=== PATIENT | female | born 1930 | race Asian ===

== ENCOUNTER 2017-04-06 21:29 | Inpatient (IN) | payer MEDICARE, MEDICAID ==
--- NOTE | 2017-04-06 21:49 | ED Physician Chart ---
ED Chief Complaint/HPI - Patient Information Date Seen:: 04/06/17 Time Seen:: 21:49 Chief Complaint:: Anemia Allergies:: Allergies Allergy/AdvReac Type Severity Reaction Status Date / Time No Known Allergies Allergy Verified 04/06/17 21:33 Vitals:: Vital Signs - 8 hr 04/06/17 21:30 Temp 97.5 F HR 64 RR 16 BP 146/66 O2 Sat % 98 ED Past Medical History - Past Medical History Past Medical History: HTN, Asthma/COPD, Dyslipidemia, Other (HYPERTENSION, ASTHMA, HYPERLIPIDEMIA, GAIT ABNORMALITY, HYPOTHYROIDISM) Family Medical History - Family Member Father History Unknown: Yes ED Septic Shock - <6hrs of presentation: Vital Signs: Vital Signs - 8 hr 04/06/17 21:30 Temp 97.5 F HR 64 RR 16 BP 146/66 O2 Sat % 98
[2017-04-06 21:57] LABS: % BASOPHILS 0.9 % (0.0-2.0); % EOSINOPHILS 5.6 % (0.0-5.0); % LYMPHOCYTES 47.7 % (20.0-50.0); % MONOCYTES 9.5 % (2.0-10.0); % NEUTROPHILS 36.3 % (40.0-80.0); EOSINOPHILE ABSOLUTE 0.2 Th/cmm (0.1-0.4); HEMATOCRIT 24.7 % (41.0-60); HEMOGLOBIN 8.3 gm/dL (12-16); LYMPHOCYTE ABSOLUTE 1.8 Th/cmm (1.5-3.0); MEAN CELL VOLUME 96.6 fl (81-100); MEAN CORPUSCULAR HEMOGLOBIN 32.4 pg (27.0-31.0); MEAN CORPUSCULAR HGB CONC 33.6 pg (28.0-36.0); MEAN PLATELET VOLUME 8.8 fl; MONOCYTE ABSOLUTE 0.4 Th/cmm (0.3-1.0); NEUTROPHILE ABSOLUTE 1.4 Th/cmm (1.8-8.0); PLATELET COUNT 235 Th/cmm (150-400); RED BLOOD COUNT 2.56 Mil/cmm (3.80-5.20); RED CELL DISTRIBUTION WIDTH 23.8 % (11.5-20.0)
[2017-04-06 22:02] LABS: WHITE BLOOD COUNT 3.8 Th/cmm (4.8-10.8)
[2017-04-06 22:16] LABS: ALB/GLOB RATIO 1.6 (1.0-1.8); ALBUMIN 4.4 gm/dL (3.7-5.3); ALKALINE PHOSPHATASE 70 U/L (34-104); ANION GAP 9.9 (7.0-16.0); BILIRUBIN,TOTAL 0.9 mg/dL (0.3-1.0); BUN - UREA NITROGEN 36 mg/dL (7-25); CALCIUM SERUM 9.8 mg/dL (8.6-10.3); CARBON DIOXIDE 26.5 mEq/L (21.0-31.0); CHLORIDE 103 mEq/L (98-107); CREATININE - SERUM 1.2 mg/dL (0.6-1.2); GLUCOSE 112 mg/dL (70-105); POTASSIUM SERUM 4.4 mEq/L (3.5-5.1); SGOT 39 U/L (13-39); SGPT/ALT 51 U/L (7-52); SODIUM SERUM 135 mEq/L (136-145); TOTAL PROTEIN,SERUM 7.2 gm/dL (6.0-8.3)
[2017-04-06] MEDS ORDERED: Sodium Chloride 0.9% 1,000 ML IV ONE (22:47)
[2017-04-07] MEDS: Sodium Chloride 0.45% 1,000 ML IV SCH ×3 (00:23→19:30)
[2017-04-07 00:25] VITALS: BP 120/41
[2017-04-07 06:15] LABS: BASOPHILE ABSOLUTE 0.3 Th/cumm (0-0.2); EOSINOPHILE ABSOLUTE 0.2 Th/cmm (0.1-0.4); HEMATOCRIT 23.1 % (41.0-60); LYMPHOCYTE ABSOLUTE 1.9 Th/cmm (1.5-3.0); MEAN CELL VOLUME 97.4 fl (81-100); MEAN CORPUSCULAR HEMOGLOBIN 32.3 pg (27.0-31.0); MEAN CORPUSCULAR HGB CONC 33.1 pg (28.0-36.0); MEAN PLATELET VOLUME 9.4 fl; MONOCYTE ABSOLUTE 0.2 Th/cmm (0.3-1.0); NEUTROPHILE ABSOLUTE 0.5 Th/cmm (1.8-8.0); RED BLOOD COUNT 2.37 Mil/cmm (3.80-5.20); RED CELL DISTRIBUTION WIDTH 23.2 % (11.5-20.0)
[2017-04-07 06:41] LABS: BUN - UREA NITROGEN 28 mg/dL (7-25); CALCIUM SERUM 9.2 mg/dL (8.6-10.3); CARBON DIOXIDE 27.8 mEq/L (21.0-31.0); CHLORIDE 110 mEq/L (98-107); CHOLESTEROL 84 mg/dL (<200); CREATININE - SERUM 1.1 mg/dL (0.6-1.2); GLUCOSE 94 mg/dL (70-105); HDL -HIGH DENSITY LIPOPROTEIN 42 mg/dL (23-92); POTASSIUM SERUM 3.8 mEq/L (3.5-5.1); SODIUM SERUM 138 mEq/L (136-145); TRIGLYCERIDES 61 mg/dL (<150)
[2017-04-07 07:47] LABS: WHITE BLOOD COUNT 3.1 Th/cmm (4.8-10.8)
[2017-04-07 07:48] LABS: PLATELET COUNT 79 Th/cmm (150-400)
[2017-04-07 10:42] LABS: URINE MICROSCOPIC INDICATED? YES; URINE SOURCE RANDOM
[2017-04-07 11:07] LABS: URINE BILIRUBIN NEGATIVE (NEGATIVE); URINE BLOOD NEGATIVE (NEGATIVE); URINE GLUCOSE (UA) NEGATIVE (NEGATIVE); URINE KETONE NEGATIVE (NEGATIVE); URINE LEUKOCYTE ESTERASE NEGATIVE (NEGATIVE); URINE NITRATE NEGATIVE (NEGATIVE); URINE PH 5.5 (4.6 - 8.0); URINE PROTEIN NEGATIVE (NEGATIVE); URINE UROBILINOGEN 0.2 E.U./dL (0.2 - 1.0)
[2017-04-07 11:54] LABS: URINE CLARITY HAZY (CLEAR); URINE COLOR YELLOW
[2017-04-07 12:37] LABS: URINE BACTERIA OCCASIONAL /hpf (NONE SEEN); URINE EPITHELIAL CELLS F /lpf (FEW); URINE RBC 0-2 /hpf (0-5); URINE WBC 0-2 /hpf (0-5)
[2017-04-07] MEDS ORDERED: Acetaminophen 500 MG TAB PO PRN (13:32)
[2017-04-07] MEDS ORDERED: Magnesium Hydroxide (MOM) 30 mL UDC PO PRN (13:32)
[2017-04-07] MEDS ORDERED: Fleet Enema 135 mL RC PRN (13:32)
--- NOTE | 2017-04-07 16:09 | Consultation ---
DATE OF CONSULTATION: 04/07/2017 REFERRING PHYSICIAN: Dr. López. REASON FOR CONSULTATION: Pancytopenia. HISTORY OF PRESENT ILLNESS: The patient is an 87-year-old female who is a resident of the nursing facility. She had blood count on 04/06/2017, showing white count 3.3, hemoglobin 6.7 and platelets 185, MCV 97.6. She was transferred for further evaluation. Then absolute neutrophil count is 1100. Repeat blood testing on admission showed a white count 3.8, hemoglobin 8.3 and then the hemoglobin dropped to 7.7 and platelets dropped to 79 from today, therefore, I was asked to evaluate. PAST MEDICAL HISTORY: History is gathered from the records as the patient is not a good historian. She had a history of hypertension, asthma, dyslipidemia, and hypothyroidism. MEDICATIONS: Prior to admission were viewed including Lipitor, metoprolol, milk of magnesia, multivitamin, Pepcid, Singulair, Synthroid, Tylenol, vitamin B6. PHYSICAL EXAMINATION: GENERAL: She is awake, not in distress. VITAL SIGNS: Temp 97.1, blood pressure 146/51. HEENT: Atraumatic. NECK: No lymphadenopathy. CHEST: Sternotomy scar. LUNGS: Clear. ABDOMEN: Soft. No organomegaly. EXTREMITIES: No edema. NERVOUS SYSTEM: No focal deficits, moves four extremities. LABORATORY DATA: White count 3.1, hemoglobin 7.7, MCV 97.4, platelets 79. Chemistry unremarkable with normal liver functions. No imaging study is available. ASSESSMENT: Pancytopenia with elevated MCV. Differential diagnosis include myelodysplastic syndrome, B12 or folate deficiency or other etiologies. I will obtain B12 and folate level, abdominal ultrasound, stool occult blood and if all the workup is negative, then bone marrow biopsy will be considered for a myelodysplastic syndrome. Thank you Dr. López for the opportunity to participate in the care of this interesting case. [facility]# [id number]
--- NOTE | 2017-04-08 00:08 | History & Physical ---
ADMIT DATE: 04/07/2017 HISTORY OF PRESENT ILLNESS: The patient is known to have history of hypertension, history of asthma, history of hyperlipidemia, and history of gait disorder and the patient was seen because of the severe anemia and thrombocytopenia and the patient was seen in the ER ____. PHYSICAL EXAMINATION: VITAL SIGNS: Stable. Temperature 97.5, heart rate 64, blood pressure ____. HEAD: Normal. ENT: Normal. NECK: Supple, nontender. LUNGS: Clear. CARDIOVASCULAR SYSTEM: S1 and S2 heard. ABDOMEN: Soft. Bowel sounds are heard. CENTRAL NERVOUS SYSTEM: Grossly normal. LABORATORY DATA: The patient is an 87-year-old female patient. Her platelets were 185, MCV was 97.6, her white count was 3.6, and hemoglobin 8.3. DIAGNOSIS: The patient does have pancytopenia with elevated mean red blood cell volume. PLAN: The patient is going to be worked up for myelodysplastic syndrome and I will have Dr. Harris see the patient. I will follow the patient. JOB# [id number]
[2017-04-08] MEDS: Sodium Chloride 0.45% 1,000 ML IV SCH ×2 (03:20→12:56)
--- NOTE | 2017-04-08 04:00 | Consultation ---
DATE OF CONSULTATION: 04/07/2017 INFECTIOUS DISEASE CONSULTATION REFERRING PHYSICIAN: Adriana López M.D. REASON FOR CONSULTATION: Thrombocytopenia. HISTORY OF PRESENT ILLNESS: The patient is an 87-year-old female with a past medical history of hypertension, asthma, dyslipidemia, hypothyroidism, dementia, brought in from nursing facility for low hemoglobin. Her hemoglobin was 6.7. On initial evaluation, the patient was afebrile and repeat blood work showed acute hemoglobin of 8.3. Her platelets was also on the low side. Initial blood work showed normal platelets of 235,000. Repeat blood work showed platelets of 79,000. Infectious Disease consultation was called for further evaluation. The patient unable to give any history. PAST MEDICAL HISTORY: Includes hypertension, asthma, COPD, diabetes mellitus type 2. SOCIAL HISTORY: The patient denies alcohol, tobacco or drug use. FAMILY HISTORY: Noncontributory. ALLERGIES: NKDA. MEDICATIONS: As per medication reconciliation sheet. No antibiotic at this time. REVIEW OF SYSTEMS: The patient is a poor historian, unable to give an appropriate history. The patient has no fever, no cough, no shortness of breath. PHYSICAL EXAMINATION: VITAL SIGNS: Current vital signs shows temperature is 98.7, pulse 66, respirations 20, blood pressure 114/51. GENERAL: The patient is comfortable lying in the bed, not in acute distress. HEENT: Head is normocephalic, atraumatic. Oral cavity moist, pink tongue. Eyes: No pallor, no icterus. Pupils PERRLA, EOMI. NECK: Supple, no JVD, no carotid bruit. Trachea in midline. CHEST: Bilateral breath sounds. No crackles or wheezing. HEART: S1, S2 within normal limit. Regular rhythm. No murmur, no gallop. ABDOMEN: Soft, nontender, nondistended. Bowel sounds present. EXTREMITIES: No cyanosis, no clubbing, no edema. NEUROLOGIC: Alert, awake, oriented x 3. No focal deficits. LABORATORY DATA: Current lab shows WBC count is 3100, hemoglobin 7.7, hematocrit 23, platelets are 79,000. Sodium is 138, potassium 3.8, chloride 110, bicarbonate is 27.8, BUN is 28, creatinine 1.1, glucose is 94. Urinalysis shows negative nitrite, negative leukoesterase. Wbc's 0-2 and bacteria occasional. Stool for occult blood is negative. IMPRESSION: 1. Pancytopenia. 2. History of hypertension. 3. Dementia. RECOMMENDATIONS: We will continue same treatment. Meanwhile we will order hepatitis panel, HIV serology and ultrasound of the abdomen. Thank you, Dr. López, for involving me in taking care of this patient. [facility]# [id number]
[2017-04-08 05:14] LABS: HEMATOCRIT 21.9 % (41.0-60); MEAN CELL VOLUME 96.4 fl (81-100); MEAN CORPUSCULAR HEMOGLOBIN 32.8 pg (27.0-31.0); MEAN PLATELET VOLUME 8.7 fl; RED BLOOD COUNT 2.27 Mil/cmm (3.80-5.20)
[2017-04-08 05:19] LABS: WHITE BLOOD COUNT 3.9 Th/cmm (4.8-10.8)
[2017-04-08 05:20] LABS: HEMOGLOBIN 7.5 gm/dL (12-16); MANUAL DIFF REQUIRED? YES; PLATELET COUNT 233 Th/cmm (150-400)
[2017-04-08 05:50] LABS: BAND NEUTROPHILE 4 % (0-10); LYMPHOCYTE 34 % (20-50); MONOCYTE 4 % (2-10); NEUTROPHILS 58 % (40-80); PLATELET ESTIMATE ADEQUATE (NORMAL); TOTAL CELLS COUNTED 100
[2017-04-08 05:51] LABS: HYPOCHROMIA 1+; POLYCHROMASIA 1+; SCHISTOCYTES 1+
[2017-04-08] MEDS: Levothyroxine 0.112 Mg Tab PO SCH (06:35)
[2017-04-08 08:10] LABS: HEP A AB IGM Negative (Negative); HEP B CORE IGM Negative (Negative); HEP B SURFACE AG QL Negative (Negative); HEP C ANTIBODY <0.1 s/co ratio (0.0-0.9)
[2017-04-08] MEDS: Multivitamin w/ Minerals Tab PO SCH (09:04)
--- NOTE | 2017-04-08 10:01 | General Progress Note ---
Subjective - Review of Systems Events since last encounter: patient in no acute distress Objective - Results Result Diagrams: 04/08/17 04:46 04/07/17 06:01 Recent Labs: Laboratory Last Values WBC 3.9 Th/cmm (4.8-10.8) L D 04/08/17 04:46 RBC 2.27 Mil/cmm (3.80-5.20) L 04/08/17 04:46 Hgb 7.5 gm/dL (12-16) L* 04/08/17 04:46 Hct 21.9 % (41.0-60) L 04/08/17 04:46 MCV 96.4 fl (81-100) 04/08/17 04:46 MCH 32.8 pg (27.0-31.0) H 04/08/17 04:46 MCHC Differential 34.0 pg (28.0-36.0) 04/08/17 04:46 RDW 24.0 % (11.5-20.0) H 04/08/17 04:46 Plt Count 233 Th/cmm (150-400) D 04/08/17 04:46 MPV 8.7 fl 04/08/17 04:46 Neutrophils % 36.3 % (40.0-80.0) L 04/06/17 21:50 Band Neutrophils % 4 % (0-10) 04/08/17 04:46 Lymphocytes % 47.7 % (20.0-50.0) 04/06/17 21:50 Monocytes % 9.5 % (2.0-10.0) 04/06/17 21:50 Eosinophils % 5.6 % (0.0-5.0) H 04/06/17 21:50 Basophils % 0.9 % (0.0-2.0) 04/06/17 21:50 Neutrophils (Manual) 58 % (40-80) 04/08/17 04:46 Lymphocytes 34 % (20-50) 04/08/17 04:46 Monocytes 4 % (2-10) 04/08/17 04:46 Hypochromia 1+ 04/08/17 04:46 Platelet Estimate ADEQUATE (NORMAL) 04/08/17 04:46 Polychromasia 1+ 04/08/17 04:46 Schistocytes 1+ 04/08/17 04:46 Sodium 138 mEq/L (136-145) 04/07/17 06:01 Potassium 3.8 mEq/L (3.5-5.1) 04/07/17 06:01 Chloride 110 mEq/L (98-107) H 04/07/17 06:01 Carbon Dioxide 27.8 mEq/L (21.0-31.0) 04/07/17 06:01 Anion Gap 4.0 (7.0-16.0) L 04/07/17 06:01 BUN 28 mg/dL (7-25) H 04/07/17 06:01 Creatinine 1.1 mg/dL (0.6-1.2) 04/07/17 06:01 Est GFR ( Amer) TNP 04/07/17 06:01 Est GFR (Non-Af Amer) TNP 04/07/17 06:01 BUN/Creatinine Ratio 25.5 04/07/17 06:01 Glucose 94 mg/dL (70-105) 04/07/17 06:01 Whole Bld Lactic Acid 0.63 mmol/L (0.60-1.99) 04/06/17 21:50 Calcium 9.2 mg/dL (8.6-10.3) 04/07/17 06:01 Total Bilirubin 0.9 mg/dL (0.3-1.0) 04/06/17 21:50 AST 39 U/L (13-39) 04/06/17 21:50 ALT 51 U/L (7-52) 04/06/17 21:50 Alkaline Phosphatase 70 U/L (34-104) 04/06/17 21:50 Total Protein 7.2 gm/dL (6.0-8.3) 04/06/17 21:50 Albumin 4.4 gm/dL (3.7-5.3) 04/06/17 21:50 Globulin 2.8 gm/dL 04/06/17 21:50 Albumin/Globulin Ratio 1.6 (1.0-1.8) 04/06/17 21:50 Triglycerides 61 mg/dL (<150) 04/07/17 06:01 Cholesterol 84 mg/dL (<200) 04/07/17 06:01 LDL Cholesterol Direct 32 mg/dL (75-193) L 04/07/17 06:01 HDL Cholesterol 42 mg/dL (23-92) 04/07/17 06:01 TSH 0.01 uIU/ml (0.34-5.60) L 04/06/17 21:50 Urine Source RANDOM 04/07/17 10:20 Urine Color YELLOW 04/07/17 10:20 Urine Clarity HAZY (CLEAR) 04/07/17 10:20 Urine pH 5.5 (4.6 - 8.0) 04/07/17 10:20 Ur Specific [place] 1.010 (1.005-1.030) 04/07/17 10:20 Urine Protein NEGATIVE mg/dL (NEGATIVE) 04/07/17 10:20 Urine Glucose (UA) NEGATIVE mg/dL (NEGATIVE) 04/07/17 10:20 Urine Ketones NEGATIVE mg/dL (NEGATIVE) 04/07/17 10:20 Urine Blood NEGATIVE (NEGATIVE) 04/07/17 10:20 Urine Nitrate NEGATIVE (NEGATIVE) 04/07/17 10:20 Urine Bilirubin NEGATIVE (NEGATIVE) 04/07/17 10:20 Urine Urobilinogen 0.2 E.U./dL (0.2 - 1.0) 04/07/17 10:20 Ur Leukocyte Esterase NEGATIVE (NEGATIVE) 04/07/17 10:20 Urine RBC 0-2 /hpf (0-5) 04/07/17 10:20 Urine WBC 0-2 /hpf (0-5) 04/07/17 10:20 Ur Epithelial Cells F /lpf (FEW) 04/07/17 10:20 Urine Bacteria OCCASIONAL /hpf (NONE SEEN) 04/07/17 10:20 Stool Occult Blood NEGATIVE (NEGATIVE) 04/07/17 22:58 Hepatitis A IgM Ab Negative (Negative) 04/07/17 06:01 Hep Bs Antigen Negative (Negative) 04/07/17 06:01 Hep B Core IgM Ab Negative (Negative) 04/07/17 06:01 Hepatitis C Antibody <0.1 s/co ratio (0.0-0.9) 04/07/17 06:01 - Physical Exam Vitals and I&O: Vital Signs Temp 97.7 F 04/08/17 07:46 Pulse 65 04/08/17 09:04 Resp 17 04/08/17 08:00 BP 120/46 04/08/17 09:04 Pulse Ox 100 04/08/17 07:46 Intake & Output 04/07/17 04/08/17 04/08/17 18:59 06:59 18:59 Intake Total 1999 1329.167 Balance 1999 1329.167 Weight (lbs) 43.454 kg Intake: Intake, IV Amount 1999 979.167 Sodium Chloride 0.45% 1, 1999 979.167 000 ml @ 125 mls/hr IV . Q8H [facility] Rx#:[id number] Oral 350 Other: # Voids 2 # Bowel Movements 1 Stool Characteristics Soft Formed Active Medications: Current Medications Acetaminophen (Tylenol) 650 mg PO Q4HR PRN PRN Reason: Mild Pain or Fever >101 Stop: 06/06/17 13:31 Acetaminophen (Tylenol Extra Strength) 1,000 mg PO Q4HR PRN PRN Reason: Pain (Moderate) Stop: 06/06/17 13:31 Atorvastatin Calcium (Lipitor) 40 mg PO HS [facility] Stop: 06/06/17 20:59 Last Admin: 04/07/17 20:20 Dose: 40 mg Bisacodyl (Dulcolax 10 Mg Supp) 10 mg RC DAILY PRN PRN Reason: Constipation Stop: 06/06/17 13:31 Docusate Sodium (Colace) 100 mg PO DAILY [facility] Stop: 06/07/17 08:59 Last Admin: 04/08/17 08:59 Dose: 100 mg Famotidine (Pepcid) 20 mg PO DAILY [facility] Stop: 06/07/17 08:59 Last Admin: 04/08/17 09:02 Dose: 20 mg Folic Acid (Folate) 1 mg PO DAILY [facility] Stop: 06/07/17 08:59 Last Admin: 04/08/17 09:02 Dose: 1 mg Sodium Chloride (Nacl 0.45%) 1,000 mls @ 125 mls/hr IV .Q8H [facility] Stop: 06/05/17 23:14 Last Admin: 04/08/17 03:20 Dose: 125 mls/hr Isosorbide Dinitrate (Isordil) 5 mg PO TID [facility] Stop: 06/06/17 13:59 Last Admin: 04/08/17 09:03 Dose: 5 mg Levothyroxine Sodium (Synthroid) 0.112 mg PO QDAC [facility] Stop: 06/07/17 07:29 Last Admin: 04/08/17 06:35 Dose: Not Given Magnesium Hydroxide (Milk Of Magnesia) 30 ml PO HS PRN PRN Reason: Constipation Stop: 06/06/17 13:31 Last Admin: 04/07/17 21:13 Dose: 30 ml Metoprolol Succinate (Toprol Xl) 50 mg PO DAILY [facility] Stop: 06/07/17 08:59 Last Admin: 04/08/17 09:04 Dose: 50 mg Montelukast Sodium (Singulair) 10 mg PO HS [facility] Stop: 06/06/17 20:59 Last Admin: 04/07/17 20:20 Dose: 10 mg Pyridoxine HCl (Vitamin B6) 50 mg PO DAILY [facility] Stop: 06/07/17 08:59 Last Admin: 04/08/17 09:04 Dose: 50 mg Sodium Phosphate (Fleet Enema) 135 ml RC Q48H PRN PRN Reason: Constipation Stop: 06/06/17 13:31
[2017-04-08 10:19] LABS: FOLIC ACID >20.0 ng/mL (>3.0)
--- NOTE | 2017-04-08 10:38 | Diagnostic Imaging Report ---
Abdominal ultrasound HISTORY: Splenomegaly The liver is normal in size with a homogeneous parenchyma. No focal lesions. There is a small amount of low-level intraluminal echoes seen within the dependent region of the gallbladder that may be associated with "sludge". No discrete foci or evidence of cholelithiasis identified. No biliary dilatation (common bile duct is 5 mm). No abnormality seen in the region of the pancreas. The kidneys appear normal bilaterally. The spleen is normal in size (8.7 cm length). No other retroperitoneal or intra-abdominal abnormalities. IMPRESSION: 1. Mild amount of low-level intraluminal echoes within the dependent region of the gallbladder suggesting "sludge". No discrete calculi are identified. 2. Normal splenic size (8.7 cm length).
--- NOTE | 2017-04-08 11:59 | General Progress Note ---
Subjective - Review of Systems Service Date: 04/08/17 Objective - Results Result Diagrams: 04/08/17 04:46 04/07/17 06:01 Recent Labs: Laboratory Last Values WBC 3.9 Th/cmm (4.8-10.8) L D 04/08/17 04:46 RBC 2.27 Mil/cmm (3.80-5.20) L 04/08/17 04:46 Hgb 7.5 gm/dL (12-16) L* 04/08/17 04:46 Hct 21.9 % (41.0-60) L 04/08/17 04:46 MCV 96.4 fl (81-100) 04/08/17 04:46 MCH 32.8 pg (27.0-31.0) H 04/08/17 04:46 MCHC Differential 34.0 pg (28.0-36.0) 04/08/17 04:46 RDW 24.0 % (11.5-20.0) H 04/08/17 04:46 Plt Count 233 Th/cmm (150-400) D 04/08/17 04:46 MPV 8.7 fl 04/08/17 04:46 Neutrophils % 36.3 % (40.0-80.0) L 04/06/17 21:50 Band Neutrophils % 4 % (0-10) 04/08/17 04:46 Lymphocytes % 47.7 % (20.0-50.0) 04/06/17 21:50 Monocytes % 9.5 % (2.0-10.0) 04/06/17 21:50 Eosinophils % 5.6 % (0.0-5.0) H 04/06/17 21:50 Basophils % 0.9 % (0.0-2.0) 04/06/17 21:50 Neutrophils (Manual) 58 % (40-80) 04/08/17 04:46 Lymphocytes 34 % (20-50) 04/08/17 04:46 Monocytes 4 % (2-10) 04/08/17 04:46 Hypochromia 1+ 04/08/17 04:46 Platelet Estimate ADEQUATE (NORMAL) 04/08/17 04:46 Polychromasia 1+ 04/08/17 04:46 Schistocytes 1+ 04/08/17 04:46 Sodium 138 mEq/L (136-145) 04/07/17 06:01 Potassium 3.8 mEq/L (3.5-5.1) 04/07/17 06:01 Chloride 110 mEq/L (98-107) H 04/07/17 06:01 Carbon Dioxide 27.8 mEq/L (21.0-31.0) 04/07/17 06:01 Anion Gap 4.0 (7.0-16.0) L 04/07/17 06:01 BUN 28 mg/dL (7-25) H 04/07/17 06:01 Creatinine 1.1 mg/dL (0.6-1.2) 04/07/17 06:01 Est GFR ( Amer) TNP 04/07/17 06:01 Est GFR (Non-Af Amer) TNP 04/07/17 06:01 BUN/Creatinine Ratio 25.5 04/07/17 06:01 Glucose 94 mg/dL (70-105) 04/07/17 06:01 Whole Bld Lactic Acid 0.63 mmol/L (0.60-1.99) 04/06/17 21:50 Calcium 9.2 mg/dL (8.6-10.3) 04/07/17 06:01 Total Bilirubin 0.9 mg/dL (0.3-1.0) 04/06/17 21:50 AST 39 U/L (13-39) 04/06/17 21:50 ALT 51 U/L (7-52) 04/06/17 21:50 Alkaline Phosphatase 70 U/L (34-104) 04/06/17 21:50 Total Protein 7.2 gm/dL (6.0-8.3) 04/06/17 21:50 Albumin 4.4 gm/dL (3.7-5.3) 04/06/17 21:50 Globulin 2.8 gm/dL 04/06/17 21:50 Albumin/Globulin Ratio 1.6 (1.0-1.8) 04/06/17 21:50 Triglycerides 61 mg/dL (<150) 04/07/17 06:01 Cholesterol 84 mg/dL (<200) 04/07/17 06:01 LDL Cholesterol Direct 32 mg/dL (75-193) L 04/07/17 06:01 HDL Cholesterol 42 mg/dL (23-92) 04/07/17 06:01 Vitamin B12 1039 pg/mL (232-1245) 04/07/17 06:01 Folic Acid >20.0 ng/mL (>3.0) 04/07/17 06:01 TSH 0.01 uIU/ml (0.34-5.60) L 04/06/17 21:50 Urine Source RANDOM 04/07/17 10:20 Urine Color YELLOW 04/07/17 10:20 Urine Clarity HAZY (CLEAR) 04/07/17 10:20 Urine pH 5.5 (4.6 - 8.0) 04/07/17 10:20 Ur Specific [place] 1.010 (1.005-1.030) 04/07/17 10:20 Urine Protein NEGATIVE mg/dL (NEGATIVE) 04/07/17 10:20 Urine Glucose (UA) NEGATIVE mg/dL (NEGATIVE) 04/07/17 10:20 Urine Ketones NEGATIVE mg/dL (NEGATIVE) 04/07/17 10:20 Urine Blood NEGATIVE (NEGATIVE) 04/07/17 10:20 Urine Nitrate NEGATIVE (NEGATIVE) 04/07/17 10:20 Urine Bilirubin NEGATIVE (NEGATIVE) 04/07/17 10:20 Urine Urobilinogen 0.2 E.U./dL (0.2 - 1.0) 04/07/17 10:20 Ur Leukocyte Esterase NEGATIVE (NEGATIVE) 04/07/17 10:20 Urine RBC 0-2 /hpf (0-5) 04/07/17 10:20 Urine WBC 0-2 /hpf (0-5) 04/07/17 10:20 Ur Epithelial Cells F /lpf (FEW) 04/07/17 10:20 Urine Bacteria OCCASIONAL /hpf (NONE SEEN) 04/07/17 10:20 Stool Occult Blood NEGATIVE (NEGATIVE) 04/07/17 22:58 Hepatitis A IgM Ab Negative (Negative) 04/07/17 06:01 Hep Bs Antigen Negative (Negative) 04/07/17 06:01 Hep B Core IgM Ab Negative (Negative) 04/07/17 06:01 Hepatitis C Antibody <0.1 s/co ratio (0.0-0.9) 04/07/17 06:01 HIV 1&2 Antibody Screen Non Reactive (Non Reactive) 04/07/17 06:01 - Physical Exam Vitals and I&O: Vital Signs Temp 97.7 F 04/08/17 07:46 Pulse 65 04/08/17 09:04 Resp 17 04/08/17 08:00 BP 120/46 04/08/17 09:04 Pulse Ox 100 04/08/17 07:46 Intake & Output 04/07/17 04/08/17 04/08/17 18:59 06:59 18:59 Intake Total 1999 1329.167 Balance 1999 1329.167 Weight (lbs) 43.454 kg Intake: Intake, IV Amount 1999 979.167 Sodium Chloride 0.45% 1999 979.167 000 ml @ 125 mls/hr IV . Q8H [facility] Rx#:[id number] Oral 350 Other: # Voids 2 # Bowel Movements 1 Stool Characteristics Soft Formed Active Medications: Current Medications Acetaminophen (Tylenol) 650 mg PO Q4HR PRN PRN Reason: Mild Pain or Fever >101 Stop: 06/06/17 13:31 Acetaminophen (Tylenol Extra Strength) 1,000 mg PO Q4HR PRN PRN Reason: Pain (Moderate) Stop: 06/06/17 13:31 Atorvastatin Calcium (Lipitor) 40 mg PO HS [facility] Stop: 06/06/17 20:59 Last Admin: 04/07/17 20:20 Dose: 40 mg Bisacodyl (Dulcolax 10 Mg Supp) 10 mg RC DAILY PRN PRN Reason: Constipation Stop: 06/06/17 13:31 Docusate Sodium (Colace) 100 mg PO DAILY [facility] Stop: 06/07/17 08:59 Last Admin: 04/08/17 08:59 Dose: 100 mg Famotidine (Pepcid) 20 mg PO DAILY [facility] Stop: 06/07/17 08:59 Last Admin: 04/08/17 09:02 Dose: 20 mg Folic Acid (Folate) 1 mg PO DAILY [facility] Stop: 06/07/17 08:59 Last Admin: 04/08/17 09:02 Dose: 1 mg Sodium Chloride (Nacl 0.45%) 1,000 mls @ 125 mls/hr IV .Q8H [facility] Stop: 06/05/17 23:14 Last Admin: 04/08/17 03:20 Dose: 125 mls/hr Isosorbide Dinitrate (Isordil) 5 mg PO TID [facility] Stop: 06/06/17 13:59 Last Admin: 04/08/17 09:03 Dose: 5 mg Levothyroxine Sodium (Synthroid) 0.112 mg PO QDAC [facility] Stop: 06/07/17 07:29 Last Admin: 04/08/17 06:35 Dose: Not Given Magnesium Hydroxide (Milk Of Magnesia) 30 ml PO HS PRN PRN Reason: Constipation Stop: 06/06/17 13:31 Last Admin: 04/07/17 21:13 Dose: 30 ml Metoprolol Succinate (Toprol Xl) 50 mg PO DAILY [facility] Stop: 06/07/17 08:59 Last Admin: 04/08/17 09:04 Dose: 50 mg Montelukast Sodium (Singulair) 10 mg PO HS [facility] Stop: 06/06/17 20:59 Last Admin: 04/07/17 20:20 Dose: 10 mg Pyridoxine HCl (Vitamin B6) 50 mg PO DAILY [facility] Stop: 06/07/17 08:59 Last Admin: 04/08/17 09:04 Dose: 50 mg Sodium Phosphate (Fleet Enema) 135 ml RC Q48H PRN PRN Reason: Constipation Stop: 06/06/17 13:31 Assessment/Plan - Assessment Assessment: * Pancytopenia US normal spleen size, normal b12, folic acid hgb is falling; follow stool occult blood. tx PRBCs
[2017-04-08 12:50] LABS: % BASOPHILS 0.4 % (0.0-2.0); % EOSINOPHILS 4.8 % (0.0-5.0); % MONOCYTES 7.4 % (2.0-10.0); % NEUTROPHILS 46.4 % (40.0-80.0); EOSINOPHILE ABSOLUTE 0.2 Th/cmm (0.1-0.4); HEMATOCRIT 21.9 % (41.0-60); LYMPHOCYTE ABSOLUTE 1.4 Th/cmm (1.5-3.0); MEAN CELL VOLUME 96.8 fl (81-100); MEAN CORPUSCULAR HEMOGLOBIN 32.6 pg (27.0-31.0); MEAN CORPUSCULAR HGB CONC 33.7 pg (28.0-36.0); MEAN PLATELET VOLUME 8.2 fl; MONOCYTE ABSOLUTE 0.3 Th/cmm (0.3-1.0); NEUTROPHILE ABSOLUTE 1.6 Th/cmm (1.8-8.0); PLATELET COUNT 235 Th/cmm (150-400); RED BLOOD COUNT 2.27 Mil/cmm (3.80-5.20); RED CELL DISTRIBUTION WIDTH 23.7 % (11.5-20.0)
[2017-04-08 13:07] LABS: HEMOGLOBIN 7.4 gm/dL (12-16); WHITE BLOOD COUNT 3.5 Th/cmm (4.8-10.8)
--- NOTE | 2017-04-08 23:59 | Infectious Disease Prog Note ---
Infectious Disease Subjective - Review of Systems Service Date: 04/08/17 Subjective: no fever. Infectious Disease Objective - Results Result Diagrams: 04/08/17 12:01 04/07/17 06:01 Recent Labs: Laboratory Last Values WBC 3.5 Th/cmm (4.8-10.8) L 04/08/17 12:01 RBC 2.27 Mil/cmm (3.80-5.20) L 04/08/17 12:01 Hgb 7.4 gm/dL (12-16) L* 04/08/17 12:01 Hct 21.9 % (41.0-60) L 04/08/17 12:01 MCV 96.8 fl (81-100) 04/08/17 12:01 MCH 32.6 pg (27.0-31.0) H 04/08/17 12:01 MCHC Differential 33.7 pg (28.0-36.0) 04/08/17 12:01 RDW 23.7 % (11.5-20.0) H 04/08/17 12:01 Plt Count 235 Th/cmm (150-400) 04/08/17 12:01 MPV 8.2 fl 04/08/17 12:01 Neutrophils % 46.4 % (40.0-80.0) 04/08/17 12:01 Band Neutrophils % 4 % (0-10) 04/08/17 04:46 Lymphocytes % 41.0 % (20.0-50.0) 04/08/17 12:01 Monocytes % 7.4 % (2.0-10.0) 04/08/17 12:01 Eosinophils % 4.8 % (0.0-5.0) 04/08/17 12:01 Basophils % 0.4 % (0.0-2.0) 04/08/17 12:01 Neutrophils (Manual) 58 % (40-80) 04/08/17 04:46 Lymphocytes 34 % (20-50) 04/08/17 04:46 Monocytes 4 % (2-10) 04/08/17 04:46 Hypochromia 1+ 04/08/17 04:46 Platelet Estimate ADEQUATE (NORMAL) 04/08/17 04:46 Polychromasia 1+ 04/08/17 04:46 Schistocytes 1+ 04/08/17 04:46 Sodium 138 mEq/L (136-145) 04/07/17 06:01 Potassium 3.8 mEq/L (3.5-5.1) 04/07/17 06:01 Chloride 110 mEq/L (98-107) H 04/07/17 06:01 Carbon Dioxide 27.8 mEq/L (21.0-31.0) 04/07/17 06:01 Anion Gap 4.0 (7.0-16.0) L 04/07/17 06:01 BUN 28 mg/dL (7-25) H 04/07/17 06:01 Creatinine 1.1 mg/dL (0.6-1.2) 04/07/17 06:01 Est GFR ( Amer) TNP 04/07/17 06:01 Est GFR (Non-Af Amer) TNP 04/07/17 06:01 BUN/Creatinine Ratio 25.5 04/07/17 06:01 Glucose 94 mg/dL (70-105) 04/07/17 06:01 Whole Bld Lactic Acid 0.63 mmol/L (0.60-1.99) 04/06/17 21:50 Calcium 9.2 mg/dL (8.6-10.3) 04/07/17 06:01 Total Bilirubin 0.9 mg/dL (0.3-1.0) 04/06/17 21:50 AST 39 U/L (13-39) 04/06/17 21:50 ALT 51 U/L (7-52) 04/06/17 21:50 Alkaline Phosphatase 70 U/L (34-104) 04/06/17 21:50 Total Protein 7.2 gm/dL (6.0-8.3) 04/06/17 21:50 Albumin 4.4 gm/dL (3.7-5.3) 04/06/17 21:50 Globulin 2.8 gm/dL 04/06/17 21:50 Albumin/Globulin Ratio 1.6 (1.0-1.8) 04/06/17 21:50 Triglycerides 61 mg/dL (<150) 04/07/17 06:01 Cholesterol 84 mg/dL (<200) 04/07/17 06:01 LDL Cholesterol Direct 32 mg/dL (75-193) L 04/07/17 06:01 HDL Cholesterol 42 mg/dL (23-92) 04/07/17 06:01 Vitamin B12 1039 pg/mL (232-1245) 04/07/17 06:01 Folic Acid >20.0 ng/mL (>3.0) 04/07/17 06:01 TSH 0.01 uIU/ml (0.34-5.60) L 04/06/17 21:50 Urine Source RANDOM 04/07/17 10:20 Urine Color YELLOW 04/07/17 10:20 Urine Clarity HAZY (CLEAR) 04/07/17 10:20 Urine pH 5.5 (4.6 - 8.0) 04/07/17 10:20 Ur Specific [place] 1.010 (1.005-1.030) 04/07/17 10:20 Urine Protein NEGATIVE mg/dL (NEGATIVE) 04/07/17 10:20 Urine Glucose (UA) NEGATIVE mg/dL (NEGATIVE) 04/07/17 10:20 Urine Ketones NEGATIVE mg/dL (NEGATIVE) 04/07/17 10:20 Urine Blood NEGATIVE (NEGATIVE) 04/07/17 10:20 Urine Nitrate NEGATIVE (NEGATIVE) 04/07/17 10:20 Urine Bilirubin NEGATIVE (NEGATIVE) 04/07/17 10:20 Urine Urobilinogen 0.2 E.U./dL (0.2 - 1.0) 04/07/17 10:20 Ur Leukocyte Esterase NEGATIVE (NEGATIVE) 04/07/17 10:20 Urine RBC 0-2 /hpf (0-5) 04/07/17 10:20 Urine WBC 0-2 /hpf (0-5) 04/07/17 10:20 Ur Epithelial Cells F /lpf (FEW) 04/07/17 10:20 Urine Bacteria OCCASIONAL /hpf (NONE SEEN) 04/07/17 10:20 Stool Occult Blood NEGATIVE (NEGATIVE) 04/08/17 21:30 Hepatitis A IgM Ab Negative (Negative) 04/07/17 06:01 Hep Bs Antigen Negative (Negative) 04/07/17 06:01 Hep B Core IgM Ab Negative (Negative) 04/07/17 06:01 Hepatitis C Antibody <0.1 s/co ratio (0.0-0.9) 04/07/17 06:01 HIV 1&2 Antibody Screen Non Reactive (Non Reactive) 04/07/17 06:01 Blood Type O POSITIVE 04/08/17 12:40 Antibody Screen NEGATIVE 04/08/17 12:40 Crossmatch See Detail 04/08/17 12:40 - Physical Exam Vitals and I&O: Vital Signs Temp 98.7 F 04/08/17 20:00 Pulse 69 04/08/17 22:18 Resp 18 04/08/17 20:00 BP 135/62 04/08/17 22:18 Pulse Ox 69 04/08/17 20:00 Intake & Output 04/08/17 04/08/17 04/09/17 06:59 18:59 06:59 Intake Total 3939.688 7631 Balance 6967.879 2629 Weight (lbs) 43.454 kg Intake: Intake, IV Amount 055.208 4838 Sodium Chloride 0.45% 1, 243.566 8546 000 ml @ 125 mls/hr IV . Q8H [facility] Rx#:[id number] Oral 350 Other: # Voids 2 # Bowel Movements 1 Stool Characteristics Soft Formed Active Medications: Current Medications Acetaminophen (Tylenol) 650 mg PO Q4HR PRN PRN Reason: Mild Pain or Fever >101 Stop: 06/06/17 13:31 Acetaminophen (Tylenol Extra Strength) 1,000 mg PO Q4HR PRN PRN Reason: Pain (Moderate) Stop: 06/06/17 13:31 Atorvastatin Calcium (Lipitor) 40 mg PO HS [facility] Stop: 06/06/17 20:59 Last Admin: 04/08/17 22:19 Dose: 40 mg Bisacodyl (Dulcolax 10 Mg Supp) 10 mg RC DAILY PRN PRN Reason: Constipation Stop: 06/06/17 13:31 Docusate Sodium (Colace) 100 mg PO DAILY [facility] Stop: 06/07/17 08:59 Last Admin: 04/08/17 08:59 Dose: 100 mg Famotidine (Pepcid) 20 mg PO DAILY [facility] Stop: 06/07/17 08:59 Last Admin: 04/08/17 09:02 Dose: 20 mg Folic Acid (Folate) 1 mg PO DAILY [facility] Stop: 06/07/17 08:59 Last Admin: 04/08/17 09:02 Dose: 1 mg Sodium Chloride (Nacl 0.45%) 1,000 mls @ 125 mls/hr IV .Q8H [facility] Stop: 06/05/17 23:14 Last Admin: 04/08/17 12:56 Dose: 125 mls/hr Isosorbide Dinitrate (Isordil) 5 mg PO TID [facility] Stop: 06/06/17 13:59 Last Admin: 04/08/17 22:18 Dose: 5 mg Levothyroxine Sodium (Synthroid) 0.112 mg PO QDAC [facility] Stop: 06/07/17 07:29 Last Admin: 04/08/17 06:35 Dose: Not Given Magnesium Hydroxide (Milk Of Magnesia) 30 ml PO HS PRN PRN Reason: Constipation Stop: 06/06/17 13:31 Last Admin: 04/07/17 21:13 Dose: 30 ml Metoprolol Succinate (Toprol Xl) 50 mg PO DAILY [facility] Stop: 06/07/17 08:59 Last Admin: 04/08/17 09:04 Dose: 50 mg Montelukast Sodium (Singulair) 10 mg PO HS [facility] Stop: 06/06/17 20:59 Last Admin: 04/08/17 22:20 Dose: 10 mg Pyridoxine HCl (Vitamin B6) 50 mg PO DAILY [facility] Stop: 06/07/17 08:59 Last Admin: 04/08/17 09:04 Dose: 50 mg Sodium Phosphate (Fleet Enema) 135 ml RC Q48H PRN PRN Reason: Constipation Stop: 06/06/17 13:31 General: no acute distress, well developed, well nourished HEENT: atraumatic, normocephalic, PERRLA, EOMI, moist mucous membrane Neck: supple, no thyromegaly Cardiovascular: S1S2, regular Lungs: clear to auscultation bilaterally, clear to percussion Abdomen: soft, no tender, no distended Extremities: no cyanosis, no clubbing, no edema Infectious Disease Assmt/Plan - Assessment Assessment: 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 2. History of hypertension. 3. Dementia. - Plan Plan: continue same treatment. Meanwhile we will order hepatitis panel, HIV serology and ultrasound of the abdomen.
[2017-04-09 06:51] LABS: % BASOPHILS 0.5 % (0.0-2.0); % EOSINOPHILS 6.2 % (0.0-5.0); % LYMPHOCYTES 36.5 % (20.0-50.0); % MONOCYTES 7.2 % (2.0-10.0); % NEUTROPHILS 49.6 % (40.0-80.0); EOSINOPHILE ABSOLUTE 0.2 Th/cmm (0.1-0.4); HEMOGLOBIN 8.8 gm/dL (12-16); LYMPHOCYTE ABSOLUTE 1.5 Th/cmm (1.5-3.0); MEAN CELL VOLUME 95.4 fl (81-100); MEAN CORPUSCULAR HEMOGLOBIN 31.5 pg (27.0-31.0); MEAN CORPUSCULAR HGB CONC 33.1 pg (28.0-36.0); MEAN PLATELET VOLUME 8.7 fl; MONOCYTE ABSOLUTE 0.3 Th/cmm (0.3-1.0); PLATELET COUNT 221 Th/cmm (150-400); RED BLOOD COUNT 2.78 Mil/cmm (3.80-5.20); RED CELL DISTRIBUTION WIDTH 22.1 % (11.5-20.0)
[2017-04-09 06:57] LABS: HEMATOCRIT 26.5 % (41.0-60)
[2017-04-09] MEDS: Levothyroxine 0.112 Mg Tab PO SCH (06:59)
[2017-04-09 07:03] LABS: ANION GAP 4.5 (7.0-16.0); BUN - UREA NITROGEN 23 mg/dL (7-25); CALCIUM SERUM 9.3 mg/dL (8.6-10.3); CARBON DIOXIDE 27.9 mEq/L (21.0-31.0); CHLORIDE 107 mEq/L (98-107); CREATININE - SERUM 1.1 mg/dL (0.6-1.2); GLUCOSE 93 mg/dL (70-105); POTASSIUM SERUM 4.4 mEq/L (3.5-5.1); SODIUM SERUM 135 mEq/L (136-145)
[2017-04-09] MEDS: Sodium Chloride 0.45% 1,000 ML IV SCH ×2 (09:03→16:53)
[2017-04-09] MEDS: Multivitamin w/ Minerals Tab PO SCH (09:14)
[2017-04-09 10:18] LABS: HEMOGLOBIN 7.7 gm/dL (12-16)
--- NOTE | 2017-04-09 10:32 | Infectious Disease Prog Note ---
Infectious Disease Subjective - Review of Systems Service Date: 04/09/17 Subjective: no fever. Infectious Disease Objective - Results Result Diagrams: 04/09/17 06:13 04/09/17 06:13 Recent Labs: Laboratory Last Values WBC 4.0 Th/cmm (4.8-10.8) L 04/09/17 06:13 RBC 2.78 Mil/cmm (3.80-5.20) L 04/09/17 06:13 Hgb 8.8 gm/dL (12-16) L 04/09/17 06:13 Hct 26.5 % (41.0-60) L D 04/09/17 06:13 MCV 95.4 fl (81-100) 04/09/17 06:13 MCH 31.5 pg (27.0-31.0) H 04/09/17 06:13 MCHC Differential 33.1 pg (28.0-36.0) 04/09/17 06:13 RDW 22.1 % (11.5-20.0) H 04/09/17 06:13 Plt Count 221 Th/cmm (150-400) 04/09/17 06:13 MPV 8.7 fl 04/09/17 06:13 Neutrophils % 49.6 % (40.0-80.0) 04/09/17 06:13 Band Neutrophils % 4 % (0-10) 04/08/17 04:46 Lymphocytes % 36.5 % (20.0-50.0) 04/09/17 06:13 Monocytes % 7.2 % (2.0-10.0) 04/09/17 06:13 Eosinophils % 6.2 % (0.0-5.0) H 04/09/17 06:13 Basophils % 0.5 % (0.0-2.0) 04/09/17 06:13 Neutrophils (Manual) 58 % (40-80) 04/08/17 04:46 Lymphocytes 34 % (20-50) 04/08/17 04:46 Monocytes 4 % (2-10) 04/08/17 04:46 Hypochromia 1+ 04/08/17 04:46 Platelet Estimate ADEQUATE (NORMAL) 04/08/17 04:46 Polychromasia 1+ 04/08/17 04:46 Schistocytes 1+ 04/08/17 04:46 Sodium 135 mEq/L (136-145) L 04/09/17 06:13 Potassium 4.4 mEq/L (3.5-5.1) 04/09/17 06:13 Chloride 107 mEq/L (98-107) 04/09/17 06:13 Carbon Dioxide 27.9 mEq/L (21.0-31.0) 04/09/17 06:13 Anion Gap 4.5 (7.0-16.0) L 04/09/17 06:13 BUN 23 mg/dL (7-25) 04/09/17 06:13 Creatinine 1.1 mg/dL (0.6-1.2) 04/09/17 06:13 Est GFR ( Amer) TNP 04/09/17 06:13 Est GFR (Non-Af Amer) TNP 04/09/17 06:13 BUN/Creatinine Ratio 20.9 04/09/17 06:13 Glucose 93 mg/dL (70-105) 04/09/17 06:13 Whole Bld Lactic Acid 0.63 mmol/L (0.60-1.99) 04/06/17 21:50 Calcium 9.3 mg/dL (8.6-10.3) 04/09/17 06:13 Total Bilirubin 0.9 mg/dL (0.3-1.0) 04/06/17 21:50 AST 39 U/L (13-39) 04/06/17 21:50 ALT 51 U/L (7-52) 04/06/17 21:50 Alkaline Phosphatase 70 U/L (34-104) 04/06/17 21:50 Total Protein 7.2 gm/dL (6.0-8.3) 04/06/17 21:50 Albumin 4.4 gm/dL (3.7-5.3) 04/06/17 21:50 Globulin 2.8 gm/dL 04/06/17 21:50 Albumin/Globulin Ratio 1.6 (1.0-1.8) 04/06/17 21:50 Triglycerides 61 mg/dL (<150) 04/07/17 06:01 Cholesterol 84 mg/dL (<200) 04/07/17 06:01 LDL Cholesterol Direct 32 mg/dL (75-193) L 04/07/17 06:01 HDL Cholesterol 42 mg/dL (23-92) 04/07/17 06:01 Vitamin B12 1039 pg/mL (232-1245) 04/07/17 06:01 Folic Acid >20.0 ng/mL (>3.0) 04/07/17 06:01 TSH 0.01 uIU/ml (0.34-5.60) L 04/06/17 21:50 Urine Source RANDOM 04/07/17 10:20 Urine Color YELLOW 04/07/17 10:20 Urine Clarity HAZY (CLEAR) 04/07/17 10:20 Urine pH 5.5 (4.6 - 8.0) 04/07/17 10:20 Ur Specific [place] 1.010 (1.005-1.030) 04/07/17 10:20 Urine Protein NEGATIVE mg/dL (NEGATIVE) 04/07/17 10:20 Urine Glucose (UA) NEGATIVE mg/dL (NEGATIVE) 04/07/17 10:20 Urine Ketones NEGATIVE mg/dL (NEGATIVE) 04/07/17 10:20 Urine Blood NEGATIVE (NEGATIVE) 04/07/17 10:20 Urine Nitrate NEGATIVE (NEGATIVE) 04/07/17 10:20 Urine Bilirubin NEGATIVE (NEGATIVE) 04/07/17 10:20 Urine Urobilinogen 0.2 E.U./dL (0.2 - 1.0) 04/07/17 10:20 Ur Leukocyte Esterase NEGATIVE (NEGATIVE) 04/07/17 10:20 Urine RBC 0-2 /hpf (0-5) 04/07/17 10:20 Urine WBC 0-2 /hpf (0-5) 04/07/17 10:20 Ur Epithelial Cells F /lpf (FEW) 04/07/17 10:20 Urine Bacteria OCCASIONAL /hpf (NONE SEEN) 04/07/17 10:20 Stool Occult Blood NEGATIVE (NEGATIVE) 04/08/17 21:30 Hepatitis A IgM Ab Negative (Negative) 04/07/17 06:01 Hep Bs Antigen Negative (Negative) 04/07/17 06:01 Hep B Core IgM Ab Negative (Negative) 04/07/17 06:01 Hepatitis C Antibody <0.1 s/co ratio (0.0-0.9) 04/07/17 06:01 HIV 1&2 Antibody Screen Non Reactive (Non Reactive) 04/07/17 06:01 Blood Type O POSITIVE 04/08/17 12:40 Antibody Screen NEGATIVE 04/08/17 12:40 Crossmatch See Detail 04/08/17 12:40 - Physical Exam Vitals and I&O: Vital Signs Temp 97.8 F 04/09/17 07:30 Pulse 67 04/09/17 09:14 Resp 16 04/09/17 08:00 BP 146/49 04/09/17 09:14 Pulse Ox 99 04/09/17 07:30 Intake & Output 04/08/17 04/09/17 04/09/17 18:59 06:59 18:59 Intake Total 1000 1400 Balance 1000 1400 Weight (lbs) 44.225 kg Intake: Intake, IV Amount 1000 1000 Sodium Chloride 0.45% 1, 1000 1000 000 ml @ 125 mls/hr IV . Q8H [facility] Rx#:[id number] Oral 400 Other: # Voids 4 # Bowel Movements 1 Stool Characteristics Soft Soft Formed Formed Active Medications: Current Medications Acetaminophen (Tylenol) 650 mg PO Q4HR PRN PRN Reason: Mild Pain or Fever >101 Stop: 06/06/17 13:31 Acetaminophen (Tylenol Extra Strength) 1,000 mg PO Q4HR PRN PRN Reason: Pain (Moderate) Stop: 06/06/17 13:31 Atorvastatin Calcium (Lipitor) 40 mg PO HS [facility] Stop: 06/06/17 20:59 Last Admin: 04/08/17 22:19 Dose: 40 mg Bisacodyl (Dulcolax 10 Mg Supp) 10 mg RC DAILY PRN PRN Reason: Constipation Stop: 06/06/17 13:31 Docusate Sodium (Colace) 100 mg PO DAILY [facility] Stop: 06/07/17 08:59 Last Admin: 04/09/17 09:13 Dose: 100 mg Famotidine (Pepcid) 20 mg PO DAILY [facility] Stop: 06/07/17 08:59 Last Admin: 04/09/17 09:13 Dose: 20 mg Folic Acid (Folate) 1 mg PO DAILY [facility] Stop: 06/07/17 08:59 Last Admin: 04/09/17 09:14 Dose: 1 mg Sodium Chloride (Nacl 0.45%) 1,000 mls @ 125 mls/hr IV .Q8H [facility] Stop: 06/05/17 23:14 Last Admin: 04/09/17 09:03 Dose: 125 mls/hr Isosorbide Dinitrate (Isordil) 5 mg PO TID [facility] Stop: 06/06/17 13:59 Last Admin: 04/09/17 09:14 Dose: 5 mg Levothyroxine Sodium (Synthroid) 0.112 mg PO QDAC [facility] Stop: 06/07/17 07:29 Last Admin: 04/09/17 06:59 Dose: 0.112 mg Magnesium Hydroxide (Milk Of Magnesia) 30 ml PO HS PRN PRN Reason: Constipation Stop: 06/06/17 13:31 Last Admin: 04/07/17 21:13 Dose: 30 ml Metoprolol Succinate (Toprol Xl) 50 mg PO DAILY [facility] Stop: 06/07/17 08:59 Last Admin: 04/09/17 09:14 Dose: 50 mg Montelukast Sodium (Singulair) 10 mg PO HS [facility] Stop: 06/06/17 20:59 Last Admin: 04/08/17 22:20 Dose: 10 mg Pyridoxine HCl (Vitamin B6) 50 mg PO DAILY [facility] Stop: 06/07/17 08:59 Last Admin: 04/09/17 09:13 Dose: 50 mg Sodium Phosphate (Fleet Enema) 135 ml RC Q48H PRN PRN Reason: Constipation Stop: 06/06/17 13:31 General: no acute distress, well developed, well nourished HEENT: atraumatic, normocephalic, PERRLA Neck: supple, no thyromegaly Cardiovascular: S1S2, regular Lungs: clear to auscultation bilaterally, clear to percussion Abdomen: soft, no tender, no distended Extremities: no cyanosis, no clubbing, no edema Infectious Disease Assmt/Plan - Assessment Assessment: 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 2. History of hypertension. 3. Dementia. - Plan Plan: continue same treatment. i will s/o as there is no activity from ID point of view. Please call me as needed.
--- NOTE | 2017-04-09 14:01 | Internal Medicine Prog Note ---
Internal Medicine Subjective - Subjective Service Date: 04/09/17 Patient seen and examined:: with staff Patient is:: awake Per staff patient has:: tolerating meds Internal Medicine Objective - Results Result Diagrams: 04/09/17 06:13 04/09/17 06:13 Recent Labs: Laboratory Last Values WBC 4.0 Th/cmm (4.8-10.8) L 04/09/17 06:13 RBC 2.78 Mil/cmm (3.80-5.20) L 04/09/17 06:13 Hgb 8.8 gm/dL (12-16) L 04/09/17 06:13 Hct 26.5 % (41.0-60) L D 04/09/17 06:13 MCV 95.4 fl (81-100) 04/09/17 06:13 MCH 31.5 pg (27.0-31.0) H 04/09/17 06:13 MCHC Differential 33.1 pg (28.0-36.0) 04/09/17 06:13 RDW 22.1 % (11.5-20.0) H 04/09/17 06:13 Plt Count 221 Th/cmm (150-400) 04/09/17 06:13 MPV 8.7 fl 04/09/17 06:13 Neutrophils % 49.6 % (40.0-80.0) 04/09/17 06:13 Band Neutrophils % 4 % (0-10) 04/08/17 04:46 Lymphocytes % 36.5 % (20.0-50.0) 04/09/17 06:13 Monocytes % 7.2 % (2.0-10.0) 04/09/17 06:13 Eosinophils % 6.2 % (0.0-5.0) H 04/09/17 06:13 Basophils % 0.5 % (0.0-2.0) 04/09/17 06:13 Neutrophils (Manual) 58 % (40-80) 04/08/17 04:46 Lymphocytes 34 % (20-50) 04/08/17 04:46 Monocytes 4 % (2-10) 04/08/17 04:46 Hypochromia 1+ 04/08/17 04:46 Platelet Estimate ADEQUATE (NORMAL) 04/08/17 04:46 Polychromasia 1+ 04/08/17 04:46 Schistocytes 1+ 04/08/17 04:46 Sodium 135 mEq/L (136-145) L 04/09/17 06:13 Potassium 4.4 mEq/L (3.5-5.1) 04/09/17 06:13 Chloride 107 mEq/L (98-107) 04/09/17 06:13 Carbon Dioxide 27.9 mEq/L (21.0-31.0) 04/09/17 06:13 Anion Gap 4.5 (7.0-16.0) L 04/09/17 06:13 BUN 23 mg/dL (7-25) 04/09/17 06:13 Creatinine 1.1 mg/dL (0.6-1.2) 04/09/17 06:13 Est GFR ( Amer) TNP 04/09/17 06:13 Est GFR (Non-Af Amer) TNP 04/09/17 06:13 BUN/Creatinine Ratio 20.9 04/09/17 06:13 Glucose 93 mg/dL (70-105) 04/09/17 06:13 Whole Bld Lactic Acid 0.63 mmol/L (0.60-1.99) 04/06/17 21:50 Calcium 9.3 mg/dL (8.6-10.3) 04/09/17 06:13 Total Bilirubin 0.9 mg/dL (0.3-1.0) 04/06/17 21:50 AST 39 U/L (13-39) 04/06/17 21:50 ALT 51 U/L (7-52) 04/06/17 21:50 Alkaline Phosphatase 70 U/L (34-104) 04/06/17 21:50 Total Protein 7.2 gm/dL (6.0-8.3) 04/06/17 21:50 Albumin 4.4 gm/dL (3.7-5.3) 04/06/17 21:50 Globulin 2.8 gm/dL 04/06/17 21:50 Albumin/Globulin Ratio 1.6 (1.0-1.8) 04/06/17 21:50 Triglycerides 61 mg/dL (<150) 04/07/17 06:01 Cholesterol 84 mg/dL (<200) 04/07/17 06:01 LDL Cholesterol Direct 32 mg/dL (75-193) L 04/07/17 06:01 HDL Cholesterol 42 mg/dL (23-92) 04/07/17 06:01 Vitamin B12 1039 pg/mL (232-1245) 04/07/17 06:01 Folic Acid >20.0 ng/mL (>3.0) 04/07/17 06:01 TSH 0.01 uIU/ml (0.34-5.60) L 04/06/17 21:50 Urine Source RANDOM 04/07/17 10:20 Urine Color YELLOW 04/07/17 10:20 Urine Clarity HAZY (CLEAR) 04/07/17 10:20 Urine pH 5.5 (4.6 - 8.0) 04/07/17 10:20 Ur Specific [place] 1.010 (1.005-1.030) 04/07/17 10:20 Urine Protein NEGATIVE mg/dL (NEGATIVE) 04/07/17 10:20 Urine Glucose (UA) NEGATIVE mg/dL (NEGATIVE) 04/07/17 10:20 Urine Ketones NEGATIVE mg/dL (NEGATIVE) 04/07/17 10:20 Urine Blood NEGATIVE (NEGATIVE) 04/07/17 10:20 Urine Nitrate NEGATIVE (NEGATIVE) 04/07/17 10:20 Urine Bilirubin NEGATIVE (NEGATIVE) 04/07/17 10:20 Urine Urobilinogen 0.2 E.U./dL (0.2 - 1.0) 04/07/17 10:20 Ur Leukocyte Esterase NEGATIVE (NEGATIVE) 04/07/17 10:20 Urine RBC 0-2 /hpf (0-5) 04/07/17 10:20 Urine WBC 0-2 /hpf (0-5) 04/07/17 10:20 Ur Epithelial Cells F /lpf (FEW) 04/07/17 10:20 Urine Bacteria OCCASIONAL /hpf (NONE SEEN) 04/07/17 10:20 Stool Occult Blood NEGATIVE (NEGATIVE) 04/08/17 21:30 Hepatitis A IgM Ab Negative (Negative) 04/07/17 06:01 Hep Bs Antigen Negative (Negative) 04/07/17 06:01 Hep B Core IgM Ab Negative (Negative) 04/07/17 06:01 Hepatitis C Antibody <0.1 s/co ratio (0.0-0.9) 04/07/17 06:01 HIV 1&2 Antibody Screen Non Reactive (Non Reactive) 04/07/17 06:01 Blood Type O POSITIVE 04/08/17 12:40 Antibody Screen NEGATIVE 04/08/17 12:40 Crossmatch See Detail 04/08/17 12:40 - Physical Exam Vitals and I&O: Vital Signs Temp 98.2 F 04/09/17 11:57 Pulse 63 04/09/17 11:57 Resp 18 04/09/17 11:57 BP 117/54 04/09/17 11:57 Pulse Ox 98 04/09/17 11:57 Intake & Output 04/08/17 04/09/17 04/09/17 18:59 06:59 18:59 Intake Total 1000 1400 Balance 1000 1400 Weight (lbs) 97 lb 8 oz Intake: Intake, IV Amount 1000 1000 Sodium Chloride 0.45% 1, 1000 1000 000 ml @ 125 mls/hr IV . Q8H [facility] Rx#:[id number] Oral 400 Other: # Voids 4 # Bowel Movements 1 Stool Characteristics Soft Soft Formed Formed Active Medications: Current Medications Acetaminophen (Tylenol) 650 mg PO Q4HR PRN PRN Reason: Mild Pain or Fever >101 Stop: 06/06/17 13:31 Acetaminophen (Tylenol Extra Strength) 1,000 mg PO Q4HR PRN PRN Reason: Pain (Moderate) Stop: 06/06/17 13:31 Atorvastatin Calcium (Lipitor) 40 mg PO HS [facility] Stop: 06/06/17 20:59 Last Admin: 04/08/17 22:19 Dose: 40 mg Bisacodyl (Dulcolax 10 Mg Supp) 10 mg RC DAILY PRN PRN Reason: Constipation Stop: 06/06/17 13:31 Docusate Sodium (Colace) 100 mg PO DAILY [facility] Stop: 06/07/17 08:59 Last Admin: 04/09/17 09:13 Dose: 100 mg Famotidine (Pepcid) 20 mg PO DAILY [facility] Stop: 06/07/17 08:59 Last Admin: 04/09/17 09:13 Dose: 20 mg Folic Acid (Folate) 1 mg PO DAILY [facility] Stop: 06/07/17 08:59 Last Admin: 04/09/17 09:14 Dose: 1 mg Sodium Chloride (Nacl 0.45%) 1,000 mls @ 125 mls/hr IV .Q8H [facility] Stop: 06/05/17 23:14 Last Admin: 04/09/17 09:03 Dose: 125 mls/hr Isosorbide Dinitrate (Isordil) 5 mg PO TID [facility] Stop: 06/06/17 13:59 Last Admin: 04/09/17 09:14 Dose: 5 mg Levothyroxine Sodium (Synthroid) 0.112 mg PO QDAC [facility] Stop: 06/07/17 07:29 Last Admin: 04/09/17 06:59 Dose: 0.112 mg Magnesium Hydroxide (Milk Of Magnesia) 30 ml PO HS PRN PRN Reason: Constipation Stop: 06/06/17 13:31 Last Admin: 04/07/17 21:13 Dose: 30 ml Metoprolol Succinate (Toprol Xl) 50 mg PO DAILY [facility] Stop: 06/07/17 08:59 Last Admin: 04/09/17 09:14 Dose: 50 mg Montelukast Sodium (Singulair) 10 mg PO HS [facility] Stop: 06/06/17 20:59 Last Admin: 04/08/17 22:20 Dose: 10 mg Pyridoxine HCl (Vitamin B6) 50 mg PO DAILY [facility] Stop: 06/07/17 08:59 Last Admin: 04/09/17 09:13 Dose: 50 mg Sodium Phosphate (Fleet Enema) 135 ml RC Q48H PRN PRN Reason: Constipation Stop: 06/06/17 13:31 General: weak, alert HEENT: NC/AT, PERRLA Neck: Supple Lungs: CTAB Cardiovascular: RRR, Normal S1 Abdomen: soft, non-tender, non-distended Neurological: alert Internal Medicine Assmt/Plan - Assessment Assessment: 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 History of hypertension. Dementia. - Plan Plan: continue ivabx as per id follow up labs in am continue current plan of care
--- NOTE | 2017-04-09 14:35 | General Progress Note ---
Subjective - Review of Systems Service Date: 04/09/17 Objective - Results Result Diagrams: 04/09/17 06:13 04/09/17 06:13 Recent Labs: Laboratory Last Values WBC 4.0 Th/cmm (4.8-10.8) L 04/09/17 06:13 RBC 2.78 Mil/cmm (3.80-5.20) L 04/09/17 06:13 Hgb 8.8 gm/dL (12-16) L 04/09/17 06:13 Hct 26.5 % (41.0-60) L D 04/09/17 06:13 MCV 95.4 fl (81-100) 04/09/17 06:13 MCH 31.5 pg (27.0-31.0) H 04/09/17 06:13 MCHC Differential 33.1 pg (28.0-36.0) 04/09/17 06:13 RDW 22.1 % (11.5-20.0) H 04/09/17 06:13 Plt Count 221 Th/cmm (150-400) 04/09/17 06:13 MPV 8.7 fl 04/09/17 06:13 Neutrophils % 49.6 % (40.0-80.0) 04/09/17 06:13 Band Neutrophils % 4 % (0-10) 04/08/17 04:46 Lymphocytes % 36.5 % (20.0-50.0) 04/09/17 06:13 Monocytes % 7.2 % (2.0-10.0) 04/09/17 06:13 Eosinophils % 6.2 % (0.0-5.0) H 04/09/17 06:13 Basophils % 0.5 % (0.0-2.0) 04/09/17 06:13 Neutrophils (Manual) 58 % (40-80) 04/08/17 04:46 Lymphocytes 34 % (20-50) 04/08/17 04:46 Monocytes 4 % (2-10) 04/08/17 04:46 Hypochromia 1+ 04/08/17 04:46 Platelet Estimate ADEQUATE (NORMAL) 04/08/17 04:46 Polychromasia 1+ 04/08/17 04:46 Schistocytes 1+ 04/08/17 04:46 Sodium 135 mEq/L (136-145) L 04/09/17 06:13 Potassium 4.4 mEq/L (3.5-5.1) 04/09/17 06:13 Chloride 107 mEq/L (98-107) 04/09/17 06:13 Carbon Dioxide 27.9 mEq/L (21.0-31.0) 04/09/17 06:13 Anion Gap 4.5 (7.0-16.0) L 04/09/17 06:13 BUN 23 mg/dL (7-25) 04/09/17 06:13 Creatinine 1.1 mg/dL (0.6-1.2) 04/09/17 06:13 Est GFR ( Amer) TNP 04/09/17 06:13 Est GFR (Non-Af Amer) TNP 04/09/17 06:13 BUN/Creatinine Ratio 20.9 04/09/17 06:13 Glucose 93 mg/dL (70-105) 04/09/17 06:13 Whole Bld Lactic Acid 0.63 mmol/L (0.60-1.99) 04/06/17 21:50 Calcium 9.3 mg/dL (8.6-10.3) 04/09/17 06:13 Total Bilirubin 0.9 mg/dL (0.3-1.0) 04/06/17 21:50 AST 39 U/L (13-39) 04/06/17 21:50 ALT 51 U/L (7-52) 04/06/17 21:50 Alkaline Phosphatase 70 U/L (34-104) 04/06/17 21:50 Total Protein 7.2 gm/dL (6.0-8.3) 04/06/17 21:50 Albumin 4.4 gm/dL (3.7-5.3) 04/06/17 21:50 Globulin 2.8 gm/dL 04/06/17 21:50 Albumin/Globulin Ratio 1.6 (1.0-1.8) 04/06/17 21:50 Triglycerides 61 mg/dL (<150) 04/07/17 06:01 Cholesterol 84 mg/dL (<200) 04/07/17 06:01 LDL Cholesterol Direct 32 mg/dL (75-193) L 04/07/17 06:01 HDL Cholesterol 42 mg/dL (23-92) 04/07/17 06:01 Vitamin B12 1039 pg/mL (232-1245) 04/07/17 06:01 Folic Acid >20.0 ng/mL (>3.0) 04/07/17 06:01 TSH 0.01 uIU/ml (0.34-5.60) L 04/06/17 21:50 Urine Source RANDOM 04/07/17 10:20 Urine Color YELLOW 04/07/17 10:20 Urine Clarity HAZY (CLEAR) 04/07/17 10:20 Urine pH 5.5 (4.6 - 8.0) 04/07/17 10:20 Ur Specific Walker 1.010 (1.005-1.030) 04/07/17 10:20 Urine Protein NEGATIVE mg/dL (NEGATIVE) 04/07/17 10:20 Urine Glucose (UA) NEGATIVE mg/dL (NEGATIVE) 04/07/17 10:20 Urine Ketones NEGATIVE mg/dL (NEGATIVE) 04/07/17 10:20 Urine Blood NEGATIVE (NEGATIVE) 04/07/17 10:20 Urine Nitrate NEGATIVE (NEGATIVE) 04/07/17 10:20 Urine Bilirubin NEGATIVE (NEGATIVE) 04/07/17 10:20 Urine Urobilinogen 0.2 E.U./dL (0.2 - 1.0) 04/07/17 10:20 Ur Leukocyte Esterase NEGATIVE (NEGATIVE) 04/07/17 10:20 Urine RBC 0-2 /hpf (0-5) 04/07/17 10:20 Urine WBC 0-2 /hpf (0-5) 04/07/17 10:20 Ur Epithelial Cells F /lpf (FEW) 04/07/17 10:20 Urine Bacteria OCCASIONAL /hpf (NONE SEEN) 04/07/17 10:20 Stool Occult Blood NEGATIVE (NEGATIVE) 04/08/17 21:30 Hepatitis A IgM Ab Negative (Negative) 04/07/17 06:01 Hep Bs Antigen Negative (Negative) 04/07/17 06:01 Hep B Core IgM Ab Negative (Negative) 04/07/17 06:01 Hepatitis C Antibody <0.1 s/co ratio (0.0-0.9) 04/07/17 06:01 HIV 1&2 Antibody Screen Non Reactive (Non Reactive) 04/07/17 06:01 Blood Type O POSITIVE 04/08/17 12:40 Antibody Screen NEGATIVE 04/08/17 12:40 Crossmatch See Detail 04/08/17 12:40 - Physical Exam Vitals and I&O: Vital Signs Temp 98.2 F 04/09/17 11:57 Pulse 63 04/09/17 14:29 Resp 18 04/09/17 11:57 BP 126/55 04/09/17 14:29 Pulse Ox 98 04/09/17 11:57 Intake & Output 04/08/17 04/09/17 04/09/17 18:59 06:59 18:59 Intake Total 1000 1400 Balance 1000 1400 Weight (lbs) 44.225 kg Intake: Intake, IV Amount 1000 1000 Sodium Chloride 0.45% 1, 1000 1000 000 ml @ 125 mls/hr IV . Q8H [facility] Rx#:[id number] Oral 400 Other: # Voids 4 # Bowel Movements 1 Stool Characteristics Soft Soft Formed Formed Active Medications: Current Medications Acetaminophen (Tylenol) 650 mg PO Q4HR PRN PRN Reason: Mild Pain or Fever >101 Stop: 06/06/17 13:31 Acetaminophen (Tylenol Extra Strength) 1,000 mg PO Q4HR PRN PRN Reason: Pain (Moderate) Stop: 06/06/17 13:31 Atorvastatin Calcium (Lipitor) 40 mg PO HS [facility] Stop: 06/06/17 20:59 Last Admin: 04/08/17 22:19 Dose: 40 mg Bisacodyl (Dulcolax 10 Mg Supp) 10 mg RC DAILY PRN PRN Reason: Constipation Stop: 06/06/17 13:31 Docusate Sodium (Colace) 100 mg PO DAILY [facility] Stop: 06/07/17 08:59 Last Admin: 04/09/17 09:13 Dose: 100 mg Famotidine (Pepcid) 20 mg PO DAILY [facility] Stop: 06/07/17 08:59 Last Admin: 04/09/17 09:13 Dose: 20 mg Folic Acid (Folate) 1 mg PO DAILY [facility] Stop: 06/07/17 08:59 Last Admin: 04/09/17 09:14 Dose: 1 mg Sodium Chloride (Nacl 0.45%) 1,000 mls @ 125 mls/hr IV .Q8H [facility] Stop: 06/05/17 23:14 Last Admin: 04/09/17 09:03 Dose: 125 mls/hr Isosorbide Dinitrate (Isordil) 5 mg PO TID [facility] Stop: 06/06/17 13:59 Last Admin: 04/09/17 14:29 Dose: 5 mg Levothyroxine Sodium (Synthroid) 0.112 mg PO QDAC [facility] Stop: 06/07/17 07:29 Last Admin: 04/09/17 06:59 Dose: 0.112 mg Magnesium Hydroxide (Milk Of Magnesia) 30 ml PO HS PRN PRN Reason: Constipation Stop: 06/06/17 13:31 Last Admin: 04/07/17 21:13 Dose: 30 ml Metoprolol Succinate (Toprol Xl) 50 mg PO DAILY [facility] Stop: 06/07/17 08:59 Last Admin: 04/09/17 09:14 Dose: 50 mg Montelukast Sodium (Singulair) 10 mg PO HS [facility] Stop: 06/06/17 20:59 Last Admin: 04/08/17 22:20 Dose: 10 mg Pyridoxine HCl (Vitamin B6) 50 mg PO DAILY [facility] Stop: 06/07/17 08:59 Last Admin: 04/09/17 09:13 Dose: 50 mg Sodium Phosphate (Fleet Enema) 135 ml RC Q48H PRN PRN Reason: Constipation Stop: 06/06/17 13:31 Assessment/Plan - Assessment Assessment: * Pancytopenia US normal spleen size, normal b12, folic acid hgb is better; follow stool occult blood and cbc s/p tx PRBCs
== END 2017-04-09 18:50 | disposition home or self-care (01) | DRG 810 ==
LOC: ER 21:29 → MSI 23:00
PROVIDERS: ADMIT Internal Medicine; ATTEND Internal Medicine
PROC: 30233N1 Transfusion of Nonautologous Red Blood Cells into Peripheral Vein, Percutaneous Approach (ICD-10-PCS; principal; 2017-04-08)
DX: D61.818 Other pancytopenia (principal); E11.9 Type 2 diabetes mellitus without complications; F03.90 Unspecified dementia, unspecified severity, without behavioral disturbance, psychotic disturbance, mood disturbance, and anxiety; J44.9 Chronic obstructive pulmonary disease, unspecified; R26.9 Unspecified abnormalities of gait and mobility; I10 Essential (primary) hypertension; E03.9 Hypothyroidism, unspecified; E78.5 Hyperlipidemia, unspecified
CPT/HCPCS: 36415-UA; 76700-TC; 80048-TC; 80053-TC; 80061-TC; 80074-90; 81001-TC; 82270-TC; 82607-90; 82746-90; 83605; 84443-TC; 85007-TC; 85025-TC; 85027-TC; 86850-TC; 86900-TC; 86901-TC; 86922-TC; 87389-90; 93005; J7030; J7040; P9016

== ENCOUNTER 2017-06-25 16:40 | Inpatient (IN) | payer MEDICARE, MEDICAID ==
[2017-06-25 20:53] LABS: HEMATOCRIT 26.1 % (41.0-60); HEMOGLOBIN 8.6 gm/dL (12-16); MEAN CORPUSCULAR HEMOGLOBIN 36.9 pg (27.0-31.0); MEAN CORPUSCULAR HGB CONC 32.9 pg (28.0-36.0); MEAN PLATELET VOLUME 8.5 fl; PLATELET COUNT 369 Th/cmm (150-400); RED BLOOD COUNT 2.32 Mil/cmm (3.80-5.20); RED CELL DISTRIBUTION WIDTH 25.4 % (11.5-20.0); WHITE BLOOD COUNT 5.8 Th/cmm (4.8-10.8)
[2017-06-25 21:11] LABS: MANUAL DIFF REQUIRED? YES; MEAN CELL VOLUME 112.3 fl (81-100)
[2017-06-25 21:23] LABS: BAND NEUTROPHILE 7 % (0-10); BASOPHIL 0 % (0-3); EOSINOPHIL 2 % (0-5); LYMPHOCYTE 46 % (20-50); MONOCYTE 2 % (2-10); NEUTROPHILS 43 % (40-80); PLATELET ESTIMATE ADEQUATE (NORMAL); TOTAL CELLS COUNTED 100
[2017-06-25 21:24] LABS: ALB/GLOB RATIO 1.4 (1.0-1.8); ALBUMIN 4.4 gm/dL (3.7-5.3); ALKALINE PHOSPHATASE 61 U/L (34-104); ANION GAP 12.3 (7.0-16.0); ANISOCYTOSIS 2+; BILIRUBIN,TOTAL 1.1 mg/dL (0.3-1.0); BUN - UREA NITROGEN 39 mg/dL (7-25); CARBON DIOXIDE 24.1 mEq/L (21.0-31.0); CHLORIDE 105 mEq/L (98-107); CREATININE - SERUM 1.1 mg/dL (0.6-1.2); GLUCOSE 97 mg/dL (70-105); POTASSIUM SERUM 4.4 mEq/L (3.5-5.1); SGOT 44 U/L (13-39); SGPT/ALT 66 U/L (7-52); SODIUM SERUM 137 mEq/L (136-145); TOTAL PROTEIN,SERUM 7.6 gm/dL (6.0-8.3)
--- NOTE | 2017-06-25 21:27 | ER Physician Documentation ---
DATE OF SERVICE: 06/25/2017 EMERGENCY ROOM EVALUATION AND TREATMENT The patient is full code. Body surface area is 1.72. BMI is 22.6 kilograms per square meter. The patient was brought by the paramedics. The patient was sent by Dr. López [facility] and he is taking care of the patient over there. The patient was sent here because of weakness, abnormal labs, diabetes mellitus, hypertension, hypercholesterolemia, hypothyroidism and other dementia, but the patient does not look like demented. She looks like to be a smart woman wanting me to examine her. She has COPD, diabetes mellitus type 2. An 87-year-old female patient of Dr. López. ALLERGIES: None known. HISTORY OF PRESENT ILLNESS: The patient other than generalized weakness and this diagnosis of diabetes, hypertension, COPD, thrombocytopenia, is negative. The patient's nurse who did this was ____. PAST MEDICAL HISTORY: I will be mentioning it. The patient has all these conditions, which will be presented in the final section. The patient has thrombocytopenia, essential hypertension, unspecified asthma, muscle weakness, hyperlipidemia, hypothyroidism, other abnormalities of gait and mobility. Unspecified pancytopenia, unspecified dementia without behavioral disturbances, COPD, type 2 diabetes mellitus without complication. REVIEW OF SYSTEMS: A 12-point review of system was checked. The patient is not in a position to answer any question, but whatever she answered, she said she does not have any medical problems. She has slight weakness. I was told that her hemoglobin is somewhere in the range of 6 point something and she has some low platelet count. The platelet count is not known. Vital signs that came from the other [facility] is found to be negative. The patient does have pancytopenia with elevated mean red blood cell volume. This was on 04/07/2017 at [facility]. This history was done by Dr. López and the patient will be getting myelodysplastic syndrome and Dr. López will have Dr. Harris to evaluate the patient. A 12-point review of systems cannot be obtained, but essentially appears to be normal. No surgery, no surgical scar. The patient is happy, smiling. LABORATORY DATA: Cholesterol was 70, triglycerides 42, cholesterol 46, glucose 112, BUN 38, creatinine 1.26. Electrolytes were normal. Albumin was 3.4. FAMILY HISTORY: Negative. PHYSICAL EXAMINATION: GENERAL: The patient appears to be awake, alert, oriented, not in any acute cardiorespiratory distress. Otherwise, there is no edema, no cyanosis, no petechia. No ecchymosis. Peripheral pulses are normal. Generalized slight weakness is noted. The patient was seen in the waiting area in the [facility] as there were no beds available and the patient was not being transferred because of lack of bed. VITAL SIGNS: Appear to be normal. The patient's temperature 97.8, pulse is 71, respirations 20, blood pressure 145/69, saturations 96. Pain level is 0. HEENT: Conjunctivae showing pallor. Sclerae are white. No meningeal signs. CHEST: Clear. Trachea being central. Fairly good air entry in both lungs without any rales, rhonchi, or bronchial wheezing. ABDOMEN: Soft, benign and negative. Liver, spleen not enlarged. No free fluid in the abdominal cavity. HEART: Reveals normal heart sounds. Soft fourth heart sound, second heart sound is physiologically split, third heart sound is absent. CLINICAL IMPRESSION: The patient was referred here for anemia and the patient was sent here for thrombocytopenia. Other diagnoses include: 1. Hypertension. 2. Diabetes mellitus. 3. The patient has constipation, the patient has folic acid deficiency. The patient has coronary artery disease, hyperlipidemia, hypertension. The patient has hypothyroidism and the patient has chronic obstructive pulmonary disease. The patient is taking Singulair tablets. The patient's other diagnoses include unspecified asthma, muscle weakness generalized, hyperlipidemia, hypothyroidism, other abnormalities of gait and mobility, other pancytopenia, unspecified dementia without behavioral disturbances, chronic obstructive pulmonary lung disease, unspecified type 2 diabetes mellitus. PLAN: I believe Dr. Vo has seen the patient. He has already entered the lab orders and the rest is left for me to be done and I will order chest x-ray if it is not yet ordered. Once we get the lab results of the patient, we will call Dr. López and hopefully, we will admit the patient. JOB# [id number]
[2017-06-25 21:41] LABS: CHOLESTEROL 105 mg/dL (<200); HDL -HIGH DENSITY LIPOPROTEIN 51 mg/dL (23-92); TRIGLYCERIDES 51 mg/dL (<150)
[2017-06-25] MEDS ORDERED: Sodium Chloride 0.9% 1,000 ML IV ONE (22:14)
[2017-06-26] MEDS ORDERED: Sodium Chloride 0.9% 1,000 ML IV ONE (01:35)
[2017-06-26 06:53] LABS: ALB/GLOB RATIO 1.4 (1.0-1.8); ALBUMIN 3.3 gm/dL (3.7-5.3); ALKALINE PHOSPHATASE 46 U/L (34-104); ANION GAP 7.8 (7.0-16.0); BILIRUBIN,TOTAL 0.9 mg/dL (0.3-1.0); BUN - UREA NITROGEN 31 mg/dL (7-25); CALCIUM SERUM 8.8 mg/dL (8.6-10.3); CARBON DIOXIDE 24.2 mEq/L (21.0-31.0); CHLORIDE 111 mEq/L (98-107); GLUCOSE 80 mg/dL (70-105); SGOT 33 U/L (13-39); SGPT/ALT 48 U/L (7-52); SODIUM SERUM 139 mEq/L (136-145); TOTAL PROTEIN,SERUM 5.7 gm/dL (6.0-8.3)
[2017-06-26] MEDS ORDERED: INSULIN HUMAN REGULAR 100 UNITS/ML UNIT SUBQ SCH (07:45)
[2017-06-26 07:57] LABS: % BASOPHILS 1.8 % (0.0-2.0); % EOSINOPHILS 7.4 % (0.0-5.0); % LYMPHOCYTES 32.4 % (20.0-50.0); % MONOCYTES 7.3 % (2.0-10.0); % NEUTROPHILS 51.1 % (40.0-80.0); BASOPHILE ABSOLUTE 0.1 Th/cumm (0-0.2); EOSINOPHILE ABSOLUTE 0.3 Th/cmm (0.1-0.4); LYMPHOCYTE ABSOLUTE 1.4 Th/cmm (1.5-3.0); MEAN CORPUSCULAR HEMOGLOBIN 36.9 pg (27.0-31.0); MEAN PLATELET VOLUME 8.1 fl; MONOCYTE ABSOLUTE 0.3 Th/cmm (0.3-1.0); NEUTROPHILE ABSOLUTE 2.1 Th/cmm (1.8-8.0); PLATELET COUNT 306 Th/cmm (150-400); RED BLOOD COUNT 1.97 Mil/cmm (3.80-5.20); RED CELL DISTRIBUTION WIDTH 24.6 % (11.5-20.0)
[2017-06-26 08:05] LABS: HEMOGLOBIN 7.3 gm/dL (12-16); WHITE BLOOD COUNT 4.2 Th/cmm (4.8-10.8)
[2017-06-26 08:19] LABS: MEAN CELL VOLUME 111.8 fl (81-100)
--- NOTE | 2017-06-26 09:00 | Consultation ---
DATE OF CONSULTATION: 06/26/2017 INPATIENT GASTROINTESTINAL CONSULTATION REFERRING PHYSICIAN: Dr. López. REASON FOR CONSULTATION: Anemia. HISTORY OF PRESENT ILLNESS: This is an 87-year-old female with multiple medical problems, presenting to the hospital because of weakness and abnormal labs. The patient denies having any abdominal pain, nausea, vomiting, diarrhea, or constipation. She is eating breakfast during my interview. She denies having any GI bleeding such as melena, hematochezia, hematemesis, or coffee-ground emesis. PAST MEDICAL HISTORY: Diabetes, hypertension, hypercholesterolemia, hypothyroidism, dementia, and COPD. PAST SURGICAL HISTORY: None to add recently. FAMILY HISTORY: Noncontributory. SOCIAL HISTORY: She denies tobacco, alcohol, or IV drug usage. ALLERGIES: None. CURRENT MEDICATIONS: Ecotrin, Novolin, and normal saline. REVIEW OF SYSTEMS: A 10-point review of system was performed, and the pertinent positive was the weakness. All the systems were otherwise negative. PHYSICAL EXAMINATION: VITAL SIGNS: Temperature is 97.3, breathing 20, pulse of 71, blood pressure 112/60, and satting 96%. GENERAL: In no apparent distress, thin. HEENT: Eyes are anicteric. Normal conjunctivae. Normocephalic, atraumatic. Moist mucous membranes. NECK: Soft, supple. CHEST: Clear. No effort. CARDIOVASCULAR: Regular rate and rhythm. ABDOMEN: Soft, nontender, and nondistended. SKIN: Warm, dry. EXTREMITIES: Reveal no cyanosis. PSYCHOLOGIC: Alert and oriented x3. LABORATORY DATA: Show a T-bili of 0.9, AST 33, ALT 48, alkaline phosphatase 46. White count 4.2, hemoglobin 7.3, MCV of 111, and platelets of 306. IMPRESSION: This is an 87-year-old female with macrocytic anemia, cause could be B12 or folate deficiency, no overt gastrointestinal bleeding at this time. PLAN: 1. Check stool OB. If positive, consider GI workup such as endoscopy, colonoscopy. 2. Check B12, folic acid. If deficient, may need replenish. 3. Follow H and H and transfuse if needed. 4. Continue supportive care. Thank you for allowing me to participate. Please call me if any questions. JOB# [id number]
--- NOTE | 2017-06-26 09:53 | Diagnostic Imaging Report ---
Exam: Chest x-ray HISTORY pneumonia. Findings: Frontal examination of the chest was reviewed. No prior studies available for comparison. The study history is cardiomegaly. Multiple metallic sutures are noted status post restaurant thoracotomy. The costophrenic angles are clear. No acute pulmonic infiltrates identified. IMPRESSION: No acute disease.
[2017-06-26] MEDS ORDERED: Acetaminophen 500 MG TAB PO PRN (10:46)
[2017-06-26] MEDS ORDERED: Fleet Enema 135 mL RC PRN (10:46)
[2017-06-26 10:52] LABS: ABSOLUTE RETICULOCYTE 19.7 Th/cmm; CORRECTED RETICULOCYTE COUNT 0.5 % (0.5-1.5); RBC RETICULOCYTE COUNT 1.97 Mil/cmm
[2017-06-26] MEDS: INSULIN ASPART, RECOMBINANT 100 UNITS/ML SUBQ SCH ×2 (11:02→15:07)
--- NOTE | 2017-06-26 11:05 | History & Physical ---
ADMIT DATE: 06/26/2017 CHIEF COMPLAINT: Abnormal lab results. HISTORY OF PRESENT ILLNESS: This is an 87-year-old female who was admitted to [facility] due to low level of hemoglobin and hematocrit and for further evaluation. REVIEW OF SYSTEMS: GENERAL: This is an 87-year-old female that appears as stated. Denies fever, denies any chills. HEENT: Head, denies headache. Denies dizziness. Eyes, denies eye pain, denies blurring of vision. NECK: Denies neck pain. Denies nuchal rigidity. CHEST: Denies chest pain. Denies palpitation. PULMONARY: Denies coughing. Denies shortness of breath. GASTROINTESTINAL: Denies abdominal pain, denies diarrhea, denies constipation. MUSCULOSKELETAL: Denies joint pain. Denies muscle pain. SOCIAL HISTORY: The patient lives in a nursing home facility prior to hospitalization. FAMILY HISTORY: Unremarkable. PAST SURGICAL HISTORY: Unremarkable. PAST MEDICAL HISTORY: Includes anemia, diabetes, hyperlipidemia, hypertension, and hypothyroidism. PHYSICAL EXAMINATION: VITAL SIGNS: Temperature 97.2, heart rate 63, blood pressure 117/81, respiration of 18, and O2 saturation 100% on room air. HEENT: Head is atraumatic, normocephalic. Eyes, bilateral conjunctivae are clear. Bilateral pupils are equally round and reactive. NECK: Supple. No JVD. CARDIOVASCULAR: S1 and S2, without murmur. PULMONARY: Clear to auscultation. GASTROINTESTINAL: Soft and nontender without guarding. Positive bowel sounds. MUSCULOSKELETAL: No clubbing. No cyanosis noted. ASSESSMENT: 1. Anemia. 2. Hypertension. 3. Hypothyroidism. 4. Hyperlipidemia. 5. Osteoarthritis. PLAN: We will continue to monitor the patient's hematocrit and hemoglobin level. Current hemoglobin level is 7.3. We will repeat the CBC in the morning. If level is less than 7, we will transfuse 2 units of packed RBC. Otherwise, we will continue treatment and we will do medication reconciliation accordingly. Treatment plans were discussed with the patient's nurse. Treatment also discussed with Dr. López. JOB# [id number]
[2017-06-26] MEDS: Multivitamin w/ Minerals Tab PO SCH (11:28)
[2017-06-26] MEDS: Atorvastatin Calcium 10 MG TAB PO SCH (11:35)
--- NOTE | 2017-06-26 11:39 | Consultation ---
Consult Note - Consult Note Service Date: 06/26/17 Referring Physician: Efra López Consult Note: PHYSICIAN Consultation Note: Date of Admission: 06/25/17 Purpose of Consultation: Thrombocytopenia. Chief Complaint: Patient JUAN LOCKE was admitted to location Medical[facility] Unit I with ANEMIA,THROMBOCYTOPENIA. History of Present Illness: 87 yeaar-old female with history of COPD, HTN, DM2, brought to the ED for anemia and thrombocytopenia. On initial evlauation, she was afebrile and her WBC Count was 5,800. Her Hb was 8.6, now it has dropped to 7.6. Platelets are in normal range. Past Medical History: COPD, HTN, DM2, Allergies Allergy/AdvReac Type Severity Reaction Status Date / Time No Known Allergies Allergy Verified 06/25/17 16:53 Vital Signs Temp 97.2 F 06/26/17 08:00 Pulse 63 06/26/17 08:00 Resp 18 06/26/17 08:00 BP 117/81 06/26/17 08:00 Pulse Ox 100 06/26/17 08:00 Intake & Output 06/25/17 06/26/17 06/26/17 18:59 06:59 18:59 Weight (lbs) 63.503 kg Other: # Voids 1 [facility] Results - last 24 hr 06/26/17 06/26/17 06/26/17 01:51 05:38 05:38 WBC 4.2 L D RBC 1.97 L Hgb 7.3 L* Hct 22.0 L MCV 111.8 H MCH 36.9 H MCHC Differential 33.0 RDW 24.6 H Plt Count 306 MPV 8.1 Neutrophils % 51.1 Lymphocytes % 32.4 Monocytes % 7.3 Eosinophils % 7.4 H Basophils % 1.8 Total Retics Counted Absolute Retic Corrected Retic Count Sodium 139 Potassium 4.0 Chloride 111 H Carbon Dioxide 24.2 Anion Gap 7.8 BUN 31 H Creatinine 1.0 Est GFR ( Amer) TNP Est GFR (Non-Af Amer) TNP BUN/Creatinine Ratio 31.0 Glucose 80 POC Glucose Calcium 8.8 Total Bilirubin 0.9 AST 33 ALT 48 Alkaline Phosphatase 46 Total Protein 5.7 L Albumin 3.3 L Globulin 2.4 Albumin/Globulin Ratio 1.4 Blood Type O POSITIVE Antibody Screen NEGATIVE 06/26/17 06/26/17 07:45 07:55 WBC RBC Hgb Hct 22.0 L* MCV MCH MCHC Differential RDW Plt Count MPV Neutrophils % Lymphocytes % Monocytes % Eosinophils % Basophils % Total Retics Counted 1.0 Absolute Retic 19.7 Corrected Retic Count 0.5 Sodium Potassium Chloride Carbon Dioxide Anion Gap BUN Creatinine Est GFR ( Amer) Est GFR (Non-Af Amer) BUN/Creatinine Ratio Glucose POC Glucose 79 Calcium Total Bilirubin AST ALT Alkaline Phosphatase Total Protein Albumin Globulin Albumin/Globulin Ratio Blood Type Antibody Screen Home Medication Medication Instructions Recorded Type Acetaminophen [Tylenol Extra 1,000 mg PO Q4HR PRN 04/06/17 History Strength] Acetaminophen [Tylenol] 650 mg PO Q4HR PRN 04/06/17 History Atorvastatin Calcium [Lipitor] 40 mg PO DAILY 04/06/17 History Bisacodyl [Dulcolax 10 Mg Supp] 10 mg RC DAILY PRN 04/06/17 History Docusate Sodium [Colace] 100 mg PO DAILY 04/06/17 History Famotidine [Pepcid] 20 mg PO DAILY 04/06/17 History Fleet Enema 135 ml RC Q48H PRN 04/06/17 History Folic Acid [Folate*] 1 mg PO DAILY 04/06/17 History Isosorbide Dinitrate 5 mg PO TID 04/06/17 History Levothyroxine [Synthroid] 0.112 mg PO QDAC 04/06/17 History Magnesium Hydroxide [Milk of 30 ml PO HS PRN 04/06/17 History Magnesia] Metoprolol Succinate [Toprol Xl] 50 mg PO DAILY 04/06/17 History Montelukast [Singulair] 10 mg PO HS 04/06/17 History Multivitamin with Minerals 1 tab PO DAILY 04/06/17 History [Multivitamins with Minerals] Pyridoxine [Vitamin B6] 50 mg PO DAILY 04/06/17 History Current Medications Generic Name Dose Route Start Last Admin Trade Name Freq PRN Reason Stop Dose Admin Acetaminophen 650 mg 06/26/17 10:46 Tylenol PO 08/25/17 10:45 Q4H PRN Pain or Fever >101 Acetaminophen 1,000 mg 06/26/17 10:46 Tylenol Extra Strength PO 08/25/17 10:45 Q4H PRN Pain (Moderate) Aspirin 81 mg 06/26/17 09:00 06/26/17 08:44 Ecotrin PO 08/25/17 08:59 81 mg DAILY [facility] Administration Atorvastatin Calcium 40 mg 06/26/17 11:30 06/26/17 11:35 Lipitor PO 08/25/17 11:29 40 mg DAILY [facility] Administration Bisacodyl 10 mg 06/26/17 10:46 Dulcolax 10 Mg Supp RC 08/25/17 10:45 DAILY PRN Constipation Docusate Sodium 100 mg 06/26/17 11:30 06/26/17 11:28 Colace PO 08/25/17 11:29 100 mg DAILY [facility] Administration Famotidine 20 mg 06/26/17 11:30 06/26/17 11:29 Pepcid PO 08/25/17 11:29 20 mg DAILY [facility] Administration Folic Acid 1 mg 06/26/17 11:30 06/26/17 11:28 Folate PO 08/25/17 11:29 1 mg DAILY [facility] Administration Sodium Chloride 1,000 mls @ 50 mls/hr 06/26/17 01:35 Nacl 0.9% IV 06/26/17 21:34 .Q20H ONE Insulin Aspart 0 units 06/26/17 09:30 06/26/17 11:02 Novolog SUBQ 08/25/17 07:44 Not Given Q6H [facility] Protocol Isosorbide Dinitrate 5 mg 06/26/17 14:00 Isordil PO 08/25/17 13:59 TID [facility] Levothyroxine Sodium 0.1 mg 06/27/17 07:30 Synthroid PO 08/26/17 07:29 QDAC [facility] Magnesium Hydroxide 30 ml 06/26/17 21:00 Milk Of Magnesia PO 08/25/17 20:59 HS PRN Constipation Metoprolol Succinate 50 mg 06/26/17 11:30 06/26/17 11:37 Toprol Xl PO 08/25/17 11:29 Not Given DAILY [facility] Montelukast Sodium 10 mg 06/26/17 21:00 Singulair PO 08/25/17 20:59 HS [facility] Pyridoxine HCl 50 mg 06/26/17 11:30 06/26/17 11:28 Vitamin B6 PO 08/25/17 11:29 50 mg DAILY [facility] Administration Sodium Phosphate 135 ml 06/26/17 10:46 Fleet Enema 08/25/17 10:45 Q48H PRN Constipation Review of Systems: A 12 point ROS was reviewed with the pertinent positive and negatives noted in the HPI. Social History Smoking Status Never smoker Drug Use No Alcohol Use No Family Medical History Family Medical History Start: 06/26/17 01: 35 Freq: ONCE Status: Active Document 06/26/17 01:35 [email or web address] (Rec: 06/26/17 02:42 [email or web address]) Family Medical History Father History Unknown Yes Physical Exam: General: Comfortable, not in any acute distress. HEENT: Head: Normocephalic, atraumatic. Oral Cavity: moist,pink tongue. Eyes: pallor is present, no icterus. Pupil PERRLA, EOMI. Neck: Upper, no JVD. No carotid bruit. No use of X his neck muscles. Cardio: S1 and S2 within normal limits regular rhythm no murmur or gallop. Respiratory: Vesicular breath sound no crackles, no wheezing. Abdominal: Soft, nontender, nondistended bowel sounds present. Genital/Urinary: Deferred Extremities: No cyanosis no clubbing no edema. Neurological: alert, awake, oriented x 3. Assessment: 1. Anrmia, r/o gi bleed. 2. Dementia. 3. HTN. 4. COPD. Plan: check ua and urine cs, and blood cs. Signed, Gui Trent M.D. [id number]
--- NOTE | 2017-06-26 11:57 | History & Physical ---
ADMIT DATE: 06/26/2017 HEMATOLOGY/ONCOLOGY CONSULTATION REFERRING PHYSICIAN: Dr. López. REASON FOR CONSULTATION: Severe anemia. HISTORY OF PRESENT ILLNESS: The patient is an 87-year-old female who was admitted because of a hemoglobin of 7. She was transfused packed red blood cells. The patient had similar problem back in March and she had a B12 and folate level that was normal, could not locate the iron studies back then. PAST MEDICAL HISTORY: Diabetes, hypertension, dyslipidemia, hypothyroidism. SOCIAL HISTORY: Lives in a intermediate facility. FAMILY HISTORY: Unremarkable. SURGICAL HISTORY: Unremarkable. PHYSICAL EXAMINATION: GENERAL: She is weak, following commands. VITAL SIGNS: Stable. HEENT: Pale complexion. Anicteric sclerae. NECK: No lymphadenopathy. CHEST: Good air entry. ABDOMEN: Soft. No organomegaly. LABORATORY DATA: Creatinine 1. Liver functions normal. Albumin 3.3. B12 and folate level from March normal. TSH from this admission is 0.02. ASSESSMENT: Macrocytic anemia. The patient will need a comprehensive workup with iron studies, B12, folate, stool occult blood. The thyroid function indicative of hyperthyroid state and her Synthroid dose need to be adjusted down. Differential diagnosis in this patient with macrocytic anemia includes myelodysplastic syndrome or combined etiology. PLAN: Recommendations will be addressed after the full workup. I will decrease the Synthroid dose from [address] López for the opportunity to participate in the care of this interesting case. JOB# [id number] [facility]
[2017-06-26] MEDS ORDERED: VTE Chemical Prophylaxis Screen/Admission MC PRN (12:15)
[2017-06-26 17:03] LABS: URINE MICROSCOPIC INDICATED? YES; URINE SOURCE MIDSTREAM
[2017-06-26 17:06] LABS: URINE BILIRUBIN NEGATIVE (NEGATIVE); URINE BLOOD NEGATIVE (NEGATIVE); URINE GLUCOSE (UA) NEGATIVE (NEGATIVE); URINE KETONE NEGATIVE (NEGATIVE); URINE LEUKOCYTE ESTERASE SMALL (NEGATIVE); URINE NITRATE NEGATIVE (NEGATIVE); URINE PROTEIN TRACE mg/dL (NEGATIVE)
[2017-06-26 17:12] LABS: URINE BACTERIA NONE SEEN /hpf (NONE SEEN); URINE CLARITY SLIGHTLY HAZY (CLEAR); URINE COLOR YELLOW; URINE EPITHELIAL CELLS OCCASIONAL /lpf (FEW)
[2017-06-26] MEDS ORDERED: Magnesium Hydroxide (MOM) 30 mL UDC PO PRN (21:00)
[2017-06-27] MEDS: INSULIN ASPART SLIDING SCALE 100 UNITS/ML UNIT SUBQ SCH ×4 (00:49→18:03)
[2017-06-27] MEDS: Levothyroxine 0.112 Mg Tab PO SCH (06:41)
[2017-06-27] MEDS ORDERED: Levothyroxine 0.112 Mg Tab PO SCH (07:30)
[2017-06-27 07:40] LABS: % EOSINOPHILS 7.3 % (0.0-5.0); % LYMPHOCYTES 36.2 % (20.0-50.0); % MONOCYTES 8.7 % (2.0-10.0); % NEUTROPHILS 46.8 % (40.0-80.0); EOSINOPHILE ABSOLUTE 0.3 Th/cmm (0.1-0.4); LYMPHOCYTE ABSOLUTE 1.5 Th/cmm (1.5-3.0); MEAN CORPUSCULAR HEMOGLOBIN 37.6 pg (27.0-31.0); MEAN CORPUSCULAR HGB CONC 33.1 pg (28.0-36.0); MONOCYTE ABSOLUTE 0.4 Th/cmm (0.3-1.0); PLATELET COUNT 284 Th/cmm (150-400); RED BLOOD COUNT 1.84 Mil/cmm (3.80-5.20); RED CELL DISTRIBUTION WIDTH 24.6 % (11.5-20.0); WHITE BLOOD COUNT 4.2 Th/cmm (4.8-10.8)
[2017-06-27 07:45] LABS: HEMATOCRIT 20.9 % (41.0-60); HEMOGLOBIN 6.9 gm/dL (12-16)
[2017-06-27 07:47] LABS: MEAN CELL VOLUME 113.4 fl (81-100)
[2017-06-27] MEDS: Multivitamin w/ Minerals Tab PO SCH (08:10)
[2017-06-27] MEDS: Atorvastatin Calcium 10 MG TAB PO SCH (08:12)
--- NOTE | 2017-06-27 08:31 | GI Progress Note ---
Subjective - Review of Systems Subjective: DENIES GI BLEEDING Objective - Results Result Diagrams: 06/27/17 07:31 06/26/17 05:38 Recent Labs: Laboratory Last Values WBC 4.2 Th/cmm (4.8-10.8) L 06/27/17 07:31 RBC 1.84 Mil/cmm (3.80-5.20) L 06/27/17 07:31 Hgb 6.9 gm/dL (12-16) L* 06/27/17 07:31 Hct 20.9 % (41.0-60) L* 06/27/17 07:31 MCV 113.4 fl (81-100) H 06/27/17 07:31 MCH 37.6 pg (27.0-31.0) H 06/27/17 07:31 MCHC Differential 33.1 pg (28.0-36.0) 06/27/17 07:31 RDW 24.6 % (11.5-20.0) H 06/27/17 07:31 Plt Count 284 Th/cmm (150-400) 06/27/17 07:31 MPV 8.0 fl 06/27/17 07:31 Neutrophils % 46.8 % (40.0-80.0) 06/27/17 07:31 Band Neutrophils % 7 % (0-10) 06/25/17 20:46 Lymphocytes % 36.2 % (20.0-50.0) 06/27/17 07:31 Monocytes % 8.7 % (2.0-10.0) 06/27/17 07:31 Eosinophils % 7.3 % (0.0-5.0) H 06/27/17 07:31 Basophils % 1.0 % (0.0-2.0) 06/27/17 07:31 Neutrophils (Manual) 43 % (40-80) 06/25/17 20:46 Lymphocytes 46 % (20-50) 06/25/17 20:46 Monocytes 2 % (2-10) 06/25/17 20:46 Eosinophils 2 % (0-5) 06/25/17 20:46 Basophils 0 % (0-3) 06/25/17 20:46 Platelet Estimate ADEQUATE (NORMAL) 06/25/17 20:46 Anisocytosis 2+ 06/25/17 20:46 Macrocytosis 3+ 0406/18 20:46 Total Retics Counted 1.0 % (0.5-1.5) 06/26/17 07:45 Absolute Retic 19.7 Th/cmm 06/26/17 07:45 Corrected Retic Count 0.5 % (0.5-1.5) 06/26/17 07:45 Sodium 139 mEq/L (136-145) 06/26/17 05:38 Potassium 4.0 mEq/L (3.5-5.1) 06/26/17 05:38 Chloride 111 mEq/L (98-107) H 06/26/17 05:38 Carbon Dioxide 24.2 mEq/L (21.0-31.0) 06/26/17 05:38 Anion Gap 7.8 (7.0-16.0) 06/26/17 05:38 BUN 31 mg/dL (7-25) H 06/26/17 05:38 Creatinine 1.0 mg/dL (0.6-1.2) 06/26/17 05:38 Est GFR ( Amer) TNP 06/26/17 05:38 Est GFR (Non-Af Amer) TNP 06/26/17 05:38 BUN/Creatinine Ratio 31.0 06/26/17 05:38 Glucose 80 mg/dL (70-105) 06/26/17 05:38 POC Glucose 83 MG/DL (70 - 105) 06/27/17 06:30 Calcium 8.8 mg/dL (8.6-10.3) 06/26/17 05:38 Magnesium 2.2 mg/dL (1.9-2.7) 06/25/17 20:46 Total Bilirubin 0.9 mg/dL (0.3-1.0) 06/26/17 05:38 AST 33 U/L (13-39) 06/26/17 05:38 ALT 48 U/L (7-52) 06/26/17 05:38 Alkaline Phosphatase 46 U/L (34-104) 06/26/17 05:38 Total Protein 5.7 gm/dL (6.0-8.3) L 06/26/17 05:38 Albumin 3.3 gm/dL (3.7-5.3) L 06/26/17 05:38 Globulin 2.4 gm/dL 06/26/17 05:38 Albumin/Globulin Ratio 1.4 (1.0-1.8) 06/26/17 05:38 Triglycerides 51 mg/dL (<150) 06/25/17 20:46 Cholesterol 105 mg/dL (<200) 06/25/17 20:46 LDL Cholesterol Direct 39 mg/dL (75-193) L 06/25/17 20:46 HDL Cholesterol 51 mg/dL (23-92) 06/25/17 20:46 TSH 0.02 uIU/ml (0.34-5.60) L 06/25/17 20:46 Urine Source MIDSTREAM 06/26/17 16:10 Urine Color YELLOW 06/26/17 16:10 Urine Clarity SLIGHTLY HAZY (CLEAR) 06/26/17 16:10 Urine pH 6.0 (4.6 - 8.0) 06/26/17 16:10 Ur Specific [place] 1.010 (1.005-1.030) 06/26/17 16:10 Urine Protein TRACE mg/dL (NEGATIVE) 06/26/17 16:10 Urine Glucose (UA) NEGATIVE mg/dL (NEGATIVE) 06/26/17 16:10 Urine Ketones NEGATIVE mg/dL (NEGATIVE) 06/26/17 16:10 Urine Blood NEGATIVE (NEGATIVE) 06/26/17 16:10 Urine Nitrate NEGATIVE (NEGATIVE) 06/26/17 16:10 Urine Bilirubin NEGATIVE (NEGATIVE) 06/26/17 16:10 Urine Urobilinogen 1.0 E.U./dL (0.2 - 1.0) 06/26/17 16:10 Ur Leukocyte Esterase SMALL (NEGATIVE) H 06/26/17 16:10 Urine RBC 2-5 /hpf (0-5) 06/26/17 16:10 Urine WBC 6-10 /hpf (0-5) H 06/26/17 16:10 Ur Epithelial Cells OCCASIONAL /lpf (FEW) 06/26/17 16:10 Urine Bacteria NONE SEEN /hpf (NONE SEEN) 06/26/17 16:10 Stool Occult Blood NEGATIVE (NEGATIVE) 06/26/17 16:10 Blood Type O POSITIVE 06/26/17 01:51 Antibody Screen NEGATIVE 06/26/17 01:51 - Physical Exam Vitals and I&O: Vital Signs Temp 98.6 F 06/27/17 07:44 Pulse 119 06/27/17 08:11 Resp 18 06/27/17 07:44 BP 119/60 06/27/17 08:11 Pulse Ox 100 06/27/17 07:44 Intake & Output 06/26/17 06/27/17 06/27/17 18:59 06:59 18:59 Intake Total 1000 150 Balance 1000 150 Weight (lbs) 63.503 kg 46.72 kg Intake: Oral 1000 150 Other: # Voids 3 3 # Bowel Movements 1 0 Weight Source Bedscale Bedscale Active Medications: Current Medications Acetaminophen (Tylenol) 650 mg PO Q4H PRN PRN Reason: Pain or Fever >101 Stop: 08/25/17 10:45 Acetaminophen (Tylenol Extra Strength) 1,000 mg PO Q4H PRN PRN Reason: Pain (Moderate) Stop: 08/25/17 10:45 Aspirin (Ecotrin) 81 mg PO DAILY [facility] Stop: 08/25/17 08:59 Last Admin: 06/27/17 08:11 Dose: 81 mg Atorvastatin Calcium (Lipitor) 40 mg PO DAILY [facility] Stop: 08/25/17 11:29 Last Admin: 06/27/17 08:12 Dose: 40 mg Bisacodyl (Dulcolax 10 Mg Supp) 10 mg RC DAILY PRN PRN Reason: Constipation Stop: 08/25/17 10:45 Docusate Sodium (Colace) 100 mg PO DAILY [facility] Stop: 08/25/17 11:29 Last Admin: 06/27/17 08:13 Dose: 100 mg Famotidine (Pepcid) 20 mg PO DAILY [facility] Stop: 08/25/17 11:29 Last Admin: 06/27/17 08:12 Dose: 20 mg Folic Acid (Folate) 1 mg PO DAILY [facility] Stop: 08/25/17 11:29 Last Admin: 06/27/17 08:12 Dose: 1 mg Heparin Sodium (Porcine) (Heparin) 5,000 units SUBQ Q12HR [facility] Stop: 08/25/17 20:59 Last Admin: 06/27/17 08:14 Dose: Not Given Insulin Aspart (Novolog Insulin Sliding Scale) 0 units SUBQ Q6HR [facility] PRN Reason: Protocol Stop: 08/26/17 00:00 Last Admin: 06/27/17 06:45 Dose: Not Given Isosorbide Dinitrate (Isordil) 5 mg PO TID [facility] Stop: 08/25/17 13:59 Last Admin: 06/27/17 08:10 Dose: 5 mg Levothyroxine Sodium (Synthroid) 0.1 mg PO QDAC [facility] Stop: 08/26/17 07:29 Last Admin: 06/27/17 06:41 Dose: 0.1 mg Magnesium Hydroxide (Milk Of Magnesia) 30 ml PO HS PRN PRN Reason: Constipation Stop: 08/25/17 20:59 Metoprolol Succinate (Toprol Xl) 50 mg PO DAILY [facility] Stop: 08/25/17 11:29 Last Admin: 06/27/17 08:11 Dose: 50 mg Miscellaneous (Vte Chemical Prophylaxis Screen/ Admission) 1 ea [facility] PRN PRN PRN Reason: PROTOCOL Stop: 08/25/17 12:14 Montelukast Sodium (Singulair) 10 mg PO HS [facility] Stop: 08/25/17 20:59 Last Admin: 06/26/17 20:37 Dose: 10 mg Pyridoxine HCl (Vitamin B6) 50 mg PO DAILY [facility] Stop: 08/25/17 11:29 Last Admin: 06/27/17 08:12 Dose: 50 mg Sodium Phosphate (Fleet Enema) 135 ml RC Q48H PRN PRN Reason: Constipation Stop: 08/25/17 10:45 - Procedures Procedures: Procedures Procedure Code Date TRANSFUSE NONAUT RED BLOOD CELLS IN PERIPH VEIN, MERGED WITH [facility] 76821L7 04/06/17 Assessment/Plan - Assessment Assessment: 87 YO FEMALE WITH ANEMIA NO OVERT GI BLEEDING STOOL OB NEG X 1 1.FOLLOW H/H; TRANSFUSE PRBC 2.CHECK STOOL OB 3.CONSIDER GI WORK UP IF SIGNS OF GI BLEEDING 4.CHECK HAPTOGLOBIN
--- NOTE | 2017-06-27 11:36 | General Progress Note ---
Subjective - Review of Systems Events since last encounter: in no acute distress Objective - Results Result Diagrams: 06/27/17 07:31 06/26/17 05:38 Recent Labs: Laboratory Last Values WBC 4.2 Th/cmm (4.8-10.8) L 06/27/17 07:31 RBC 1.84 Mil/cmm (3.80-5.20) L 06/27/17 07:31 Hgb 6.9 gm/dL (12-16) L* 06/27/17 07:31 Hct 20.9 % (41.0-60) L* 06/27/17 07:31 MCV 113.4 fl (81-100) H 06/27/17 07:31 MCH 37.6 pg (27.0-31.0) H 06/27/17 07:31 MCHC Differential 33.1 pg (28.0-36.0) 06/27/17 07:31 RDW 24.6 % (11.5-20.0) H 06/27/17 07:31 Plt Count 284 Th/cmm (150-400) 06/27/17 07:31 MPV 8.0 fl 06/27/17 07:31 Neutrophils % 46.8 % (40.0-80.0) 06/27/17 07:31 Band Neutrophils % 7 % (0-10) 06/25/17 20:46 Lymphocytes % 36.2 % (20.0-50.0) 06/27/17 07:31 Monocytes % 8.7 % (2.0-10.0) 06/27/17 07:31 Eosinophils % 7.3 % (0.0-5.0) H 06/27/17 07:31 Basophils % 1.0 % (0.0-2.0) 06/27/17 07:31 Neutrophils (Manual) 43 % (40-80) 06/25/17 20:46 Lymphocytes 46 % (20-50) 06/25/17 20:46 Monocytes 2 % (2-10) 06/25/17 20:46 Eosinophils 2 % (0-5) 06/25/17 20:46 Basophils 0 % (0-3) 06/25/17 20:46 Platelet Estimate ADEQUATE (NORMAL) 06/25/17 20:46 Anisocytosis 2+ 06/25/17 20:46 Macrocytosis 3+ 06/25/17 20:46 Total Retics Counted 1.0 % (0.5-1.5) 06/26/17 07:45 Absolute Retic 19.7 Th/cmm 06/26/17 07:45 Corrected Retic Count 0.5 % (0.5-1.5) 06/26/17 07:45 Sodium 139 mEq/L (136-145) 06/26/17 05:38 Potassium 4.0 mEq/L (3.5-5.1) 06/26/17 05:38 Chloride 111 mEq/L (98-107) H 06/26/17 05:38 Carbon Dioxide 24.2 mEq/L (21.0-31.0) 06/26/17 05:38 Anion Gap 7.8 (7.0-16.0) 06/26/17 05:38 BUN 31 mg/dL (7-25) H 06/26/17 05:38 Creatinine 1.0 mg/dL (0.6-1.2) 06/26/17 05:38 Est GFR ( Amer) TNP 06/26/17 05:38 Est GFR (Non-Af Amer) TNP 06/26/17 05:38 BUN/Creatinine Ratio 31.0 06/26/17 05:38 Glucose 80 mg/dL (70-105) 06/26/17 05:38 POC Glucose 83 MG/DL (70 - 105) 06/27/17 06:30 Calcium 8.8 mg/dL (8.6-10.3) 06/26/17 05:38 Magnesium 2.2 mg/dL (1.9-2.7) 06/25/17 20:46 Total Bilirubin 0.9 mg/dL (0.3-1.0) 06/26/17 05:38 AST 33 U/L (13-39) 06/26/17 05:38 ALT 48 U/L (7-52) 06/26/17 05:38 Alkaline Phosphatase 46 U/L (34-104) 06/26/17 05:38 Total Protein 5.7 gm/dL (6.0-8.3) L 06/26/17 05:38 Albumin 3.3 gm/dL (3.7-5.3) L 06/26/17 05:38 Globulin 2.4 gm/dL 06/26/17 05:38 Albumin/Globulin Ratio 1.4 (1.0-1.8) 06/26/17 05:38 Triglycerides 51 mg/dL (<150) 06/25/17 20:46 Cholesterol 105 mg/dL (<200) 06/25/17 20:46 LDL Cholesterol Direct 39 mg/dL (75-193) L 06/25/17 20:46 HDL Cholesterol 51 mg/dL (23-92) 06/25/17 20:46 TSH 0.02 uIU/ml (0.34-5.60) L 06/25/17 20:46 Urine Source MIDSTREAM 06/26/17 16:10 Urine Color YELLOW 06/26/17 16:10 Urine Clarity SLIGHTLY HAZY (CLEAR) 06/26/17 16:10 Urine pH 6.0 (4.6 - 8.0) 06/26/17 16:10 Ur Specific [place] 1.010 (1.005-1.030) 06/26/17 16:10 Urine Protein TRACE mg/dL (NEGATIVE) 06/26/17 16:10 Urine Glucose (UA) NEGATIVE mg/dL (NEGATIVE) 06/26/17 16:10 Urine Ketones NEGATIVE mg/dL (NEGATIVE) 06/26/17 16:10 Urine Blood NEGATIVE (NEGATIVE) 06/26/17 16:10 Urine Nitrate NEGATIVE (NEGATIVE) 06/26/17 16:10 Urine Bilirubin NEGATIVE (NEGATIVE) 06/26/17 16:10 Urine Urobilinogen 1.0 E.U./dL (0.2 - 1.0) 06/26/17 16:10 Ur Leukocyte Esterase SMALL (NEGATIVE) H 06/26/17 16:10 Urine RBC 2-5 /hpf (0-5) 06/26/17 16:10 Urine WBC 6-10 /hpf (0-5) H 06/26/17 16:10 Ur Epithelial Cells OCCASIONAL /lpf (FEW) 06/26/17 16:10 Urine Bacteria NONE SEEN /hpf (NONE SEEN) 06/26/17 16:10 Stool Occult Blood NEGATIVE (NEGATIVE) 06/26/17 16:10 Blood Type O POSITIVE 06/26/17 01:51 Antibody Screen NEGATIVE 06/26/17 01:51 Crossmatch See Detail 06/26/17 01:51 - Physical Exam Vitals and I&O: Vital Signs Temp 98.3 F 06/27/17 11:10 Pulse 64 06/27/17 11:10 Resp 18 06/27/17 11:10 BP 114/50 06/27/17 11:10 Pulse Ox 100 06/27/17 11:10 Intake & Output 06/26/17 06/27/17 06/27/17 18:59 06:59 18:59 Intake Total 1000 150 Balance 1000 150 Weight (lbs) 63.503 kg 46.72 kg Intake: Oral 1000 150 Other: # Voids 3 3 # Bowel Movements 1 0 Weight Source Bedscale Bedscale Active Medications: Current Medications Acetaminophen (Tylenol) 650 mg PO Q4H PRN PRN Reason: Pain or Fever >101 Stop: 08/25/17 10:45 Acetaminophen (Tylenol Extra Strength) 1,000 mg PO Q4H PRN PRN Reason: Pain (Moderate) Stop: 08/25/17 10:45 Aspirin (Ecotrin) 81 mg PO DAILY [facility] Stop: 08/25/17 08:59 Last Admin: 06/27/17 08:11 Dose: 81 mg Atorvastatin Calcium (Lipitor) 40 mg PO DAILY [facility] Stop: 08/25/17 11:29 Last Admin: 06/27/17 08:12 Dose: 40 mg Bisacodyl (Dulcolax 10 Mg Supp) 10 mg RC DAILY PRN PRN Reason: Constipation Stop: 08/25/17 10:45 Docusate Sodium (Colace) 100 mg PO DAILY [facility] Stop: 08/25/17 11:29 Last Admin: 06/27/17 08:13 Dose: 100 mg Famotidine (Pepcid) 20 mg PO DAILY [facility] Stop: 08/25/17 11:29 Last Admin: 06/27/17 08:12 Dose: 20 mg Folic Acid (Folate) 1 mg PO DAILY [facility] Stop: 08/25/17 11:29 Last Admin: 06/27/17 08:12 Dose: 1 mg Heparin Sodium (Porcine) (Heparin) 5,000 units SUBQ Q12HR [facility] Stop: 08/25/17 20:59 Last Admin: 06/27/17 08:14 Dose: Not Given Sodium Chloride (Nacl 0.9%) 1,000 mls @ 50 mls/hr IV .Q20H [facility] Stop: 08/26/17 10:04 Insulin Aspart (Novolog Insulin Sliding Scale) 0 units SUBQ Q6HR [facility] PRN Reason: Protocol Stop: 08/26/17 00:00 Last Admin: 06/27/17 06:45 Dose: Not Given Isosorbide Dinitrate (Isordil) 5 mg PO TID [facility] Stop: 08/25/17 13:59 Last Admin: 06/27/17 08:10 Dose: 5 mg Levothyroxine Sodium (Synthroid) 0.1 mg PO QDAC [facility] Stop: 08/26/17 07:29 Last Admin: 06/27/17 06:41 Dose: 0.1 mg Magnesium Hydroxide (Milk Of Magnesia) 30 ml PO HS PRN PRN Reason: Constipation Stop: 08/25/17 20:59 Metoprolol Succinate (Toprol Xl) 50 mg PO DAILY [facility] Stop: 08/25/17 11:29 Last Admin: 06/27/17 08:11 Dose: 50 mg Miscellaneous (Vte Chemical Prophylaxis Screen/ Admission) 1 ea [facility] PRN PRN PRN Reason: PROTOCOL Stop: 08/25/17 12:14 Montelukast Sodium (Singulair) 10 mg PO HS [facility] Stop: 08/25/17 20:59 Last Admin: 06/26/17 20:37 Dose: 10 mg Pyridoxine HCl (Vitamin B6) 50 mg PO DAILY [facility] Stop: 08/25/17 11:29 Last Admin: 06/27/17 08:12 Dose: 50 mg Sodium Phosphate (Fleet Enema) 135 ml RC Q48H PRN PRN Reason: Constipation Stop: 08/25/17 10:45 - Procedures Procedures: Procedures Procedure Code Date TRANSFUSE NONAUT RED BLOOD CELLS IN PERIPH VEIN, [facility] 20206K4 04/06/17
[2017-06-27] MEDS: Sodium Chloride 0.9% 1,000 ML IV SCH (17:18)
[2017-06-28] MEDS: INSULIN ASPART SLIDING SCALE 100 UNITS/ML UNIT SUBQ SCH ×3 (00:12→11:41)
[2017-06-28 05:26] LABS: % BASOPHILS 0.4 % (0.0-2.0); % EOSINOPHILS 6.6 % (0.0-5.0); % LYMPHOCYTES 34.7 % (20.0-50.0); % MONOCYTES 6.5 % (2.0-10.0); % NEUTROPHILS 51.8 % (40.0-80.0); EOSINOPHILE ABSOLUTE 0.3 Th/cmm (0.1-0.4); HEMOGLOBIN 9.6 gm/dL (12-16); LYMPHOCYTE ABSOLUTE 1.8 Th/cmm (1.5-3.0); MEAN CELL VOLUME 99.4 fl (81-100); MEAN CORPUSCULAR HEMOGLOBIN 31.9 pg (27.0-31.0); MEAN CORPUSCULAR HGB CONC 32.1 pg (28.0-36.0); MEAN PLATELET VOLUME 8.9 fl; MONOCYTE ABSOLUTE 0.3 Th/cmm (0.3-1.0); NEUTROPHILE ABSOLUTE 2.8 Th/cmm (1.8-8.0); PLATELET COUNT 278 Th/cmm (150-400); RED BLOOD COUNT 3.02 Mil/cmm (3.80-5.20); RED CELL DISTRIBUTION WIDTH 31.4 % (11.5-20.0)
[2017-06-28 05:33] LABS: WHITE BLOOD COUNT 5.2 Th/cmm (4.8-10.8)
[2017-06-28 05:54] LABS: ALB/GLOB RATIO 1.3 (1.0-1.8); ALBUMIN 3.4 gm/dL (3.7-5.3); ALKALINE PHOSPHATASE 55 U/L (34-104); ANION GAP 9.2 (7.0-16.0); BILIRUBIN,TOTAL 1.2 mg/dL (0.3-1.0); BUN - UREA NITROGEN 28 mg/dL (7-25); CALCIUM SERUM 9.2 mg/dL (8.6-10.3); CARBON DIOXIDE 24.6 mEq/L (21.0-31.0); CHLORIDE 110 mEq/L (98-107); CREATININE - SERUM 1.1 mg/dL (0.6-1.2); GLUCOSE 86 mg/dL (70-105); POTASSIUM SERUM 4.8 mEq/L (3.5-5.1); SGOT 35 U/L (13-39); SGPT/ALT 50 U/L (7-52); SODIUM SERUM 139 mEq/L (136-145)
[2017-06-28] MEDS: Levothyroxine 0.112 Mg Tab PO SCH (06:46)
[2017-06-28] MEDS: Atorvastatin Calcium 10 MG TAB PO SCH (08:18)
[2017-06-28] MEDS: Multivitamin w/ Minerals Tab PO SCH (08:18)
--- NOTE | 2017-06-28 09:53 | General Progress Note ---
Subjective - Review of Systems Service Date: 06/28/17 Subjective: awake, not in distress Objective - Results Result Diagrams: 06/28/17 05:05 06/28/17 05:05 Recent Labs: Laboratory Last Values WBC 5.2 Th/cmm (4.8-10.8) D 06/28/17 05:05 RBC 3.02 Mil/cmm (3.80-5.20) L 06/28/17 05:05 Hgb 9.6 gm/dL (12-16) L 06/28/17 05:05 Hct 30.0 % (41.0-60) L D 06/28/17 05:05 MCV 99.4 fl (81-100) 06/28/17 05:05 MCH 31.9 pg (27.0-31.0) H 06/28/17 05:05 MCHC Differential 32.1 pg (28.0-36.0) 06/28/17 05:05 RDW 31.4 % (11.5-20.0) H 06/28/17 05:05 Plt Count 278 Th/cmm (150-400) 06/28/17 05:05 MPV 8.9 fl 06/28/17 05:05 Neutrophils % 51.8 % (40.0-80.0) 06/28/17 05:05 Band Neutrophils % 7 % (0-10) 06/25/17 20:46 Lymphocytes % 34.7 % (20.0-50.0) 06/28/17 05:05 Monocytes % 6.5 % (2.0-10.0) 06/28/17 05:05 Eosinophils % 6.6 % (0.0-5.0) H 06/28/17 05:05 Basophils % 0.4 % (0.0-2.0) 06/28/17 05:05 Neutrophils (Manual) 43 % (40-80) 06/25/17 20:46 Lymphocytes 46 % (20-50) 06/25/17 20:46 Monocytes 2 % (2-10) 06/25/17 20:46 Eosinophils 2 % (0-5) 06/25/17 20:46 Basophils 0 % (0-3) 06/25/17 20:46 Platelet Estimate ADEQUATE (NORMAL) 06/25/17 20:46 Anisocytosis 2+ 06/25/17 20:46 Macrocytosis 3+ 06/25/17 20:46 Total Retics Counted 1.0 % (0.5-1.5) 06/26/17 07:45 Absolute Retic 19.7 Th/cmm 06/26/17 07:45 Corrected Retic Count 0.5 % (0.5-1.5) 06/26/17 07:45 Sodium 139 mEq/L (136-145) 06/28/17 05:05 Potassium 4.8 mEq/L (3.5-5.1) 06/28/17 05:05 Chloride 110 mEq/L (98-107) H 06/28/17 05:05 Carbon Dioxide 24.6 mEq/L (21.0-31.0) 06/28/17 05:05 Anion Gap 9.2 (7.0-16.0) 06/28/17 05:05 BUN 28 mg/dL (7-25) H 06/28/17 05:05 Creatinine 1.1 mg/dL (0.6-1.2) 06/28/17 05:05 Est GFR ( Amer) TNP 06/28/17 05:05 Est GFR (Non-Af Amer) TNP 06/28/17 05:05 BUN/Creatinine Ratio 25.5 06/28/17 05:05 Glucose 86 mg/dL (70-105) 06/28/17 05:05 POC Glucose 82 MG/DL (70 - 105) 06/28/17 05:41 Calcium 9.2 mg/dL (8.6-10.3) 06/28/17 05:05 Magnesium 2.2 mg/dL (1.9-2.7) 06/25/17 20:46 Total Bilirubin 1.2 mg/dL (0.3-1.0) H 06/28/17 05:05 AST 35 U/L (13-39) 06/28/17 05:05 ALT 50 U/L (7-52) 06/28/17 05:05 Alkaline Phosphatase 55 U/L (34-104) 06/28/17 05:05 Total Protein 6.0 gm/dL (6.0-8.3) 06/28/17 05:05 Albumin 3.4 gm/dL (3.7-5.3) L 06/28/17 05:05 Globulin 2.6 gm/dL 06/28/17 05:05 Albumin/Globulin Ratio 1.3 (1.0-1.8) 06/28/17 05:05 Triglycerides 51 mg/dL (<150) 06/25/17 20:46 Cholesterol 105 mg/dL (<200) 06/25/17 20:46 LDL Cholesterol Direct 39 mg/dL (75-193) L 06/25/17 20:46 HDL Cholesterol 51 mg/dL (23-92) 06/25/17 20:46 TSH 0.02 uIU/ml (0.34-5.60) L 06/25/17 20:46 Urine Source MIDSTREAM 06/26/17 16:10 Urine Color YELLOW 06/26/17 16:10 Urine Clarity SLIGHTLY HAZY (CLEAR) 06/26/17 16:10 Urine pH 6.0 (4.6 - 8.0) 06/26/17 16:10 Ur Specific [place] 1.010 (1.005-1.030) 06/26/17 16:10 Urine Protein TRACE mg/dL (NEGATIVE) 06/26/17 16:10 Urine Glucose (UA) NEGATIVE mg/dL (NEGATIVE) 06/26/17 16:10 Urine Ketones NEGATIVE mg/dL (NEGATIVE) 06/26/17 16:10 Urine Blood NEGATIVE (NEGATIVE) 06/26/17 16:10 Urine Nitrate NEGATIVE (NEGATIVE) 06/26/17 16:10 Urine Bilirubin NEGATIVE (NEGATIVE) 06/26/17 16:10 Urine Urobilinogen 1.0 E.U./dL (0.2 - 1.0) 06/26/17 16:10 Ur Leukocyte Esterase SMALL (NEGATIVE) H 06/26/17 16:10 Urine RBC 2-5 /hpf (0-5) 06/26/17 16:10 Urine WBC 6-10 /hpf (0-5) H 06/26/17 16:10 Ur Epithelial Cells OCCASIONAL /lpf (FEW) 06/26/17 16:10 Urine Bacteria NONE SEEN /hpf (NONE SEEN) 06/26/17 16:10 Stool Occult Blood NEGATIVE (NEGATIVE) 06/27/17 13:55 Blood Type O POSITIVE 06/26/17 01:51 Antibody Screen NEGATIVE 06/26/17 01:51 Crossmatch See Detail 06/26/17 01:51 - Physical Exam Vitals and I&O: Vital Signs Temp 97.4 F 06/28/17 07:28 Pulse 64 06/28/17 08:19 Resp 19 06/28/17 07:48 BP 133/59 06/28/17 08:19 Pulse Ox 100 06/28/17 07:28 Intake & Output 06/27/17 06/28/17 06/28/17 18:59 06:59 18:59 Intake Total 1500 150 Balance 1500 150 Weight (lbs) 46.72 kg 47.174 kg Intake: Oral 1000 150 Blood Product 500 Other: # Voids 4 4 # Bowel Movements 2 0 Weight Source Bedscale Bedscale Active Medications: Current Medications Acetaminophen (Tylenol) 650 mg PO Q4H PRN PRN Reason: Pain or Fever >101 Stop: 08/25/17 10:45 Acetaminophen (Tylenol Extra Strength) 1,000 mg PO Q4H PRN PRN Reason: Pain (Moderate) Stop: 08/25/17 10:45 Aspirin (Ecotrin) 81 mg PO DAILY [facility] Stop: 08/25/17 08:59 Last Admin: 06/28/17 08:17 Dose: 81 mg Atorvastatin Calcium (Lipitor) 40 mg PO DAILY [facility] Stop: 08/25/17 11:29 Last Admin: 06/28/17 08:18 Dose: 40 mg Bisacodyl (Dulcolax 10 Mg Supp) 10 mg RC DAILY PRN PRN Reason: Constipation Stop: 08/25/17 10:45 Docusate Sodium (Colace) 100 mg PO DAILY [facility] Stop: 08/25/17 11:29 Last Admin: 06/28/17 08:17 Dose: 100 mg Famotidine (Pepcid) 20 mg PO DAILY [facility] Stop: 08/25/17 11:29 Last Admin: 06/28/17 08:18 Dose: 20 mg Folic Acid (Folate) 1 mg PO DAILY [facility] Stop: 08/25/17 11:29 Last Admin: 06/28/17 08:17 Dose: 1 mg Heparin Sodium (Porcine) (Heparin) 5,000 units SUBQ Q12HR [facility] Stop: 08/25/17 20:59 Last Admin: 06/28/17 08:21 Dose: 5,000 units Sodium Chloride (Nacl 0.9%) 1,000 mls @ 50 mls/hr IV .Q20H [facility] Stop: 08/26/17 10:04 Last Admin: 06/27/17 17:18 Dose: 50 mls/hr Insulin Aspart (Novolog Insulin Sliding Scale) 0 units SUBQ Q6HR [facility] PRN Reason: Protocol Stop: 08/26/17 00:00 Last Admin: 06/28/17 06:00 Dose: Not Given Isosorbide Dinitrate (Isordil) 5 mg PO TID [facility] Stop: 08/25/17 13:59 Last Admin: 06/28/17 08:18 Dose: 5 mg Levothyroxine Sodium (Synthroid) 0.1 mg PO QDAC [facility] Stop: 08/26/17 07:29 Last Admin: 06/28/17 06:46 Dose: 0.1 mg Magnesium Hydroxide (Milk Of Magnesia) 30 ml PO HS PRN PRN Reason: Constipation Stop: 08/25/17 20:59 Metoprolol Succinate (Toprol Xl) 50 mg PO DAILY [facility] Stop: 08/25/17 11:29 Last Admin: 06/28/17 08:19 Dose: 50 mg Miscellaneous (Vte Chemical Prophylaxis Screen/ Admission) 1 ea [facility] PRN PRN PRN Reason: PROTOCOL Stop: 08/25/17 12:14 Montelukast Sodium (Singulair) 10 mg PO HS [facility] Stop: 08/25/17 20:59 Last Admin: 06/27/17 21:29 Dose: 10 mg Pyridoxine HCl (Vitamin B6) 50 mg PO DAILY [facility] Stop: 08/25/17 11:29 Last Admin: 06/28/17 08:17 Dose: 50 mg Sodium Phosphate (Fleet Enema) 135 ml RC Q48H PRN PRN Reason: Constipation Stop: 08/25/17 10:45 General: Alert HEENT: Atraumatic Neck: Supple Cardiovascular: Regular rate Abdomen: Soft - Procedures Procedures: Procedures Procedure Code Date BLOOD TRANSFUSION SERVICE 19743 06/25/17 TRANSFUSE NONAUT RED BLOOD CELLS IN PERIPH VEIN, PERC 38723C2 06/25/17 Assessment/Plan - Assessment Assessment: * Macrocytic anemia follow anemia mendez
[2017-06-28] MEDS: Sodium Chloride 0.9% 1,000 ML IV SCH (13:56)
--- NOTE | 2017-06-28 15:19 | General Progress Note ---
Subjective - Review of Systems Events since last encounter: patient awake in no distress comfortable Objective - Results Result Diagrams: 06/28/17 05:05 06/28/17 05:05 Recent Labs: Laboratory Last Values WBC 5.2 Th/cmm (4.8-10.8) D 06/28/17 05:05 RBC 3.02 Mil/cmm (3.80-5.20) L 06/28/17 05:05 Hgb 9.6 gm/dL (12-16) L 06/28/17 05:05 Hct 30.0 % (41.0-60) L D 06/28/17 05:05 MCV 99.4 fl (81-100) 06/28/17 05:05 MCH 31.9 pg (27.0-31.0) H 06/28/17 05:05 MCHC Differential 32.1 pg (28.0-36.0) 06/28/17 05:05 RDW 31.4 % (11.5-20.0) H 06/28/17 05:05 Plt Count 278 Th/cmm (150-400) 06/28/17 05:05 MPV 8.9 fl 06/28/17 05:05 Neutrophils % 51.8 % (40.0-80.0) 06/28/17 05:05 Band Neutrophils % 7 % (0-10) 06/25/17 20:46 Lymphocytes % 34.7 % (20.0-50.0) 06/28/17 05:05 Monocytes % 6.5 % (2.0-10.0) 06/28/17 05:05 Eosinophils % 6.6 % (0.0-5.0) H 06/28/17 05:05 Basophils % 0.4 % (0.0-2.0) 06/28/17 05:05 Neutrophils (Manual) 43 % (40-80) 06/25/17 20:46 Lymphocytes 46 % (20-50) 06/25/17 20:46 Monocytes 2 % (2-10) 06/25/17 20:46 Eosinophils 2 % (0-5) 06/25/17 20:46 Basophils 0 % (0-3) 06/25/17 20:46 Platelet Estimate ADEQUATE (NORMAL) 06/25/17 20:46 Anisocytosis 2+ 06/25/17 20:46 Macrocytosis 3+ 06/25/17 20:46 Total Retics Counted 1.0 % (0.5-1.5) 06/26/17 07:45 Absolute Retic 19.7 Th/cmm 06/26/17 07:45 Corrected Retic Count 0.5 % (0.5-1.5) 06/26/17 07:45 Sodium 139 mEq/L (136-145) 06/28/17 05:05 Potassium 4.8 mEq/L (3.5-5.1) 06/28/17 05:05 Chloride 110 mEq/L (98-107) H 06/28/17 05:05 Carbon Dioxide 24.6 mEq/L (21.0-31.0) 06/28/17 05:05 Anion Gap 9.2 (7.0-16.0) 06/28/17 05:05 BUN 28 mg/dL (7-25) H 06/28/17 05:05 Creatinine 1.1 mg/dL (0.6-1.2) 06/28/17 05:05 Est GFR ( Amer) TNP 06/28/17 05:05 Est GFR (Non-Af Amer) TNP 06/28/17 05:05 BUN/Creatinine Ratio 25.5 06/28/17 05:05 Glucose 86 mg/dL (70-105) 06/28/17 05:05 POC Glucose 101 MG/DL (70 - 105) 06/28/17 11:33 Calcium 9.2 mg/dL (8.6-10.3) 06/28/17 05:05 Magnesium 2.2 mg/dL (1.9-2.7) 06/25/17 20:46 Total Bilirubin 1.2 mg/dL (0.3-1.0) H 06/28/17 05:05 AST 35 U/L (13-39) 06/28/17 05:05 ALT 50 U/L (7-52) 06/28/17 05:05 Alkaline Phosphatase 55 U/L (34-104) 06/28/17 05:05 Total Protein 6.0 gm/dL (6.0-8.3) 06/28/17 05:05 Albumin 3.4 gm/dL (3.7-5.3) L 06/28/17 05:05 Globulin 2.6 gm/dL 06/28/17 05:05 Albumin/Globulin Ratio 1.3 (1.0-1.8) 06/28/17 05:05 Triglycerides 51 mg/dL (<150) 06/25/17 20:46 Cholesterol 105 mg/dL (<200) 06/25/17 20:46 LDL Cholesterol Direct 39 mg/dL (75-193) L 06/25/17 20:46 HDL Cholesterol 51 mg/dL (23-92) 06/25/17 20:46 TSH 0.02 uIU/ml (0.34-5.60) L 06/25/17 20:46 Urine Source MIDSTREAM 06/26/17 16:10 Urine Color YELLOW 06/26/17 16:10 Urine Clarity SLIGHTLY HAZY (CLEAR) 06/26/17 16:10 Urine pH 6.0 (4.6 - 8.0) 06/26/17 16:10 Ur Specific [place] 1.010 (1.005-1.030) 06/26/17 16:10 Urine Protein TRACE mg/dL (NEGATIVE) 06/26/17 16:10 Urine Glucose (UA) NEGATIVE mg/dL (NEGATIVE) 06/26/17 16:10 Urine Ketones NEGATIVE mg/dL (NEGATIVE) 06/26/17 16:10 Urine Blood NEGATIVE (NEGATIVE) 06/26/17 16:10 Urine Nitrate NEGATIVE (NEGATIVE) 06/26/17 16:10 Urine Bilirubin NEGATIVE (NEGATIVE) 06/26/17 16:10 Urine Urobilinogen 1.0 E.U./dL (0.2 - 1.0) 06/26/17 16:10 Ur Leukocyte Esterase SMALL (NEGATIVE) H 06/26/17 16:10 Urine RBC 2-5 /hpf (0-5) 06/26/17 16:10 Urine WBC 6-10 /hpf (0-5) H 06/26/17 16:10 Ur Epithelial Cells OCCASIONAL /lpf (FEW) 06/26/17 16:10 Urine Bacteria NONE SEEN /hpf (NONE SEEN) 06/26/17 16:10 Stool Occult Blood NEGATIVE (NEGATIVE) 06/28/17 11:35 Blood Type O POSITIVE 06/26/17 01:51 Antibody Screen NEGATIVE 06/26/17 01:51 Crossmatch See Detail 06/26/17 01:51 - Physical Exam Vitals and I&O: Vital Signs Temp 97.6 F 06/28/17 13:17 Pulse 70 06/28/17 13:56 Resp 18 06/28/17 13:17 BP 141/53 06/28/17 13:56 Pulse Ox 100 06/28/17 13:17 Intake & Output 06/27/17 06/28/17 06/28/17 18:59 06:59 18:59 Intake Total 4342 528 5328 Balance 2544 998 3654 Weight (lbs) 46.72 kg 47.174 kg Intake: Intake, IV Amount 1000 Sodium Chloride 0.9% 1, 1000 000 ml @ 50 mls/hr IV . Q20H [facility] Rx#:[id number] Oral 1000 150 Blood Product 500 Other: # Voids 4 4 # Bowel Movements 2 0 Weight Source Bedscale Bedscale Active Medications: Current Medications Acetaminophen (Tylenol) 650 mg PO Q4H PRN PRN Reason: Pain or Fever >101 Stop: 08/25/17 10:45 Acetaminophen (Tylenol Extra Strength) 1,000 mg PO Q4H PRN PRN Reason: Pain (Moderate) Stop: 08/25/17 10:45 Aspirin (Ecotrin) 81 mg PO DAILY [facility] Stop: 08/25/17 08:59 Last Admin: 06/28/17 08:17 Dose: 81 mg Atorvastatin Calcium (Lipitor) 40 mg PO DAILY [facility] Stop: 08/25/17 11:29 Last Admin: 06/28/17 08:18 Dose: 40 mg Bisacodyl (Dulcolax 10 Mg Supp) 10 mg RC DAILY PRN PRN Reason: Constipation Stop: 08/25/17 10:45 Docusate Sodium (Colace) 100 mg PO DAILY [facility] Stop: 08/25/17 11:29 Last Admin: 06/28/17 08:17 Dose: 100 mg Famotidine (Pepcid) 20 mg PO DAILY [facility] Stop: 08/25/17 11:29 Last Admin: 06/28/17 08:18 Dose: 20 mg Folic Acid (Folate) 1 mg PO DAILY [facility] Stop: 08/25/17 11:29 Last Admin: 06/28/17 08:17 Dose: 1 mg Heparin Sodium (Porcine) (Heparin) 5,000 units SUBQ Q12HR [facility] Stop: 08/25/17 20:59 Last Admin: 06/28/17 08:21 Dose: 5,000 units Sodium Chloride (Nacl 0.9%) 1,000 mls @ 50 mls/hr IV .Q20H [facility] Stop: 08/26/17 10:04 Last Admin: 06/28/17 13:56 Dose: 50 mls/hr Insulin Aspart (Novolog Insulin Sliding Scale) 0 units SUBQ Q6HR HECTOR PRN Reason: Protocol Stop: 08/26/17 00:00 Last Admin: 06/28/17 11:41 Dose: Not Given Isosorbide Dinitrate (Isordil) 5 mg PO TID [facility] Stop: 08/25/17 13:59 Last Admin: 06/28/17 13:56 Dose: 5 mg Levothyroxine Sodium (Synthroid) 0.1 mg PO QDAC [facility] Stop: 08/26/17 07:29 Last Admin: 06/28/17 06:46 Dose: 0.1 mg Magnesium Hydroxide (Milk Of Magnesia) 30 ml PO HS PRN PRN Reason: Constipation Stop: 08/25/17 20:59 Metoprolol Succinate (Toprol Xl) 50 mg PO DAILY [facility] Stop: 08/25/17 11:29 Last Admin: 06/28/17 08:19 Dose: 50 mg Miscellaneous (Vte Chemical Prophylaxis Screen/ Admission) 1 ea [facility] PRN PRN PRN Reason: PROTOCOL Stop: 08/25/17 12:14 Montelukast Sodium (Singulair) 10 mg PO HS [facility] Stop: 08/25/17 20:59 Last Admin: 06/27/17 21:29 Dose: 10 mg Pyridoxine HCl (Vitamin B6) 50 mg PO DAILY [facility] Stop: 08/25/17 11:29 Last Admin: 06/28/17 08:17 Dose: 50 mg Sodium Phosphate (Fleet Enema) 135 ml RC Q48H PRN PRN Reason: Constipation Stop: 08/25/17 10:45 General: Alert HEENT: Atraumatic Neck: Supple Cardiovascular: Regular rate Abdomen: Soft - Procedures Procedures: Procedures Procedure Code Date BLOOD TRANSFUSION SERVICE 59659 06/25/17 TRANSFUSE NONAUT RED BLOOD CELLS IN PERIPH VEIN, PERC 98754I5 06/25/17
[2017-06-29 07:08] LABS: FOLIC ACID >20.0 ng/mL (>3.0)
[2017-06-29 07:08] LABS: FERRITIN 4541 ng/mL (15-150); HAPTOGLOBIN 84 mg/dL (34-200); IRON LC 83 ug/dL (27-139); TIBC (LC) 130 ug/dL (250-450); UIBC 47 ug/dL (118-369)
== END 2017-06-28 15:41 | DRG 812 ==
LOC: ER 16:40 → MSI 23:00
PROVIDERS: ADMIT Internal Medicine; ATTEND Internal Medicine
PROC: 30233N1 Transfusion of Nonautologous Red Blood Cells into Peripheral Vein, Percutaneous Approach (ICD-10-PCS; principal; 2017-06-27)
DX: D53.9 Nutritional anemia, unspecified (principal); D61.818 Other pancytopenia; D52.9 Folate deficiency anemia, unspecified; I10 Essential (primary) hypertension; E03.9 Hypothyroidism, unspecified; E78.5 Hyperlipidemia, unspecified; E05.90 Thyrotoxicosis, unspecified without thyrotoxic crisis or storm; M19.90 Unspecified osteoarthritis, unspecified site; E11.9 Type 2 diabetes mellitus without complications; F03.90 Unspecified dementia, unspecified severity, without behavioral disturbance, psychotic disturbance, mood disturbance, and anxiety; J44.9 Chronic obstructive pulmonary disease, unspecified; K59.00 Constipation, unspecified; I25.10 Atherosclerotic heart disease of native coronary artery without angina pectoris; E78.00 Pure hypercholesterolemia, unspecified; R26.9 Unspecified abnormalities of gait and mobility
CPT/HCPCS: 36415-UA; 71045-TC; 80053-TC; 80061-TC; 81001-TC; 82270-TC; 82607-90; 82728-90; 82746-90; 82948-90; 83010-90; 83540-90; 83550-90; 83735-TC; 84443-TC; 85007-TC; 85025-TC; 85027-TC; 85044-TC; 86850-TC; 86900-TC; 86901-TC; 86922-TC; 87086-90; 93005; J1644; J1815; J7030; P9016

== ENCOUNTER 2017-07-20 10:43 | Inpatient (IN) | payer MEDICARE, MEDICAID ==
--- NOTE | 2017-07-20 11:09 | ED Physician Chart ---
ED Chief Complaint/HPI - Patient Information Date Seen:: 07/20/17 Time Seen:: 11:00 Chief Complaint:: AMS History of Present Illness:: onset x one day of ALOC and AMS with abnormal lab tests today; no report of trauma, H/As, S/T, neck pain, C/P, SOB, Abd. Pain, A/N/V/D/C, fever, chills, or urinary s/s Allergies:: Allergies Allergy/AdvReac Type Severity Reaction Status Date / Time No Known Allergies Allergy Verified 06/25/17 16:53 Historian:: Patient, EMS Review:: Nurse's Note Reviewed, Old Chart Reviewed, EMS run form Reviewed ED Review of Systems - Review of Systems General/Constitutional: No fever, No chills, No weight loss, No weakness, No diaphoresis, No edema, No loss of appetite Skin: No skin lesions, No rash, No bruising Head: No headache, No light-headedness Eyes: No loss of vision, No pain, No diplopia ENT: No earache, No nasal drainage, No sore throat, No tinnitus Neck: No neck pain, No swelling, No thyromegaly, No stiffness, No mass noted Cardio Vascular: No chest pain, No palpitations, No PND, No orthopnea, No edema Pulmonary: SOB, Cough, No sputum, Wheezing GI: No nausea, No vomiting, No diarrhea, No pain, No melena, No hematochezia, No constipation, No hematemesis G/U: No dysuria, No frequency, No hematuria, No nacturia Traffic Control Operator: No vaginal discharge, No abnormal vaginal bleed, No contraction Musculoskeletal: No bone or joint pain, No back pain, No muscle pain Endocrine: No polyuria, No polydipsia Psychiatric: No prior psych history, No depression, No anxiety, No suicidal ideation, No homicidal ideation, No auditory hallucination, No visual hallucination Hematopoietic: No bruising, No lymphadenopathy Allergic/Immuno: No urticaria, No angioedema Neurological: No syncope, No focal symptoms, No weakness, No paresthesia, No headache, No seizure, No dizziness, Confusion, No vertigo ED Past Medical History - Past Medical History Obtainable: Yes Past Medical History: HTN, DM, Asthma/COPD, Dyslipidemia, Thyroid disorder, Dementia Family History: Diabetes Melitus, HTN Social History: Smoker, No Alcohol, No Drug Use, , Care Facility Surgical History: None Psychiatricy History: Dementia Medication: Reviewed Family Medical History - Family Member Father History Unknown: Yes ED Physical Exam - Physical Examination General/Constitutional: Awake, Well-developed, well-nourished, Alert, No distress, GCS 15, Non-toxic appearing, Ambulatory Head: Atraumatic Eyes: Lids, conjuctiva normal, PERRL, EOMI Skin: Nl inspection, No rash, No skin lesions, No ecchymosis, Well hydrated, No lymphadenopathy ENMT: External ears, nose nl, TM canals nl, Nasal exam nl, Lips, teeth, gums nl , Oropharynx nl, Tonsils nl Neck: Nontender, Full ROM w/o pain, No JVD, No nuchal rigidity, No bruit, No mass, No stridor Respiratory: Nl effort/Exclusion, Clear to Auscultation, No Wheeze/Rhonchi/Rales Cardio Vascular: RRR, No murmur, gallop, rubs, NL S1 S2, Carotid/Femoral/Distal pulses equal bilaterally GI: No tenderness/rebounding/guarding, No organomegaly, No hernia, Normal BS's, Nondistended, No mass/bruits, No McBurney tenderness : No CVA tenderness Extremities: No tenderness or effusion, Full ROM, normal strength in all extremities, No edema, Normal digits & nails Neuro/Psych: Alert/oriented, DTR's symmetric, Normal sensory exam, Normal motor strength, Judgement/insight normal, Mood normal, Normal gait, No focal deficits Misc: Normal back, No paraspinal tenderness ED Labs/Radiology/EKG Results - Lab Results Comments:: BUN: 28; WBC: 3.8; H/H: 8.4/25 - Radiology Results Comments:: NAD - EKG Interpretations EKG Time:: 11:14 Rate & Rhythm: 63; NSR Comments:: T-Wave Inversion in V1, V2 ED Septic Shock - . Is Septic Shock (SBP<90, OR Lactate>4 mmol\L) present?: No ED Reassessment (Disposition) - Reassessment Reassessment Condition:: Improved - Diagnosis Diagnosis:: Myocardial Ischemia; Dehydration; UGI Bleed; Anemia; Leukopenia - Aftercare/Follow up Instructions Aftercare/Follow-Up Instructions:: Counseled pt regarding lab results/diagnosis & need follow up, Counseled pt & family regarding lab results/diagnosis & need follow up - Patient Disposition Discharge/Transfer:: Acute Care w/in this hosp Accepting Physician:: Dr. Britany Trent Time Called:: 1230 Time Responded:: 12:30 Admitted to:: Telemetry Spoke to:: Dr. Britany Trent Admitting Medical Physician:: Dr. Britany Trent Condition at Disposition:: Stable, Improved
[2017-07-20 11:43] LABS: EOSINOPHILE ABSOLUTE 0.2 Th/cmm (0.1-0.4); RED BLOOD COUNT 2.47 Mil/cmm (3.80-5.20)
[2017-07-20 11:53] LABS: INR 1.05 (0.5-1.4); PROTHROMBIN TIME (TEST) 10.9 SECONDS (9.5-11.5)
[2017-07-20 11:54] LABS: % EOSINOPHILS 5.4 % (0.0-5.0); % LYMPHOCYTES 32.3 % (20.0-50.0); % MONOCYTES 9.2 % (2.0-10.0); % NEUTROPHILS 52.1 % (40.0-80.0); HEMOGLOBIN 8.4 gm/dL (12-16); LYMPHOCYTE ABSOLUTE 1.2 Th/cmm (1.5-3.0); MEAN CELL VOLUME 101.1 fl (81-100); MEAN CORPUSCULAR HEMOGLOBIN 33.8 pg (27.0-31.0); MEAN CORPUSCULAR HGB CONC 33.4 pg (28.0-36.0); MEAN PLATELET VOLUME 8.6 fl; MONOCYTE ABSOLUTE 0.3 Th/cmm (0.3-1.0); NEUTROPHILE ABSOLUTE 2.1 Th/cmm (1.8-8.0); PLATELET COUNT 269 Th/cmm (150-400); RED CELL DISTRIBUTION WIDTH 28.2 % (11.5-20.0)
[2017-07-20 11:57] LABS: ALB/GLOB RATIO 1.5 (1.0-1.8); ALBUMIN 3.7 gm/dL (3.7-5.3); ALKALINE PHOSPHATASE 59 U/L (34-104); ANION GAP 9.7 (7.0-16.0); BILIRUBIN,TOTAL 0.6 mg/dL (0.3-1.0); BUN - UREA NITROGEN 28 mg/dL (7-25); CALCIUM SERUM 9.6 mg/dL (8.6-10.3); CARBON DIOXIDE 27.3 mEq/L (21.0-31.0); CHLORIDE 103 mEq/L (98-107); CREATININE KINASE 31 U/L (30-223); GLUCOSE 104 mg/dL (70-105); SGOT 40 U/L (13-39); SGPT/ALT 56 U/L (7-52); SODIUM SERUM 135 mEq/L (136-145); TOTAL PROTEIN,SERUM 6.2 gm/dL (6.0-8.3)
[2017-07-20 12:04] LABS: WHITE BLOOD COUNT 3.8 Th/cmm (4.8-10.8)
--- NOTE | 2017-07-20 12:28 | Diagnostic Imaging Report ---
Portable chest x-ray HISTORY: Pain The heart appears enlarged. Atherosclerotic calcification seen in the aorta. No focal pulmonary processes. Surgical suture material noted over the mid chest. IMPRESSION: 1. No acute focal pulmonary processes 2. Cardiomegaly with atherosclerotic vascular changes 3. Surgical changes
[2017-07-20 13:38] LABS: URINE MICROSCOPIC INDICATED? YES; URINE SOURCE MIDSTREAM
[2017-07-20 13:45] LABS: URINE BILIRUBIN NEGATIVE (NEGATIVE); URINE BLOOD NEGATIVE (NEGATIVE); URINE GLUCOSE (UA) NEGATIVE (NEGATIVE); URINE KETONE NEGATIVE (NEGATIVE); URINE LEUKOCYTE ESTERASE NEGATIVE (NEGATIVE); URINE NITRATE NEGATIVE (NEGATIVE); URINE PROTEIN NEGATIVE (NEGATIVE); URINE UROBILINOGEN 0.2 E.U./dL (0.2 - 1.0)
[2017-07-20 13:56] LABS: URINE CLARITY CLEAR (CLEAR); URINE COLOR YELLOW
[2017-07-20 13:57] LABS: URINE BACTERIA NONE SEEN /hpf (NONE SEEN); URINE EPITHELIAL CELLS OCCASIONAL /lpf (FEW); URINE RBC 0-2 /hpf (0-5); URINE WBC 0-2 /hpf (0-5)
[2017-07-21] MEDS ORDERED: Fleet Enema 135 mL RC PRN (08:36)
[2017-07-21] MEDS ORDERED: Magnesium Hydroxide (MOM) 30 mL UDC PO PRN (08:36)
[2017-07-21] MEDS ORDERED: Acetaminophen 500 MG TAB PO PRN (08:36)
--- NOTE | 2017-07-21 09:59 | History and Physical ---
History of Present Illness - HPI Chief Complaint: on low hemoglobin and low hematocrit. Hemoglobin was 7 at nursing facility.. HPI: 87-year-old female with a past medical history of diabetes mellitus type 2, hypertension, COPD, asthma, dementia, hypothyroidism, hyperlipidemia, history arthritis, anemia residing at nursing facility looked pale. So labwork was performed and it showed hemoglobin 7 and hematocrit 21. She was sent to the ER for further evaluation and management. On initial evaluation , patient was afebrile and the vital signs stable hemoglobin was 8.4 hematocrit 25 clinic. Anemia workup was performed and GI consult was called. Vital Signs: Last Vital Signs Temp 97.3 F 07/21/17 07:52 Pulse 67 07/21/17 07:52 Resp 18 07/21/17 07:52 BP 124/55 07/21/17 07:52 Pulse Ox 99 07/21/17 07:52 Weight (lbs): 46.89 kg Past Medical History Cardiovascular: Report: HTN, Hyperlipidemia Pulmonary: Report: COPD PARTS MANAGER: Report: Dementia Musculoskeletal: Report: Osteoarthritis Endocrine: Report: Diabetes, Hypothyroidism Family Medical History - Family Member Father History Unknown: Yes Ethnicity: Unknown Living Status: Social History Smoke: No Alcohol: None Drugs: None Lives: Snf Domestic Violence: Negative - Medications Home Medications: Home Medication Medication Instructions Recorded Type Acetaminophen [Tylenol Extra 1,000 mg PO Q4HR PRN 04/06/17 History Strength] Acetaminophen [Tylenol] 650 mg PO Q4HR PRN 04/06/17 History Atorvastatin Calcium [Lipitor] 40 mg PO DAILY 04/06/17 History Bisacodyl [Dulcolax 10 Mg Supp] 10 mg RC DAILY PRN 04/06/17 History Docusate Sodium [Colace] 100 mg PO DAILY 04/06/17 History Famotidine [Pepcid] 20 mg PO DAILY 04/06/17 History Fleet Enema 135 ml RC Q48H PRN 04/06/17 History Folic Acid [Folate*] 1 mg PO DAILY 04/06/17 History Isosorbide Dinitrate 5 mg PO TID 04/06/17 History Levothyroxine [Synthroid] 0.112 mg PO QDAC 04/06/17 History Magnesium Hydroxide [Milk of 30 ml PO HS PRN 04/06/17 History Magnesia] Metoprolol Succinate [Toprol Xl] 50 mg PO DAILY 04/06/17 History Montelukast [Singulair] 10 mg PO HS 04/06/17 History Multivitamin with Minerals 1 tab PO DAILY 04/06/17 History [Multivitamins with Minerals] Pyridoxine [Vitamin B6] 50 mg PO DAILY 04/06/17 History - Allergies Allergies/Adverse Reactions: Allergies Allergy/AdvReac Type Severity Reaction Status Date / Time No Known Allergies Allergy Verified 06/25/17 16:53 Review of Systems - Review of Systems Constitutional: Report: No Significant Eyes: Report: No Significant ENT: Report: No Significant Respiratory: Report: No Significant Cardiovascular: Report: No Significant Gastrointestinal: Report: No Significant Genitourinary: Report: No Significant Musculoskeletal: Report: No Significant Skin: Report: No Significant Neurological: Report: No Significant Physical Exam - Physical Exam HEENT: Report: Ears Nose Throat within normal limits, Pharnyx within normal limits, Pale Conjunctiva Neck: Report: Within normal limits. Denies: Thyromegaly Cardiovascular Systems: Report: +s1/s2 noted, Regular, Rate and Rhythm, no murmurs noted Respiratory: Report: Breath Sounds are within normal limits Abdomen: Report: Non-tender to palpation Back: Report: Inspection of back is within normal limits. Extremities: Report: Non-tender to palpation., No pedal edema was noted on inspection Skin: Report: Color of skin is within normal limits Neuro/Psych: Report: Mood affect is within normal limits, A+Ox3 - Lab Results All Lab Results last 24 hours: Laboratory Results - last 24 hr 07/20/17 15:29 POC Glucose 165 H - Assessment Assessment: 1. Anemia.. Anemia workup was performed. 2. Diabetes mellitus type 2. 3. Hypertension. 4. Hyperlipidemia. 5. Hypothyroidism. 6. COPD. 7. Dementia. 8. Leukopenia. 9. Osteo-arthritis. - Plan Plan: GI consult. Anemia workup. If there is no intervention offered. Consider to discharge the patient to SNF back again in 1 or 2 days.
[2017-07-21 11:07] LABS: ABSOLUTE RETICULOCYTE 21.8 Th/cmm; CORRECTED RETICULOCYTE COUNT 0.5 % (0.5-1.5); HEMATOCRIT 27.2 % (37.0-47.0); RBC RETICULOCYTE COUNT 2.72 Mil/cmm; RETICULOCYTES % COUNTED 0.8 % (0.5-1.5)
[2017-07-21] MEDS: Multivitamin w/ Minerals Tab PO SCH (14:39)
--- NOTE | 2017-07-21 23:57 | Consultation ---
DATE OF CONSULTATION: 07/21/2017 INPATIENT GASTROINTESTINAL CONSULTATION REFERRING PHYSICIAN: Dr. Gui Trent. REASON FOR CONSULTATION: Anemia. HISTORY OF PRESENT ILLNESS: This is an 87-year-old female with anemia from a skilled facility, brought in. She denies having abdominal pain, nausea, vomiting, diarrhea, constipation, melena, hematochezia, hematemesis, or coffee ground emesis. PAST MEDICAL HISTORY: Hypertension, hyperlipidemia, COPD, dementia, osteoarthritis, diabetes, hypothyroidism. PAST SURGICAL HISTORY: None to add recently. FAMILY HISTORY: Noncontributory. SOCIAL HISTORY: Denies tobacco, alcohol or IV drug usage. ALLERGIES: None. CURRENT MEDICATIONS: Tylenol, Lipitor, Dulcolax, Colace, Pepcid, folic acid, Isordil, Synthroid, milk of magnesia, Toprol, Singulair, vitamin B6, Fleet enema. REVIEW OF SYSTEMS: Ten-point review of system was performed and the pertinent positive was the COPD. All systems were otherwise negative. PHYSICAL EXAMINATION: VITAL SIGNS: Temperature 97.4, breathing 18, pulse of 68, blood pressure 120/61, satting 97%. GENERAL: In no apparent distress. EYES: Anicteric. Normal conjunctivae. HEENT: Normocephalic, atraumatic. Moist mucous membranes. NECK: Soft, supple. CHEST: Clear, no effort. CARDIOVASCULAR: Regular rate and rhythm. ABDOMEN: Soft, nontender, nondistended. SKIN: Warm, dry. EXTREMITIES: Reveal no cyanosis. PSYCHOLOGIC: Alert and oriented x 3. LABORATORY DATA: Show white count 3.8, , platelets of 269. INR 1.05. IMPRESSION: An 87-year-old female with macrocytic anemia without overt GI bleeding, cause could be from B12 or folate deficiency. The patient in the past had her B12 and folic acid levels checked and they were normal. This was done less than one month ago. She also has stool OB that was done one-time that was negative. At this time there is no overt GI bleeding. Given her advanced age and comorbidities, would reserve endoscopic evaluation if there truly is GI bleeding, significant GI blood loss or active bleeding. PLAN: 1. Check stool OB. 2. Follow H and H and transfuse as needed. 3. Consider EGD, colonoscopy if there are signs of GI bleeding. Thank you for allowing me to participate. Please call me if any questions. JOB# [id number]
--- NOTE | 2017-07-22 04:14 | Consultation ---
DATE OF CONSULTATION: 07/21/2017 INPATIENT GASTROINTESTINAL CONSULTATION REFERRING PHYSICIAN: Dr. Gui Trent. REASON FOR CONSULTATION: Upper GI bleed. HISTORY OF PRESENT ILLNESS: This is an 87-year-old female who was brought to the hospital with anemia. They were concerned about upper GI bleed, but in discussing the matters with the patient with a Cantonese speaking assistant bookkeeper, the patient denies having any nausea, vomiting, denies having upper GI bleed, specifically hematemesis or coffee ground emesis, also denies diarrhea, melena, hematochezia. We are asked to see the patient again for anemia workup. She denies having any abdominal pain. PAST MEDICAL HISTORY: Hypertension, hyperlipidemia, COPD, dementia, osteoarthritis, diabetes, hypothyroidism. PAST SURGICAL HISTORY: None to add recently. FAMILY HISTORY: Noncontributory. SOCIAL HISTORY: Denies tobacco, alcohol, or IV drug use. ALLERGIES: None. CURRENT MEDICATIONS: Tylenol, Lipitor, Colace, Pepcid, folic acid, Isordil, Synthroid, milk of magnesia, Toprol, Singulair, vitamin B6, Fleet enema. REVIEW OF SYSTEMS: A 10-point review of system was performed and pertinent positive was the COPD. Other systems were otherwise negative. PHYSICAL EXAMINATION: VITAL SIGNS: Temperature 97.4, breathing 18, pulse rate of 68, blood pressure 121/61, satting 97%. GENERAL: In no apparent distress, thin. HEENT: Eyes are anicteric. Normal conjunctivae. Normocephalic, atraumatic. Moist mucous membranes. NECK: Soft, supple. CHEST: Clear. No effort. CARDIOVASCULAR: Regular rate and rhythm. ABDOMEN: Soft, nontender, nondistended. SKIN: Warm, dry. EXTREMITIES: Reveal no cyanosis. PSYCHOLOGIC: Alert and oriented x 3. LABORATORY AND DIAGNOSTIC DATA: Show white count 3.8, hemoglobin 8.4, MCV of 101, platelets 269. INR 1.05, BUN 28, and creatinine 1. IMPRESSION: An 87-year-old female with anemia, no overt GI bleeding, cause is unknown. Stool studies can be done to look for any occult signs of GI bleeding. If positive, then additional workup such as endoscopy, colonoscopy can then be performed subsequently. PLAN: 1. Follow H and H, transfuse as needed. 2. Check stool OB. 3. If stool OB positive, consider a GI workup such as EGD, colo. Thank you for allowing me to participate. Please call me if you have any questions. JOB# [id number]
[2017-07-22 05:46] LABS: % EOSINOPHILS 3.3 % (0.0-5.0); % LYMPHOCYTES 15.7 % (20.0-50.0); % MONOCYTES 4.5 % (2.0-10.0); % NEUTROPHILS 76.5 % (40.0-80.0); EOSINOPHILE ABSOLUTE 0.4 Th/cmm (0.1-0.4); HEMATOCRIT 25.2 % (41.0-60); HEMOGLOBIN 8.5 gm/dL (12-16); LYMPHOCYTE ABSOLUTE 2.1 Th/cmm (1.5-3.0); MEAN CORPUSCULAR HEMOGLOBIN 33.8 pg (27.0-31.0); MEAN CORPUSCULAR HGB CONC 33.8 pg (28.0-36.0); MEAN PLATELET VOLUME 9.3 fl; MONOCYTE ABSOLUTE 0.6 Th/cmm (0.3-1.0); NEUTROPHILE ABSOLUTE 10.2 Th/cmm (1.8-8.0); PLATELET COUNT 292 Th/cmm (150-400); RED BLOOD COUNT 2.52 Mil/cmm (3.80-5.20); RED CELL DISTRIBUTION WIDTH 29.2 % (11.5-20.0)
[2017-07-22 05:48] LABS: WHITE BLOOD COUNT 13.3 Th/cmm (4.8-10.8)
[2017-07-22] MEDS ORDERED: Levothyroxine 0.112 Mg Tab PO SCH (07:30)
[2017-07-22 09:27] LABS: % BASOPHILS 0.4 % (0.0-2.0); % EOSINOPHILS 4.7 % (0.0-5.0); % LYMPHOCYTES 21.2 % (20.0-50.0); % NEUTROPHILS 67.7 % (40.0-80.0); EOSINOPHILE ABSOLUTE 0.5 Th/cmm (0.1-0.4); HEMATOCRIT 27.7 % (41.0-60); LYMPHOCYTE ABSOLUTE 2.1 Th/cmm (1.5-3.0); MEAN CELL VOLUME 100.8 fl (81-100); MEAN CORPUSCULAR HEMOGLOBIN 32.9 pg (27.0-31.0); MEAN CORPUSCULAR HGB CONC 32.7 pg (28.0-36.0); MONOCYTE ABSOLUTE 0.6 Th/cmm (0.3-1.0); NEUTROPHILE ABSOLUTE 6.5 Th/cmm (1.8-8.0); PLATELET COUNT 320 Th/cmm (150-400); RED BLOOD COUNT 2.75 Mil/cmm (3.80-5.20)
[2017-07-22 09:44] LABS: WHITE BLOOD COUNT 9.7 Th/cmm (4.8-10.8)
--- NOTE | 2017-07-22 09:50 | Infectious Disease Prog Note ---
Infectious Disease Subjective - Review of Systems Service Date: 07/22/17 Subjective: H/H is stabel, no fever. Infectious Disease Objective - Results Result Diagrams: 07/22/17 09:20 07/20/17 11:31 Recent Labs: Laboratory Last Values WBC 9.7 Th/cmm (4.8-10.8) D 07/22/17 09:20 RBC 2.75 Mil/cmm (3.80-5.20) L 07/22/17 09:20 Hgb 9.0 gm/dL (12-16) L 07/22/17 09:20 Hct 27.7 % (41.0-60) L 07/22/17 09:20 MCV 100.8 fl (81-100) H 07/22/17 09:20 MCH 32.9 pg (27.0-31.0) H 07/22/17 09:20 MCHC Differential 32.7 pg (28.0-36.0) 07/22/17 09:20 RDW 29.0 % (11.5-20.0) H 07/22/17 09:20 Plt Count 320 Th/cmm (150-400) 07/22/17 09:20 MPV 8.0 fl 07/22/17 09:20 Neutrophils % 67.7 % (40.0-80.0) 07/22/17 09:20 Lymphocytes % 21.2 % (20.0-50.0) 07/22/17 09:20 Monocytes % 6.0 % (2.0-10.0) 07/22/17 09:20 Eosinophils % 4.7 % (0.0-5.0) 07/22/17 09:20 Basophils % 0.4 % (0.0-2.0) 07/22/17 09:20 Total Retics Counted 0.8 % (0.5-1.5) 07/21/17 09:19 Absolute Retic 21.8 Th/cmm 07/21/17 09:19 Corrected Retic Count 0.5 % (0.5-1.5) 07/21/17 09:19 PT 10.9 SECONDS (9.5-11.5) 07/20/17 11:31 INR 1.05 (0.5-1.4) 07/20/17 11:31 PTT (Actin FS) 27.1 SECONDS (26.0-38.0) 07/20/17 11:31 Sodium 135 mEq/L (136-145) L 07/20/17 11:31 Potassium 5.0 mEq/L (3.5-5.1) 07/20/17 11:31 Chloride 103 mEq/L (98-107) 07/20/17 11:31 Carbon Dioxide 27.3 mEq/L (21.0-31.0) 07/20/17 11:31 Anion Gap 9.7 (7.0-16.0) 07/20/17 11:31 BUN 28 mg/dL (7-25) H 07/20/17 11:31 Creatinine 1.0 mg/dL (0.6-1.2) 07/20/17 11:31 Est GFR ( Amer) TNP 07/20/17 11:31 Est GFR (Non-Af Amer) TNP 07/20/17 11:31 BUN/Creatinine Ratio 28.0 07/20/17 11:31 Glucose 104 mg/dL (70-105) 07/20/17 11:31 POC Glucose 165 MG/DL (70 - 105) H 07/20/17 15:29 Whole Bld Lactic Acid 1.09 mmol/L (0.60-1.99) 07/20/17 11:31 Calcium 9.6 mg/dL (8.6-10.3) 07/20/17 11:31 Transferrin 101 mg/dL (200-370) L 07/21/17 09:19 Total Bilirubin 0.6 mg/dL (0.3-1.0) 07/20/17 11:31 AST 40 U/L (13-39) H 07/20/17 11:31 ALT 56 U/L (7-52) H 07/20/17 11:31 Alkaline Phosphatase 59 U/L (34-104) 07/20/17 11:31 Lactate Dehydrogenase 105 U/L (140-271) L 07/21/17 09:19 Creatine Kinase 31 U/L (30-223) 07/20/17 11:31 Troponin I 0.01 ng/mL (0.01-0.05) 07/20/17 11:31 Total Protein 6.2 gm/dL (6.0-8.3) 07/20/17 11:31 Albumin 3.7 gm/dL (3.7-5.3) 07/20/17 11:31 Globulin 2.5 gm/dL 07/20/17 11:31 Albumin/Globulin Ratio 1.5 (1.0-1.8) 07/20/17 11:31 Urine Source MIDSTREAM 07/20/17 12:10 Urine Color YELLOW 07/20/17 12:10 Urine Clarity CLEAR (CLEAR) 07/20/17 12:10 Urine pH 6.0 (4.6 - 8.0) 07/20/17 12:10 Ur Specific [place] <= 1.005 (1.005-1.030) 07/20/17 12:10 Urine Protein NEGATIVE mg/dL (NEGATIVE) 07/20/17 12:10 Urine Glucose (UA) NEGATIVE mg/dL (NEGATIVE) 07/20/17 12:10 Urine Ketones NEGATIVE mg/dL (NEGATIVE) 07/20/17 12:10 Urine Blood NEGATIVE (NEGATIVE) 07/20/17 12:10 Urine Nitrate NEGATIVE (NEGATIVE) 07/20/17 12:10 Urine Bilirubin NEGATIVE (NEGATIVE) 07/20/17 12:10 Urine Urobilinogen 0.2 E.U./dL (0.2 - 1.0) 07/20/17 12:10 Ur Leukocyte Esterase NEGATIVE (NEGATIVE) 07/20/17 12:10 Urine RBC 0-2 /hpf (0-5) 07/20/17 12:10 Urine WBC 0-2 /hpf (0-5) 07/20/17 12:10 Ur Epithelial Cells OCCASIONAL /lpf (FEW) 07/20/17 12:10 Urine Bacteria NONE SEEN /hpf (NONE SEEN) 07/20/17 12:10 Stool Occult Blood NEGATIVE (NEGATIVE) 07/21/17 19:30 - Physical Exam Vitals and I&O: Vital Signs Temp 97.7 F 07/22/17 07:33 Pulse 64 07/22/17 07:33 Resp 18 07/22/17 07:33 BP 124/56 07/22/17 07:33 Pulse Ox 99 07/22/17 07:33 Intake & Output 07/21/17 07/22/17 07/22/17 18:59 06:59 18:59 Intake Total 1200 Balance 1200 Weight (lbs) 46.862 kg 48.897 kg Intake: Oral 1200 Other: # Voids 2 4 # Bowel Movements 0 1 Weight Source Bedscale Bedscale Active Medications: Current Medications Acetaminophen (Tylenol) 650 mg PO Q4HR PRN PRN Reason: Mild Pain or Fever >101 Stop: 09/19/17 08:35 Acetaminophen (Tylenol Extra Strength) 1,000 mg PO Q4HR PRN PRN Reason: Pain (Moderate) Stop: 09/19/17 08:35 Atorvastatin Calcium (Lipitor) 40 mg PO DAILY [facility] Stop: 09/19/17 10:29 Last Admin: 07/21/17 14:38 Dose: 40 mg Bisacodyl (Dulcolax 10 Mg Supp) 10 mg RC DAILY PRN PRN Reason: Constipation Stop: 09/19/17 08:35 Docusate Sodium (Colace) 100 mg PO DAILY [facility] Stop: 09/19/17 10:29 Last Admin: 07/21/17 14:40 Dose: 100 mg Famotidine (Pepcid) 20 mg PO DAILY [facility] Stop: 09/19/17 10:29 Last Admin: 07/21/17 14:38 Dose: 20 mg Folic Acid (Folate) 1 mg PO DAILY [facility] Stop: 09/19/17 10:29 Last Admin: 07/21/17 14:40 Dose: 1 mg Isosorbide Dinitrate (Isordil) 5 mg PO TID [facility] Stop: 09/19/17 10:29 Last Admin: 07/21/17 20:29 Dose: 5 mg Levothyroxine Sodium (Synthroid) 0.112 mg PO QDAC [facility] Stop: 09/20/17 07:29 Last Admin: 07/22/17 06:44 Dose: 0.112 mg Magnesium Hydroxide (Milk Of Magnesia) 30 ml PO HS PRN PRN Reason: Constipation Stop: 09/19/17 08:35 Metoprolol Succinate (Toprol Xl) 50 mg PO DAILY [facility] Stop: 09/19/17 10:29 Last Admin: 07/21/17 14:39 Dose: 50 mg Montelukast Sodium (Singulair) 10 mg PO HS [facility] Stop: 09/19/17 20:59 Last Admin: 07/21/17 20:35 Dose: 10 mg Pyridoxine HCl (Vitamin B6) 50 mg PO DAILY [facility] Stop: 09/19/17 10:29 Last Admin: 07/21/17 14:40 Dose: 50 mg Sodium Phosphate (Fleet Enema) 135 ml RC Q48H PRN PRN Reason: Constipation Stop: 09/19/17 08:35 General: no acute distress, well developed, well nourished HEENT: atraumatic, normocephalic, PERRLA Neck: supple, no thyromegaly Cardiovascular: S1S2, regular Lungs: clear to auscultation bilaterally, clear to percussion Abdomen: soft, no tender, no distended, no hepatomegaly Extremities: no cyanosis, no clubbing, no edema Neurological: awake, alert, oriented Skin: intact - Procedures Procedures: Procedures Procedure Code Date BLOOD TRANSFUSION SERVICE 67864 06/25/17 TRANSFUSE NONAUT RED BLOOD CELLS IN PERIPH VEIN, PERC 29338X6 06/25/17 Infectious Disease Assmt/Plan - Assessment Assessment: 1. Anemia.. Anemia workup was performed. H/H stable. 2. Diabetes mellitus type 2. 3. Hypertension. 4. Hyperlipidemia. 5. Hypothyroidism. 6. COPD. 7. Dementia. 8. Leukopenia. 9. Osteo-arthritis. - Plan Plan: GI consult appreciated. Pulmonary consult Dr Green, for COPD. Anemia workup. If there is no intervention offered. Consider to discharge the patient to SNF back again in 1 or 2 days.
[2017-07-22] MEDS: Multivitamin w/ Minerals Tab PO SCH (10:13)
[2017-07-22 13:11] LABS: FERRITIN 4995 ng/mL (15-150); IRON LC 129 ug/dL (27-139); TIBC (LC) 155 ug/dL (250-450); UIBC 26 ug/dL (118-369)
--- NOTE | 2017-07-22 14:03 | GI Progress Note ---
Subjective - Review of Systems Subjective: DENIES ABD PAIN OR GI BLEEDING Objective - Results Result Diagrams: 07/22/17 09:20 07/20/17 11:31 Recent Labs: Laboratory Last Values WBC 9.7 Th/cmm (4.8-10.8) D 07/22/17 09:20 RBC 2.75 Mil/cmm (3.80-5.20) L 07/22/17 09:20 Hgb 9.0 gm/dL (12-16) L 07/22/17 09:20 Hct 27.7 % (41.0-60) L 07/22/17 09:20 MCV 100.8 fl (81-100) H 07/22/17 09:20 MCH 32.9 pg (27.0-31.0) H 07/22/17 09:20 MCHC Differential 32.7 pg (28.0-36.0) 07/22/17 09:20 RDW 29.0 % (11.5-20.0) H 07/22/17 09:20 Plt Count 320 Th/cmm (150-400) 07/22/17 09:20 MPV 8.0 fl 07/22/17 09:20 Neutrophils % 67.7 % (40.0-80.0) 07/22/17 09:20 Lymphocytes % 21.2 % (20.0-50.0) 07/22/17 09:20 Monocytes % 6.0 % (2.0-10.0) 07/22/17 09:20 Eosinophils % 4.7 % (0.0-5.0) 07/22/17 09:20 Basophils % 0.4 % (0.0-2.0) 07/22/17 09:20 Total Retics Counted 0.8 % (0.5-1.5) 07/21/17 09:19 Absolute Retic 21.8 Th/cmm 07/21/17 09:19 Corrected Retic Count 0.5 % (0.5-1.5) 07/21/17 09:19 PT 10.9 SECONDS (9.5-11.5) 07/20/17 11:31 INR 1.05 (0.5-1.4) 07/20/17 11:31 PTT (Actin FS) 27.1 SECONDS (26.0-38.0) 07/20/17 11:31 Sodium 135 mEq/L (136-145) L 07/20/17 11:31 Potassium 5.0 mEq/L (3.5-5.1) 07/20/17 11:31 Chloride 103 mEq/L (98-107) 07/20/17 11:31 Carbon Dioxide 27.3 mEq/L (21.0-31.0) 07/20/17 11:31 Anion Gap 9.7 (7.0-16.0) 07/20/17 11:31 BUN 28 mg/dL (7-25) H 07/20/17 11:31 Creatinine 1.0 mg/dL (0.6-1.2) 07/20/17 11:31 Est GFR ( Amer) TNP 07/20/17 11:31 Est GFR (Non-Af Amer) TN 07/20/17 11:31 BUN/Creatinine Ratio 28.0 07/20/17 11:31 Glucose 104 mg/dL (70-105) 07/20/17 11:31 POC Glucose 165 MG/DL (70 - 105) H 07/20/17 15:29 Whole Bld Lactic Acid 1.09 mmol/L (0.60-1.99) 07/20/17 11:31 Calcium 9.6 mg/dL (8.6-10.3) 07/20/17 11:31 Iron 129 ug/dL (27-139) 07/21/17 09:19 TIBC 155 ug/dL (250-450) L 07/21/17 09:19 Iron Saturation 83 % (15-55) H 07/21/17 09:19 Unsaturated IBC 26 ug/dL (118-369) L 07/21/17 09:19 Transferrin 101 mg/dL (200-370) L 07/21/17 09:19 Ferritin 4995 ng/mL (15-150) H 07/21/17 09:19 Total Bilirubin 0.6 mg/dL (0.3-1.0) 07/20/17 11:31 AST 40 U/L (13-39) H 07/20/17 11:31 ALT 56 U/L (7-52) H 07/20/17 11:31 Alkaline Phosphatase 59 U/L (34-104) 07/20/17 11:31 Lactate Dehydrogenase 105 U/L (140-271) L 07/21/17 09:19 Creatine Kinase 31 U/L (30-223) 07/20/17 11:31 Troponin I 0.01 ng/mL (0.01-0.05) 07/20/17 11:31 Total Protein 6.2 gm/dL (6.0-8.3) 07/20/17 11:31 Albumin 3.7 gm/dL (3.7-5.3) 07/20/17 11:31 Globulin 2.5 gm/dL 07/20/17 11:31 Albumin/Globulin Ratio 1.5 (1.0-1.8) 07/20/17 11:31 Urine Source MIDSTREAM 07/20/17 12:10 Urine Color YELLOW 07/20/17 12:10 Urine Clarity CLEAR (CLEAR) 07/20/17 12:10 Urine pH 6.0 (4.6 - 8.0) 07/20/17 12:10 Ur Specific [place] <= 1.005 (1.005-1.030) 07/20/17 12:10 Urine Protein NEGATIVE mg/dL (NEGATIVE) 07/20/17 12:10 Urine Glucose (UA) NEGATIVE mg/dL (NEGATIVE) 07/20/17 12:10 Urine Ketones NEGATIVE mg/dL (NEGATIVE) 07/20/17 12:10 Urine Blood NEGATIVE (NEGATIVE) 07/20/17 12:10 Urine Nitrate NEGATIVE (NEGATIVE) 07/20/17 12:10 Urine Bilirubin NEGATIVE (NEGATIVE) 07/20/17 12:10 Urine Urobilinogen 0.2 E.U./dL (0.2 - 1.0) 07/20/17 12:10 Ur Leukocyte Esterase NEGATIVE (NEGATIVE) 07/20/17 12:10 Urine RBC 0-2 /hpf (0-5) 07/20/17 12:10 Urine WBC 0-2 /hpf (0-5) 07/20/17 12:10 Ur Epithelial Cells OCCASIONAL /lpf (FEW) 07/20/17 12:10 Urine Bacteria NONE SEEN /hpf (NONE SEEN) 07/20/17 12:10 Stool Occult Blood NEGATIVE (NEGATIVE) 07/21/17 19:30 - Physical Exam Vitals and I&O: Vital Signs Temp 97.9 F 07/22/17 11:52 Pulse 60 07/22/17 11:52 Resp 17 05/03/18 11:52 BP 128/60 07/22/17 11:52 Pulse Ox 99 07/22/17 11:52 Intake & Output 07/21/17 07/22/17 07/22/17 18:59 06:59 18:59 Intake Total 1200 Balance 1200 Weight (lbs) 46.862 kg 48.897 kg Intake: Oral 1200 Other: # Voids 2 4 # Bowel Movements 0 1 Weight Source Bedscale Bedscale Active Medications: Current Medications Acetaminophen (Tylenol) 650 mg PO Q4HR PRN PRN Reason: Mild Pain or Fever >101 Stop: 09/19/17 08:35 Acetaminophen (Tylenol Extra Strength) 1,000 mg PO Q4HR PRN PRN Reason: Pain (Moderate) Stop: 09/19/17 08:35 Atorvastatin Calcium (Lipitor) 40 mg PO DAILY [facility] Stop: 09/19/17 10:29 Last Admin: 07/22/17 10:12 Dose: 40 mg Bisacodyl (Dulcolax 10 Mg Supp) 10 mg RC DAILY PRN PRN Reason: Constipation Stop: 09/19/17 08:35 Docusate Sodium (Colace) 100 mg PO DAILY [facility] Stop: 09/19/17 10:29 Last Admin: 07/22/17 10:13 Dose: 100 mg Famotidine (Pepcid) 20 mg PO DAILY [facility] Stop: 09/19/17 10:29 Last Admin: 07/22/17 10:13 Dose: 20 mg Folic Acid (Folate) 1 mg PO DAILY [facility] Stop: 09/19/17 10:29 Last Admin: 07/22/17 10:13 Dose: 1 mg Isosorbide Dinitrate (Isordil) 5 mg PO TID [facility] Stop: 09/19/17 10:29 Last Admin: 07/22/17 10:17 Dose: Not Given Levothyroxine Sodium (Synthroid) 0.112 mg PO QDAC [facility] Stop: 09/20/17 07:29 Last Admin: 07/22/17 06:44 Dose: 0.112 mg Magnesium Hydroxide (Milk Of Magnesia) 30 ml PO HS PRN PRN Reason: Constipation Stop: 09/19/17 08:35 Metoprolol Succinate (Toprol Xl) 50 mg PO DAILY [facility] Stop: 09/19/17 10:29 Last Admin: 07/22/17 10:18 Dose: Not Given Montelukast Sodium (Singulair) 10 mg PO HS [facility] Stop: 09/19/17 20:59 Last Admin: 07/21/17 20:35 Dose: 10 mg Pyridoxine HCl (Vitamin B6) 50 mg PO DAILY [facility] Stop: 09/19/17 10:29 Last Admin: 07/22/17 10:13 Dose: 50 mg Sodium Phosphate (Fleet Enema) 135 ml RC Q48H PRN PRN Reason: Constipation Stop: 09/19/17 08:35 - Procedures Procedures: Procedures Procedure Code Date BLOOD TRANSFUSION SERVICE 46671 06/25/17 TRANSFUSE NONAUT RED BLOOD CELLS IN PERIPH VEIN, PERC 14327H3 06/25/17 Assessment/Plan - Assessment Assessment: 87 YO FEMALE WITH ANEMIA OB STOOL NEG NO OVERT GI BLEEDING 1.FOLLOW H/H 2.GIVEN AGE WOULD RESERVE ENDOSCOPY PROCEDURE FOR THERAPEUTIC INTENT 3.HEME ONC PER HOSPITALIST/PCP
[2017-07-22] MEDS ORDERED: Albuterol Nebulizer 2.5mg/3mL HHN PRN (14:09)
--- NOTE | 2017-07-23 20:06 | Consultation ---
DATE OF CONSULTATION: 07/22/2017 PATIENT OF: Gui Trent M.D. Thank you very much Dr. Trent for this consultation. HISTORY OF PRESENT ILLNESS: This is an 87-year-old female with history of COPD, hypertension, asthma, dementia and diabetes, presented with abnormally low hemoglobin and was admitted for further treatment and management. The patient unable to give me much of a history, but she denies any shortness of breath at this time. She says she is nonsmoker. PAST MEDICAL HISTORY: As above. REVIEW OF SYSTEMS: GENERAL: Some weakness. No fatigue. CARDIOVASCULAR: No chest pain or palpitations. RESPIRATORY: No shortness of breath. No cough. GASTROINTESTINAL: No nausea or vomiting. PHYSICAL EXAMINATION: GENERAL: Awake, alert, not in acute distress. VITAL SIGNS: Temperature is 97.7, pulse 60, respiration is 17, blood pressure ____, saturation 99% on room air. HEENT: Atraumatic, normocephalic. Pupils react to light and accommodation. Ears, nose and throat normal. NECK: Supple. No JVD. CHEST: There are decreased breath sounds at bases, fair entry bilaterally. No wheezing or crackles. HEART: Regular rate and rhythm. ABDOMEN: Soft. EXTREMITIES: No edema. LABORATORY DATA: WBC 9.7 down from 13.3, hemoglobin 9.0, hematocrit ____, platelets is 320. Chest x-ray: Some hyperinflation, no acute infiltrate. IMPRESSION: An 87-year-old female with: 1. Underlying history of asthma, it is likely chronic obstructive pulmonary disease, may be ____ emphysema. 2. Anemia, etiology to be determined. 3. History of hypertension, diabetes and dementia. PLAN: 1. Nebulizer p.r.n. 2. GI workup. 3. Follow the patient with you. Thank you very much for this consultation. JOB# [id number]
== END 2017-07-22 14:45 | DRG 812 ==
LOC: ER 10:43 → TELE 14:27
PROVIDERS: ADMIT Internal Medicine Infectious Disease; ATTEND Internal Medicine Infectious Disease
DX: D53.9 Nutritional anemia, unspecified (principal); K92.2 Gastrointestinal hemorrhage, unspecified; E86.0 Dehydration; E11.9 Type 2 diabetes mellitus without complications; E78.5 Hyperlipidemia, unspecified; E03.9 Hypothyroidism, unspecified; J44.9 Chronic obstructive pulmonary disease, unspecified; I25.9 Chronic ischemic heart disease, unspecified; I11.9 Hypertensive heart disease without heart failure; F03.90 Unspecified dementia, unspecified severity, without behavioral disturbance, psychotic disturbance, mood disturbance, and anxiety; D72.819 Decreased white blood cell count, unspecified; M19.90 Unspecified osteoarthritis, unspecified site; F17.210 Nicotine dependence, cigarettes, uncomplicated; Z83.3 Family history of diabetes mellitus; Z82.49 Family history of ischemic heart disease and other diseases of the circulatory system; Z71.89 Other specified counseling; Z79.899 Other long term (current) drug therapy
CPT/HCPCS: 36415-UA; 71045-TC; 80053-TC; 81001-TC; 82270-TC; 82550-TC; 82728-90; 82948-90; 83540-90; 83550-90; 83605; 83615-TC; 84466-90; 84484-TC; 85025-TC; 85044-TC; 85610-TC; 85730-TC; 93005

== ENCOUNTER 2017-09-24 22:25 | Inpatient (IN) | payer MEDICARE, MEDICAID ==
[2017-09-24 23:56] LABS: BASOPHILE ABSOLUTE 0.1 Th/cumm (0-0.2); MEAN PLATELET VOLUME 8.5 fl; MONOCYTE ABSOLUTE 0.4 Th/cmm (0.3-1.0)
[2017-09-24 23:59] LABS: % BASOPHILS 2.2 % (0.0-2.0); % EOSINOPHILS 7.1 % (0.0-5.0); % LYMPHOCYTES 38.3 % (20.0-50.0); % MONOCYTES 8.5 % (2.0-10.0); % NEUTROPHILS 43.9 % (40.0-80.0); EOSINOPHILE ABSOLUTE 0.4 Th/cmm (0.1-0.4); LYMPHOCYTE ABSOLUTE 1.9 Th/cmm (1.5-3.0); MEAN CORPUSCULAR HEMOGLOBIN 35.9 pg (27.0-31.0); MEAN CORPUSCULAR HGB CONC 33.4 pg (28.0-36.0); NEUTROPHILE ABSOLUTE 2.2 Th/cmm (1.8-8.0); PLATELET COUNT 316 Th/cmm (150-400); RED BLOOD COUNT 1.93 Mil/cmm (3.80-5.20)
[2017-09-25 00:09] LABS: ALB/GLOB RATIO 1.4 (1.0-1.8); ALBUMIN 3.9 gm/dL (3.7-5.3); ALKALINE PHOSPHATASE 53 U/L (34-104); ANION GAP 6.8 (7.0-16.0); BILIRUBIN,TOTAL 0.9 mg/dL (0.3-1.0); BUN - UREA NITROGEN 47 mg/dL (7-25); CALCIUM SERUM 9.7 mg/dL (8.6-10.3); CARBON DIOXIDE 27.6 mEq/L (21.0-31.0); CHLORIDE 103 mEq/L (98-107); CREATININE - SERUM 1.3 mg/dL (0.6-1.2); GLUCOSE 105 mg/dL (70-105); POTASSIUM SERUM 4.4 mEq/L (3.5-5.1); SGOT 51 U/L (13-39); SGPT/ALT 65 U/L (7-52); SODIUM SERUM 133 mEq/L (136-145); TOTAL PROTEIN,SERUM 6.6 gm/dL (6.0-8.3)
[2017-09-25 00:19] LABS: HEMOGLOBIN 6.9 gm/dL (12-16)
[2017-09-25 00:20] LABS: HEMATOCRIT 20.7 % (41.0-60)
[2017-09-25 01:20] LABS: MEAN CELL VOLUME 107.5 fl (81-100)
[2017-09-25 04:24] VITALS: BP 103/40
[2017-09-25 04:57] LABS: % BASOPHILS 0.8 % (0.0-2.0); % EOSINOPHILS 8.1 % (0.0-5.0); % LYMPHOCYTES 42.4 % (20.0-50.0); % MONOCYTES 8.3 % (2.0-10.0); % NEUTROPHILS 40.4 % (40.0-80.0); EOSINOPHILE ABSOLUTE 0.4 Th/cmm (0.1-0.4); LYMPHOCYTE ABSOLUTE 2.1 Th/cmm (1.5-3.0); MEAN CORPUSCULAR HEMOGLOBIN 35.8 pg (27.0-31.0); MEAN CORPUSCULAR HGB CONC 33.2 pg (28.0-36.0); MEAN PLATELET VOLUME 8.8 fl; MONOCYTE ABSOLUTE 0.4 Th/cmm (0.3-1.0); NEUTROPHILE ABSOLUTE 1.9 Th/cmm (1.8-8.0); PLATELET COUNT 312 Th/cmm (150-400); RED BLOOD COUNT 2.04 Mil/cmm (3.80-5.20); RED CELL DISTRIBUTION WIDTH 27.2 % (11.5-20.0); WHITE BLOOD COUNT 4.8 Th/cmm (4.8-10.8)
[2017-09-25 05:14] LABS: HEMOGLOBIN 7.3 gm/dL (12-16)
[2017-09-25 05:29] LABS: ANION GAP 8.9 (7.0-16.0); BUN - UREA NITROGEN 45 mg/dL (7-25); CALCIUM SERUM 9.6 mg/dL (8.6-10.3); CARBON DIOXIDE 26.3 mEq/L (21.0-31.0); CHLORIDE 107 mEq/L (98-107); CREATININE - SERUM 1.3 mg/dL (0.6-1.2); GLUCOSE 120 mg/dL (70-105); MEAN CELL VOLUME 107.7 fl (81-100); POTASSIUM SERUM 4.2 mEq/L (3.5-5.1); SODIUM SERUM 138 mEq/L (136-145)
[2017-09-25 10:27] LABS: URINE MICROSCOPIC INDICATED? YES; URINE SOURCE CLEAN C
[2017-09-25 10:36] LABS: URINE BILIRUBIN NEGATIVE (NEGATIVE); URINE BLOOD NEGATIVE (NEGATIVE); URINE GLUCOSE (UA) NEGATIVE (NEGATIVE); URINE KETONE NEGATIVE (NEGATIVE); URINE LEUKOCYTE ESTERASE NEGATIVE (NEGATIVE); URINE NITRATE NEGATIVE (NEGATIVE); URINE PROTEIN NEGATIVE (NEGATIVE); URINE UROBILINOGEN 0.2 E.U./dL (0.2 - 1.0)
[2017-09-25 10:38] LABS: URINE CLARITY CLEAR (CLEAR); URINE COLOR YELLOW
--- NOTE | 2017-09-25 10:40 | Diagnostic Imaging Report ---
Portable chest x-ray HISTORY: Pain The lungs are hyperexpanded. Accentuation of the lower interstitial lung markings which appear chronic. No definite focal processes. The overall heart size is normal. Surgical clips and suture material noted over the chest. IMPRESSION: 1. No acute abnormalities 2. Pulmonary hyperexpansion with accentuation of the lower interstitial lung markings which appear chronic. 3. Surgical changes
[2017-09-25 10:43] LABS: URINE BACTERIA NONE SEEN /hpf (NONE SEEN); URINE EPITHELIAL CELLS RARE /lpf (FEW); URINE RBC NONE SEEN /hpf (0-5); URINE WBC 0-2 /hpf (0-5)
[2017-09-25] MEDS ORDERED: Albuterol Nebulizer 2.5mg/3mL HHN PRN (10:54)
[2017-09-25] MEDS ORDERED: Magnesium Hydroxide (MOM) 30 mL UDC PO PRN (10:54)
[2017-09-25] MEDS ORDERED: Acetaminophen 500 MG TAB PO PRN (10:54)
[2017-09-25] MEDS ORDERED: Fleet Enema 135 mL RC PRN (10:54)
[2017-09-25] MEDS: Sodium Chloride 0.45% 1,000 ML IV SCH (11:16)
--- NOTE | 2017-09-25 20:36 | History & Physical ---
ADMIT DATE: 09/25/2017 CHIEF COMPLAINT: Abnormal lab tests. HISTORY OF PRESENT ILLNESS: This is an 87-year-old female, who was [facility] living in a [facility] facility that was sent in to the Emergency Room due to low hemoglobin and hematocrit level with elevated BUN. REVIEW OF SYSTEMS: GENERAL: This is an 87-year-old female that appears as stated. Denies dizziness. Denies fever. Denies chills. HEAD: Denies headache. EYES: Denies blurring of vision, denies eye pain. NECK: Denies neck pain. Denies nuchal rigidity. CHEST: Denies chest pain. Denies palpitation. PULMONARY: Denies coughing. Denies shortness of breath. GASTROINTESTINAL: Denies abdominal pain. Denies diarrhea. Denies constipation. MUSCULOSKELETAL: Denies joint pain. Denies muscle pain. SOCIAL HISTORY: The patient lives in a [facility] facility prior to hospitalization. Denies nicotine use. Denies alcohol. Denies illicit drugs. PAST SURGICAL HISTORY: Unremarkable. FAMILY HISTORY: Unremarkable. PAST MEDICAL HISTORY: Includes hypertension, osteoarthritis, hyperlipidemia, gastroesophageal reflux disease, anemia, and hypothyroidism. PHYSICAL EXAMINATION: VITAL SIGNS: Temperature 98.3, heart rate 59, blood pressure 101/50, respirations 18, 100% on room air. HEENT: Head is atraumatic and normocephalic. Eyes: Bilateral conjunctivae are clear. Bilateral pupils are equally round and reactive. NECK: Supple. No JVD. CARDIOVASCULAR: S1 and S2, without murmur. PULMONARY: Clear to auscultation. GASTROINTESTINAL: Soft and nontender without guarding. Positive bowel sounds. MUSCULOSKELETAL: No clubbing. No cyanosis noted. ASSESSMENT: 1. Anemia, rule out bleeding. 2. Dehydration. 3. Osteoarthritis. 4. Hyperlipidemia. 5. Hypertension. 6. Gastroesophageal reflux disease. 7. Hypothyroidism. PLAN: We will transfuse 2 units of packed RBC. Monitor H and H level in the morning. I am also going to hydrate the patient and do medication reconciliation accordingly. I am also going to check patient for stool OB. Treatment plans were discussed with the patient's nurse. Treatment was discussed with Dr. López. JOB# [id number]
[2017-09-26 04:59] LABS: % EOSINOPHILS 7.8 % (0.0-5.0); % LYMPHOCYTES 34.1 % (20.0-50.0); % NEUTROPHILS 49.1 % (40.0-80.0); BASOPHILE ABSOLUTE 0.1 Th/cumm (0-0.2); EOSINOPHILE ABSOLUTE 0.4 Th/cmm (0.1-0.4); LYMPHOCYTE ABSOLUTE 1.7 Th/cmm (1.5-3.0); MEAN CELL VOLUME 98.8 fl (81-100); MEAN CORPUSCULAR HEMOGLOBIN 33.1 pg (27.0-31.0); MEAN CORPUSCULAR HGB CONC 33.5 pg (28.0-36.0); MEAN PLATELET VOLUME 9.1 fl; MONOCYTE ABSOLUTE 0.4 Th/cmm (0.3-1.0); NEUTROPHILE ABSOLUTE 2.5 Th/cmm (1.8-8.0); PLATELET COUNT 265 Th/cmm (150-400); RED BLOOD COUNT 3.18 Mil/cmm (3.80-5.20); RED CELL DISTRIBUTION WIDTH 26.5 % (11.5-20.0); WHITE BLOOD COUNT 5.1 Th/cmm (4.8-10.8)
[2017-09-26 05:24] LABS: ANION GAP 8.9 (7.0-16.0); BUN - UREA NITROGEN 39 mg/dL (7-25); CALCIUM SERUM 9.1 mg/dL (8.6-10.3); CARBON DIOXIDE 23.4 mEq/L (21.0-31.0); CHLORIDE 109 mEq/L (98-107); CREATININE - SERUM 1.2 mg/dL (0.6-1.2); GLUCOSE 91 mg/dL (70-105); POTASSIUM SERUM 4.3 mEq/L (3.5-5.1); SODIUM SERUM 137 mEq/L (136-145)
[2017-09-26 05:31] LABS: HEMATOCRIT 31.4 % (41.0-60); HEMOGLOBIN 10.5 gm/dL (12-16)
[2017-09-26] MEDS: Sodium Chloride 0.45% 1,000 ML IV SCH ×2 (06:33→16:31)
[2017-09-26] MEDS: Levothyroxine 0.112 Mg Tab PO SCH (06:34)
[2017-09-26] MEDS: Multivitamin w/ Minerals Tab PO SCH (08:17)
--- NOTE | 2017-09-26 12:09 | General Progress Note ---
Subjective - Review of Systems Events since last encounter: resident of [facility] admitted for low hemoglobin patient is weak no acute distress Objective - Results Result Diagrams: 09/26/17 04:30 09/26/17 04:30 Recent Labs: Laboratory Last Values WBC 5.1 Th/cmm (4.8-10.8) 09/26/17 04:30 RBC 3.18 Mil/cmm (3.80-5.20) L 09/26/17 04:30 Hgb 10.5 gm/dL (12-16) L D 09/26/17 04:30 Hct 31.4 % (41.0-60) L D 09/26/17 04:30 MCV 98.8 fl (81-100) 09/26/17 04:30 MCH 33.1 pg (27.0-31.0) H 09/26/17 04:30 MCHC Differential 33.5 pg (28.0-36.0) 09/26/17 04:30 RDW 26.5 % (11.5-20.0) H 09/26/17 04:30 Plt Count 265 Th/cmm (150-400) 09/26/17 04:30 MPV 9.1 fl 09/26/17 04:30 Neutrophils % 49.1 % (40.0-80.0) 09/26/17 04:30 Lymphocytes % 34.1 % (20.0-50.0) 09/26/17 04:30 Monocytes % 8.0 % (2.0-10.0) 09/26/17 04:30 Eosinophils % 7.8 % (0.0-5.0) H 09/26/17 04:30 Basophils % 1.0 % (0.0-2.0) 09/26/17 04:30 Sodium 137 mEq/L (136-145) 09/26/17 04:30 Potassium 4.3 mEq/L (3.5-5.1) 09/26/17 04:30 Chloride 109 mEq/L (98-107) H 09/26/17 04:30 Carbon Dioxide 23.4 mEq/L (21.0-31.0) 09/26/17 04:30 Anion Gap 8.9 (7.0-16.0) 09/26/17 04:30 BUN 39 mg/dL (7-25) H 09/26/17 04:30 Creatinine 1.2 mg/dL (0.6-1.2) 09/26/17 04:30 Est GFR ( Amer) TNP 09/26/17 04:30 Est GFR (Non-Af Amer) TNP 09/26/17 04:30 BUN/Creatinine Ratio 32.5 09/26/17 04:30 Glucose 91 mg/dL (70-105) 09/26/17 04:30 Calcium 9.1 mg/dL (8.6-10.3) 09/26/17 04:30 Total Bilirubin 0.9 mg/dL (0.3-1.0) 09/24/17 23:40 AST 51 U/L (13-39) H 09/24/17 23:40 ALT 65 U/L (7-52) H 09/24/17 23:40 Alkaline Phosphatase 53 U/L (34-104) 09/24/17 23:40 Total Protein 6.6 gm/dL (6.0-8.3) 09/24/17 23:40 Albumin 3.9 gm/dL (3.7-5.3) 09/24/17 23:40 Globulin 2.7 gm/dL 09/24/17 23:40 Albumin/Globulin Ratio 1.4 (1.0-1.8) 09/24/17 23:40 Urine Source CLEAN C 09/25/17 08:35 Urine Color YELLOW 09/25/17 08:35 Urine Clarity CLEAR (CLEAR) 09/25/17 08:35 Urine pH 6.0 (4.6 - 8.0) 09/25/17 08:35 Ur Specific [place] <= 1.005 (1.005-1.030) 09/25/17 08:35 Urine Protein NEGATIVE mg/dL (NEGATIVE) 09/25/17 08:35 Urine Glucose (UA) NEGATIVE mg/dL (NEGATIVE) 09/25/17 08:35 Urine Ketones NEGATIVE mg/dL (NEGATIVE) 09/25/17 08:35 Urine Blood NEGATIVE (NEGATIVE) 09/25/17 08:35 Urine Nitrate NEGATIVE (NEGATIVE) 09/25/17 08:35 Urine Bilirubin NEGATIVE (NEGATIVE) 09/25/17 08:35 Urine Urobilinogen 0.2 E.U./dL (0.2 - 1.0) 09/25/17 08:35 Ur Leukocyte Esterase NEGATIVE (NEGATIVE) 09/25/17 08:35 Urine RBC NONE SEEN /hpf (0-5) 09/25/17 08:35 Urine WBC 0-2 /hpf (0-5) 09/25/17 08:35 Ur Epithelial Cells RARE /lpf (FEW) 09/25/17 08:35 Urine Bacteria NONE SEEN /hpf (NONE SEEN) 09/25/17 08:35 Stool Occult Blood NEGATIVE (NEGATIVE) 09/25/17 21:25 Blood Type O POSITIVE 09/24/17 23:40 Antibody Screen NEGATIVE 09/24/17 23:40 Crossmatch See Detail 09/24/17 23:40 - Physical Exam Vitals and I&O: Vital Signs Temp 98.1 F 09/26/17 08:06 Pulse 58 09/26/17 08:20 Resp 18 09/26/17 08:06 BP 160/55 09/26/17 08:20 Pulse Ox 99 09/26/17 08:06 Intake & Output 09/25/17 09/26/17 09/26/17 18:59 06:59 18:59 Intake Total 2240 Balance 2240 Weight (lbs) 44.497 kg Intake: Intake, IV Amount 1000 Sodium Chloride 0.45% 1, 1000 000 ml @ 75 mls/hr IV . [id number] [facility] Rx#:[id number] Oral 1240 Other: # Voids 1 # Bowel Movements 2 Stool Characteristics Liquid Weight Source Bedscale Active Medications: Current Medications Acetaminophen (Tylenol) 650 mg PO Q4H PRN PRN Reason: Pain or Fever >101 Stop: 11/24/17 10:53 Acetaminophen (Tylenol Extra Strength) 1,000 mg PO Q4H PRN PRN Reason: Pain (Moderate) Stop: 11/24/17 10:53 Albuterol Sulfate (Albuterol 2.5mg/3ml Neb Ud) 2.5 mg HHN Q4HRT PRN PRN Reason: Respiratory Distress Stop: 11/24/17 10:53 Atorvastatin Calcium (Lipitor) 40 mg PO HS [facility] Stop: 11/24/17 20:59 Last Admin: 09/25/17 20:45 Dose: 40 mg Bisacodyl (Dulcolax 10 Mg Supp) 10 mg RC DAILY PRN PRN Reason: Constipation Stop: 11/24/17 10:53 Docusate Sodium (Colace) 100 mg PO DAILY [facility] Stop: 11/25/17 08:59 Last Admin: 09/26/17 08:19 Dose: 100 mg Famotidine (Pepcid) 20 mg PO DAILY [facility] Stop: 11/25/17 08:59 Last Admin: 09/26/17 08:19 Dose: 20 mg Folic Acid (Folate) 1 mg PO DAILY [facility] Stop: 11/25/17 08:59 Last Admin: 09/26/17 08:19 Dose: 1 mg Sodium Chloride (Nacl 0.45%) 1,000 mls @ 75 mls/hr IV .[id number] [facility] Stop: 11/24/17 10:59 Last Admin: 09/26/17 06:33 Dose: 75 mls/hr Isosorbide Dinitrate (Isordil) 5 mg PO TID [facility] Stop: 11/24/17 13:59 Last Admin: 09/26/17 08:18 Dose: 5 mg Levothyroxine Sodium (Synthroid) 0.112 mg PO QDAC [facility] Stop: 11/25/17 07:29 Last Admin: 09/26/17 06:34 Dose: 0.112 mg Magnesium Hydroxide (Milk Of Magnesia) 30 ml PO HS PRN PRN Reason: Constipation Stop: 11/24/17 10:53 Metoprolol Succinate (Toprol Xl) 50 mg PO DAILY [facility] Stop: 11/25/17 08:59 Last Admin: 09/26/17 08:20 Dose: Not Given Montelukast Sodium (Singulair) 10 mg PO HS [facility] Stop: 11/24/17 20:59 Last Admin: 09/25/17 20:45 Dose: 10 mg Pyridoxine HCl (Vitamin B6) 50 mg PO DAILY [facility] Stop: 11/25/17 08:59 Last Admin: 09/26/17 08:19 Dose: 50 mg Sodium Phosphate (Fleet Enema) 135 ml RC Q48H PRN PRN Reason: Constipation Stop: 11/24/17 10:53 General: No acute distress HEENT: Atraumatic Neck: Supple Cardiovascular: Regular rate, Normal S2 Lungs: Clear to auscultation Abdomen: Bowel sounds - Procedures Procedures: Procedures Procedure Code Date BLOOD TRANSFUSION SERVICE 62091 06/25/17 TRANSFUSE NONAUT RED BLOOD CELLS IN PERIPH VEIN, PERC 25034D2 06/25/17 Assessment/Plan - Problem List Patient Problems: All Active Problems Anemia (Acute) D64.9 Dehydration (Acute) E86.0 Gastroesophageal reflux disease (Acute) K21.9 HTN (hypertension) (Acute) I10 Hyperlipemia (Acute) E78.5 Hypothyroid (Acute) E03.9 Osteoarthritis (Acute) M19.90 - Plan Plan: as per order sheet
[2017-09-27] MEDS: Levothyroxine 0.112 Mg Tab PO SCH (06:34)
[2017-09-27] MEDS: Sodium Chloride 0.45% 1,000 ML IV SCH ×2 (06:36→21:23)
[2017-09-27] MEDS: Multivitamin w/ Minerals Tab PO SCH (09:29)
--- NOTE | 2017-09-27 15:03 | General Progress Note ---
Subjective - Review of Systems Events since last encounter: patient is weak in no distress denies pain Objective - Results Result Diagrams: 09/26/17 04:30 09/26/17 04:30 Recent Labs: Laboratory Last Values WBC 5.1 Th/cmm (4.8-10.8) 09/26/17 04:30 RBC 3.18 Mil/cmm (3.80-5.20) L 09/26/17 04:30 Hgb 10.5 gm/dL (12-16) L D 09/26/17 04:30 Hct 31.4 % (41.0-60) L D 09/26/17 04:30 MCV 98.8 fl (81-100) 09/26/17 04:30 MCH 33.1 pg (27.0-31.0) H 09/26/17 04:30 MCHC Differential 33.5 pg (28.0-36.0) 09/26/17 04:30 RDW 26.5 % (11.5-20.0) H 09/26/17 04:30 Plt Count 265 Th/cmm (150-400) 09/26/17 04:30 MPV 9.1 fl 09/26/17 04:30 Neutrophils % 49.1 % (40.0-80.0) 09/26/17 04:30 Lymphocytes % 34.1 % (20.0-50.0) 09/26/17 04:30 Monocytes % 8.0 % (2.0-10.0) 09/26/17 04:30 Eosinophils % 7.8 % (0.0-5.0) H 09/26/17 04:30 Basophils % 1.0 % (0.0-2.0) 09/26/17 04:30 Sodium 137 mEq/L (136-145) 09/26/17 04:30 Potassium 4.3 mEq/L (3.5-5.1) 09/26/17 04:30 Chloride 109 mEq/L (98-107) H 09/26/17 04:30 Carbon Dioxide 23.4 mEq/L (21.0-31.0) 09/26/17 04:30 Anion Gap 8.9 (7.0-16.0) 09/26/17 04:30 BUN 39 mg/dL (7-25) H 09/26/17 04:30 Creatinine 1.2 mg/dL (0.6-1.2) 09/26/17 04:30 Est GFR ( Amer) TNP 09/26/17 04:30 Est GFR (Non-Af Amer) TNP 09/26/17 04:30 BUN/Creatinine Ratio 32.5 09/26/17 04:30 Glucose 91 mg/dL (70-105) 09/26/17 04:30 Calcium 9.1 mg/dL (8.6-10.3) 09/26/17 04:30 Total Bilirubin 0.9 mg/dL (0.3-1.0) 09/24/17 23:40 AST 51 U/L (13-39) H 09/24/17 23:40 ALT 65 U/L (7-52) H 09/24/17 23:40 Alkaline Phosphatase 53 U/L (34-104) 09/24/17 23:40 Total Protein 6.6 gm/dL (6.0-8.3) 09/24/17 23:40 Albumin 3.9 gm/dL (3.7-5.3) 09/24/17 23:40 Globulin 2.7 gm/dL 09/24/17 23:40 Albumin/Globulin Ratio 1.4 (1.0-1.8) 09/24/17 23:40 Urine Source CLEAN C 09/25/17 08:35 Urine Color YELLOW 09/25/17 08:35 Urine Clarity CLEAR (CLEAR) 09/25/17 08:35 Urine pH 6.0 (4.6 - 8.0) 09/25/17 08:35 Ur Specific [place] <= 1.005 (1.005-1.030) 09/25/17 08:35 Urine Protein NEGATIVE mg/dL (NEGATIVE) 09/25/17 08:35 Urine Glucose (UA) NEGATIVE mg/dL (NEGATIVE) 09/25/17 08:35 Urine Ketones NEGATIVE mg/dL (NEGATIVE) 09/25/17 08:35 Urine Blood NEGATIVE (NEGATIVE) 09/25/17 08:35 Urine Nitrate NEGATIVE (NEGATIVE) 09/25/17 08:35 Urine Bilirubin NEGATIVE (NEGATIVE) 09/25/17 08:35 Urine Urobilinogen 0.2 E.U./dL (0.2 - 1.0) 09/25/17 08:35 Ur Leukocyte Esterase NEGATIVE (NEGATIVE) 09/25/17 08:35 Urine RBC NONE SEEN /hpf (0-5) 09/25/17 08:35 Urine WBC 0-2 /hpf (0-5) 09/25/17 08:35 Ur Epithelial Cells RARE /lpf (FEW) 09/25/17 08:35 Urine Bacteria NONE SEEN /hpf (NONE SEEN) 09/25/17 08:35 Stool Occult Blood NEGATIVE (NEGATIVE) 09/25/17 21:25 Blood Type O POSITIVE 09/24/17 23:40 Antibody Screen NEGATIVE 09/24/17 23:40 Crossmatch See Detail 09/24/17 23:40 - Physical Exam Vitals and I&O: Vital Signs Temp 97.3 F 09/27/17 11:59 Pulse 61 09/27/17 14:48 Resp 18 09/27/17 11:59 BP 148/53 09/27/17 14:48 Pulse Ox 100 09/27/17 11:59 Intake & Output 09/26/17 09/27/17 09/27/17 18:59 06:59 18:59 Intake Total 1547.5 1480 Balance 1547.5 1480 Weight (lbs) 45.405 kg 45.405 kg Intake: Intake, IV Amount 747.5 1000 Sodium Chloride 0.45% 1, 747.5 1000 000 ml @ 75 mls/hr IV . [id number] [facility] Rx#:[id number] Oral 800 480 Other: # Voids 6 2 # Bowel Movements 0 1 Weight Source Bedscale Bedscale Active Medications: Current Medications Acetaminophen (Tylenol) 650 mg PO Q4H PRN PRN Reason: Pain or Fever >101 Stop: 11/24/17 10:53 Acetaminophen (Tylenol Extra Strength) 1,000 mg PO Q4H PRN PRN Reason: Pain (Moderate) Stop: 11/24/17 10:53 Albuterol Sulfate (Albuterol 2.5mg/3ml Neb Ud) 2.5 mg HHN Q4HRT PRN PRN Reason: Respiratory Distress Stop: 11/24/17 10:53 Atorvastatin Calcium (Lipitor) 40 mg PO [facility] Stop: 11/24/17 20:59 Last Admin: 09/26/17 20:28 Dose: 40 mg Bisacodyl (Dulcolax 10 Mg Supp) 10 mg RC DAILY PRN PRN Reason: Constipation Stop: 11/24/17 10:53 Docusate Sodium (Colace) 100 mg PO DAILY [facility] Stop: 11/25/17 08:59 Last Admin: 09/27/17 09:24 Dose: 100 mg Famotidine (Pepcid) 20 mg PO DAILY [facility] Stop: 11/25/17 08:59 Last Admin: 09/27/17 09:24 Dose: 20 mg Folic Acid (Folate) 1 mg PO DAILY [facility] Stop: 11/25/17 08:59 Last Admin: 09/27/17 09:24 Dose: 1 mg Sodium Chloride (Nacl 0.45%) 1,000 mls @ 75 mls/hr IV .[id number] [facility] Stop: 11/24/17 10:59 Last Admin: 09/27/17 06:36 Dose: 75 mls/hr Isosorbide Dinitrate (Isordil) 5 mg PO TID [facility] Stop: 11/24/17 13:59 Last Admin: 09/27/17 14:48 Dose: 5 mg Levothyroxine Sodium (Synthroid) 0.112 mg PO QDAC [facility] Stop: 11/25/17 07:29 Last Admin: 09/27/17 06:34 Dose: 0.112 mg Magnesium Hydroxide (Milk Of Magnesia) 30 ml PO HS PRN PRN Reason: Constipation Stop: 11/24/17 10:53 Metoprolol Succinate (Toprol Xl) 50 mg PO DAILY [facility] Stop: 11/25/17 08:59 Last Admin: 09/27/17 09:24 Dose: 50 mg Montelukast Sodium (Singulair) 10 mg PO HS [facility] Stop: 11/24/17 20:59 Last Admin: 09/26/17 20:28 Dose: 10 mg Pyridoxine HCl (Vitamin B6) 50 mg PO DAILY [facility] Stop: 11/25/17 08:59 Last Admin: 09/27/17 09:23 Dose: 50 mg Sodium Phosphate (Fleet Enema) 135 ml RC Q48H PRN PRN Reason: Constipation Stop: 11/24/17 10:53 General: No acute distress HEENT: Atraumatic Neck: Supple Cardiovascular: Regular rate, Normal S2 Lungs: Clear to auscultation Abdomen: Bowel sounds - Procedures Procedures: Procedures Procedure Code Date BLOOD TRANSFUSION SERVICE 97230 06/25/17 TRANSFUSE NONAUT RED BLOOD CELLS IN PERIPH VEIN, [facility] 14860P3 09/25/17 Assessment/Plan - Problem List Patient Problems: All Active Problems Anemia (Acute) D64.9 Dehydration (Acute) E86.0 Gastroesophageal reflux disease (Acute) K21.9 HTN (hypertension) (Acute) I10 Hyperlipemia (Acute) E78.5 Hypothyroid (Acute) E03.9 Osteoarthritis (Acute) M19.90 - Plan Plan: as per order sheet
[2017-09-28] MEDS: Sodium Chloride 0.45% 1,000 ML IV SCH ×2 (06:13→18:14)
[2017-09-28] MEDS: Levothyroxine 0.112 Mg Tab PO SCH (06:32)
[2017-09-28] MEDS: Multivitamin w/ Minerals Tab PO SCH (08:44)
--- NOTE | 2017-09-28 11:43 | Internal Medicine Prog Note ---
Internal Medicine Subjective - Subjective Service Date: 09/28/17 Patient seen and examined:: with staff Patient is:: awake Per staff patient has:: tolerating meds Internal Medicine Objective - Results Result Diagrams: 09/26/17 04:30 09/26/17 04:30 Recent Labs: Laboratory Last Values WBC 5.1 Th/cmm (4.8-10.8) 09/26/17 04:30 RBC 3.18 Mil/cmm (3.80-5.20) L 09/26/17 04:30 Hgb 10.5 gm/dL (12-16) L D 09/26/17 04:30 Hct 31.4 % (41.0-60) L D 09/26/17 04:30 MCV 98.8 fl (81-100) 09/26/17 04:30 MCH 33.1 pg (27.0-31.0) H 09/26/17 04:30 MCHC Differential 33.5 pg (28.0-36.0) 09/26/17 04:30 RDW 26.5 % (11.5-20.0) H 09/26/17 04:30 Plt Count 265 Th/cmm (150-400) 09/26/17 04:30 MPV 9.1 fl 09/26/17 04:30 Neutrophils % 49.1 % (40.0-80.0) 09/26/17 04:30 Lymphocytes % 34.1 % (20.0-50.0) 09/26/17 04:30 Monocytes % 8.0 % (2.0-10.0) 09/26/17 04:30 Eosinophils % 7.8 % (0.0-5.0) H 09/26/17 04:30 Basophils % 1.0 % (0.0-2.0) 09/26/17 04:30 Sodium 137 mEq/L (136-145) 09/26/17 04:30 Potassium 4.3 mEq/L (3.5-5.1) 09/26/17 04:30 Chloride 109 mEq/L (98-107) H 09/26/17 04:30 Carbon Dioxide 23.4 mEq/L (21.0-31.0) 09/26/17 04:30 Anion Gap 8.9 (7.0-16.0) 09/26/17 04:30 BUN 39 mg/dL (7-25) H 09/26/17 04:30 Creatinine 1.2 mg/dL (0.6-1.2) 09/26/17 04:30 Est GFR ( Amer) TNP 09/26/17 04:30 Est GFR (Non-Af Amer) TNP 09/26/17 04:30 BUN/Creatinine Ratio 32.5 09/26/17 04:30 Glucose 91 mg/dL (70-105) 09/26/17 04:30 Calcium 9.1 mg/dL (8.6-10.3) 09/26/17 04:30 Total Bilirubin 0.9 mg/dL (0.3-1.0) 09/24/17 23:40 AST 51 U/L (13-39) H 09/24/17 23:40 ALT 65 U/L (7-52) H 09/24/17 23:40 Alkaline Phosphatase 53 U/L (34-104) 09/24/17 23:40 Total Protein 6.6 gm/dL (6.0-8.3) 09/24/17 23:40 Albumin 3.9 gm/dL (3.7-5.3) 09/24/17 23:40 Globulin 2.7 gm/dL 09/24/17 23:40 Albumin/Globulin Ratio 1.4 (1.0-1.8) 09/24/17 23:40 Urine Source CLEAN C 09/25/17 08:35 Urine Color YELLOW 09/25/17 08:35 Urine Clarity CLEAR (CLEAR) 09/25/17 08:35 Urine pH 6.0 (4.6 - 8.0) 09/25/17 08:35 Ur Specific [place] <= 1.005 (1.005-1.030) 09/25/17 08:35 Urine Protein NEGATIVE mg/dL (NEGATIVE) 09/25/17 08:35 Urine Glucose (UA) NEGATIVE mg/dL (NEGATIVE) 09/25/17 08:35 Urine Ketones NEGATIVE mg/dL (NEGATIVE) 09/25/17 08:35 Urine Blood NEGATIVE (NEGATIVE) 09/25/17 08:35 Urine Nitrate NEGATIVE (NEGATIVE) 09/25/17 08:35 Urine Bilirubin NEGATIVE (NEGATIVE) 09/25/17 08:35 Urine Urobilinogen 0.2 E.U./dL (0.2 - 1.0) 09/25/17 08:35 Ur Leukocyte Esterase NEGATIVE (NEGATIVE) 09/25/17 08:35 Urine RBC NONE SEEN /hpf (0-5) 09/25/17 08:35 Urine WBC 0-2 /hpf (0-5) 09/25/17 08:35 Ur Epithelial Cells RARE /lpf (FEW) 09/25/17 08:35 Urine Bacteria NONE SEEN /hpf (NONE SEEN) 09/25/17 08:35 Stool Occult Blood NEGATIVE (NEGATIVE) 09/25/17 21:25 Blood Type O POSITIVE 09/24/17 23:40 Antibody Screen NEGATIVE 09/24/17 23:40 Crossmatch See Detail 09/24/17 23:40 - Physical Exam Vitals and I&O: Vital Signs Temp 97.3 F 09/28/17 07:34 Pulse 61 09/28/17 08:45 Resp 17 09/28/17 08:00 BP 158/51 09/28/17 08:45 Pulse Ox 99 09/28/17 07:48 Intake & Output 09/27/17 09/28/17 09/28/17 18:59 06:59 18:59 Intake Total 600 1662.5 Balance 600 1662.5 Weight (lbs) 100 lb 100 lb Intake: Intake, IV Amount 1662.5 Sodium Chloride 0.45% 1, 1662.5 000 ml @ 75 mls/hr IV . [id number] [facility] Rx#:[id number] Oral 600 Other: # Bowel Movements 1 Weight Source Bedscale Bedscale Active Medications: Current Medications Acetaminophen (Tylenol) 650 mg PO Q4H PRN PRN Reason: Mild Pain or Fever >101 Stop: 11/24/17 10:53 Acetaminophen (Tylenol Extra Strength) 1,000 mg PO Q4H PRN PRN Reason: Pain (Moderate) Stop: 11/24/17 10:53 Albuterol Sulfate (Albuterol 2.5mg/3ml Neb Ud) 2.5 mg HHN Q4HRT PRN PRN Reason: Respiratory Distress Stop: 11/24/17 10:53 Atorvastatin Calcium (Lipitor) 40 mg PO [facility] Stop: 11/24/17 20:59 Last Admin: 09/27/17 21:00 Dose: 40 mg Bisacodyl (Dulcolax 10 Mg Supp) 10 mg RC DAILY PRN PRN Reason: Constipation Stop: 11/24/17 10:53 Docusate Sodium (Colace) 100 mg PO DAILY [facility] Stop: 11/25/17 08:59 Last Admin: 09/28/17 08:44 Dose: 100 mg Famotidine (Pepcid) 20 mg PO DAILY [facility] Stop: 11/25/17 08:59 Last Admin: 09/28/17 08:44 Dose: 20 mg Folic Acid (Folate) 1 mg PO DAILY [facility] Stop: 11/25/17 08:59 Last Admin: 09/28/17 08:45 Dose: 1 mg Sodium Chloride (Nacl 0.45%) 1,000 mls @ 75 mls/hr IV .[id number] [facility] Stop: 11/24/17 10:59 Last Admin: 09/28/17 06:13 Dose: 75 mls/hr Isosorbide Dinitrate (Isordil) 5 mg PO TID [facility] Stop: 11/24/17 13:59 Last Admin: 09/28/17 08:43 Dose: 5 mg Levothyroxine Sodium (Synthroid) 0.112 mg PO QDAC [facility] Stop: 11/25/17 07:29 Last Admin: 09/28/17 06:32 Dose: 0.112 mg Magnesium Hydroxide (Milk Of Magnesia) 30 ml PO HS PRN PRN Reason: Constipation Stop: 11/24/17 10:53 Metoprolol Succinate (Toprol Xl) 50 mg PO DAILY [facility] Stop: 11/25/17 08:59 Last Admin: 09/28/17 08:45 Dose: 50 mg Montelukast Sodium (Singulair) 10 mg PO HS [facility] Stop: 11/24/17 20:59 Last Admin: 09/27/17 20:59 Dose: 10 mg Pyridoxine HCl (Vitamin B6) 50 mg PO DAILY [facility] Stop: 11/25/17 08:59 Last Admin: 09/28/17 08:43 Dose: 50 mg Sodium Phosphate (Fleet Enema) 135 ml RC Q48H PRN PRN Reason: Constipation Stop: 11/24/17 10:53 General: weak, alert HEENT: NC/AT, PERRLA Neck: Supple Lungs: CTAB Cardiovascular: RRR, Normal S1, Normal S2, without murmur Abdomen: soft, non-tender, non-distended, positive bowel sound Neurological: alert - Procedures Procedures: Procedures Procedure Code Date BLOOD TRANSFUSION SERVICE 89126 06/25/17 TRANSFUSE NONAUT RED BLOOD CELLS IN PERIPH VEIN, [facility] [id number] 09/25/17 Internal Medicine Assmt/Plan - Assessment Assessment: Anemia (Acute) D64.9 Dehydration (Acute) E86.0 Gastroesophageal reflux disease (Acute) K21.9 HTN (hypertension) (Acute) I10 Hyperlipemia (Acute) E78.5 Hypothyroid (Acute) E03.9 Osteoarthritis (Acute) M19.90 - Plan Plan: monitor h/h ivf for hydration cpm
[2017-09-29 06:24] LABS: % BASOPHILS 1.1 % (0.0-2.0); % EOSINOPHILS 9.4 % (0.0-5.0); % LYMPHOCYTES 38.3 % (20.0-50.0); % MONOCYTES 8.2 % (2.0-10.0); BASOPHILE ABSOLUTE 0.1 Th/cumm (0-0.2); EOSINOPHILE ABSOLUTE 0.4 Th/cmm (0.1-0.4); HEMATOCRIT 29.7 % (41.0-60); LYMPHOCYTE ABSOLUTE 1.8 Th/cmm (1.5-3.0); MEAN CELL VOLUME 99.7 fl (81-100); MEAN CORPUSCULAR HEMOGLOBIN 33.7 pg (27.0-31.0); MEAN CORPUSCULAR HGB CONC 33.8 pg (28.0-36.0); MEAN PLATELET VOLUME 8.6 fl; MONOCYTE ABSOLUTE 0.4 Th/cmm (0.3-1.0); NEUTROPHILE ABSOLUTE 1.9 Th/cmm (1.8-8.0); PLATELET COUNT 234 Th/cmm (150-400); RED BLOOD COUNT 2.98 Mil/cmm (3.80-5.20); RED CELL DISTRIBUTION WIDTH 26.1 % (11.5-20.0); WHITE BLOOD COUNT 4.6 Th/cmm (4.8-10.8)
[2017-09-29 06:44] LABS: ANION GAP 9.9 (7.0-16.0); BUN - UREA NITROGEN 34 mg/dL (7-25); CALCIUM SERUM 9.3 mg/dL (8.6-10.3); CARBON DIOXIDE 23.6 mEq/L (21.0-31.0); CHLORIDE 107 mEq/L (98-107); CREATININE - SERUM 0.9 mg/dL (0.6-1.2); GLUCOSE 86 mg/dL (70-105); POTASSIUM SERUM 4.5 mEq/L (3.5-5.1); SODIUM SERUM 136 mEq/L (136-145)
[2017-09-29] MEDS: Levothyroxine 0.112 Mg Tab PO SCH (06:50)
[2017-09-29] MEDS: Multivitamin w/ Minerals Tab PO SCH (08:47)
--- NOTE | 2017-09-29 13:13 | General Progress Note ---
Subjective - Review of Systems Events since last encounter: awake tolerating meds well Objective - Results Result Diagrams: 09/29/17 05:30 09/29/17 05:30 Recent Labs: Laboratory Last Values WBC 4.6 Th/cmm (4.8-10.8) L 09/29/17 05:30 RBC 2.98 Mil/cmm (3.80-5.20) L 09/29/17 05:30 Hgb 10.0 gm/dL (12-16) L 09/29/17 05:30 Hct 29.7 % (41.0-60) L 09/29/17 05:30 MCV 99.7 fl (81-100) 09/29/17 05:30 MCH 33.7 pg (27.0-31.0) H 09/29/17 05:30 MCHC Differential 33.8 pg (28.0-36.0) 09/29/17 05:30 RDW 26.1 % (11.5-20.0) H 09/29/17 05:30 Plt Count 234 Th/cmm (150-400) 09/29/17 05:30 MPV 8.6 fl 09/29/17 05:30 Neutrophils % 43.0 % (40.0-80.0) 09/29/17 05:30 Lymphocytes % 38.3 % (20.0-50.0) 09/29/17 05:30 Monocytes % 8.2 % (2.0-10.0) 09/29/17 05:30 Eosinophils % 9.4 % (0.0-5.0) H 09/29/17 05:30 Basophils % 1.1 % (0.0-2.0) 09/29/17 05:30 Sodium 136 mEq/L (136-145) 09/29/17 05:30 Potassium 4.5 mEq/L (3.5-5.1) 09/29/17 05:30 Chloride 107 mEq/L (98-107) 09/29/17 05:30 Carbon Dioxide 23.6 mEq/L (21.0-31.0) 09/29/17 05:30 Anion Gap 9.9 (7.0-16.0) 09/29/17 05:30 BUN 34 mg/dL (7-25) H 09/29/17 05:30 Creatinine 0.9 mg/dL (0.6-1.2) 09/29/17 05:30 Est GFR ( Amer) TNP 09/29/17 05:30 Est GFR (Non-Af Amer) TNP 09/29/17 05:30 BUN/Creatinine Ratio 37.8 09/29/17 05:30 Glucose 86 mg/dL (70-105) 09/29/17 05:30 Calcium 9.3 mg/dL (8.6-10.3) 09/29/17 05:30 Total Bilirubin 0.9 mg/dL (0.3-1.0) 09/24/17 23:40 AST 51 U/L (13-39) H 09/24/17 23:40 ALT 65 U/L (7-52) H 09/24/17 23:40 Alkaline Phosphatase 53 U/L (34-104) 09/24/17 23:40 Total Protein 6.6 gm/dL (6.0-8.3) 09/24/17 23:40 Albumin 3.9 gm/dL (3.7-5.3) 09/24/17 23:40 Globulin 2.7 gm/dL 09/24/17 23:40 Albumin/Globulin Ratio 1.4 (1.0-1.8) 09/24/17 23:40 Urine Source CLEAN C 09/25/17 08:35 Urine Color YELLOW 09/25/17 08:35 Urine Clarity CLEAR (CLEAR) 09/25/17 08:35 Urine pH 6.0 (4.6 - 8.0) 09/25/17 08:35 Ur Specific [place] <= 1.005 (1.005-1.030) 09/25/17 08:35 Urine Protein NEGATIVE mg/dL (NEGATIVE) 09/25/17 08:35 Urine Glucose (UA) NEGATIVE mg/dL (NEGATIVE) 09/25/17 08:35 Urine Ketones NEGATIVE mg/dL (NEGATIVE) 09/25/17 08:35 Urine Blood NEGATIVE (NEGATIVE) 09/25/17 08:35 Urine Nitrate NEGATIVE (NEGATIVE) 09/25/17 08:35 Urine Bilirubin NEGATIVE (NEGATIVE) 09/25/17 08:35 Urine Urobilinogen 0.2 E.U./dL (0.2 - 1.0) 09/25/17 08:35 Ur Leukocyte Esterase NEGATIVE (NEGATIVE) 09/25/17 08:35 Urine RBC NONE SEEN /hpf (0-5) 09/25/17 08:35 Urine WBC 0-2 /hpf (0-5) 09/25/17 08:35 Ur Epithelial Cells RARE /lpf (FEW) 09/25/17 08:35 Urine Bacteria NONE SEEN /hpf (NONE SEEN) 09/25/17 08:35 Stool Occult Blood NEGATIVE (NEGATIVE) 09/25/17 21:25 Blood Type O POSITIVE 09/24/17 23:40 Antibody Screen NEGATIVE 09/24/17 23:40 Crossmatch See Detail 09/24/17 23:40 - Physical Exam Vitals and I&O: Vital Signs Temp 97.6 F 09/29/17 11:51 Pulse 58 09/29/17 11:51 Resp 18 09/29/17 11:51 BP 145/49 09/29/17 11:51 Pulse Ox 98 09/29/17 11:51 Intake & Output 09/28/17 09/29/17 09/29/17 18:59 06:59 18:59 Intake Total 901.25 Balance 901.25 Weight (lbs) 45.359 kg Intake: Intake, IV Amount 901.25 Sodium Chloride 0.45% 1, 901.25 000 ml @ 75 mls/hr IV . [id number] [facility] Rx#:[id number] Other: Weight Source Bedscale Active Medications: Current Medications Acetaminophen (Tylenol) 650 mg PO Q4H PRN PRN Reason: Mild Pain or Fever >101 Stop: 11/24/17 10:53 Acetaminophen (Tylenol Extra Strength) 1,000 mg PO Q4H PRN PRN Reason: Pain (Moderate) Stop: 11/24/17 10:53 Albuterol Sulfate (Albuterol 2.5mg/3ml Neb Ud) 2.5 mg HHN Q4HRT PRN PRN Reason: Respiratory Distress Stop: 11/24/17 10:53 Atorvastatin Calcium (Lipitor) 40 mg PO [facility] Stop: 11/24/17 20:59 Last Admin: 09/28/17 21:10 Dose: 40 mg Bisacodyl (Dulcolax 10 Mg Supp) 10 mg RC DAILY PRN PRN Reason: Constipation Stop: 11/24/17 10:53 Docusate Sodium (Colace) 100 mg PO DAILY [facility] Stop: 11/25/17 08:59 Last Admin: 09/29/17 08:47 Dose: 100 mg Famotidine (Pepcid) 20 mg PO DAILY [facility] Stop: 11/25/17 08:59 Last Admin: 09/29/17 08:47 Dose: 20 mg Folic Acid (Folate) 1 mg PO DAILY [facility] Stop: 11/25/17 08:59 Last Admin: 09/29/17 08:47 Dose: 1 mg Sodium Chloride (Nacl 0.45%) 1,000 mls @ 75 mls/hr IV .[id number] [facility] Stop: 11/24/17 10:59 Last Admin: 09/28/17 18:14 Dose: 75 mls/hr Isosorbide Dinitrate (Isordil) 5 mg PO TID [facility] Stop: 11/24/17 13:59 Last Admin: 09/29/17 08:47 Dose: 5 mg Levothyroxine Sodium (Synthroid) 0.112 mg PO QDAC [facility] Stop: 11/25/17 07:29 Last Admin: 09/29/17 06:50 Dose: 0.112 mg Magnesium Hydroxide (Milk Of Magnesia) 30 ml PO HS PRN PRN Reason: Constipation Stop: 11/24/17 10:53 Metoprolol Succinate (Toprol Xl) 50 mg PO DAILY [facility] Stop: 11/25/17 08:59 Last Admin: 09/29/17 08:47 Dose: 50 mg Montelukast Sodium (Singulair) 10 mg PO HS [facility] Stop: 11/24/17 20:59 Last Admin: 09/28/17 21:00 Dose: 10 mg Pyridoxine HCl (Vitamin B6) 50 mg PO DAILY [facility] Stop: 11/25/17 08:59 Last Admin: 09/29/17 08:47 Dose: 50 mg Sodium Phosphate (Fleet Enema) 135 ml RC Q48H PRN PRN Reason: Constipation Stop: 11/24/17 10:53 General: No acute distress HEENT: Atraumatic Neck: Supple Cardiovascular: Regular rate, Normal S2 Lungs: Clear to auscultation Abdomen: Bowel sounds - Procedures Procedures: Procedures Procedure Code Date BLOOD TRANSFUSION SERVICE 03519 06/25/17 TRANSFUSE NONAUT RED BLOOD CELLS IN PERIPH VEIN, [facility] 97441O6 09/25/17 Assessment/Plan - Problem List Patient Problems: All Active Problems Anemia (Acute) D64.9 Dehydration (Acute) E86.0 Gastroesophageal reflux disease (Acute) K21.9 HTN (hypertension) (Acute) I10 Hyperlipemia (Acute) E78.5 Hypothyroid (Acute) E03.9 Osteoarthritis (Acute) M19.90 - Plan Plan: as per order sheet Nutritional Asmnt/Malnutr-PDOC - Dietary Evaluation Malnutrition Findings (Please click <Entered> for more info): Nutritional Asmnt/Malnutrition Start: 09/28/17 15: 15 Text: Status: Complete Freq: Protocol: Document 09/28/17 15:15 LCHENG (Rec: 09/28/17 15:24 LCHENG [id number]) Nutritional Asmnt/Malnutrition Patient General Information Nutritional Screening Moderate Risk Diagnosis anemia Pertinent Medical Hx/Surgical Hx HTN, OA, hyperlipidemia, GERd, anemia, hypothyroidism Subjective Information Pt is Cantonese speaker. Pt seen sleeping at time of visit , not answering RD greeting. Per EMR, PO intake 75-100%. Current Diet Order/ Nutrition Support regualr Pertinent Medications colace, pepcid, folate, synthroid, vitB6, nacl 0.45% Pertinent Labs 09/26 Cl 109, BUN 29 (trending down), Cr 1.2 (improved) Nutritional Hx/Data Height 1.63 m Height (Calculated Centimeters) 162.6 Current Weight (lbs) 45.359 kg Weight (Calculated Kilograms) 45.4 Weight (Calculated Grams) 22204.2 [place] Body Weight 120 Body Mass Index (BMI) 17.2 Weight Status Approriate GI Symptoms GI Symptoms None Last BM 09/27 Difficult in: None Skin Integrity/Comment: intact Current %PO Good (75-100%) Estimated Nutritional Goals BEE in Kcals: Using Current wt Calories/Kcals/Kg 30-35 Kcals Calculated 6307-3116 Protein: Using Current wt Protein g/k-1.2 Protein Calculated 45-54 Fluid: ml 1350-1575ml (1ml/kcal) Nutritional Problem 1. Problem Problem altered nutrition related lab Etiology renal dysfunction Signs/Symptoms: BUN 39 Malnutrition Alert Is there a minimum of two criteria No selected? Query Text:Check all the applicable criteria. A minimum of two criteria are recommended for diagnosis of either severe or non-severe malnutrition. Malnutrition Related to Morbid Obesity Malnutrition related to morbid obesity No Intervention/Recommendation Comments 1. Continue with current diet as ordered. 2. Monitor PO intake, wt, labs and skin integrity 3. F/U as moderate risk in 3-5 days, -10/03 Expected Outcomes/Goals Expected Outcomes/Goals 1. PO intake to meet at least 75% of nutritional needs. 2. Wt stability, skin to remain intact, labs to approach WNL.
--- NOTE | 2017-10-04 00:41 | Discharge Summary ---
DATE OF DISCHARGE: 09/29/2017 The patient known to me from [facility], an 87-year-old female. The patient was admitted because of the low hemoglobin and transfusion. DIAGNOSES: Anemia, rule out gastrointestinal bleeding, dehydration, osteoarthritis, hyperlipidemia, hypertension, and hypothyroidism. The patient was given 2 units of blood. The patient improved. The patient had a GI consultation, had gastritis. The patient was sent back to the [facility] to [place] in stable condition where I will be following the patient. MEDICATIONS: See the reconciliation. JOB# [id number]
== END 2017-09-29 14:52 | DRG 811 ==
LOC: ER 22:25 → MSI 09-25 02:30
PROVIDERS: ADMIT Internal Medicine; ATTEND Internal Medicine
PROC: 30233N1 Transfusion of Nonautologous Red Blood Cells into Peripheral Vein, Percutaneous Approach (ICD-10-PCS; principal; 2017-09-25)
DX: D62 Acute posthemorrhagic anemia (principal); N17.0 Acute kidney failure with tubular necrosis; Z68.1 Body mass index [BMI] 19.9 or less, adult; E87.1 Hypo-osmolality and hyponatremia; E86.0 Dehydration; M19.90 Unspecified osteoarthritis, unspecified site; E78.5 Hyperlipidemia, unspecified; I10 Essential (primary) hypertension; K21.9 Gastro-esophageal reflux disease without esophagitis; E03.9 Hypothyroidism, unspecified
CPT/HCPCS: 36415-UA; 71045-TC; 80048-TC; 80053-TC; 81001-TC; 82270-TC; 85025-TC; 86850-TC; 86900-TC; 86901-TC; 86922-TC; 93005; 94760; J7030; J7040; P9016; Z7610

== ENCOUNTER 2017-12-29 11:11 | Inpatient (IN) | payer MEDICARE, MEDICAID ==
--- NOTE | 2017-12-29 11:23 | ED Physician Chart ---
ED Chief Complaint/HPI - Patient Information Date Seen:: 12/29/17 Time Seen:: 11:10 Chief Complaint:: Weakness History of Present Illness:: onset x 2 days of generalized weakness with abnormal labs reported today; no report of LOC, H/As, neck pain, C/P, SOB, Abd. Pain, A/N/V/D/C, fever, chills, or urinary s/s Allergies:: Allergies Allergy/AdvReac Type Severity Reaction Status Date / Time No Known Allergies Allergy Verified 06/25/17 16:53 Historian:: Patient, EMS Review:: Nurse's Note Reviewed, Old Chart Reviewed, EMS run form Reviewed ED Review of Systems - Review of Systems General/Constitutional: No fever, No chills, No weight loss, Weakness, No diaphoresis, No edema, No loss of appetite Skin: No skin lesions, No rash, No bruising Head: No headache, No light-headedness Eyes: No loss of vision, No pain, No diplopia ENT: No earache, No nasal drainage, No sore throat, No tinnitus Neck: No neck pain, No swelling, No thyromegaly, No stiffness, No mass noted Cardio Vascular: No chest pain, No palpitations, No PND, No orthopnea, No edema Pulmonary: No SOB, No cough, No sputum, No wheezing GI: No nausea, No vomiting, No diarrhea, No pain, No melena, No hematochezia, No constipation, No hematemesis G/U: No dysuria, No frequency, No hematuria, No nacturia Customer Experience Associate: No vaginal discharge, No abnormal vaginal bleed, No contraction Musculoskeletal: No bone or joint pain, No back pain, No muscle pain Endocrine: No polyuria, No polydipsia Psychiatric: No prior psych history, No depression, No anxiety, No suicidal ideation, No homicidal ideation, No auditory hallucination, No visual hallucination Hematopoietic: No bruising, No lymphadenopathy Allergic/Immuno: No urticaria, No angioedema Neurological: No syncope, No focal symptoms, Weakness, No paresthesia, No headache, No seizure, No dizziness, Confusion, No vertigo ED Past Medical History - Past Medical History Obtainable: Yes Past Medical History: HTN, Dyslipidemia, Arthritis, Dementia, Other ( Thrombocytopenia) Family History: HTN Social History: Non Smoker, No Alcohol, No Drug Use, , Care Facility Surgical History: None Psychiatricy History: Dementia Medication: Reviewed Family Medical History - Family Member Father History Unknown: Yes Ethnicity: Non- Living Status: Hx Family Coronary Artery Disease: No (unknown) Hx Family Congestive Heart Failure: No Hx Family Hypertension: No Hx Family Stroke: No Hx Family Diabetes: No Hx Family Seizures: No ED Physical Exam - Physical Examination General/Constitutional: Awake, Well-developed, well-nourished, Alert, No distress, GCS 15, Non-toxic appearing, Ambulatory Head: Atraumatic Eyes: Lids, conjuctiva normal, PERRL, EOMI Skin: Nl inspection, No rash, No skin lesions, No ecchymosis, Well hydrated, No lymphadenopathy ENMT: External ears, nose nl, TM canals nl, Nasal exam nl, Lips, teeth, gums nl , Oropharynx nl, Tonsils nl Neck: Nontender, Full ROM w/o pain, No JVD, No nuchal rigidity, No bruit, No mass, No stridor Respiratory: Nl effort/Exclusion, Clear to Auscultation, No Wheeze/Rhonchi/Rales Cardio Vascular: RRR, No murmur, gallop, rubs, NL S1 S2, Carotid/Femoral/Distal pulses equal bilaterally GI: No tenderness/rebounding/guarding, No organomegaly, No hernia, Normal BS's, Nondistended, No mass/bruits, No McBurney tenderness : No CVA tenderness Extremities: No tenderness or effusion, Full ROM, normal strength in all extremities, No edema, Normal digits & nails Neuro/Psych: Alert/oriented, DTR's symmetric, Normal sensory exam, Normal motor strength, Judgement/insight normal, Mood normal, Normal gait, No focal deficits Misc: Normal back, No paraspinal tenderness ED Labs/Radiology/EKG Results - Lab Results Comments:: Reviewed - EKG Interpretations EKG Time:: 11:23 Rate & Rhythm: 66; NSR Comments:: non-specific st-t changes ED Septic Shock - . Is Septic Shock (SBP<90, OR Lactate>4 mmol\L) present?: No ED Reassessment (Disposition) - Reassessment Reassessment Condition:: Improved - Diagnosis Diagnosis:: Dx: GI Bleed; Anemia; CHF; Dehydration; Weakness - Aftercare/Follow up Instructions Aftercare/Follow-Up Instructions:: Counseled pt regarding lab results/diagnosis & need follow up, Counseled pt & family regarding lab results/diagnosis & need follow up - Patient Disposition Discharge/Transfer:: Acute Care w/in this hosp Accepting Physician:: Dr. López Time Called:: 1300 Time Responded:: 13:00 Admitted to:: Telemetry Spoke to:: Dr. López Admitting Medical Physician:: Dr. López Condition at Disposition:: Stable, Improved
[2017-12-29 11:37] LABS: HEMATOCRIT 22.6 % (41.0-60); MEAN CORPUSCULAR HEMOGLOBIN 37.4 pg (27.0-31.0); MEAN CORPUSCULAR HGB CONC 33.8 pg (28.0-36.0); MEAN PLATELET VOLUME 9.2 fl; PLATELET COUNT 306 Th/cmm (150-400); RED BLOOD COUNT 2.04 Mil/cmm (3.80-5.20); RED CELL DISTRIBUTION WIDTH 25.4 % (11.5-20.0); WHITE BLOOD COUNT 5.4 Th/cmm (4.8-10.8)
[2017-12-29 11:40] LABS: HEMOGLOBIN 7.6 gm/dL (12-16)
[2017-12-29 11:51] LABS: ALB/GLOB RATIO 1.1 (1.0-1.8); ALBUMIN 3.6 gm/dL (3.7-5.3); ALKALINE PHOSPHATASE 73 U/L (34-104); ANION GAP 10.8 (7.0-16.0); BILIRUBIN,TOTAL 0.8 mg/dL (0.3-1.0); BUN - UREA NITROGEN 32 mg/dL (7-25); CALCIUM SERUM 9.3 mg/dL (8.6-10.3); CARBON DIOXIDE 24.2 mEq/L (21.0-31.0); CHLORIDE 106 mEq/L (98-107); CHOLESTEROL 117 mg/dL (<200); CREATININE - SERUM 1.2 mg/dL (0.6-1.2); CREATININE KINASE 35 U/L (30-223); GLUCOSE 145 mg/dL (70-105); HDL -HIGH DENSITY LIPOPROTEIN 44 mg/dL (23-92); SGOT 43 U/L (13-39); SGPT/ALT 51 U/L (7-52); SODIUM SERUM 137 mEq/L (136-145); TOTAL PROTEIN,SERUM 6.9 gm/dL (6.0-8.3); TRIGLYCERIDES 85 mg/dL (<150)
[2017-12-29 12:14] LABS: INR 0.99 (0.5-1.4); PROTHROMBIN TIME (TEST) 10.3 SECONDS (9.5-11.5)
[2017-12-29 14:08] LABS: ANISOCYTOSIS 1+; BAND NEUTROPHILE 5 % (0-10); EOSINOPHIL 12 % (0-5); LYMPHOCYTE 19 % (20-50); MONOCYTE 7 % (2-10); NEUTROPHILS 57 % (40-80)
[2017-12-29 14:09] LABS: MEAN CELL VOLUME 110.7 fl (81-100)
[2017-12-29 15:32] VITALS: BP 151/44
--- NOTE | 2017-12-29 22:53 | History & Physical ---
ADMIT DATE: 12/29/2017 HISTORY OF PRESENT ILLNESS: Very well-known patient for me. The patient is from [place]. Apparently her hemoglobin came here was 7.2, was transferred to the [facility] Emergency Room where the patient was seen complaining of severe weakness and history of dizziness and the patient was admitted for severe anemia and rule out GI bleeding, anemia, CHF, and weakness. The patient was complaining of some shortness of breath, otherwise negative. PAST MEDICAL HISTORY: Hypertension, hyperlipidemia, arthritis, dementia, and thrombocytopenia. PHYSICAL EXAMINATION: GENERAL: Alert, oriented, elderly female. VITAL SIGNS: As noted in the chart. HEAD: Normal. ENT: Normal. LUNGS: Clear. CARDIOVASCULAR SYSTEM: S1, S2 heard. ABDOMEN: Soft. Bowel sounds are heard. CENTRAL NERVOUS SYSTEM: Decreased sensorium. DIAGNOSES: Gastrointestinal bleeding, anemia, congestive heart failure, dehydration, weakness, hyperlipidemia, hypertension, arthritis, and history of thrombocytopenia is made. PLAN: The patient is being admitted and I will go ahead and see whether the patient need blood transfusion. Will have a GI workup done as well as a cardiac workup done and I will follow the patient. JOB# [id number]
[2017-12-30 06:20] LABS: % BASOPHILS 0.1 % (0.0-2.0); % EOSINOPHILS 9.6 % (0.0-5.0); % LYMPHOCYTES 28.2 % (20.0-50.0); % NEUTROPHILS 54.1 % (40.0-80.0); EOSINOPHILE ABSOLUTE 0.6 Th/cmm (0.1-0.4); LYMPHOCYTE ABSOLUTE 1.8 Th/cmm (1.5-3.0); MEAN CELL VOLUME 99.5 fl (81-100); MEAN CORPUSCULAR HEMOGLOBIN 34.1 pg (27.0-31.0); MEAN CORPUSCULAR HGB CONC 34.3 pg (28.0-36.0); MEAN PLATELET VOLUME 9.3 fl; MONOCYTE ABSOLUTE 0.5 Th/cmm (0.3-1.0); NEUTROPHILE ABSOLUTE 3.4 Th/cmm (1.8-8.0); PLATELET COUNT 260 Th/cmm (150-400); RED BLOOD COUNT 3.19 Mil/cmm (3.80-5.20); RED CELL DISTRIBUTION WIDTH 26.7 % (11.5-20.0); WHITE BLOOD COUNT 6.3 Th/cmm (4.8-10.8)
[2017-12-30 06:31] LABS: HEMATOCRIT 31.7 % (41.0-60); HEMOGLOBIN 10.9 gm/dL (12-16)
[2017-12-30 06:32] LABS: ALB/GLOB RATIO 1.1 (1.0-1.8); ALBUMIN 3.3 gm/dL (3.7-5.3); ALKALINE PHOSPHATASE 76 U/L (34-104); ANION GAP 10.2 (7.0-16.0); BILIRUBIN,TOTAL 1.3 mg/dL (0.3-1.0); BUN - UREA NITROGEN 27 mg/dL (7-25); CALCIUM SERUM 9.1 mg/dL (8.6-10.3); CARBON DIOXIDE 23.8 mEq/L (21.0-31.0); CHLORIDE 108 mEq/L (98-107); GLUCOSE 88 mg/dL (70-105); SGOT 49 U/L (13-39); SGPT/ALT 56 U/L (7-52); SODIUM SERUM 138 mEq/L (136-145); TOTAL PROTEIN,SERUM 6.4 gm/dL (6.0-8.3)
[2017-12-30] MEDS: Multivitamin w/ Minerals Tab PO SCH (08:42)
[2017-12-30] MEDS: Levothyroxine 0.112 Mg Tab PO SCH (08:42)
--- NOTE | 2017-12-30 15:05 | Internal Medicine Prog Note ---
Internal Medicine Objective - Results Result Diagrams: 12/30/17 05:30 12/30/17 05:30 Recent Labs: Laboratory Last Values WBC 6.3 Th/cmm (4.8-10.8) 12/30/17 05:30 RBC 3.19 Mil/cmm (3.80-5.20) L 12/30/17 05:30 Hgb 10.9 gm/dL (12-16) L D 12/30/17 05:30 Hct 31.7 % (41.0-60) L D 12/30/17 05:30 MCV 99.5 fl (81-100) 12/30/17 05:30 MCH 34.1 pg (27.0-31.0) H 12/30/17 05:30 MCHC Differential 34.3 pg (28.0-36.0) 12/30/17 05:30 RDW 26.7 % (11.5-20.0) H 12/30/17 05:30 Plt Count 260 Th/cmm (150-400) 12/30/17 05:30 MPV 9.3 fl 12/30/17 05:30 Add Manual Diff YES 12/29/17 11:25 Neutrophils % 54.1 % (40.0-80.0) 12/30/17 05:30 Band Neutrophils % 5 % (0-10) 12/29/17 11:25 Lymphocytes % 28.2 % (20.0-50.0) 12/30/17 05:30 Monocytes % 8.0 % (2.0-10.0) 12/30/17 05:30 Eosinophils % 9.6 % (0.0-5.0) H 12/30/17 05:30 Basophils % 0.1 % (0.0-2.0) 12/30/17 05:30 Neutrophils (Manual) 57 % (40-80) 12/29/17 11:25 Lymphocytes 19 % (20-50) L 12/29/17 11:25 Monocytes 7 % (2-10) 12/29/17 11:25 Eosinophils 12 % (0-5) H 12/29/17 11:25 Anisocytosis 1+ 12/29/17 11:25 Macrocytosis 2+ 12/29/17 11:25 PT 10.3 SECONDS (9.5-11.5) 12/29/17 11:25 INR 0.99 (0.5-1.4) 12/29/17 11:25 Sodium 138 mEq/L (136-145) 12/30/17 05:30 Potassium 4.0 mEq/L (3.5-5.1) 12/30/17 05:30 Chloride 108 mEq/L (98-107) H 12/30/17 05:30 Carbon Dioxide 23.8 mEq/L (21.0-31.0) 12/30/17 05:30 Anion Gap 10.2 (7.0-16.0) 12/30/17 05:30 BUN 27 mg/dL (7-25) H 12/30/17 05:30 Creatinine 1.0 mg/dL (0.6-1.2) 12/30/17 05:30 Est GFR ( Amer) TNP 12/30/17 05:30 Est GFR (Non-Af Amer) TNP 12/30/17 05:30 BUN/Creatinine Ratio 27.0 12/30/17 05:30 Glucose 88 mg/dL (70-105) 12/30/17 05:30 POC Glucose 118 MG/DL (70 - 105) H 12/29/17 14:47 Calcium 9.1 mg/dL (8.6-10.3) 12/30/17 05:30 Total Bilirubin 1.3 mg/dL (0.3-1.0) H 12/30/17 05:30 AST 49 U/L (13-39) H 12/30/17 05:30 ALT 56 U/L (7-52) H 12/30/17 05:30 Alkaline Phosphatase 76 U/L (34-104) 12/30/17 05:30 Creatine Kinase 35 U/L (30-223) 12/29/17 11:25 Troponin I 0.03 ng/mL (0.01-0.05) 12/29/17 11:25 B-Natriuretic Peptide 711.0 pg/mL (5.0-100.0) H 12/29/17 11:25 Total Protein 6.4 gm/dL (6.0-8.3) 12/30/17 05:30 Albumin 3.3 gm/dL (3.7-5.3) L 12/30/17 05:30 Globulin 3.1 gm/dL 12/30/17 05:30 Albumin/Globulin Ratio 1.1 (1.0-1.8) 12/30/17 05:30 Triglycerides 85 mg/dL (<150) 12/29/17 11:25 Cholesterol 117 mg/dL (<200) 12/29/17 11:25 LDL Cholesterol Direct 55 mg/dL (75-193) L 12/29/17 11:25 HDL Cholesterol 44 mg/dL (23-92) 12/29/17 11:25 Blood Type O POSITIVE 12/29/17 15:40 Antibody Screen NEGATIVE 12/29/17 15:40 Crossmatch See Detail 12/29/17 15:40 - Physical Exam Vitals and I&O: Vital Signs Temp 97.5 F 12/30/17 11:59 Pulse 65 12/30/17 14:35 Resp 17 12/30/17 11:59 BP 161/48 12/30/17 14:35 Pulse Ox 96 12/30/17 11:59 Intake & Output 12/29/17 12/30/17 12/30/17 18:59 06:59 18:59 Intake Total 200 240 Balance 200 240 Weight (lbs) 42.638 kg 43.998 kg Intake: Oral 200 240 Other: # Voids 3 5 # Bowel Movements 0 0 Weight Source Bedscale Bedscale Active Medications: Current Medications Acetaminophen (Tylenol) 650 mg PO Q4HR PRN PRN Reason: Pain or Fever >101 Stop: 02/27/18 20:07 Atorvastatin Calcium (Lipitor) 40 mg PO HS [facility] Stop: 02/27/18 20:59 Last Admin: 12/29/17 21:49 Dose: 40 mg Bisacodyl (Dulcolax 10 Mg Supp) 10 mg RC DAILY PRN PRN Reason: Constipation Stop: 02/27/18 20:07 Docusate Sodium (Colace) 100 mg PO DAILY [facility] Stop: 02/28/18 08:59 Last Admin: 12/30/17 08:42 Dose: 100 mg Famotidine (Pepcid) 20 mg PO DAILY [facility] Stop: 02/28/18 08:59 Last Admin: 12/30/17 08:42 Dose: 20 mg Folic Acid (Folate) 1 mg PO DAILY [facility] Stop: 02/28/18 08:59 Last Admin: 12/30/17 08:43 Dose: 1 mg Isosorbide Dinitrate (Isordil) 5 mg PO TID [facility] Stop: 02/27/18 20:59 Last Admin: 12/30/17 14:35 Dose: 5 mg Levothyroxine Sodium (Synthroid) 0.112 mg PO QDAC [facility] Stop: 02/28/18 07:29 Last Admin: 12/30/17 08:42 Dose: 0.112 mg Metoprolol Succinate (Toprol Xl) 50 mg PO DAILY [facility] Stop: 02/28/18 08:59 Last Admin: 12/30/17 08:43 Dose: 50 mg Montelukast Sodium (Singulair) 10 mg PO HS [facility] Stop: 02/27/18 20:59 Last Admin: 12/29/17 21:47 Dose: 10 mg Pyridoxine HCl (Vitamin B6) 50 mg PO DAILY [facility] Stop: 02/28/18 08:59 Last Admin: 12/30/17 08:42 Dose: 50 mg - Procedures Procedures: Procedures Procedure Code Date BLOOD TRANSFUSION SERVICE 60579 06/25/17 TRANSFUSE NONAUT RED BLOOD CELLS IN PERIPH VEIN, [facility] [id number] 09/25/17
--- NOTE | 2017-12-31 00:28 | Consultation ---
DATE OF CONSULTATION: 12/30/2017 REASON FOR CONSULTATION: Anemia. HISTORY OF PRESENT ILLNESS: This consult was obtained through the courtesy of Dr. López for this 87-year-old with history of anemia who has been in the hospital multiple times for anemia, also history of hypertension, hyperlipidemia, COPD, dementia, osteoarthritis, diabetes, hypothyroidism. The patient was admitted again this time for weakness, fatigue and anemia. PAST MEDICAL HISTORY: Hypertension, hyperlipidemia, COPD, dementia, osteoarthritis, diabetes and hypothyroidism. PAST SURGICAL HISTORY: Not known. SOCIAL HISTORY: Nonsmoker, nonalcoholic, IV drug abuser. FAMILY HISTORY: Noncontributory. ALLERGIES: No known drug allergy. REVIEW OF SYSTEMS: Unobtainable because of lack of communication. MEDICATIONS: The patient was found to be severely anemic. GI consult was called in for further evaluation and apparently, blood was then obtained and was found to be low at 7.2. PHYSICAL EXAMINATION: GENERAL: The patient is awake, oriented to self, no acute distress. VITAL SIGNS: Blood pressure is 114/47, heart rate 64, respiratory rate 18 and temperature 97.5. HEAD AND NECK: Pupils reactive to light. Extraocular muscles could not be tested. Oral cavity, no lesion. NECK: Supple. CHEST: Good air entry. LUNGS: Clear to auscultation. CARDIOVASCULAR SYSTEM: Regular rate and rhythm. No murmur or gallop. ABDOMEN: Soft, positive bowel sounds. Abdomen was not tender. EXTREMITIES: Lower extremities, no edema. CENTRAL NERVOUS SYSTEM: Grossly nonfocal. LABORATORY DATA: Hemoglobin was 7.6 and after transfusion 10.9, MCV was high at 110, now is 99.5. The patient had iron studies done before and this was done in July. Here, iron was 129, TIBC was 155, saturation was 83%, ferritin was 4995, B12 996, folic acid more than 20. This picture was consistent with anemia of chronic disease. IMPRESSION: An 87-year-old with anemia. ASSESSMENT AND PLAN: Anemia, most probably chronic disease, cannot exclude gastrointestinal blood loss. She looks good. The anemia is consistent with chronic disease. Await stool for occult blood. I tried to reach the family to talk about GI workup such as endoscopy and colonoscopy. They have not attended my call yet, so continue to monitor ____ endoscopy and colonoscopy. Thank you Dr. López for allowing me to participate in the care of the patient. If you have any further questions, please let me know. JOB# [id number]
--- NOTE | 2017-12-31 01:21 | Consultation ---
DATE OF CONSULTATION: 12/30/[address] López. HISTORY AND PHYSICAL: This is an 87-year-old female patient who was brought to the Emergency Room because of severe anemia. The patient has no complaint of nausea, vomiting, abdominal pain. PAST MEDICAL HISTORY: Hypertension, hyperlipidemia, arthritis, dementia and thrombocytopenia. FAMILY HISTORY: Anemia. SOCIAL HISTORY: The patient has no history of smoking or alcohol abuse. ALLERGIES: None. PHYSICAL EXAMINATION: VITAL SIGNS: Blood pressure 120/82, pulse 70, respirations 20 and temperature ____. HEAD: Normocephalic. No lumps or bumps. EYES: Pupils equal, reactive to light. Fundi show AV nicking, sclerae white and conjunctivae pink. NECK: Carotid 2+. Normal upstroke. JVD flat. Thyroid not palpable. Lymph nodes not palpable. CHEST: Shows increased AP diameter. No kyphosis or scoliosis. LUNGS: Bilateral bronchovesicular breath sounds. HEART: PMI fifth intercostal space with lateral to midclavicular line. S1 and S2. No S3 or S4. ABDOMEN: Soft. Liver and spleen not palpable. No organomegaly. Bowel sounds active. NEUROLOGIC: Unremarkable. EXTREMITIES: Peripheral pulses 2+. No pedal edema. CLINICAL IMPRESSION: Iron deficiency anemia, congestive heart failure, diastolic dysfunction chronic, hypertension, hyperlipidemia, dementia, arthritis and thrombocytopenia. PLAN: According to the patient, the patient will continue present care. Monitor BNP levels and anemia level. See the patient. Needs tracheostomy. Thank you for consultation. JOB# [id number]
[2017-12-31] MEDS: Multivitamin w/ Minerals Tab PO SCH (08:23)
[2017-12-31] MEDS: Levothyroxine 0.112 Mg Tab PO SCH (08:23)
--- NOTE | 2017-12-31 13:36 | GI Progress Note ---
Subjective - Review of Systems Service Date: 12/31/17 Events since last encounter: no events Subjective: Wants to go home Objective - Results Result Diagrams: 12/30/17 05:30 12/30/17 05:30 Recent Labs: Laboratory Last Values WBC 6.3 Th/cmm (4.8-10.8) 12/30/17 05:30 RBC 3.19 Mil/cmm (3.80-5.20) L 12/30/17 05:30 Hgb 10.9 gm/dL (12-16) L D 12/30/17 05:30 Hct 31.7 % (41.0-60) L D 12/30/17 05:30 MCV 99.5 fl (81-100) 12/30/17 05:30 MCH 34.1 pg (27.0-31.0) H 12/30/17 05:30 MCHC Differential 34.3 pg (28.0-36.0) 12/30/17 05:30 RDW 26.7 % (11.5-20.0) H 12/30/17 05:30 Plt Count 260 Th/cmm (150-400) 12/30/17 05:30 MPV 9.3 fl 12/30/17 05:30 Add Manual Diff YES 12/29/17 11:25 Neutrophils % 54.1 % (40.0-80.0) 12/30/17 05:30 Band Neutrophils % 5 % (0-10) 12/29/17 11:25 Lymphocytes % 28.2 % (20.0-50.0) 12/30/17 05:30 Monocytes % 8.0 % (2.0-10.0) 12/30/17 05:30 Eosinophils % 9.6 % (0.0-5.0) H 12/30/17 05:30 Basophils % 0.1 % (0.0-2.0) 12/30/17 05:30 Neutrophils (Manual) 57 % (40-80) 12/29/17 11:25 Lymphocytes 19 % (20-50) L 12/29/17 11:25 Monocytes 7 % (2-10) 12/29/17 11:25 Eosinophils 12 % (0-5) H 12/29/17 11:25 Anisocytosis 1+ 12/29/17 11:25 Macrocytosis 2+ 12/29/17 11:25 PT 10.3 SECONDS (9.5-11.5) 12/29/17 11:25 INR 0.99 (0.5-1.4) 12/29/17 11:25 Sodium 138 mEq/L (136-145) 12/30/17 05:30 Potassium 4.0 mEq/L (3.5-5.1) 12/30/17 05:30 Chloride 108 mEq/L (98-107) H 12/30/17 05:30 Carbon Dioxide 23.8 mEq/L (21.0-31.0) 12/30/17 05:30 Anion Gap 10.2 (7.0-16.0) 12/30/17 05:30 BUN 27 mg/dL (7-25) H 12/30/17 05:30 Creatinine 1.0 mg/dL (0.6-1.2) 12/30/17 05:30 Est GFR ( Amer) TNP 12/30/17 05:30 Est GFR (Non-Af Amer) TNP 12/30/17 05:30 BUN/Creatinine Ratio 27.0 12/30/17 05:30 Glucose 88 mg/dL (70-105) 12/30/17 05:30 POC Glucose 118 MG/DL (70 - 105) H 12/29/17 14:47 Calcium 9.1 mg/dL (8.6-10.3) 12/30/17 05:30 Total Bilirubin 1.3 mg/dL (0.3-1.0) H 12/30/17 05:30 AST 49 U/L (13-39) H 12/30/17 05:30 ALT 56 U/L (7-52) H 12/30/17 05:30 Alkaline Phosphatase 76 U/L (34-104) 12/30/17 05:30 Creatine Kinase 35 U/L (30-223) 12/29/17 11:25 Troponin I 0.03 ng/mL (0.01-0.05) 12/29/17 11:25 B-Natriuretic Peptide 711.0 pg/mL (5.0-100.0) H 12/29/17 11:25 Total Protein 6.4 gm/dL (6.0-8.3) 12/30/17 05:30 Albumin 3.3 gm/dL (3.7-5.3) L 12/30/17 05:30 Globulin 3.1 gm/dL 12/30/17 05:30 Albumin/Globulin Ratio 1.1 (1.0-1.8) 12/30/17 05:30 Triglycerides 85 mg/dL (<150) 12/29/17 11:25 Cholesterol 117 mg/dL (<200) 12/29/17 11:25 LDL Cholesterol Direct 55 mg/dL (75-193) L 12/29/17 11:25 HDL Cholesterol 44 mg/dL (23-92) 12/29/17 11:25 Stool Occult Blood NEGATIVE (NEGATIVE) 12/30/17 18:25 Blood Type O POSITIVE 12/29/17 15:40 Antibody Screen NEGATIVE 12/29/17 15:40 Crossmatch See Detail 12/29/17 15:40 - Physical Exam Vitals and I&O: Vital Signs Temp 98.3 F 12/31/17 11:29 Pulse 62 12/31/17 11:29 Resp 18 12/31/17 11:29 BP 150/68 12/31/17 11:29 Pulse Ox 99 12/31/17 11:29 Intake & Output 12/30/17 12/31/17 12/31/17 18:59 06:59 18:59 Intake Total 700 120 Balance 700 120 Weight (lbs) 43.998 kg 44.452 kg Intake: Oral 700 120 Other: # Voids 3 1 # Bowel Movements 1 Weight Source Bedscale Bedscale Active Medications: Current Medications Acetaminophen (Tylenol) 650 mg PO Q4HR PRN PRN Reason: Pain or Fever >101 Stop: 02/27/18 20:07 Atorvastatin Calcium (Lipitor) 40 mg PO HS [facility] Stop: 02/27/18 20:59 Last Admin: 12/30/17 21:10 Dose: 40 mg Bisacodyl (Dulcolax 10 Mg Supp) 10 mg RC DAILY PRN PRN Reason: Constipation Stop: 02/27/18 20:07 Docusate Sodium (Colace) 100 mg PO DAILY [facility] Stop: 02/28/18 08:59 Last Admin: 12/31/17 08:23 Dose: 100 mg Famotidine (Pepcid) 20 mg PO DAILY [facility] Stop: 02/28/18 08:59 Last Admin: 12/31/17 08:23 Dose: 20 mg Folic Acid (Folate) 1 mg PO DAILY [facility] Stop: 02/28/18 08:59 Last Admin: 12/31/17 08:24 Dose: 1 mg Isosorbide Dinitrate (Isordil) 5 mg PO TID [facility] Stop: 02/27/18 20:59 Last Admin: 12/31/17 08:23 Dose: 5 mg Levothyroxine Sodium (Synthroid) 0.112 mg PO QDAC [facility] Stop: 02/28/18 07:29 Last Admin: 12/31/17 08:23 Dose: 0.112 mg Metoprolol Succinate (Toprol Xl) 50 mg PO DAILY [facility] Stop: 02/28/18 08:59 Last Admin: 12/31/17 08:24 Dose: 50 mg Montelukast Sodium (Singulair) 10 mg PO HS [facility] Stop: 02/27/18 20:59 Last Admin: 12/30/17 21:11 Dose: 10 mg Pyridoxine HCl (Vitamin B6) 50 mg PO DAILY [facility] Stop: 02/28/18 08:59 Last Admin: 12/31/17 08:23 Dose: 50 mg General: Alert, No acute distress HEENT: Atraumatic Neck: Supple Cardiovascular: Regular rate, Normal S1, Normal S2 Lungs: Clear to auscultation, Normal air movement Abdomen: Bowel sounds, Soft - Procedures Procedures: Procedures Procedure Code Date BLOOD TRANSFUSION SERVICE 07110 06/25/17 TRANSFUSE NONAUT RED BLOOD CELLS IN PERIPH VEIN, [facility] [id number] 09/25/17 Assessment/Plan - Assessment Assessment: Anemia - Plan Plan: Stable post transfusion Cont to monitor Tried to talk to the family to let them know that even though anemia is of chronic disease, GI W/U might still be needed to R/O colon cancer or stomach cancer but have not heard back
--- NOTE | 2017-12-31 15:08 | Cardiology ---
12/31/[address] López. M-MODE ECHOCARDIOGRAM: Mitral valve, anterior leaflet of mitral valve shows normal excursion, EF velocity. Posterior leaflet of the mitral valve shows normal excursion. Left ventricle posterior wall shows increased thickness, normal excursion. Interventricular septum shows increased thickness, normal excursion, hypertrophy of the left ventricle, ejection fraction 65%. Left atrium normal. Aortic root shows normal dimension, normal excursion of aortic leaflets. CONCLUSION: Hypertrophy of the left ventricle, ejection fraction 65%. 2D ECHO: Long axis view showed normal sized left ventricle with hypertrophy of the left ventricle. Left atrium normal. Aortic root shows normal dimension, normal excursion of aortic leaflets. Short axis view of mitral valve normal. Short axis view of aortic valve normal. Apical four chamber view showed normal sized left ventricle, left atrium, right ventricle, right atrium, tricuspid and mitral valve. Ejection fraction 65%. CONCLUSION: Hypertrophy of the left ventricle, ejection fraction 65%. Doppler study shows aortic valve area 1.79 square cm. Pressure gradient of 11 mmHg. Short axis view of mitral valve normal. Short axis view of aortic valve normal. Apical four chamber view showed normal sized left ventricle, left atrium, right ventricle, right atrium, tricuspid and mitral valve. Ejection fraction 65%. CONCLUSION: Hypertrophy of the left ventricle, ejection fraction 65%. Doppler study shows right ventricular systolic pressure of 37 mmHg with some moderate mitral regurgitation, moderate aortic regurgitation, moderate tricuspid regurgitation. JOB# [id number]
[2017-12-31] MEDS ORDERED: Epoetin Alfa 20000 Units/mL Vial SUBQ SCH (16:30)
--- NOTE | 2017-12-31 18:24 | Consultation ---
DATE OF CONSULTATION: HEMATOLOGY ONCOLOGY CONSULTATION REFERRING PHYSICIAN: Dr. López. REASON FOR CONSULTATION: Severe anemia. HISTORY OF PRESENT ILLNESS: The patient is an 87-year-old female who had multiple admissions for anemia and transfusion in the past. The patient again was admitted with low hemoglobin and was transfused 2 units packed red blood cells on 12/29/2017 and 12/30/2017. Her current hemoglobin is 10.9 and from admission was 7.6. The patient had prior hospitalization in September with a hemoglobin of 6.9 and again another hospitalization in June with a hemoglobin of 6.9 and another hospitalization in March with hemoglobin of 7.4. Her admission MCV was 110 and she has been having high MCV on the previous hospitalizations. PAST MEDICAL HISTORY: COPD, dementia, dyslipidemia, hypertension, hypothyroidism, diabetes, and osteoarthritis. PAST SURGICAL HISTORY: Unknown. SOCIAL HISTORY: No smoking or drinking. MEDICATIONS: Reviewed. She is on folic acid, Tylenol, Lipitor, Pepcid, Synthroid, Isordil, metoprolol, Singulair, and vitamin B6. PHYSICAL EXAMINATION: GENERAL: She is awake, not in distress. VITAL SIGNS: Stable. HEENT: Pale complexion. NECK: Supple. CHEST: Good air entry. ABDOMEN: Soft. No organomegaly. EXTREMITIES: No edema. NERVOUS SYSTEM: No focal deficits. LABORATORY DATA: White count 6.3, platelets 260, current hemoglobin 10.9. Chemistry and previous workup for anemia showed a normal folic acid and B12 from June of this year and ferritin 4995 with iron binding capacity of 155 and iron saturation of 83%. ASSESSMENT AND PLAN: 1. Iron overload secondary to multiple transfusions. 2. 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 The patient will need to be evaluated with a bone marrow biopsy for cytogenetic studies and meanwhile, I will start her on Epogen after obtaining an erythropoietin level. The stool occult blood is negative and the patient is followed by [facility] for GI evaluation. Thank you Dr. López for the opportunity to participate in the care of this interesting case. JOB# [id number]
--- NOTE | 2017-12-31 21:20 | Internal Medicine Prog Note ---
Internal Medicine Subjective - Subjective Service Date: 12/31/17 Patient seen and examined:: with staff Patient is:: awake Per staff patient has:: tolerating meds Internal Medicine Objective - Results Result Diagrams: 12/30/17 05:30 12/30/17 05:30 Recent Labs: Laboratory Last Values WBC 6.3 Th/cmm (4.8-10.8) 12/30/17 05:30 RBC 3.19 Mil/cmm (3.80-5.20) L 12/30/17 05:30 Hgb 10.9 gm/dL (12-16) L D 12/30/17 05:30 Hct 31.7 % (41.0-60) L D 12/30/17 05:30 MCV 99.5 fl (81-100) 12/30/17 05:30 MCH 34.1 pg (27.0-31.0) H 12/30/17 05:30 MCHC Differential 34.3 pg (28.0-36.0) 12/30/17 05:30 RDW 26.7 % (11.5-20.0) H 12/30/17 05:30 Plt Count 260 Th/cmm (150-400) 12/30/17 05:30 MPV 9.3 fl 12/30/17 05:30 Add Manual Diff YES 12/29/17 11:25 Neutrophils % 54.1 % (40.0-80.0) 12/30/17 05:30 Band Neutrophils % 5 % (0-10) 12/29/17 11:25 Lymphocytes % 28.2 % (20.0-50.0) 12/30/17 05:30 Monocytes % 8.0 % (2.0-10.0) 12/30/17 05:30 Eosinophils % 9.6 % (0.0-5.0) H 12/30/17 05:30 Basophils % 0.1 % (0.0-2.0) 12/30/17 05:30 Neutrophils (Manual) 57 % (40-80) 12/29/17 11:25 Lymphocytes 19 % (20-50) L 12/29/17 11:25 Monocytes 7 % (2-10) 12/29/17 11:25 Eosinophils 12 % (0-5) H 12/29/17 11:25 Anisocytosis 1+ 12/29/17 11:25 Macrocytosis 2+ 12/29/17 11:25 PT 10.3 SECONDS (9.5-11.5) 12/29/17 11:25 INR 0.99 (0.5-1.4) 12/29/17 11:25 Sodium 138 mEq/L (136-145) 12/30/17 05:30 Potassium 4.0 mEq/L (3.5-5.1) 12/30/17 05:30 Chloride 108 mEq/L (98-107) H 12/30/17 05:30 Carbon Dioxide 23.8 mEq/L (21.0-31.0) 12/30/17 05:30 Anion Gap 10.2 (7.0-16.0) 12/30/17 05:30 BUN 27 mg/dL (7-25) H 12/30/17 05:30 Creatinine 1.0 mg/dL (0.6-1.2) 12/30/17 05:30 Est GFR ( Amer) TNP 12/30/17 05:30 Est GFR (Non-Af Amer) TNP 12/30/17 05:30 BUN/Creatinine Ratio 27.0 12/30/17 05:30 Glucose 88 mg/dL (70-105) 12/30/17 05:30 POC Glucose 118 MG/DL (70 - 105) H 12/29/17 14:47 Calcium 9.1 mg/dL (8.6-10.3) 12/30/17 05:30 Total Bilirubin 1.3 mg/dL (0.3-1.0) H 12/30/17 05:30 AST 49 U/L (13-39) H 12/30/17 05:30 ALT 56 U/L (7-52) H 12/30/17 05:30 Alkaline Phosphatase 76 U/L (34-104) 12/30/17 05:30 Creatine Kinase 35 U/L (30-223) 12/29/17 11:25 Troponin I 0.03 ng/mL (0.01-0.05) 12/29/17 11:25 B-Natriuretic Peptide 711.0 pg/mL (5.0-100.0) H 12/29/17 11:25 Total Protein 6.4 gm/dL (6.0-8.3) 12/30/17 05:30 Albumin 3.3 gm/dL (3.7-5.3) L 12/30/17 05:30 Globulin 3.1 gm/dL 12/30/17 05:30 Albumin/Globulin Ratio 1.1 (1.0-1.8) 12/30/17 05:30 Triglycerides 85 mg/dL (<150) 12/29/17 11:25 Cholesterol 117 mg/dL (<200) 12/29/17 11:25 LDL Cholesterol Direct 55 mg/dL (75-193) L 12/29/17 11:25 HDL Cholesterol 44 mg/dL (23-92) 12/29/17 11:25 Stool Occult Blood NEGATIVE (NEGATIVE) 12/30/17 18:25 Blood Type O POSITIVE 12/29/17 15:40 Antibody Screen NEGATIVE 12/29/17 15:40 Crossmatch See Detail 12/29/17 15:40 - Physical Exam Vitals and I&O: Vital Signs Temp 98.9 F 12/31/17 20:00 Pulse 77 12/31/17 20:45 Resp 18 12/31/17 20:00 BP 88/52 12/31/17 20:45 Pulse Ox 98 12/31/17 20:00 Intake & Output 12/31/17 12/31/17 01/01/18 06:59 18:59 06:59 Intake Total 120 500 Balance 120 500 Weight (lbs) 98 lb 98 lb Intake: Oral 120 500 Other: # Voids 1 2 # Bowel Movements 1 Weight Source Bedscale Bedscale Active Medications: Current Medications Acetaminophen (Tylenol) 650 mg PO Q4HR PRN PRN Reason: Pain or Fever >101 Stop: 02/27/18 20:07 Atorvastatin Calcium (Lipitor) 40 mg PO HS [facility] Stop: 02/27/18 20:59 Last Admin: 12/31/17 20:55 Dose: 40 mg Bisacodyl (Dulcolax 10 Mg Supp) 10 mg RC DAILY PRN PRN Reason: Constipation Stop: 02/27/18 20:07 Docusate Sodium (Colace) 100 mg PO DAILY [facility] Stop: 02/28/18 08:59 Last Admin: 12/31/17 08:23 Dose: 100 mg Epoetin German (Epogen) 10,000 units SUBQ [facility]We[facility] Stop: 03/01/18 16:29 Last Admin: 12/31/17 16:58 Dose: 10,000 units Famotidine (Pepcid) 20 mg PO DAILY [facility] Stop: 02/28/18 08:59 Last Admin: 12/31/17 08:23 Dose: 20 mg Folic Acid (Folate) 1 mg PO DAILY [facility] Stop: 02/28/18 08:59 Last Admin: 12/31/17 08:24 Dose: 1 mg Isosorbide Dinitrate (Isordil) 5 mg PO TID [facility] Stop: 02/27/18 20:59 Last Admin: 12/31/17 20:45 Dose: 5 mg Levothyroxine Sodium (Synthroid) 0.112 mg PO QDAC [facility] Stop: 02/28/18 07:29 Last Admin: 12/31/17 08:23 Dose: 0.112 mg Metoprolol Succinate (Toprol Xl) 50 mg PO DAILY [facility] Stop: 02/28/18 08:59 Last Admin: 12/31/17 08:24 Dose: 50 mg Montelukast Sodium (Singulair) 10 mg PO HS [facility] Stop: 02/27/18 20:59 Last Admin: 12/31/17 20:44 Dose: 10 mg Pyridoxine HCl (Vitamin B6) 50 mg PO DAILY [facility] Stop: 02/28/18 08:59 Last Admin: 12/31/17 08:23 Dose: 50 mg General: weak HEENT: NC/AT, PERRLA Neck: Supple Cardiovascular: without murmur Abdomen: soft, non-tender, non-distended Extremities: excoriation Neurological: muscle weakness - Procedures Procedures: Procedures Procedure Code Date BLOOD TRANSFUSION SERVICE 78959 06/25/17 TRANSFUSE NONAUT RED BLOOD CELLS IN PERIPH VEIN, [facility] [id number] 09/25/17 Internal Medicine Assmt/Plan - Assessment Assessment: gi bleed anemia chf dehydration weakness hdl htn arthritis - Plan Plan: monitor h/h gi f/u ppi continue current plan of care
[2018-01-01 05:15] LABS: % BASOPHILS 0.8 % (0.0-2.0); % EOSINOPHILS 9.8 % (0.0-5.0); % LYMPHOCYTES 25.8 % (20.0-50.0); % MONOCYTES 10.5 % (2.0-10.0); % NEUTROPHILS 53.1 % (40.0-80.0); EOSINOPHILE ABSOLUTE 0.6 Th/cmm (0.1-0.4); HEMATOCRIT 34.4 % (41.0-60); HEMOGLOBIN 11.6 gm/dL (12-16); LYMPHOCYTE ABSOLUTE 1.6 Th/cmm (1.5-3.0); MEAN CELL VOLUME 99.6 fl (81-100); MEAN CORPUSCULAR HEMOGLOBIN 33.7 pg (27.0-31.0); MEAN CORPUSCULAR HGB CONC 33.8 pg (28.0-36.0); MEAN PLATELET VOLUME 8.4 fl; MONOCYTE ABSOLUTE 0.6 Th/cmm (0.3-1.0); NEUTROPHILE ABSOLUTE 3.3 Th/cmm (1.8-8.0); PLATELET COUNT 319 Th/cmm (150-400); RED BLOOD COUNT 3.46 Mil/cmm (3.80-5.20); RED CELL DISTRIBUTION WIDTH 26.9 % (11.5-20.0); WHITE BLOOD COUNT 6.1 Th/cmm (4.8-10.8)
[2018-01-01 05:48] LABS: ALBUMIN 3.3 gm/dL (3.7-5.3); ALKALINE PHOSPHATASE 87 U/L (34-104); ANION GAP 11.3 (7.0-16.0); BILIRUBIN,TOTAL 1.1 mg/dL (0.3-1.0); BUN - UREA NITROGEN 27 mg/dL (7-25); CALCIUM SERUM 9.3 mg/dL (8.6-10.3); CARBON DIOXIDE 24.7 mEq/L (21.0-31.0); CHLORIDE 105 mEq/L (98-107); GLUCOSE 86 mg/dL (70-105); SGOT 36 U/L (13-39); SGPT/ALT 43 U/L (7-52); SODIUM SERUM 137 mEq/L (136-145); TOTAL PROTEIN,SERUM 6.6 gm/dL (6.0-8.3)
[2018-01-01] MEDS: Levothyroxine 0.112 Mg Tab PO SCH (07:42)
--- NOTE | 2018-01-01 08:38 | GI Progress Note ---
Subjective - Review of Systems Subjective: DENIES ABD PAIN Objective - Results Result Diagrams: 01/01/18 04:50 01/01/18 04:50 Recent Labs: Laboratory Last Values WBC 6.1 Th/cmm (4.8-10.8) 01/01/18 04:50 RBC 3.46 Mil/cmm (3.80-5.20) L 01/01/18 04:50 Hgb 11.6 gm/dL (12-16) L 01/01/18 04:50 Hct 34.4 % (41.0-60) L 01/01/18 04:50 MCV 99.6 fl (81-100) 01/01/18 04:50 MCH 33.7 pg (27.0-31.0) H 01/01/18 04:50 MCHC Differential 33.8 pg (28.0-36.0) 01/01/18 04:50 RDW 26.9 % (11.5-20.0) H 01/01/18 04:50 Plt Count 319 Th/cmm (150-400) 01/01/18 04:50 MPV 8.4 fl 01/01/18 04:50 Add Manual Diff YES 12/29/17 11:25 Neutrophils % 53.1 % (40.0-80.0) 01/01/18 04:50 Band Neutrophils % 5 % (0-10) 12/29/17 11:25 Lymphocytes % 25.8 % (20.0-50.0) 01/01/18 04:50 Monocytes % 10.5 % (2.0-10.0) H 01/01/18 04:50 Eosinophils % 9.8 % (0.0-5.0) H 01/01/18 04:50 Basophils % 0.8 % (0.0-2.0) 01/01/18 04:50 Neutrophils (Manual) 57 % (40-80) 12/29/17 11:25 Lymphocytes 19 % (20-50) L 12/29/17 11:25 Monocytes 7 % (2-10) 12/29/17 11:25 Eosinophils 12 % (0-5) H 12/29/17 11:25 Anisocytosis 1+ 12/29/17 11:25 Macrocytosis 2+ 12/29/17 11:25 PT 10.3 SECONDS (9.5-11.5) 12/29/17 11:25 INR 0.99 (0.5-1.4) 12/29/17 11:25 Sodium 137 mEq/L (136-145) 01/01/18 04:50 Potassium 4.0 mEq/L (3.5-5.1) 01/01/18 04:50 Chloride 105 mEq/L (98-107) 01/01/18 04:50 Carbon Dioxide 24.7 mEq/L (21.0-31.0) 01/01/18 04:50 Anion Gap 11.3 (7.0-16.0) 01/01/18 04:50 BUN 27 mg/dL (7-25) H 01/01/18 04:50 Creatinine 1.0 mg/dL (0.6-1.2) 01/01/18 04:50 Est GFR ( Amer) TNP 01/01/18 04:50 Est GFR (Non-Af Amer) TNP 01/01/18 04:50 BUN/Creatinine Ratio 27.0 01/01/18 04:50 Glucose 86 mg/dL (70-105) 01/01/18 04:50 POC Glucose 118 MG/DL (70 - 105) H 12/29/17 14:47 Calcium 9.3 mg/dL (8.6-10.3) 01/01/18 04:50 Total Bilirubin 1.1 mg/dL (0.3-1.0) H 01/01/18 04:50 AST 36 U/L (13-39) 01/01/18 04:50 ALT 43 U/L (7-52) 01/01/18 04:50 Alkaline Phosphatase 87 U/L (34-104) 01/01/18 04:50 Creatine Kinase 35 U/L (30-223) 12/29/17 11:25 Troponin I 0.03 ng/mL (0.01-0.05) 12/29/17 11:25 B-Natriuretic Peptide 711.0 pg/mL (5.0-100.0) H 12/29/17 11:25 Total Protein 6.6 gm/dL (6.0-8.3) 01/01/18 04:50 Albumin 3.3 gm/dL (3.7-5.3) L 01/01/18 04:50 Globulin 3.3 gm/dL 01/01/18 04:50 Albumin/Globulin Ratio 1.0 (1.0-1.8) 01/01/18 04:50 Triglycerides 85 mg/dL (<150) 12/29/17 11:25 Cholesterol 117 mg/dL (<200) 12/29/17 11:25 LDL Cholesterol Direct 55 mg/dL (75-193) L 12/29/17 11:25 HDL Cholesterol 44 mg/dL (23-92) 12/29/17 11:25 Stool Occult Blood NEGATIVE (NEGATIVE) 12/30/17 18:25 Blood Type O POSITIVE 12/29/17 15:40 Antibody Screen NEGATIVE 12/29/17 15:40 Crossmatch See Detail 12/29/17 15:40 - Physical Exam Vitals and I&O: Vital Signs Temp 98.4 F 01/01/18 07:46 Pulse 64 01/01/18 07:46 Resp 18 01/01/18 07:46 BP 124/63 01/01/18 07:46 Pulse Ox 98 01/01/18 07:46 Intake & Output 12/31/17 01/01/18 01/01/18 18:59 06:59 18:59 Intake Total 500 250 Balance 500 250 Weight (lbs) 44.452 kg 43.227 kg Intake: Oral 500 250 Other: # Voids 2 3 # Bowel Movements 1 1 Weight Source Bedscale Bedscale Active Medications: Current Medications Acetaminophen (Tylenol) 650 mg PO Q4HR PRN PRN Reason: Pain or Fever >101 Stop: 02/27/18 20:07 Atorvastatin Calcium (Lipitor) 40 mg PO HS [facility] Stop: 02/27/18 20:59 Last Admin: 12/31/17 20:55 Dose: 40 mg Bisacodyl (Dulcolax 10 Mg Supp) 10 mg RC DAILY PRN PRN Reason: Constipation Stop: 02/27/18 20:07 Docusate Sodium (Colace) 100 mg PO DAILY [facility] Stop: 02/28/18 08:59 Last Admin: 12/31/17 08:23 Dose: 100 mg Epoetin German (Epogen) 10,000 units SUBQ [facility] Stop: 03/01/18 16:29 Last Admin: 12/31/17 16:58 Dose: 10,000 units Famotidine (Pepcid) 20 mg PO DAILY [facility] Stop: 02/28/18 08:59 Last Admin: 12/31/17 08:23 Dose: 20 mg Folic Acid (Folate) 1 mg PO DAILY [facility] Stop: 02/28/18 08:59 Last Admin: 12/31/17 08:24 Dose: 1 mg Isosorbide Dinitrate (Isordil) 5 mg PO TID [facility] Stop: 02/27/18 20:59 Last Admin: 12/31/17 20:45 Dose: 5 mg Levothyroxine Sodium (Synthroid) 0.112 mg PO QDAC [facility] Stop: 02/28/18 07:29 Last Admin: 01/01/18 07:42 Dose: 0.112 mg Metoprolol Succinate (Toprol Xl) 50 mg PO DAILY [facility] Stop: 02/28/18 08:59 Last Admin: 12/31/17 08:24 Dose: 50 mg Montelukast Sodium (Singulair) 10 mg PO HS [facility] Stop: 02/27/18 20:59 Last Admin: 12/31/17 20:44 Dose: 10 mg Pyridoxine HCl (Vitamin B6) 50 mg PO DAILY [facility] Stop: 02/28/18 08:59 Last Admin: 12/31/17 08:23 Dose: 50 mg General: Alert, No acute distress HEENT: Atraumatic Neck: Supple Cardiovascular: Regular rate, Normal S1, Normal S2 Lungs: Clear to auscultation, Normal air movement Abdomen: Bowel sounds, Soft - Procedures Procedures: Procedures Procedure Code Date BLOOD TRANSFUSION SERVICE 66445 06/25/17 TRANSFUSE NONAUT RED BLOOD CELLS IN PERIPH VEIN, [facility] 71372U3 09/25/17 Assessment/Plan - Assessment Assessment: 87 YO FEMALE WITH ANEMIA NO OVERT GI BLEEDING 1.MAY NEED GI WORK UP IF FAMILY GIVES CONSENT 2.FOLLOW H/H 3.CONT SUPP CARE
[2018-01-01] MEDS: Multivitamin w/ Minerals Tab PO SCH (08:51)
--- NOTE | 2018-01-01 14:08 | General Progress Note ---
Subjective - Review of Systems Service Date: 01/01/18 Subjective: no new sxs Objective - Results Result Diagrams: 01/01/18 04:50 01/01/18 04:50 Recent Labs: Laboratory Last Values WBC 6.1 Th/cmm (4.8-10.8) 01/01/18 04:50 RBC 3.46 Mil/cmm (3.80-5.20) L 01/01/18 04:50 Hgb 11.6 gm/dL (12-16) L 01/01/18 04:50 Hct 34.4 % (41.0-60) L 01/01/18 04:50 MCV 99.6 fl (81-100) 01/01/18 04:50 MCH 33.7 pg (27.0-31.0) H 01/01/18 04:50 MCHC Differential 33.8 pg (28.0-36.0) 01/01/18 04:50 RDW 26.9 % (11.5-20.0) H 01/01/18 04:50 Plt Count 319 Th/cmm (150-400) 01/01/18 04:50 MPV 8.4 fl 01/01/18 04:50 Add Manual Diff YES 12/29/17 11:25 Neutrophils % 53.1 % (40.0-80.0) 01/01/18 04:50 Band Neutrophils % 5 % (0-10) 12/29/17 11:25 Lymphocytes % 25.8 % (20.0-50.0) 01/01/18 04:50 Monocytes % 10.5 % (2.0-10.0) H 01/01/18 04:50 Eosinophils % 9.8 % (0.0-5.0) H 01/01/18 04:50 Basophils % 0.8 % (0.0-2.0) 01/01/18 04:50 Neutrophils (Manual) 57 % (40-80) 12/29/17 11:25 Lymphocytes 19 % (20-50) L 12/29/17 11:25 Monocytes 7 % (2-10) 12/29/17 11:25 Eosinophils 12 % (0-5) H 12/29/17 11:25 Anisocytosis 1+ 12/29/17 11:25 Macrocytosis 2+ 12/29/17 11:25 PT 10.3 SECONDS (9.5-11.5) 12/29/17 11:25 INR 0.99 (0.5-1.4) 12/29/17 11:25 Sodium 137 mEq/L (136-145) 01/01/18 04:50 Potassium 4.0 mEq/L (3.5-5.1) 01/01/18 04:50 Chloride 105 mEq/L (98-107) 01/01/18 04:50 Carbon Dioxide 24.7 mEq/L (21.0-31.0) 01/01/18 04:50 Anion Gap 11.3 (7.0-16.0) 01/01/18 04:50 BUN 27 mg/dL (7-25) H 01/01/18 04:50 Creatinine 1.0 mg/dL (0.6-1.2) 01/01/18 04:50 Est GFR ( Amer) TNP 01/01/18 04:50 Est GFR (Non-Af Amer) TNP 01/01/18 04:50 BUN/Creatinine Ratio 27.0 01/01/18 04:50 Glucose 86 mg/dL (70-105) 01/01/18 04:50 POC Glucose 118 MG/DL (70 - 105) H 12/29/17 14:47 Calcium 9.3 mg/dL (8.6-10.3) 01/01/18 04:50 Total Bilirubin 1.1 mg/dL (0.3-1.0) H 01/01/18 04:50 AST 36 U/L (13-39) 01/01/18 04:50 ALT 43 U/L (7-52) 01/01/18 04:50 Alkaline Phosphatase 87 U/L (34-104) 01/01/18 04:50 Creatine Kinase 35 U/L (30-223) 12/29/17 11:25 Troponin I 0.03 ng/mL (0.01-0.05) 12/29/17 11:25 B-Natriuretic Peptide 711.0 pg/mL (5.0-100.0) H 12/29/17 11:25 Total Protein 6.6 gm/dL (6.0-8.3) 01/01/18 04:50 Albumin 3.3 gm/dL (3.7-5.3) L 01/01/18 04:50 Globulin 3.3 gm/dL 01/01/18 04:50 Albumin/Globulin Ratio 1.0 (1.0-1.8) 01/01/18 04:50 Triglycerides 85 mg/dL (<150) 12/29/17 11:25 Cholesterol 117 mg/dL (<200) 12/29/17 11:25 LDL Cholesterol Direct 55 mg/dL (75-193) L 12/29/17 11:25 HDL Cholesterol 44 mg/dL (23-92) 12/29/17 11:25 Stool Occult Blood NEGATIVE (NEGATIVE) 12/30/17 18:25 Blood Type O POSITIVE 12/29/17 15:40 Antibody Screen NEGATIVE 12/29/17 15:40 Crossmatch See Detail 12/29/17 15:40 - Physical Exam Vitals and I&O: Vital Signs Temp 98.6 F 01/01/18 12:12 Pulse 66 01/01/18 13:09 Resp 18 01/01/18 12:12 BP 136/55 01/01/18 13:09 Pulse Ox 98 01/01/18 12:12 Intake & Output 12/31/17 01/01/18 01/01/18 18:59 06:59 18:59 Intake Total 500 250 Balance 500 250 Weight (lbs) 44.452 kg 43.227 kg Intake: Oral 500 250 Other: # Voids 2 3 # Bowel Movements 1 1 Weight Source Bedscale Bedscale Active Medications: Current Medications Acetaminophen (Tylenol) 650 mg PO Q4HR PRN PRN Reason: Pain or Fever >101 Stop: 02/27/18 20:07 Atorvastatin Calcium (Lipitor) 40 mg PO HS [facility] Stop: 02/27/18 20:59 Last Admin: 12/31/17 20:55 Dose: 40 mg Bisacodyl (Dulcolax 10 Mg Supp) 10 mg RC DAILY PRN PRN Reason: Constipation Stop: 02/27/18 20:07 Docusate Sodium (Colace) 100 mg PO DAILY [facility] Stop: 02/28/18 08:59 Last Admin: 01/01/18 08:52 Dose: 100 mg Epoetin German (Epogen) 10,000 units SUBQ MoWeFr [facility] Stop: 03/01/18 16:29 Last Admin: 12/31/17 16:58 Dose: 10,000 units Famotidine (Pepcid) 20 mg PO DAILY [facility] Stop: 02/28/18 08:59 Last Admin: 01/01/18 08:52 Dose: 20 mg Folic Acid (Folate) 1 mg PO DAILY [facility] Stop: 02/28/18 08:59 Last Admin: 01/01/18 08:52 Dose: 1 mg Isosorbide Dinitrate (Isordil) 5 mg PO TID [facility] Stop: 02/27/18 20:59 Last Admin: 01/01/18 13:09 Dose: 5 mg Levothyroxine Sodium (Synthroid) 0.112 mg PO QDAC [facility] Stop: 02/28/18 07:29 Last Admin: 01/01/18 07:42 Dose: 0.112 mg Metoprolol Succinate (Toprol Xl) 50 mg PO DAILY [facility] Stop: 02/28/18 08:59 Last Admin: 01/01/18 08:53 Dose: 50 mg Montelukast Sodium (Singulair) 10 mg PO HS [facility] Stop: 02/27/18 20:59 Last Admin: 12/31/17 20:44 Dose: 10 mg Pyridoxine HCl (Vitamin B6) 50 mg PO DAILY [facility] Stop: 02/28/18 08:59 Last Admin: 01/01/18 08:52 Dose: 50 mg General: Alert, No acute distress HEENT: Atraumatic Neck: Supple Cardiovascular: Regular rate, Normal S1, Normal S2 Lungs: Clear to auscultation, Normal air movement Abdomen: Bowel sounds, Soft - Procedures Procedures: Procedures Procedure Code Date BLOOD TRANSFUSION SERVICE 95894 06/25/17 TRANSFUSE NONAUT RED BLOOD CELLS IN PERIPH VEIN, [facility] [id number] 09/25/17 Assessment/Plan - Assessment Assessment: * iron overload sec to multiple transfusions * 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
--- NOTE | 2018-01-01 23:39 | Progress Notes ---
DATE: 01/01/2018 SUBJECTIVE: The patient was seen in her room. The patient is asleep, but easily arousable. Denies any pain or discomfort at this time. Otherwise, the patient appears to be in no acute distress. OBJECTIVE: VITAL SIGNS: Temperature 98.4, heart rate of 71, blood pressure 126/64, respirations 18, and 98% on room air. HEENT: Head is atraumatic and normocephalic. Eyes: Bilateral conjunctivae are clear. Bilateral pupils are equally round and reactive. NECK: Supple. No JVD. CARDIOVASCULAR: S1 and S2, without murmur. PULMONARY: Clear to auscultation. GASTROINTESTINAL: Soft and nontender without guarding. Positive bowel sounds. MUSCULOSKELETAL: No clubbing. No cyanosis noted. ASSESSMENT: 1. Anemia. 2. Dehydration. 3. Weakness. 4. Osteoarthritis. 5. Hypertension. 6. Hyperlipidemia. PLAN: We will continue to monitor hemoglobin and hematocrit level. We will continue proton pump inhibitors per GI standpoint, may need GI workup if family will allow, otherwise we will continue to monitor for any symptoms. Treatment plans were discussed with the patient's nurse. Treatment plans were discussed with Dr. López. JOB# [id number]
== END 2018-01-01 14:00 | DRG 642 ==
LOC: ER 11:11 → MSI 13:32 → TELE 12-30 17:34
PROVIDERS: ADMIT Internal Medicine; ATTEND Internal Medicine
PROC: 30233N1 Transfusion of Nonautologous Red Blood Cells into Peripheral Vein, Percutaneous Approach (ICD-10-PCS; principal; 2017-12-30)
DX: E83.111 Hemochromatosis due to repeated red blood cell transfusions (principal); K92.2 Gastrointestinal hemorrhage, unspecified; I50.32 Chronic diastolic (congestive) heart failure; D46.9 Myelodysplastic syndrome, unspecified; E86.0 Dehydration; M19.90 Unspecified osteoarthritis, unspecified site; E78.5 Hyperlipidemia, unspecified; I11.0 Hypertensive heart disease with heart failure; F03.90 Unspecified dementia, unspecified severity, without behavioral disturbance, psychotic disturbance, mood disturbance, and anxiety; D69.6 Thrombocytopenia, unspecified; E03.9 Hypothyroidism, unspecified; J44.9 Chronic obstructive pulmonary disease, unspecified; Z82.49 Family history of ischemic heart disease and other diseases of the circulatory system
CPT/HCPCS: 36415-UA; 80053-TC; 80061-TC; 82270-TC; 82550-TC; 82948-90; 83880-TC; 84484-TC; 85007-TC; 85025-TC; 85610-TC; 86850-TC; 86900-TC; 86901-TC; 86922-TC; 93005; C9113; J0885; J7040; P9016; Z7610

== ENCOUNTER 2018-08-30 19:29 | Inpatient (IN) | payer MEDICARE, MEDICAID ==
--- NOTE | 2018-08-30 19:54 | ED Physician Chart ---
ED Chief Complaint/HPI - Patient Information Date Seen:: 08/30/18 Time Seen:: 19:54 Chief Complaint:: Anemia History of Present Illness:: 88 yo female SNF resident with history of severe anemia, dementia and was found to have Hb 5.3 yesterday. Pt was brought to ER for further evaluation and management. Pt was hospitalized at [facility] [place] 8 months ago for severe anemia with differential including GI bleed and persistent macrocytic anemia likely MDS. Allergies:: Allergies Allergy/AdvReac Type Severity Reaction Status Date / Time No Known Allergies Allergy Verified 08/30/18 19:33 Vitals:: Vital Signs - 8 hr 08/30/18 19:30 Temp 97.9 F HR 69 RR 16 BP 114/52 O2 Sat % 97 ED Review of Systems - Review of Systems General/Constitutional: No fever Skin: No rash, Other (Pallor) Head: No headache Eyes: No pain ENT: No nasal drainage Neck: No neck pain Cardio Vascular: No chest pain Pulmonary: No SOB GI: No nausea, No vomiting Musculoskeletal: No bone or joint pain Neurological: No focal symptoms ED Past Medical History - Past Medical History Past Medical History: HTN, DM, CHF, Asthma/COPD, Dyslipidemia (hyperlipidemia), PUD/GERD, Thyroid disorder (hypothyroidism), Other (Iron deficiency anemia, thrombocytopenia, osteoarthritis) Social History: Non Smoker, No Alcohol, No Drug Use Surgical History: None Psychiatricy History: Dementia Family Medical History - Family Member Father History Unknown: Yes Ethnicity: Non- Living Status: Hx Family Coronary Artery Disease: No (unknown) Hx Family Congestive Heart Failure: No Hx Family Hypertension: No Hx Family Stroke: No Hx Family Diabetes: No Hx Family Seizures: No ED Physical Exam - Physical Examination General/Constitutional: Awake, Alert Head: Atraumatic Eyes: PERRL, EOMI Other Skin comments:: Pallor ENMT: Nasal exam nl Neck: No nuchal rigidity Respiratory: No Wheeze/Rhonchi/Rales Cardio Vascular: RRR, No murmur, gallop, rubs, NL S1 S2 GI: No tenderness/rebounding/guarding : No CVA tenderness Extremities: normal strength in all extremities Neuro/Psych: No focal deficits ED Labs/Radiology/EKG Results - Lab Results Results: Laboratory Last Values WBC 4.8 Th/cmm (4.8-10.8) 08/30/18 20:01 RBC 1.51 Mil/cmm (3.80-5.20) L 08/30/18 20:01 Hgb 5.8 gm/dL (12-16) L* 08/30/18 20:01 Hct 17.7 % (41.0-60) L* 08/30/18 20:01 MCV 117.5 fl (81-100) H 08/30/18 20:01 MCH 38.5 pg (27.0-31.0) H 08/30/18 20:01 MCHC Differential 32.8 pg (28.0-36.0) 08/30/18 20:01 RDW 21.4 % (11.5-20.0) H 08/30/18 20:01 Plt Count 337 Th/cmm (150-400) 08/30/18 20:01 MPV 8.9 fl 08/30/18 20:01 Add Manual Diff YES 08/30/18 20:01 Neutrophils % [employer] 08/30/18 20:01 Band Neutrophils % 8 % (0-10) 08/30/18 20:01 Lymphocytes % [employer] 08/30/18 20:01 Monocytes % [employer] 08/30/18 20:01 Eosinophils % [employer] 08/30/18 20:01 Basophils % [employer] 08/30/18 20:01 Neutrophils (Manual) 44 % (40-80) 08/30/18 20:01 Lymphocytes 33 % (20-50) 08/30/18 20:01 Monocytes 4 % (2-10) 08/30/18 20:01 Eosinophils 11 % (0-5) H 08/30/18 20:01 Anisocytosis 1+ 08/30/18 20:01 Macrocytosis 3+ 08/30/18 20:01 RBC Morph Micro Appear ABNORMAL (NORMAL) 08/30/18 20:01 PT 11.0 SECONDS (9.5-11.5) 08/30/18 20:01 INR 1.06 (0.5-1.4) 08/30/18 20:01 PTT (Actin FS) 22.1 SECONDS (26.0-38.0) L 08/30/18 20:01 Sodium 136 mEq/L (136-145) 08/30/18 20:01 Potassium 5.0 mEq/L (3.5-5.1) 08/30/18 20:01 Chloride 106 mEq/L (98-107) 08/30/18 20:01 Carbon Dioxide 23.3 mEq/L (21.0-31.0) 08/30/18 20:01 Anion Gap 11.7 (7.0-16.0) 08/30/18 20:01 BUN 53 mg/dL (7-25) H 08/30/18 20:01 Creatinine 1.3 mg/dL (0.6-1.2) H 08/30/18 20:01 Est GFR ( Amer) TNP 08/30/18 20:01 Est GFR (Non-Af Amer) TNP 08/30/18 20:01 BUN/Creatinine Ratio 40.8 08/30/18 20:01 Glucose 109 mg/dL (70-105) H 08/30/18 20:01 Calcium 9.7 mg/dL (8.6-10.3) 08/30/18 20:01 Total Bilirubin 1.4 mg/dL (0.3-1.0) H 08/30/18 20:01 AST 53 U/L (13-39) H 08/30/18 20:01 ALT 56 U/L (7-52) H 08/30/18 20:01 Alkaline Phosphatase 43 U/L (34-104) 08/30/18 20:01 Troponin I 0.02 ng/mL (0.01-0.05) 08/30/18 20:01 B-Natriuretic Peptide 462.0 pg/mL (5.0-100.0) H 08/30/18 20:01 Total Protein 6.3 gm/dL (6.0-8.3) 08/30/18 20:01 Albumin 4.0 gm/dL (3.7-5.3) 08/30/18 20:01 Globulin 2.3 gm/dL 08/30/18 20:01 Albumin/Globulin Ratio 1.7 (1.0-1.8) 08/30/18 20:01 Urine Source CLEAN C 08/30/18 20:35 Urine Color YELLOW 08/30/18 20:35 Urine Clarity CLEAR (CLEAR) 08/30/18 20:35 Urine pH 5.5 (4.6 - 8.0) 08/30/18 20:35 Ur Specific [place] 1.010 (1.005-1.030) 08/30/18 20:35 Urine Protein TRACE mg/dL (NEGATIVE) 08/30/18 20:35 Urine Glucose (UA) NEGATIVE mg/dL (NEGATIVE) 08/30/18 20:35 Urine Ketones NEGATIVE mg/dL (NEGATIVE) 08/30/18 20:35 Urine Blood NEGATIVE (NEGATIVE) 08/30/18 20:35 Urine Nitrate NEGATIVE (NEGATIVE) 08/30/18 20:35 Urine Bilirubin NEGATIVE (NEGATIVE) 08/30/18 20:35 Urine Urobilinogen 0.2 E.U./dL (0.2 - 1.0) 08/30/18 20:35 Ur Leukocyte Esterase NEGATIVE (NEGATIVE) 08/30/18 20:35 Urine RBC 0-2 /hpf (0-5) 08/30/18 20:35 Urine WBC 2-5 /hpf (0-5) 08/30/18 20:35 Ur Epithelial Cells FEW /lpf (FEW) 08/30/18 20:35 Urine Bacteria 1+ /hpf (NONE SEEN) H 08/30/18 20:35 Coarse Granular Casts 0-2 /lpf (NONE SEEN) H 08/30/18 20:35 Urine Mucus FEW /lpf (FEW) 08/30/18 20:35 - EKG Interpretations EKG Time:: 20:23 Rate & Rhythm: 64 bpm, sinus rhythm Comments:: Left atrial enlargement and left ventricular hypertrophy ED Assessment - Assessment General Assessment: Anemia, macrocytic due to possible GI bleed vs MDS Dehydration Diastolic CHF (EF 65% in Dec 2017) Dementia Assessment/Comments:: CBC, CMP, PT/PTT, UA, urine drug screen EKG, CXR FOBT Type and cross x 2 PRBC Admit for further evaluation and management ED Septic Shock - . Is Septic Shock (SBP<90, OR Lactate>4 mmol\L) present?: No - <6hrs of presentation: Vital Signs: Vital Signs - 8 hr 08/30/18 19:30 Temp 97.9 F HR 69 RR 16 BP 114/52 O2 Sat % 97 ED Reassessment (Disposition) - Reassessment Reassessment Condition:: Improved - Patient Disposition Discharge/Transfer:: Acute Care w/in this hosp Admitting Medical Physician:: Colette López
[2018-08-30 20:29] LABS: MEAN CORPUSCULAR HEMOGLOBIN 38.5 pg (27.0-31.0); WHITE BLOOD COUNT 4.8 Th/cmm (4.8-10.8)
[2018-08-30 20:34] LABS: MEAN CORPUSCULAR HGB CONC 32.8 pg (28.0-36.0); PLATELET COUNT 337 Th/cmm (150-400); RED BLOOD COUNT 1.51 Mil/cmm (3.80-5.20); RED CELL DISTRIBUTION WIDTH 21.4 % (11.5-20.0)
[2018-08-30 20:36] LABS: HEMATOCRIT 17.7 % (41.0-60); HEMOGLOBIN 5.8 gm/dL (12-16)
[2018-08-30 20:41] LABS: INR 1.06 (0.5-1.4)
[2018-08-30 20:43] LABS: ALB/GLOB RATIO 1.7 (1.0-1.8); ALKALINE PHOSPHATASE 43 U/L (34-104); ANION GAP 11.7 (7.0-16.0); BILIRUBIN,TOTAL 1.4 mg/dL (0.3-1.0); BUN - UREA NITROGEN 53 mg/dL (7-25); CALCIUM SERUM 9.7 mg/dL (8.6-10.3); CARBON DIOXIDE 23.3 mEq/L (21.0-31.0); CHLORIDE 106 mEq/L (98-107); CREATININE - SERUM 1.3 mg/dL (0.6-1.2); GLUCOSE 109 mg/dL (70-105); SGOT 53 U/L (13-39); SGPT/ALT 56 U/L (7-52); SODIUM SERUM 136 mEq/L (136-145); TOTAL PROTEIN,SERUM 6.3 gm/dL (6.0-8.3)
[2018-08-30 21:05] LABS: ANISOCYTOSIS 1+; BAND NEUTROPHILE 8 % (0-10); EOSINOPHIL 11 % (0-5); LYMPHOCYTE 33 % (20-50); MONOCYTE 4 % (2-10); NEUTROPHILS 44 % (40-80)
[2018-08-30 21:07] LABS: MEAN CELL VOLUME 117.5 fl (81-100)
[2018-08-30 21:12] LABS: URINE SOURCE CLEAN C
[2018-08-30 21:14] LABS: URINE BILIRUBIN NEGATIVE (NEGATIVE); URINE BLOOD NEGATIVE (NEGATIVE); URINE GLUCOSE (UA) NEGATIVE (NEGATIVE); URINE KETONE NEGATIVE (NEGATIVE); URINE LEUKOCYTE ESTERASE NEGATIVE (NEGATIVE); URINE MICROSCOPIC INDICATED? YES; URINE NITRATE NEGATIVE (NEGATIVE); URINE PH 5.5 (4.6 - 8.0); URINE PROTEIN TRACE mg/dL (NEGATIVE); URINE UROBILINOGEN 0.2 E.U./dL (0.2 - 1.0)
[2018-08-30 21:20] LABS: URINE CLARITY CLEAR (CLEAR); URINE COLOR YELLOW
[2018-08-30 21:24] LABS: URINE BACTERIA 1+ /hpf (NONE SEEN); URINE COARSE GRANULAR CAST 0-2 /lpf (NONE SEEN); URINE EPITHELIAL CELLS FEW /lpf (FEW); URINE RBC 0-2 /hpf (0-5)
[2018-08-30 22:48] VITALS: BP 126/32
--- NOTE | 2018-08-31 09:09 | Diagnostic Imaging Report ---
Portable chest x-ray HISTORY: Shortness of breath Compared with prior exam of September 24, 2017, the heart is enlarged. Surgical suture material and clips project over the heart. Atherosclerotic calcification seen in the aorta. No acute focal pulmonary parenchymal processes. IMPRESSION: 1. No acute abnormalities 2. Cardiomegaly with atherosclerotic vascular changes 3. Surgical changes
[2018-08-31 09:45] LABS: CORRECTED WBC 4.7 Th/cmm (4.8-10.8); HEMOGLOBIN 9.8 gm/dL (12-16); MEAN CELL VOLUME 101.8 fl (81-100); RED BLOOD COUNT 2.85 Mil/cmm (3.80-5.20); WHITE BLOOD COUNT 4.7 Th/cmm (4.8-10.8)
[2018-08-31 09:46] LABS: % EOSINOPHILS 4.4 % (0.0-5.0); % LYMPHOCYTES 29.9 % (20.0-50.0); % MONOCYTES 5.9 % (2.0-10.0); % NEUTROPHILS 59.2 % (40.0-80.0); MEAN CORPUSCULAR HEMOGLOBIN 34.2 pg (27.0-31.0); MEAN CORPUSCULAR HGB CONC 33.6 pg (28.0-36.0); PLATELET COUNT 306 Th/cmm (150-400); RED CELL DISTRIBUTION WIDTH 27.4 % (11.5-20.0)
[2018-08-31 09:47] LABS: % BASOPHILS 0.6 % (0.0-2.0)
[2018-08-31 10:09] LABS: ANION GAP 11.1 (7.0-16.0); BUN - UREA NITROGEN 44 mg/dL (7-25); CARBON DIOXIDE 25.9 mEq/L (21.0-31.0); CHLORIDE 109 mEq/L (98-107); CREATININE - SERUM 1.2 mg/dL (0.6-1.2); GLUCOSE 130 mg/dL (70-105); SODIUM SERUM 141 mEq/L (136-145)
[2018-08-31] MEDS ORDERED: Epoetin Alfa 20000 Units/mL Vial SUBQ SCH ×2 (11:00→15:00)
--- NOTE | 2018-08-31 11:14 | Consultation ---
DATE OF CONSULTATION: 08/31/2018 HEMATOLOGY ONCOLOGY CONSULTATION DICTATED BY: Payton Harris MD REFERRING PHYSICIAN: Dr. López. REASON FOR CONSULTATION: Severe anemia. HISTORY OF PRESENT ILLNESS: The patient is an 88-year-old female who is a resident of a nursing facility. She was found to have hemoglobin of 5.8 grams therefore admitted and transfused. Post-transfusion hemoglobin is 9.8 from this morning. The patient was previously seen in December 2017 and her workup was negative for any deficiency. She had normal B12 and folate level and she had a markedly elevated ferritin level. She consistently had macrocytosis associated with anemia, most suggestive of myelodysplastic syndrome. PAST MEDICAL HISTORY: COPD, dementia, hypertension, hypothyroidism, diabetes, osteoarthritis. There is no history of bleeding or GI bleeding. CURRENT MEDICATIONS: Reviewed. PHYSICAL EXAMINATION: GENERAL: The patient is awake, not in distress. VITAL SIGNS: Temperature 97.9, blood pressure 114/52, respiratory rate 16, pulse 69, saturation 97% on room air. HEENT: Pale complexion. NECK: No lymphadenopathy. CHEST: Good air entry. ABDOMEN: Soft. No organomegaly or ascites. EXTREMITIES: No edema. NERVOUS SYSTEM: Moves four extremities. LABORATORY DATA: White count 4.7, hemoglobin 9.8 after transfusion and before transfusion was 5.9, MCV is 117. Review of old records, the patient had recurrent anemia with persistent high MCV, platelet count 306. Chemistry: Creatinine 1.2. Her previous anemia workup, ferritin 4995, and B12 and folate level were normal. 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 The patient has evidence of iron overload from multiple transfusions. She will be a good candidate to start Epogen injections. The definitive diagnosis will be with a bone marrow biopsy. I will follow the stool occult blood. There was no blood detected on the urinalysis. Thank you Dr. López for the opportunity to participate in the care of this interesting case. JOB# [id number]
[2018-08-31] MEDS ORDERED: Fleet Enema 135 mL RC PRN (18:21)
[2018-08-31] MEDS ORDERED: Magnesium Hydroxide (MOM) 30 mL UDC PO PRN (18:22)
[2018-08-31] MEDS ORDERED: Non-Formulary Item 1 EA (Ondansetron Hcl [Zofran*] 4 MG) PO PRN (18:22)
[2018-08-31] MEDS: D5-0.45NS 1,000 ML IV SCH (20:30)
--- NOTE | 2018-08-31 20:46 | History & Physical ---
ADMIT DATE: 08/31/2018 CHIEF COMPLAINT: Anemia. HISTORY OF PRESENT ILLNESS: This is an 88-year-old female who is a [facility] resident, admitted to the telemetry unit due to abnormal labs at the [facility], a hemoglobin of 5.3. The patient was also recently at this hospital a few months back due to severe anemia due to GI bleed. PAST MEDICAL HISTORY: Hypertension, diabetes, GI bleed, CHF, COPD, dyslipidemia, GERD, hypothyroidism, iron deficiency anemia, thrombocytopenia, osteoarthritis. SOCIAL HISTORY: The patient is a [facility] resident. SURGICAL HISTORY: Unknown. FAMILY HISTORY: Noncontributory. REVIEW OF SYSTEMS: GENERAL: Denies any fever or chills. CARDIOVASCULAR: Denies chest pain. RESPIRATORY: Denies shortness of breath. GASTROINTESTINAL: Denies nausea, vomiting, abdominal pain. GENITOURINARY: Denies increased frequency. NEUROLOGIC: No headaches, seizures or syncope. All systems reviewed and negative. PHYSICAL EXAMINATION: GENERAL: The patient is well developed, well nourished, in no apparent distress. VITAL SIGNS: Temperature 98.7, heart rate 60, blood pressure 108/75, respiration 18, O2 of 98%. HEENT: Head normocephalic, atraumatic. NECK: Supple. No mass. LUNGS: Clear bilaterally. HEART: Regular rate and rhythm. ABDOMEN: Soft, nontender. LABORATORY DATA: WBC 4.7, H and H 9.8 and 29.0, platelet of 306. Sodium 141, potassium 4.0, chloride 109, BUN 44, creatinine 1.2. ASSESSMENT: Possible gastrointestinal bleed, severe anemia, dementia, hypercholesterolemia, hypertension, iron deficiency anemia. PLAN: The patient to be admitted to the Telemetry Unit. We will monitor the patient's H and H closely. We will get GI consultation. We will collect stool for occult blood. We will continue to monitor this patient. [facility]# [id number]
[2018-08-31] MEDS ORDERED: ISOSORBIDE DINITRATE 5 MG PO SCH (21:00)
[2018-08-31] MEDS ORDERED: Non-Formulary Item 1 EA (Atorvastatin Calcium [Lipitor] 40 MG) PO SCH (21:00)
[2018-09-01 06:04] LABS: HEMATOCRIT 27.9 % (41.0-60); HEMOGLOBIN 9.5 gm/dL (12-16); MEAN CELL VOLUME 102.1 fl (81-100); MEAN CORPUSCULAR HEMOGLOBIN 34.8 pg (27.0-31.0); MEAN CORPUSCULAR HGB CONC 34.1 pg (28.0-36.0); RED BLOOD COUNT 2.73 Mil/cmm (3.80-5.20); RED CELL DISTRIBUTION WIDTH 27.6 % (11.5-20.0); WHITE BLOOD COUNT 4.8 Th/cmm (4.8-10.8)
[2018-09-01 06:05] LABS: % LYMPHOCYTES 30.4 % (20.0-50.0); % MONOCYTES 10.2 % (2.0-10.0); % NEUTROPHILS 54.4 % (40.0-80.0); EOSINOPHILE ABSOLUTE 0.2 Th/cmm (0.1-0.4); LYMPHOCYTE ABSOLUTE 1.5 Th/cmm (1.5-3.0); MONOCYTE ABSOLUTE 0.5 Th/cmm (0.3-1.0); NEUTROPHILE ABSOLUTE 2.6 Th/cmm (1.8-8.0); PLATELET COUNT 317 Th/cmm (150-400)
[2018-09-01] MEDS: D5-0.45NS 1,000 ML IV SCH (06:43)
[2018-09-01] MEDS ORDERED: Meperidine 50 mg/mL 1mL Syr ONE ×2 (07:14)
[2018-09-01] MEDS: Levothyroxine 0.125 Mg Tab PO SCH (07:20)
--- NOTE | 2018-09-01 09:09 | Consultation ---
DATE OF CONSULTATION: 08/31/2018 INPATIENT GASTROINTESTINAL CONSULTATION CONSULTING PHYSICIAN: Adriana López MD REASON FOR CONSULTATION: Anemia, macrocytic. HISTORY OF PRESENT ILLNESS: The patient is an 88-year-old female with past medical history significant for dementia, anemia, possible myelodysplastic disorder, COPD, osteoarthritis; admitted to the hospital with a low hemoglobin. Of note, this patient has been hospitalized several times in the past 2 years for the same issue, usually her hemoglobin is in the 7 range. She has been evaluated by GI and Hematology on several occasions and thought to have myelodysplastic disorder; however, it does not appear that she has had endoscopy at least at this hospital and she is not able to give a history that she has had endoscopy prior; however, her OB stools have been all negative at this hospital on several occasions. At the current time; there is no overt GI bleeding, but her hemoglobin is 5.8 on her admission macrocytic in nature. PAST MEDICAL HISTORY: Anemia, hypothyroidism, hyperlipidemia, GERD, osteoarthritis, COPD, dementia. PAST SURGICAL HISTORY: Unknown. FAMILY HISTORY: Noncontributory. SOCIAL HISTORY: The patient lives at a nursing facility. There is no documented history of illicit drug use or alcoholism. ALLERGIES: No known drug allergies. REVIEW OF SYSTEMS: A 12-point review of systems was unable to be performed given the patient is unable to participate in interview. CURRENT MEDICATIONS: Not updated in the computer list yet. PHYSICAL EXAMINATION: VITAL SIGNS: The blood pressure is 108/52, pulse 62 beats per minute, respiratory rate of 17, temperature 98.0, oxygenation is 98%. GENERAL: The patient is sat upright at 45 degrees, alert and oriented x1-2, in no apparent distress. HEENT: Normocephalic, atraumatic appearing head. Pupils are equal and reactive. Extraocular muscles are intact. Moist mucous membranes. NECK: Supple. No JVD, thyromegaly, or lymphadenopathy. CHEST: Clear to auscultation. CARDIOVASCULAR: S1, S2 present. Regular rate and rhythm. ABDOMEN: Soft, nontender, no guarding, no rebound. No fluid distention. EXTREMITIES: No pitting edema. Pulses are not present. SKIN: No jaundice. LABORATORY DATA: White blood cell count 4.8, hemoglobin 5.8, MCV 117. The INR is 1.06. Sodium 136, BUN 53, creatinine 1.3, AST 53, ALT 56, total bilirubin 1.4. IMAGING: No abdominal imaging has been performed. IMPRESSION: This is an 88-year-old female with history of anemia, hypothyroidism, hyperlipidemia, osteoarthritis, COPD; admitted to the hospital with a macrocytic anemia. PROBLEMS: 1. Macrocytic anemia. 2. Possible myelodysplastic disorder. 3. Chronic obstructive pulmonary disease. 4. Dementia. 5. Asthma. 6. Osteoarthritis. DISCUSSION: This appears to be a macrocytic anemia. Thus, I am not suspicious for active GI blood loss; however, she has had anemia for quite some time. I do not see any documented history of endoscopic evaluation. There is some mention that she may have myelodysplastic disorder on previous Hematology notes, which would make sense given the macrocytic nature of her anemia. However, I would be willing to offer the patient an endoscopy if the family would agree for this, although at 88 her risk profile is somewhat increased compared to the average in the exam. Thus, we will recheck to the family and see if they would like an endoscopic evaluation for the anemia. In the meantime, I do suggest Hematology evaluation for what is likely to be a myelodysplastic disorder. RECOMMENDATIONS: 1. If family consents, we can pursue EGD and colonoscopy here and bowel prep tonight. 2. Recommend Hematology evaluation. 3. Clear liquids today in the case that we are going to be doing an endoscopy. Thank you for allowing me to participate in her care. Please call with any questions. JOB# [id number]
[2018-09-01] MEDS ORDERED: fentaNYL Citrate 100 mcg/2mL Vial IV ONE (09:10)
[2018-09-01] MEDS ORDERED: Midazolam 1mg/ml 2 ml vial IV ONE (09:10)
--- NOTE | 2018-09-01 09:25 | Diagnostic Imaging Report ---
CHEST X-RAY: AP view INDICATION: NG tube placement COMPARISON: Chest x-ray 08/30/2018 FINDINGS: Exam is limited due to overpenetration. NG tube seen with tip in the stomach. Gas-filled loops of bowel of the upper abdomen are noted. The lung barker cannot be well assessed due to over penetration. IMPRESSION: NG tube in the stomach.
[2018-09-01] MEDS: Ferrous Sulfate 325 MG TAB PO SCH (10:05)
[2018-09-01] MEDS: Multivitamin w/ Minerals Tab PO SCH (10:07)
--- NOTE | 2018-09-01 10:57 | Operative Report ---
DATE OF SURGERY: 09/01/2018 INPATIENT EGD AND COLONOSCOPY REPORT PROCEDURES PERFORMED: EGD with biopsy, colonoscopy with snare polypectomy. ENDOSCOPIST: Osei Contreras MD PREOPERATIVE DIAGNOSIS: Anemia. POSTOPERATIVE DIAGNOSES: Mild gastritis, colon polyp, diverticulosis, hemorrhoids. INDICATION: The patient is an 88-year-old female with a history of possible myelodysplastic disorder, admitted to the hospital with a hemoglobin of 5.8. This was a macrocytic anemia. However, she has not had a recent upper or lower endoscopy and thus she is here for these exams to rule out GI-related causes of the anemia. CONSENT: Informed consent was obtained from the patient's healthcare proxy. The risks and benefits of the procedure were discussed including but not limited to infection, bleeding, perforation, need for surgery, cardiopulmonary complications, missed pathology and . The patient's healthcare proxy indicated they understood these risks, wished to go forward with the procedure and signed the consent form. ANESTHESIA: 4 mg of Versed and 50 mcg of fentanyl were given IV. PROCEDURE IN DETAIL: The patient was hooked up to the appropriate monitoring devices including blood pressure, pulse and pulse oximetry and IV was in place. Oxygen was delivered via nasal cannula throughout the procedure. IV sedating medication was given in divided doses under the direction of the physician. The patient was in the left lateral decubitus position. A mouthpiece was inserted and secured. Gastroscope was introduced into the mouth and guided under direct visualization into the level of the esophagus, stomach and duodenum. The scope was slowly and carefully withdrawn, making sure to examine the entire mucosa in careful and systematic fashion. Next, the patient was repositioned into the colonoscopy position, a rectal exam was performed and a colonoscope introduced into the anus and guided under direct visualization to the level of the cecum, which was confirmed by the presence of appendiceal orifice and IC valve, which was photographed. The scope was slowly and carefully withdrawn, making sure to examine the entire mucosa in a careful and systematic fashion. Retroflexion was performed in the rectum prior to scope straightening and withdrawal from the body. There was no obvious sign of complication at the end of the procedure. FINDINGS: EGD PORTION: Esophagus: The GE junction was located at 40 cm from the incisors. There was no esophagitis or esophageal lesion noted. Stomach portion: There was very mild gastritis in the antral region and a biopsy was taken for H. pylori evaluation. There is no mass or ulcer found. Duodenum: The duodenal bulb and second portion appeared normal. Biopsies were taken for celiac evaluation. COLONOSCOPY PORTION: The [place] bowel prep score was 3 in all segments of the colon. There were no mass lesions found. The terminal ileum was intubated and appeared normal. There was very mild diverticulosis in the sigmoid region. One 5-mm polyp was found in the sigmoid and this was removed with cold snare polypectomy and retrieved. On retroflexed view in the rectum, there were small internal hemorrhoids. IMPRESSION: 1. Mild gastritis. 2. Mild diverticulosis of the sigmoid. 3. Sigmoid colon polyp x 1. 4. Small internal hemorrhoids. RECOMMENDATIONS: 1. There is no etiology of the patient's anemia found on these exams. The patient likely has a bloodborne disorder such as myelodysplastic disorder that is responsible for her anemia. 2. We can restart her diet and advance as tolerated. 3. Follow up the biopsy results, treat any H. pylori if found. 4. Hematology followup. Thank you for allowing me to participate in her care. Please call with any questions. [facility]# [phone] [id number]
--- NOTE | 2018-09-01 11:14 | General Progress Note ---
Subjective - Review of Systems Service Date: 09/01/18 Objective - Results Result Diagrams: 09/01/18 05:32 08/31/18 09:20 Recent Labs: Laboratory Last Values WBC 4.8 Th/cmm (4.8-10.8) 09/01/18 05:32 Corrected WBC (auto) 4.7 Th/cmm (4.8-10.8) L 08/31/18 09:20 RBC 2.73 Mil/cmm (3.80-5.20) L 09/01/18 05:32 Hgb 9.5 gm/dL (12-16) L 09/01/18 05:32 Hct 27.9 % (41.0-60) L 09/01/18 05:32 MCV 102.1 fl (81-100) H 09/01/18 05:32 MCH 34.8 pg (27.0-31.0) H 09/01/18 05:32 MCHC Differential 34.1 pg (28.0-36.0) 09/01/18 05:32 RDW 27.6 % (11.5-20.0) H 09/01/18 05:32 Plt Count 317 Th/cmm (150-400) 09/01/18 05:32 MPV 8.3 fl 09/01/18 05:32 Add Manual Diff YES 08/30/18 20:01 Neutrophils % 54.4 % (40.0-80.0) 09/01/18 05:32 Band Neutrophils % 8 % (0-10) 08/30/18 20:01 Lymphocytes % 30.4 % (20.0-50.0) 09/01/18 05:32 Monocytes % 10.2 % (2.0-10.0) H 09/01/18 05:32 Eosinophils % 5.0 % (0.0-5.0) 09/01/18 05:32 Basophils % 0.0 % (0.0-2.0) 09/01/18 05:32 Neutrophils (Manual) 44 % (40-80) 08/30/18 20:01 Lymphocytes 33 % (20-50) 08/30/18 20:01 Monocytes 4 % (2-10) 08/30/18 20:01 Eosinophils 11 % (0-5) H 08/30/18 20:01 Anisocytosis 1+ 08/30/18 20:01 Macrocytosis 3+ 08/30/18 20:01 RBC Morph Micro Appear ABNORMAL (NORMAL) 08/30/18 20:01 PT 11.0 SECONDS (9.5-11.5) 08/30/18 20:01 INR 1.06 (0.5-1.4) 08/30/18 20:01 PTT (Actin FS) 22.1 SECONDS (26.0-38.0) L 08/30/18 20:01 Sodium 141 mEq/L (136-145) 08/31/18 09:20 Potassium 5.0 mEq/L (3.5-5.1) 08/31/18 09:20 Chloride 109 mEq/L (98-107) H 08/31/18 09:20 Carbon Dioxide 25.9 mEq/L (21.0-31.0) 08/31/18 09:20 Anion Gap 11.1 (7.0-16.0) 08/31/18 09:20 BUN 44 mg/dL (7-25) H 08/31/18 09:20 Creatinine 1.2 mg/dL (0.6-1.2) 08/31/18 09:20 Est GFR ( Amer) TNP 08/31/18 09:20 Est GFR (Non-Af Amer) TNP 08/31/18 09:20 BUN/Creatinine Ratio 36.7 08/31/18 09:20 Glucose 130 mg/dL (70-105) H 08/31/18 09:20 POC Glucose 118 MG/DL (70 - 105) H 09/01/18 07:29 Calcium 10.0 mg/dL (8.6-10.3) 08/31/18 09:20 Total Bilirubin 1.4 mg/dL (0.3-1.0) H 08/30/18 20:01 AST 53 U/L (13-39) H 08/30/18 20:01 ALT 56 U/L (7-52) H 08/30/18 20:01 Alkaline Phosphatase 43 U/L (34-104) 08/30/18 20:01 Troponin I 0.02 ng/mL (0.01-0.05) 08/30/18 20:01 B-Natriuretic Peptide 462.0 pg/mL (5.0-100.0) H 08/30/18 20:01 Total Protein 6.3 gm/dL (6.0-8.3) 08/30/18 20:01 Albumin 4.0 gm/dL (3.7-5.3) 08/30/18 20:01 Globulin 2.3 gm/dL 08/30/18 20:01 Albumin/Globulin Ratio 1.7 (1.0-1.8) 08/30/18 20:01 Urine Source CLEAN C 08/30/18 20:35 Urine Color YELLOW 08/30/18 20:35 Urine Clarity CLEAR (CLEAR) 08/30/18 20:35 Urine pH 5.5 (4.6 - 8.0) 08/30/18 20:35 Ur Specific [place] 1.010 (1.005-1.030) 08/30/18 20:35 Urine Protein TRACE mg/dL (NEGATIVE) 08/30/18 20:35 Urine Glucose (UA) NEGATIVE mg/dL (NEGATIVE) 08/30/18 20:35 Urine Ketones NEGATIVE mg/dL (NEGATIVE) 08/30/18 20:35 Urine Blood NEGATIVE (NEGATIVE) 08/30/18 20:35 Urine Nitrate NEGATIVE (NEGATIVE) 08/30/18 20:35 Urine Bilirubin NEGATIVE (NEGATIVE) 08/30/18 20:35 Urine Urobilinogen 0.2 E.U./dL (0.2 - 1.0) 08/30/18 20:35 Ur Leukocyte Esterase NEGATIVE (NEGATIVE) 08/30/18 20:35 Urine RBC 0-2 /hpf (0-5) 08/30/18 20:35 Urine WBC 2-5 /hpf (0-5) 08/30/18 20:35 Ur Epithelial Cells FEW /lpf (FEW) 08/30/18 20:35 Urine Bacteria 1+ /hpf (NONE SEEN) H 08/30/18 20:35 Coarse Granular Casts 0-2 /lpf (NONE SEEN) H 08/30/18 20:35 Urine Mucus FEW /lpf (FEW) 08/30/18 20:35 Stool Occult Blood NEGATIVE (NEGATIVE) 08/31/18 19:30 Blood Type O POSITIVE 08/30/18 20:15 Antibody Screen NEGATIVE 08/30/18 20:15 Crossmatch See Detail 08/30/18 20:15 - Physical Exam Vitals and I&O: Vital Signs Temp 97.1 F 09/01/18 08:14 Pulse 62 09/01/18 10:06 Resp 19 09/01/18 08:14 BP 150/52 09/01/18 10:06 Pulse Ox 100 09/01/18 08:14 Intake & Output 08/31/18 09/01/18 09/01/18 18:59 06:59 18:59 Intake Total 615 2400 Output Total 13 Balance 615 2387 Weight (lbs) 44.452 kg 44.452 kg Intake: Oral 615 2400 Output: Urine 8 Urine/Stool Mix 5 Other: # Voids 5 # Bowel Movements 3 Weight Source Bedscale Bedscale Active Medications: Current Medications Acetaminophen (Tylenol) 650 mg PO Q4HR PRN PRN Reason: Pain or Fever >101 Stop: 10/30/18 18:19 Atorvastatin Calcium (Lipitor) 40 mg PO HS ON LICENSE OF [facility] Stop: 10/30/18 20:59 Last Admin: 08/31/18 22:10 Dose: 40 mg Bisacodyl (Dulcolax 10 Mg Supp) 10 mg RC DAILY PRN PRN Reason: Constipation Stop: 10/30/18 18:19 Docusate Sodium (Colace) 100 mg PO DAILY ON LICENSE OF [facility] Stop: 10/31/18 08:59 Last Admin: 09/01/18 10:05 Dose: Not Given Epoetin German (Epogen) 5,000 units SUBQ MoWeFr@1500 ON LICENSE OF [facility] Stop: 10/30/18 14:59 Last Admin: 08/31/18 14:28 Dose: 5,000 units Ferrous Sulfate (Iron) 325 mg PO DAILY ON LICENSE OF [facility] Stop: 10/31/18 08:59 Last Admin: 09/01/18 10:05 Dose: Not Given Folic Acid (Folate) 1 mg PO DAILY ON LICENSE OF [facility] Stop: 10/31/18 08:59 Last Admin: 09/01/18 10:05 Dose: Not Given Dextrose/Sodium Chloride (D5-0.45ns) 1,000 mls @ 100 mls/hr IV .Q10H ON LICENSE OF [facility] Stop: 10/30/18 20:14 Last Admin: 09/01/18 06:43 Dose: Not Given Isosorbide Dinitrate (Isordil) 5 mg PO TID ON LICENSE OF [facility] Stop: 10/30/18 20:59 Last Admin: 09/01/18 10:06 Dose: Not Given Levothyroxine Sodium (Synthroid) 0.125 mg PO QDAC ON LICENSE OF [facility] Stop: 10/31/18 07:29 Last Admin: 09/01/18 07:20 Dose: Not Given Magnesium Hydroxide (Milk Of Magnesia) 30 ml PO HS PRN PRN Reason: Constipation Stop: 10/30/18 18:21 Metoprolol Succinate (Toprol Xl) 50 mg PO DAILY ON LICENSE OF [facility] Stop: 10/31/18 08:59 Last Admin: 09/01/18 10:06 Dose: Not Given Montelukast Sodium (Singulair) 10 mg PO DAILY ON LICENSE OF [facility] Stop: 10/31/18 08:59 Last Admin: 09/01/18 10:07 Dose: Not Given Ondansetron HCl (Zofran Odt) 4 mg PO Q6H PRN PRN Reason: Nausea / Vomiting Stop: 10/30/18 21:25 Pyridoxine HCl (Vitamin B6) 50 mg PO DAILY ON LICENSE OF [facility] Stop: 10/31/18 08:59 Last Admin: 09/01/18 10:07 Dose: Not Given Sodium Phosphate (Fleet Enema) 135 ml RC Q48H PRN PRN Reason: Constipation Stop: 10/30/18 18:20 - Procedures Procedures: Procedures Procedure Code Date BLOOD TRANSFUSION SERVICE 69050 06/25/17 TRANSFUSE NONAUT RED BLOOD CELLS IN PERIPH VEIN, [facility] 40171I0 12/29/17 Assessment/Plan - Assessment Assessment: * MDS * Cytopenia sec to MDS * DIVERTICULOSIS, HEMORRHOIDS * IRON OVERLOAD SEC TO TRANSFUSION Continue epogen, monitor hgb
--- NOTE | 2018-09-01 14:33 | Internal Medicine Prog Note ---
Internal Medicine Subjective - Subjective Service Date: 09/01/18 Patient seen and examined:: with staff Patient is:: awake Per staff patient has:: tolerating meds Internal Medicine Objective - Results Result Diagrams: 09/01/18 05:32 08/31/18 09:20 Recent Labs: Laboratory Last Values WBC 4.8 Th/cmm (4.8-10.8) 09/01/18 05:32 Corrected WBC (auto) 4.7 Th/cmm (4.8-10.8) L 08/31/18 09:20 RBC 2.73 Mil/cmm (3.80-5.20) L 09/01/18 05:32 Hgb 9.5 gm/dL (12-16) L 09/01/18 05:32 Hct 27.9 % (41.0-60) L 09/01/18 05:32 MCV 102.1 fl (81-100) H 09/01/18 05:32 MCH 34.8 pg (27.0-31.0) H 09/01/18 05:32 MCHC Differential 34.1 pg (28.0-36.0) 09/01/18 05:32 RDW 27.6 % (11.5-20.0) H 09/01/18 05:32 Plt Count 317 Th/cmm (150-400) 09/01/18 05:32 MPV 8.3 fl 09/01/18 05:32 Add Manual Diff YES 08/30/18 20:01 Neutrophils % 54.4 % (40.0-80.0) 09/01/18 05:32 Band Neutrophils % 8 % (0-10) 08/30/18 20:01 Lymphocytes % 30.4 % (20.0-50.0) 09/01/18 05:32 Monocytes % 10.2 % (2.0-10.0) H 09/01/18 05:32 Eosinophils % 5.0 % (0.0-5.0) 09/01/18 05:32 Basophils % 0.0 % (0.0-2.0) 09/01/18 05:32 Neutrophils (Manual) 44 % (40-80) 08/30/18 20:01 Lymphocytes 33 % (20-50) 08/30/18 20:01 Monocytes 4 % (2-10) 08/30/18 20:01 Eosinophils 11 % (0-5) H 08/30/18 20:01 Anisocytosis 1+ 08/30/18 20:01 Macrocytosis 3+ 08/30/18 20:01 RBC Morph Micro Appear ABNORMAL (NORMAL) 08/30/18 20:01 PT 11.0 SECONDS (9.5-11.5) 08/30/18 20:01 INR 1.06 (0.5-1.4) 08/30/18 20:01 PTT (Actin FS) 22.1 SECONDS (26.0-38.0) L 08/30/18 20:01 Sodium 141 mEq/L (136-145) 08/31/18 09:20 Potassium 5.0 mEq/L (3.5-5.1) 08/31/18 09:20 Chloride 109 mEq/L (98-107) H 08/31/18 09:20 Carbon Dioxide 25.9 mEq/L (21.0-31.0) 08/31/18 09:20 Anion Gap 11.1 (7.0-16.0) 08/31/18 09:20 BUN 44 mg/dL (7-25) H 08/31/18 09:20 Creatinine 1.2 mg/dL (0.6-1.2) 08/31/18 09:20 Est GFR ( Amer) TNP 08/31/18 09:20 Est GFR (Non-Af Amer) TNP 08/31/18 09:20 BUN/Creatinine Ratio 36.7 08/31/18 09:20 Glucose 130 mg/dL (70-105) H 08/31/18 09:20 POC Glucose 118 MG/DL (70 - 105) H 09/01/18 07:29 Calcium 10.0 mg/dL (8.6-10.3) 08/31/18 09:20 Total Bilirubin 1.4 mg/dL (0.3-1.0) H 08/30/18 20:01 AST 53 U/L (13-39) H 08/30/18 20:01 ALT 56 U/L (7-52) H 08/30/18 20:01 Alkaline Phosphatase 43 U/L (34-104) 08/30/18 20:01 Troponin I 0.02 ng/mL (0.01-0.05) 06/11/19 20:01 B-Natriuretic Peptide 462.0 pg/mL (5.0-100.0) H 08/30/18 20:01 Total Protein 6.3 gm/dL (6.0-8.3) 08/30/18 20:01 Albumin 4.0 gm/dL (3.7-5.3) 08/30/18 20:01 Globulin 2.3 gm/dL 08/30/18 20:01 Albumin/Globulin Ratio 1.7 (1.0-1.8) 08/30/18 20:01 Urine Source CLEAN C 08/30/18 20:35 Urine Color YELLOW 08/30/18 20:35 Urine Clarity CLEAR (CLEAR) 08/30/18 20:35 Urine pH 5.5 (4.6 - 8.0) 08/30/18 20:35 Ur Specific [place] 1.010 (1.005-1.030) 08/30/18 20:35 Urine Protein TRACE mg/dL (NEGATIVE) 08/30/18 20:35 Urine Glucose (UA) NEGATIVE mg/dL (NEGATIVE) 08/30/18 20:35 Urine Ketones NEGATIVE mg/dL (NEGATIVE) 08/30/18 20:35 Urine Blood NEGATIVE (NEGATIVE) 08/30/18 20:35 Urine Nitrate NEGATIVE (NEGATIVE) 08/30/18 20:35 Urine Bilirubin NEGATIVE (NEGATIVE) 08/30/18 20:35 Urine Urobilinogen 0.2 E.U./dL (0.2 - 1.0) 08/30/18 20:35 Ur Leukocyte Esterase NEGATIVE (NEGATIVE) 08/30/18 20:35 Urine RBC 0-2 /hpf (0-5) 08/30/18 20:35 Urine WBC 2-5 /hpf (0-5) 08/30/18 20:35 Ur Epithelial Cells FEW /lpf (FEW) 08/30/18 20:35 Urine Bacteria 1+ /hpf (NONE SEEN) H 08/30/18 20:35 Coarse Granular Casts 0-2 /lpf (NONE SEEN) H 08/30/18 20:35 Urine Mucus FEW /lpf (FEW) 08/30/18 20:35 Stool Occult Blood NEGATIVE (NEGATIVE) 08/31/18 19:30 Blood Type O POSITIVE 08/30/18 20:15 Antibody Screen NEGATIVE 08/30/18 20:15 Crossmatch See Detail 08/30/18 20:15 - Physical Exam Vitals and I&O: Vital Signs Temp 96.8 F 09/01/18 11:53 Pulse 65 09/01/18 14:14 Resp 19 09/01/18 11:53 BP 150/40 09/01/18 14:14 Pulse Ox 100 09/01/18 11:53 Intake & Output 08/31/18 09/01/18 09/01/18 18:59 06:59 18:59 Intake Total 615 2400 Output Total 13 Balance 615 2387 Weight (lbs) 98 lb 98 lb Intake: Oral 615 2400 Output: Urine 8 Urine/Stool Mix 5 Other: # Voids 5 # Bowel Movements 3 Weight Source Bedscale Bedscale Active Medications: Current Medications Acetaminophen (Tylenol) 650 mg PO Q4HR PRN PRN Reason: Pain or Fever >101 Stop: 10/30/18 18:19 Atorvastatin Calcium (Lipitor) 40 mg PO HS [facility] Stop: 10/30/18 20:59 Last Admin: 08/31/18 22:10 Dose: 40 mg Bisacodyl (Dulcolax 10 Mg Supp) 10 mg RC DAILY PRN PRN Reason: Constipation Stop: 10/30/18 18:19 Docusate Sodium (Colace) 100 mg PO DAILY [facility] Stop: 10/31/18 08:59 Last Admin: 09/01/18 10:05 Dose: Not Given Epoetin German (Epogen) 5,000 units SUBQ MoWeFr@1500 [facility] Stop: 10/30/18 14:59 Last Admin: 08/31/18 14:28 Dose: 5,000 units Ferrous Sulfate (Iron) 325 mg PO DAILY [facility] Stop: 10/31/18 08:59 Last Admin: 09/01/18 10:05 Dose: Not Given Folic Acid (Folate) 1 mg PO DAILY [facility] Stop: 10/31/18 08:59 Last Admin: 09/01/18 10:05 Dose: Not Given Dextrose/Sodium Chloride (D5-0.45ns) 1,000 mls @ 100 mls/hr IV .Q10H [facility] Stop: 10/30/18 20:14 Last Admin: 09/01/18 06:43 Dose: Not Given Isosorbide Dinitrate (Isordil) 5 mg PO TID [facility] Stop: 10/30/18 20:59 Last Admin: 09/01/18 14:14 Dose: 5 mg Levothyroxine Sodium (Synthroid) 0.125 mg PO QDAC [facility] Stop: 10/31/18 07:29 Last Admin: 09/01/18 07:20 Dose: Not Given Magnesium Hydroxide (Milk Of Magnesia) 30 ml PO HS PRN PRN Reason: Constipation Stop: 10/30/18 18:21 Metoprolol Succinate (Toprol Xl) 50 mg PO DAILY [facility] Stop: 10/31/18 08:59 Last Admin: 09/01/18 10:06 Dose: Not Given Montelukast Sodium (Singulair) 10 mg PO DAILY [facility] Stop: 10/31/18 08:59 Last Admin: 09/01/18 10:07 Dose: Not Given Ondansetron HCl (Zofran Odt) 4 mg PO Q6H PRN PRN Reason: Nausea / Vomiting Stop: 10/30/18 21:25 Pyridoxine HCl (Vitamin B6) 50 mg PO DAILY [facility] Stop: 10/31/18 08:59 Last Admin: 09/01/18 10:07 Dose: Not Given Sodium Phosphate (Fleet Enema) 135 ml RC Q48H PRN PRN Reason: Constipation Stop: 10/30/18 18:20 General: weak HEENT: NC/AT, PERRLA Neck: Supple Lungs: CTAB Cardiovascular: RRR, Normal S1, Normal S2, without murmur Abdomen: soft, non-tender, non-distended, positive bowel sound Extremities: excoriation Neurological: alert - Procedures Procedures: Procedures Procedure Code Date BLOOD TRANSFUSION SERVICE 34503 06/25/17 EXCISION OF SIGMOID COLON, ENDO, DIAGN [id number] 08/30/18 INSPECTION OF UPPER INTESTINAL TRACT, ENDO [id number] 08/30/18 TRANSFUSE NONAUT RED BLOOD CELLS IN PERIPH VEIN, PERC 35510Q8 12/29/17 Internal Medicine Assmt/Plan - Assessment Assessment: mild gastritis mild diverticulosis of the sigmoid small internal hemorrhoids htn dm2 chf copd hypothyroidism iron deficiency anemia - Plan Plan: monitor h/h closely ppi am labs decrease ivf continue current plan of care
[2018-09-01] MEDS ORDERED: D5-0.45NS 1,000 ML IV SCH (14:45)
[2018-09-02 06:22] LABS: % BASOPHILS 1.5 % (0.0-2.0); % EOSINOPHILS 7.4 % (0.0-5.0); % LYMPHOCYTES 31.3 % (20.0-50.0); % MONOCYTES 9.3 % (2.0-10.0); % NEUTROPHILS 50.5 % (40.0-80.0); BASOPHILE ABSOLUTE 0.1 Th/cumm (0-0.2); EOSINOPHILE ABSOLUTE 0.4 Th/cmm (0.1-0.4); HEMATOCRIT 28.8 % (41.0-60); HEMOGLOBIN 9.5 gm/dL (12-16); LYMPHOCYTE ABSOLUTE 1.5 Th/cmm (1.5-3.0); MEAN CELL VOLUME 103.5 fl (81-100); MEAN CORPUSCULAR HGB CONC 32.9 pg (28.0-36.0); MONOCYTE ABSOLUTE 0.4 Th/cmm (0.3-1.0); NEUTROPHILE ABSOLUTE 2.4 Th/cmm (1.8-8.0); PLATELET COUNT 262 Th/cmm (150-400); RED BLOOD COUNT 2.79 Mil/cmm (3.80-5.20); RED CELL DISTRIBUTION WIDTH 27.1 % (11.5-20.0); WHITE BLOOD COUNT 4.8 Th/cmm (4.8-10.8)
[2018-09-02] MEDS: Levothyroxine 0.125 Mg Tab PO SCH (06:57)
[2018-09-02 07:38] LABS: BUN - UREA NITROGEN 18 mg/dL (7-25); CALCIUM SERUM 9.1 mg/dL (8.6-10.3); CARBON DIOXIDE 23.1 mEq/L (21.0-31.0); CHLORIDE 110 mEq/L (98-107); CREATININE - SERUM 0.8 mg/dL (0.6-1.2); GLUCOSE 99 mg/dL (70-105); POTASSIUM SERUM 4.1 mEq/L (3.5-5.1); SODIUM SERUM 138 mEq/L (136-145)
[2018-09-02] MEDS: Multivitamin w/ Minerals Tab PO SCH (08:16)
[2018-09-02] MEDS: Ferrous Sulfate 325 MG TAB PO SCH (08:17)
--- NOTE | 2018-09-02 08:27 | GI Progress Note ---
Subjective - Review of Systems Service Date: 09/02/18 Subjective: No overnight events GI OBJECTIVE - Results Result Diagrams: 09/02/18 06:00 09/02/18 06:00 Recent Labs: Laboratory Last Values WBC 4.8 Th/cmm (4.8-10.8) 09/02/18 06:00 Corrected WBC (auto) 4.7 Th/cmm (4.8-10.8) L 08/31/18 09:20 RBC 2.79 Mil/cmm (3.80-5.20) L 09/02/18 06:00 Hgb 9.5 gm/dL (12-16) L 09/02/18 06:00 Hct 28.8 % (41.0-60) L 09/02/18 06:00 MCV 103.5 fl (81-100) H 09/02/18 06:00 MCH 34.0 pg (27.0-31.0) H 09/02/18 06:00 MCHC Differential 32.9 pg (28.0-36.0) 09/02/18 06:00 RDW 27.1 % (11.5-20.0) H 09/02/18 06:00 Plt Count 262 Th/cmm (150-400) 09/02/18 06:00 MPV 8.3 fl 09/02/18 06:00 Add Manual Diff YES 08/30/18 20:01 Neutrophils % 50.5 % (40.0-80.0) 09/02/18 06:00 Band Neutrophils % 8 % (0-10) 08/30/18 20:01 Lymphocytes % 31.3 % (20.0-50.0) 09/02/18 06:00 Monocytes % 9.3 % (2.0-10.0) 09/02/18 06:00 Eosinophils % 7.4 % (0.0-5.0) H 09/02/18 06:00 Basophils % 1.5 % (0.0-2.0) 09/02/18 06:00 Neutrophils (Manual) 44 % (40-80) 08/30/18 20:01 Lymphocytes 33 % (20-50) 08/30/18 20:01 Monocytes 4 % (2-10) 08/30/18 20:01 Eosinophils 11 % (0-5) H 08/30/18 20:01 Anisocytosis 1+ 08/30/18 20:01 Macrocytosis 3+ 08/30/18 20:01 RBC Morph Micro Appear ABNORMAL (NORMAL) 08/30/18 20:01 PT 11.0 SECONDS (9.5-11.5) 08/30/18 20:01 INR 1.06 (0.5-1.4) 08/30/18 20:01 PTT (Actin FS) 22.1 SECONDS (26.0-38.0) L 08/30/18 20:01 Sodium 138 mEq/L (136-145) 09/02/18 06:00 Potassium 4.1 mEq/L (3.5-5.1) 09/02/18 06:00 Chloride 110 mEq/L (98-107) H 09/02/18 06:00 Carbon Dioxide 23.1 mEq/L (21.0-31.0) 09/02/18 06:00 Anion Gap 9.0 (7.0-16.0) 09/02/18 06:00 BUN 18 mg/dL (7-25) 09/02/18 06:00 Creatinine 0.8 mg/dL (0.6-1.2) 09/02/18 06:00 Est GFR ( Amer) TNP 09/02/18 06:00 Est GFR (Non-Af Amer) TNP 09/02/18 06:00 BUN/Creatinine Ratio 22.5 09/02/18 06:00 Glucose 99 mg/dL (70-105) 09/02/18 06:00 POC Glucose 118 MG/DL (70 - 105) H 09/01/18 07:29 Calcium 9.1 mg/dL (8.6-10.3) 09/02/18 06:00 Total Bilirubin 1.4 mg/dL (0.3-1.0) H 08/30/18 20:01 AST 53 U/L (13-39) H 08/30/18 20:01 ALT 56 U/L (7-52) H 08/30/18 20:01 Alkaline Phosphatase 43 U/L (34-104) 08/30/18 20:01 Troponin I 0.02 ng/mL (0.01-0.05) 08/30/18 20:01 B-Natriuretic Peptide 462.0 pg/mL (5.0-100.0) H 08/30/18 20:01 Total Protein 6.3 gm/dL (6.0-8.3) 08/30/18 20:01 Albumin 4.0 gm/dL (3.7-5.3) 08/30/18 20:01 Globulin 2.3 gm/dL 08/30/18 20:01 Albumin/Globulin Ratio 1.7 (1.0-1.8) 08/30/18 20:01 Urine Source CLEAN C 08/30/18 20:35 Urine Color YELLOW 08/30/18 20:35 Urine Clarity CLEAR (CLEAR) 08/30/18 20:35 Urine pH 5.5 (4.6 - 8.0) 08/30/18 20:35 Ur Specific [place] 1.010 (1.005-1.030) 08/30/18 20:35 Urine Protein TRACE mg/dL (NEGATIVE) 08/30/18 20:35 Urine Glucose (UA) NEGATIVE mg/dL (NEGATIVE) 08/30/18 20:35 Urine Ketones NEGATIVE mg/dL (NEGATIVE) 08/30/18 20:35 Urine Blood NEGATIVE (NEGATIVE) 08/30/18 20:35 Urine Nitrate NEGATIVE (NEGATIVE) 08/30/18 20:35 Urine Bilirubin NEGATIVE (NEGATIVE) 08/30/18 20:35 Urine Urobilinogen 0.2 E.U./dL (0.2 - 1.0) 08/30/18 20:35 Ur Leukocyte Esterase NEGATIVE (NEGATIVE) 08/30/18 20:35 Urine RBC 0-2 /hpf (0-5) 08/30/18 20:35 Urine WBC 2-5 /hpf (0-5) 08/30/18 20:35 Ur Epithelial Cells FEW /lpf (FEW) 08/30/18 20:35 Urine Bacteria 1+ /hpf (NONE SEEN) H 08/30/18 20:35 Coarse Granular Casts 0-2 /lpf (NONE SEEN) H 08/30/18 20:35 Urine Mucus FEW /lpf (FEW) 08/30/18 20:35 Stool Occult Blood NEGATIVE (NEGATIVE) 08/31/18 19:30 Blood Type O POSITIVE 08/30/18 20:15 Antibody Screen NEGATIVE 08/30/18 20:15 Crossmatch See Detail 08/30/18 20:15 - Physical Exam Vitals and I&O: Vital Signs Temp 98.3 F 09/02/18 08:00 Pulse 61 09/02/18 08:17 Resp 18 09/02/18 08:00 BP 155/49 09/02/18 08:17 Pulse Ox 100 09/02/18 08:00 Intake & Output 09/01/18 09/02/18 09/02/18 18:59 06:59 18:59 Intake Total 865 Balance 865 Weight (lbs) 42.411 kg Intake: Oral 865 Other: # Voids 4 Weight Source Bedscale Active Medications: Current Medications Acetaminophen (Tylenol) 650 mg PO Q4HR PRN PRN Reason: Pain or Fever >101 Stop: 10/30/18 18:19 Atorvastatin Calcium (Lipitor) 40 mg PO HS [facility] Stop: 10/30/18 20:59 Last Admin: 09/01/18 22:02 Dose: 40 mg Bisacodyl (Dulcolax 10 Mg Supp) 10 mg RC DAILY PRN PRN Reason: Constipation Stop: 10/30/18 18:19 Docusate Sodium (Colace) 100 mg PO DAILY [facility] Stop: 10/31/18 08:59 Last Admin: 09/02/18 08:17 Dose: 100 mg Epoetin German (Epogen) 5,000 units SUBQ MoWeFr@1500 [facility] Stop: 10/30/18 14:59 Last Admin: 08/31/18 14:28 Dose: 5,000 units Ferrous Sulfate (Iron) 325 mg PO DAILY [facility] Stop: 10/31/18 08:59 Last Admin: 09/02/18 08:17 Dose: 325 mg Folic Acid (Folate) 1 mg PO DAILY [facility] Stop: 10/31/18 08:59 Last Admin: 09/02/18 08:17 Dose: 1 mg Dextrose/Sodium Chloride (D5-0.45ns) 1,000 mls @ 0 mls/hr IV .Q0M [facility] Stop: 10/31/18 14:44 Isosorbide Dinitrate (Isordil) 5 mg PO TID [facility] Stop: 10/30/18 20:59 Last Admin: 09/02/18 08:17 Dose: 5 mg Levothyroxine Sodium (Synthroid) 0.125 mg PO QDAC [facility] Stop: 10/31/18 07:29 Last Admin: 09/02/18 06:57 Dose: 0.125 mg Magnesium Hydroxide (Milk Of Magnesia) 30 ml PO HS PRN PRN Reason: Constipation Stop: 10/30/18 18:21 Metoprolol Succinate (Toprol Xl) 50 mg PO DAILY [facility] Stop: 10/31/18 08:59 Last Admin: 09/02/18 08:16 Dose: 50 mg Montelukast Sodium (Singulair) 10 mg PO DAILY [facility] Stop: 10/31/18 08:59 Last Admin: 09/02/18 08:17 Dose: 10 mg Ondansetron HCl (Zofran Odt) 4 mg PO Q6H PRN PRN Reason: Nausea / Vomiting Stop: 10/30/18 21:25 Pyridoxine HCl (Vitamin B6) 50 mg PO DAILY [facility] Stop: 10/31/18 08:59 Last Admin: 09/02/18 08:17 Dose: 50 mg Sodium Phosphate (Fleet Enema) 135 ml RC Q48H PRN PRN Reason: Constipation Stop: 10/30/18 18:20 General: Alert HEENT: Atraumatic, PERRLA Neck: Supple Cardiovascular: Regular rate Lungs: Clear to auscultation Abdomen: Bowel sounds, Soft, no Tender, no Hepatomegaly, no Splenomegaly, no Distended, no Rebound, no Mass Skin: no Rash - Procedures Procedures: Procedures Procedure Code Date BLOOD TRANSFUSION SERVICE 89077 06/25/17 EXCISION OF SIGMOID COLON, ENDO, DIAGN [id number] 08/30/18 INSPECTION OF UPPER INTESTINAL TRACT, ENDO [id number] 08/30/18 TRANSFUSE NONAUT RED BLOOD CELLS IN PERIPH VEIN, PERC 15925Z3 12/29/17 Assessment/Plan - Assessment Assessment: # Macrocytic anemia # Dementia # Myelopdysplastic disorder EGD/colo on 09/01 showed gastritis, diverticulosis, sigmoid polyp. No GI source of anemia. Suspect this is a hematologic issue. Plan: - diet as tolerated - f/u gastric bx, treat H pylori if found - hematology follow up recommended - she does not need any further endoscopy for anemia GI to see intermittently, please call with questions
--- NOTE | 2018-09-02 12:52 | Pathology Report ---
[id number] Collection Date: 09/01/2018. Surgeon: Dr. Maxine Contreras Specimen Description: 1. Duodenum biopsy. 2. Antrum biopsy. 3. Sigmoid polyp. Gross Description: Part I: Received in formalin are two borden soft tissue fragments, ranging from 0.1 to 0.2 cm in greatest dimension. Totally submitted in one cassette labeled A. Gross Description: Part II: Received in formalin are two borden soft tissue fragments, ranging from 0.1 to 0.2 cm in greatest dimension. Totally submitted in one cassette labeled B. Gross Description: Part III: Received in formalin is a single borden soft tissue fragment measuring 0.2 cm in greatest dimension. Totally submitted in one cassette labeled C. Microscopic Description: Part I: The histologic sections show benign duodenal mucosa with intact intestinal villi, showing no evidence for villous abnormality. Diagnosis: Part I: No evidence for celiac disease/sprue (duodenal biopsy). Microscopic Description: Part II: The histologic sections show gastric mucosa with mild chronic inflammation present consisting of lymphocytes and plasma cells. The Giemsa stain shows no evidence for Helicobacter pylori. Diagnosis: Part II: 1. Mild chronic gastritis, antrum biopsy. 2. The Giemsa stain is negative for Helicobacter pylori. Microscopic Description: Part III: The histologic sections show colon mucosa with adenomatous glandular changes present consisting of nuclear enlargement and stratification, with mostly tubules consistent with tubular adenoma. 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 [facility]# [id number] [facility]
== END 2018-09-02 13:37 | DRG 811 ==
LOC: ER 19:29 → TELE 21:50
PROVIDERS: ADMIT Internal Medicine; ATTEND Internal Medicine
PROC: 30233N1 Transfusion of Nonautologous Red Blood Cells into Peripheral Vein, Percutaneous Approach (ICD-10-PCS; 2018-08-31)
PROC: 0DB98ZX Excision of Duodenum, Via Natural or Artificial Opening Endoscopic, Diagnostic (ICD-10-PCS; principal; 2018-09-01)
PROC: 0DB68ZX Excision of Stomach, Via Natural or Artificial Opening Endoscopic, Diagnostic (ICD-10-PCS; 2018-09-01)
PROC: 0DBN8ZZ Excision of Sigmoid Colon, Via Natural or Artificial Opening Endoscopic (ICD-10-PCS; 2018-09-01)
DX: D46.9 Myelodysplastic syndrome, unspecified (principal); E41 Nutritional marasmus; I50.32 Chronic diastolic (congestive) heart failure; Z68.1 Body mass index [BMI] 19.9 or less, adult; K29.70 Gastritis, unspecified, without bleeding; K64.8 Other hemorrhoids; K57.30 Diverticulosis of large intestine without perforation or abscess without bleeding; K63.5 Polyp of colon; F03.90 Unspecified dementia, unspecified severity, without behavioral disturbance, psychotic disturbance, mood disturbance, and anxiety; E78.00 Pure hypercholesterolemia, unspecified; D50.9 Iron deficiency anemia, unspecified; I11.0 Hypertensive heart disease with heart failure; E11.9 Type 2 diabetes mellitus without complications; J44.9 Chronic obstructive pulmonary disease, unspecified; E78.5 Hyperlipidemia, unspecified; K21.9 Gastro-esophageal reflux disease without esophagitis; E03.9 Hypothyroidism, unspecified; M19.90 Unspecified osteoarthritis, unspecified site; E86.0 Dehydration; D53.9 Nutritional anemia, unspecified
CPT/HCPCS: 36415-UA; 71045-TC; 80048-TC; 80053-TC; 81001-TC; 82270-TC; 82948-90; 83880-TC; 84484-TC; 85007-TC; 85025-TC; 85610-TC; 86850-TC; 86900-TC; 86901-TC; 86922-TC; 93005; J0885; J2060; J2250; J3010; J7040; P9016; X6024; Z7610

== ENCOUNTER 2018-10-21 21:34 | Inpatient (IN) | payer MEDICARE, MEDICAID ==
--- NOTE | 2018-10-21 21:58 | ED Physician Chart ---
ED Chief Complaint/HPI - Patient Information Date Seen:: 10/21/18 Time Seen:: 21:44 Chief Complaint:: LOW HGB History of Present Illness:: 88 YROLD FEMALE HERE FOR ABN LABS LOW HGB CHRONIC HAS HAD MANY TRANSFUSIONS PT PALE AWAKE ALERT Allergies:: Allergies Allergy/AdvReac Type Severity Reaction Status Date / Time No Known Allergies Allergy Verified 08/30/18 19:33 ED Review of Systems - Review of Systems General/Constitutional: No fever, No chills, No weight loss, No weakness, No diaphoresis, No edema, No loss of appetite Skin: Other (PALE SKIN) Head: No headache, No light-headedness Eyes: No loss of vision, No pain, No diplopia ENT: No earache, No nasal drainage, No sore throat, No tinnitus Neck: No neck pain, No swelling, No thyromegaly, No stiffness, No mass noted Cardio Vascular: No chest pain, No palpitations, No PND, No orthopnea, No edema Pulmonary: No SOB, No cough, No sputum, No wheezing GI: No nausea, No vomiting, No diarrhea, No pain, No melena, No hematochezia, No constipation, No hematemesis G/U: No dysuria, No frequency, No hematuria Musculoskeletal: No bone or joint pain, No back pain, No muscle pain Endocrine: No polyuria, No polydipsia Psychiatric: No prior psych history, No depression, No anxiety, No suicidal ideation Hematopoietic: No bruising, No lymphadenopathy Allergic/Immuno: No urticaria, No angioedema Neurological: No syncope, No focal symptoms, No weakness, No paresthesia, No headache, No seizure, No dizziness, No confusion, No vertigo ED Past Medical History - Past Medical History Past Medical History: HTN, DM, Asthma/COPD, Thyroid disorder (ANEMIA), Dementia Family Medical History - Family Member Father History Unknown: Yes Ethnicity: Non- Living Status: Hx Family Coronary Artery Disease: No (unknown) Hx Family Congestive Heart Failure: No Hx Family Hypertension: No Hx Family Stroke: No Hx Family Diabetes: No Hx Family Seizures: No ED Physical Exam - Physical Examination General/Constitutional: Awake, Well-developed, well-nourished, Alert, No distress, GCS 15, Non-toxic appearing, Ambulatory Head: Atraumatic Eyes: Lids, conjuctiva normal, PERRL, EOMI Skin: Nl inspection, No rash, No skin lesions, No ecchymosis, Well hydrated, No lymphadenopathy ENMT: External ears, nose nl, Nasal exam nl, Lips, teeth, gums nl Neck: Nontender, Full ROM w/o pain, No JVD, No nuchal rigidity, No bruit, No mass, No stridor Respiratory: Nl effort/Exclusion, Clear to Auscultation, No Wheeze/Rhonchi/Rales Cardio Vascular: RRR, No murmur, gallop, rubs, NL S1 S2 GI: No tenderness/rebounding/guarding, No organomegaly, No hernia, Normal BS's, Nondistended, No mass/bruits, No McBurney tenderness : No CVA tenderness Extremities: No tenderness or effusion, Full ROM, normal strength in all extremities, No edema, Normal digits & nails Neuro/Psych: Alert/oriented, DTR's symmetric, Normal sensory exam, Normal motor strength, Judgement/insight normal, Mood normal, Normal gait, No focal deficits Misc: Normal back, No paraspinal tenderness ED Assessment - Assessment General Assessment: ANEMIA FOR TRANSFUSION ED Septic Shock - . Is Septic Shock (SBP<90, OR Lactate>4 mmol\L) present?: No ED Reassessment (Disposition) - Reassessment Reassessment:: ANEMIA FOR TRANSFUSION
[2018-10-21 22:12] LABS: HEMATOCRIT 22.7 % (41.0-60); MEAN CELL VOLUME 104.4 fl (81-100); MEAN CORPUSCULAR HGB CONC 33.6 pg (28.0-36.0); PLATELET COUNT 288 Th/cmm (150-400); RED BLOOD COUNT 2.18 Mil/cmm (3.80-5.20); RED CELL DISTRIBUTION WIDTH 26.9 % (11.5-20.0); WHITE BLOOD COUNT 5.7 Th/cmm (4.8-10.8)
[2018-10-21 22:31] LABS: ALB/GLOB RATIO 1.7 (1.0-1.8); ALBUMIN 4.2 gm/dL (3.7-5.3); ALKALINE PHOSPHATASE 53 U/L (34-104); ANION GAP 10.6 (7.0-16.0); BILIRUBIN,TOTAL 0.9 mg/dL (0.3-1.0); BUN - UREA NITROGEN 57 mg/dL (7-25); CALCIUM SERUM 9.6 mg/dL (8.6-10.3); CARBON DIOXIDE 24.9 mEq/L (21.0-31.0); CHLORIDE 107 mEq/L (98-107); CREATININE - SERUM 1.2 mg/dL (0.6-1.2); GLUCOSE 103 mg/dL (70-105); POTASSIUM SERUM 4.5 mEq/L (3.5-5.1); SGOT 46 U/L (13-39); SGPT/ALT 68 U/L (7-52); SODIUM SERUM 138 mEq/L (136-145); TOTAL PROTEIN,SERUM 6.7 gm/dL (6.0-8.3)
[2018-10-21 22:39] LABS: HEMOGLOBIN 7.6 gm/dL (12-16)
[2018-10-21] MEDS ORDERED: Sodium Chloride 0.9% 1,000 ML IV ONE (22:46)
[2018-10-21 23:31] LABS: EOSINOPHIL 1 % (0-5); LYMPHOCYTE 30 % (20-50); MONOCYTE 5 % (2-10); NEUTROPHILS 64 % (40-80)
[2018-10-21 23:32] LABS: ANISOCYTOSIS 1+; HYPOCHROMIA 1+; PLATELET ESTIMATE ADEQUATE (NORMAL); PLATELET MORPHOLOGY NORMAL (NORMAL)
[2018-10-22] MEDS ORDERED: Ferrous Sulfate 325 MG TAB PO ONE (05:48)
[2018-10-22] MEDS ORDERED: Fleet Enema 135 mL RC ONE (05:49)
[2018-10-22] MEDS ORDERED: Levothyroxine 0.025 Mg Tab PO ONE (06:00)
[2018-10-22] MEDS: Atorvastatin Calcium 10 MG TAB PO SCH (08:44)
[2018-10-22] MEDS: Multivitamin w/ Minerals Tab PO SCH (08:44)
[2018-10-22 10:56] LABS: HEMOGLOBIN 9.7 gm/dL (12-16); MEAN CELL VOLUME 98.9 fl (81-100); MEAN CORPUSCULAR HEMOGLOBIN 32.7 pg (27.0-31.0); PLATELET COUNT 242 Th/cmm (150-400); RED BLOOD COUNT 2.96 Mil/cmm (3.80-5.20); RED CELL DISTRIBUTION WIDTH 26.2 % (11.5-20.0); WHITE BLOOD COUNT 4.7 Th/cmm (4.8-10.8)
[2018-10-22 11:08] LABS: ALB/GLOB RATIO 1.5 (1.0-1.8); ALBUMIN 3.5 gm/dL (3.7-5.3); ALKALINE PHOSPHATASE 46 U/L (34-104); ANION GAP 8.5 (7.0-16.0); BILIRUBIN,TOTAL 1.3 mg/dL (0.3-1.0); BUN - UREA NITROGEN 42 mg/dL (7-25); CALCIUM SERUM 9.1 mg/dL (8.6-10.3); CARBON DIOXIDE 24.7 mEq/L (21.0-31.0); CHLORIDE 110 mEq/L (98-107); GLUCOSE 166 mg/dL (70-105); POTASSIUM SERUM 4.2 mEq/L (3.5-5.1); SGOT 43 U/L (13-39); SGPT/ALT 63 U/L (7-52); SODIUM SERUM 139 mEq/L (136-145); TOTAL PROTEIN,SERUM 5.8 gm/dL (6.0-8.3)
[2018-10-22 11:44] LABS: BAND NEUTROPHILE 2 % (0-10); BASOPHIL 0 % (0-3); EOSINOPHIL 2 % (0-5); HEMATOCRIT 29.3 % (41.0-60); LYMPHOCYTE 29 % (20-50); MONOCYTE 8 % (2-10); NEUTROPHILS 59 % (40-80)
[2018-10-22] MEDS: Magnesium Hydroxide (MOM) 30 mL UDC PO SCH (12:28)
--- NOTE | 2018-10-22 13:31 | Consultation ---
DATE OF CONSULTATION: 10/22/2018 HEMATOLOGY-ONCOLOGY CONSULTATION REFERRED BY: Dr. Kamaljit Trent. REASON FOR CONSULTATION: Severe anemia. HISTORY OF PRESENT ILLNESS: The patient is well known to me from previous evaluation dating back to 12/2017. The patient presented this time with severe anemia requiring transfusion of 2 units. She was previously extensively evaluated for anemia and she did not have evidence of any deficiency and her ferritin level was persistently elevated and she was transfused multiple times in the past. She consistently had macrocytosis associated with anemia with mild leukopenia, normal platelet count, most suggestive of myelodysplastic syndrome. PAST MEDICAL HISTORY: COPD, dementia, hypertension, hypothyroidism, osteoarthritis, diabetes. There is no history of bleeding from any site. LABORATORY DATA: The admission hemoglobin was 7.6 and this morning hemoglobin is 9.7 after transfusion. Admission MCV was 104.4. CURRENT MEDICATIONS: Include Epogen, Pepcid, Isordil, metoprolol, Singulair. PAST SURGICAL HISTORY: Unknown. PHYSICAL EXAMINATION: GENERAL: The patient is awake, not in distress. VITAL SIGNS: Temperature 98.5, blood pressure 128/53. HEENT: Atraumatic. NECK: No lymphadenopathy. CHEST: Good air entry. ABDOMEN: Soft. EXTREMITIES: No edema. NERVOUS SYSTEM: Nonfocal. LABORATORY DATA: White count 4.7, hemoglobin 9.7 after transfusion, platelets 242, bilirubin 1.3. AST, ALT is slightly elevated. Albumin 3.5. ASSESSMENT AND PLAN: Persistent macrocytic anemia with a negative comprehensive workup for anemia from prior admissions, most consistent with myelodysplastic syndrome. I agree with the use of Epogen to decrease the need for transfusion. I will obtain the iron studies for documentation of the iron level and evaluation of possible iron overload from multiple transfusions. I will also obtain stool occult blood to check for possible blood loss, though clinically unlikely. Thank you, Dr. Trent, for the opportunity to participate in the care of this interesting case. [facility]# [id number]
[2018-10-23 03:56] LABS: URINE SOURCE CLEAN C
[2018-10-23 04:01] LABS: URINE BILIRUBIN NEGATIVE (NEGATIVE); URINE BLOOD NEGATIVE (NEGATIVE); URINE GLUCOSE (UA) NEGATIVE (NEGATIVE); URINE KETONE NEGATIVE (NEGATIVE); URINE LEUKOCYTE ESTERASE NEGATIVE (NEGATIVE); URINE MICROSCOPIC INDICATED? YES; URINE NITRATE NEGATIVE (NEGATIVE); URINE PROTEIN TRACE mg/dL (NEGATIVE); URINE UROBILINOGEN 0.2 E.U./dL (0.2 - 1.0)
[2018-10-23 04:28] LABS: URINE CLARITY CLEAR (CLEAR); URINE COLOR YELLOW
[2018-10-23 04:32] LABS: URINE EPITHELIAL CELLS RARE /lpf (FEW); URINE RBC NONE SEEN /hpf (0-5); URINE WBC 0-2 /hpf (0-5)
[2018-10-23 04:33] LABS: URINE BACTERIA NONE SEEN /hpf (NONE SEEN)
[2018-10-23] MEDS: Magnesium Hydroxide (MOM) 30 mL UDC PO SCH (06:09)
[2018-10-23] MEDS: Atorvastatin Calcium 10 MG TAB PO SCH (09:13)
[2018-10-23] MEDS: Multivitamin w/ Minerals Tab PO SCH (09:15)
--- NOTE | 2018-10-23 15:47 | Infectious Disease Prog Note ---
Infectious Disease Subjective - Review of Systems Service Date: 10/23/18 Subjective: THere is no new change, no fever. Infectious Disease Objective - Results Result Diagrams: 10/22/18 10:46 10/22/18 10:46 Recent Labs: Laboratory Last Values WBC 4.7 Th/cmm (4.8-10.8) L 10/22/18 10:46 RBC 2.96 Mil/cmm (3.80-5.20) L 10/22/18 10:46 Hgb 9.7 gm/dL (12-16) L 10/22/18 10:46 Hct 29.3 % (41.0-60) L D 10/22/18 10:46 MCV 98.9 fl (81-100) 10/22/18 10:46 MCH 32.7 pg (27.0-31.0) H 10/22/18 10:46 MCHC Differential 33.0 pg (28.0-36.0) 10/22/18 10:46 RDW 26.2 % (11.5-20.0) H 10/22/18 10:46 Plt Count 242 Th/cmm (150-400) 10/22/18 10:46 MPV 8.7 fl 10/22/18 10:46 Add Manual Diff YES 10/22/18 10:46 Neutrophils % ROAD [employer]GER [employer]ER 10/21/18 22:00 Band Neutrophils % 2 % (0-10) 10/22/18 10:46 Lymphocytes % RO[employer] 10/21/18 22:00 Monocytes % RO[employer]ER 10/21/18 22:00 Eosinophils % ROAD [employer]ER 10/21/18 22:00 Basophils % ROAD [employer]EN[employer]ER 10/21/18 22:00 Neutrophils (Manual) 59 % (40-80) 10/22/18 10:46 Lymphocytes 29 % (20-50) 10/22/18 10:46 Monocytes 8 % (2-10) 10/22/18 10:46 Eosinophils 2 % (0-5) 10/22/18 10:46 Basophils 0 % (0-3) 10/22/18 10:46 Hypochromia 1+ 10/21/18 22:00 Platelet Estimate ADEQUATE (NORMAL) 10/21/18 22:00 Platelet Morphology NORMAL (NORMAL) 10/21/18 22:00 Anisocytosis 1+ 10/21/18 22:00 RBC Morph Micro Appear ABNORMAL (NORMAL) 10/21/18 22:00 Sodium 139 mEq/L (136-145) 10/22/18 10:46 Potassium 4.2 mEq/L (3.5-5.1) 10/22/18 10:46 Chloride 110 mEq/L (98-107) H 10/22/18 10:46 Carbon Dioxide 24.7 mEq/L (21.0-31.0) 10/22/18 10:46 Anion Gap 8.5 (7.0-16.0) 10/22/18 10:46 BUN 42 mg/dL (7-25) H 10/22/18 10:46 Creatinine 1.0 mg/dL (0.6-1.2) 10/22/18 10:46 Est GFR ( Amer) TNP 10/22/18 10:46 Est GFR (Non-Af Amer) TNP 10/22/18 10:46 BUN/Creatinine Ratio 42.0 10/22/18 10:46 Glucose 166 mg/dL (70-105) H 10/22/18 10:46 Calcium 9.1 mg/dL (8.6-10.3) 10/22/18 10:46 Total Bilirubin 1.3 mg/dL (0.3-1.0) H 10/22/18 10:46 AST 43 U/L (13-39) H 10/22/18 10:46 ALT 63 U/L (7-52) H 10/22/18 10:46 Alkaline Phosphatase 46 U/L (34-104) 10/22/18 10:46 Total Protein 5.8 gm/dL (6.0-8.3) L 10/22/18 10:46 Albumin 3.5 gm/dL (3.7-5.3) L 10/22/18 10:46 Globulin 2.3 gm/dL 10/22/18 10:46 Albumin/Globulin Ratio 1.5 (1.0-1.8) 10/22/18 10:46 Urine Source CLEAN C 10/23/18 03:31 Urine Color YELLOW 10/23/18 03:31 Urine Clarity CLEAR (CLEAR) 10/23/18 03:31 Urine pH 6.0 (4.6 - 8.0) 10/23/18 03:31 Ur Specific [place] >= 1.030 (1.005-1.030) 10/23/18 03:31 Urine Protein TRACE mg/dL (NEGATIVE) 10/23/18 03:31 Urine Glucose (UA) NEGATIVE mg/dL (NEGATIVE) 10/23/18 03:31 Urine Ketones NEGATIVE mg/dL (NEGATIVE) 10/23/18 03:31 Urine Blood NEGATIVE (NEGATIVE) 10/23/18 03:31 Urine Nitrate NEGATIVE (NEGATIVE) 10/23/18 03:31 Urine Bilirubin NEGATIVE (NEGATIVE) 10/23/18 03:31 Urine Urobilinogen 0.2 E.U./dL (0.2 - 1.0) 10/23/18 03:31 Ur Leukocyte Esterase NEGATIVE (NEGATIVE) 10/23/18 03:31 Urine RBC NONE SEEN /hpf (0-5) 10/23/18 03:31 Urine WBC 0-2 /hpf (0-5) 10/23/18 03:31 Ur Epithelial Cells RARE /lpf (FEW) 10/23/18 03:31 Urine Bacteria NONE SEEN /hpf (NONE SEEN) 10/23/18 03:31 Blood Type O POSITIVE 10/22/18 00:00 Antibody Screen NEGATIVE 10/22/18 00:00 Crossmatch See Detail 10/22/18 00:00 - Physical Exam Vitals and I&O: Vital Signs Temp 96.7 F 10/23/18 15:00 Pulse 60 10/23/18 15:00 Resp 18 10/23/18 15:00 BP 126/70 10/23/18 15:00 Pulse Ox 98 10/23/18 15:00 Intake & Output 10/22/18 10/23/18 10/23/18 18:59 06:59 18:59 Intake Total 1600 Balance 1600 Weight (lbs) 42.683 kg 42.683 kg Intake: Oral 900 Blood Product 700 Other: # Voids 5 3 # Bowel Movements 0 Weight Source Bedscale Bedscale Active Medications: Current Medications Acetaminophen (Tylenol) 650 mg PO Q4H PRN PRN Reason: Pain (Moderate) Stop: 12/21/18 06:01 Atorvastatin Calcium (Lipitor) 40 mg PO DAILY HECOTR; Protocol Stop: 12/21/18 08:59 Last Admin: 10/23/18 09:13 Dose: 40 mg Bisacodyl (Dulcolax 10 Mg Supp) 10 mg RC NOW PRN PRN Reason: Constipation Stop: 10/02/19 05:42 Epoetin German (Epogen) 5,000 units SUBQ [facility] Stop: 12/23/18 05:43 Famotidine (Pepcid) 20 mg PO DAILY HECTOR Stop: 12/21/18 06:59 Last Admin: 10/23/18 09:14 Dose: 20 mg Isosorbide Dinitrate (Isordil) 5 mg PO TID HECTOR Stop: 12/21/18 08:59 Last Admin: 10/23/18 14:18 Dose: 5 mg Magnesium Hydroxide (Milk Of Magnesia) 30 ml PO PRN HECTOR Stop: 12/21/18 05:59 Last Admin: 10/23/18 06:09 Dose: Not Given Metoprolol Succinate (Toprol Xl) 50 mg PO DAILY HECTOR Stop: 12/21/18 08:59 Last Admin: 10/23/18 09:15 Dose: 50 mg Montelukast Sodium (Singulair) 10 mg PO HS HECTOR Stop: 12/21/18 20:59 Last Admin: 10/22/18 20:09 Dose: 10 mg General: no acute distress, well developed, well nourished HEENT: atraumatic, normocephalic, PERRLA, EOMI, other (pallor present) Neck: supple, no thyromegaly, no lymphadenopathy Cardiovascular: S1S2, regular Lungs: clear to auscultation bilaterally, clear to percussion Abdomen: soft, no tender, no distended Extremities: no cyanosis, no clubbing, no edema Neurological: awake, alert, oriented Skin: intact - Procedures Procedures: Procedures Procedure Code Date BLOOD TRANSFUSION SERVICE 18596 06/25/17 EXCISION OF DUODENUM, ENDO, DIAGN [id number] 08/30/18 EXCISION OF SIGMOID COLON, ENDO [id number] 08/30/18 EXCISION OF STOMACH, ENDO, DIAGN [id number] 08/30/18 TRANSFUSE NONAUT RED BLOOD CELLS IN PERIPH VEIN, PERC 02189S9 08/30/18 Infectious Disease Assmt/Plan - Assessment Assessment: 1. Anemia, anemia w/u. 2. Hepatitis. 3. DM2 4. HTN. 5. Dementia. 6. MDS. - Plan Plan: Conitnue same treatment, follow up as per consultants. Nutritional Asmnt/Malnutr-PDOC - Dietary Evaluation Malnutrition Findings (Please click <Entered> for more info): Nutritional Asmnt/Malnutrition Start: 10/22/18 10: 49 Text: Status: Complete Freq: Protocol: Document 10/22/18 10:58 CHARLES (Rec: 10/22/18 11:06 CHARLES POLA- [email or web address]) Nutritional Asmnt/Malnutrition Patient General Information Nutritional Screening High Risk Diagnosis severe anemia, possible iron overload, hepatitis Pertinent Medical Hx/Surgical Hx No H&P/noted history yet Subjective Information Cantonese speaking patient. Patient eating lunch at time of visit; tolerating well without difficulty. Current Diet Order/ Nutrition Support 60 gm CCHO, 2gm Na, chopped, Ensure Clear BID Patient / S.O Not Indicated Pertinent Medications Lipitor, dulcolax, Pepcid, MOM Pertinent Labs (10/21) AST 46, ALT 68 Nutritional Hx/Data Height 1.57 m Height (Calculated Centimeters) 157.5 Current Weight (lbs) 42.638 kg Weight (Calculated Kilograms) 42.6 Weight (Calculated Grams) 97608.7 [place] Body Weight 110 % [place] Body Weight 85 Body Mass Index (BMI) 17.2 Recent Weight Change No Weight Status Underweight GI Symptoms GI Symptoms None Last BM none noted since admission Difficult in: None Food Allergies No Cultural/Ethnic/Amish Belief none indicated Usual diet at home unknown Skin Integrity/Comment: Intact, Darrel not yet recorded Estimated Nutritional Goals BEE in Kcals: Using Current wt Calories/Kcals/Kg CBW 42.7kg Kcals Calculated ~7302-4427 kcal/day (30-35 kcal/kg) Protein: Using Current wt Protein g/k.1-1.3 gm/kg Protein Calculated ~45-55 gm/day Fluid: ml ~1563-3237 ml/day (1 ml/kcal) Nutritional Problem 1. Problem Problem Underweight related to Etiology possible inadequate intake prior to admission aeb Signs/Symptoms: BMI 17.2, 85% IBW Intervention/Recommendation Comments 1. Continue current diet and Supplements as tolerated by patient. 2. Monitor oral intake and tolerance to diet. Will modify diet/supplements as needed. Expected Outcomes/Goals Expected Outcomes/Goals Adequate nutrition to meet >75 % estimated needs, improved labs, skin remains intact, weight maintenance or trend toward ideal body weight. F/U MR 10/25-
--- NOTE | 2018-10-23 16:35 | History & Physical ---
ADMIT DATE: 10/22/2018 CHIEF COMPLAINT: Low hemoglobin. HISTORY OF PRESENT ILLNESS: An 88-year-old female with a past medical history of myelodysplastic syndrome, hypertension, diabetes mellitus type 2, asthma, thyroid disorder, anemia, and dementia, brought in from nursing facility for low hemoglobin of 6.7. The patient has received transfusion on multiple occasions in the past. She was brought to the ER and her vitals were stable. Afebrile. Her hemoglobin was 7.6 and was called for further admission. I told the ER physician to give blood transfusion first decide on admission. Although, admission was decided and the patient was admitted to Med/Surg Unit for anemia. The patient was followed by Dr. Harris in the past. Dr. Harris of Hematology consultation was called. No new change. No fever, no chills. PAST MEDICAL HISTORY: Includes hypertension, diabetes mellitus type 2, myelodysplastic syndrome, asthma, COPD, thyroid disorder, anemia, and dementia. ALLERGIES: NKDA. MEDICATIONS: See medication reconciliation sheet. SOCIAL HISTORY: Not available. TRAVEL HISTORY: None. IMMUNIZATION STATUS: Unknown. REVIEW OF SYSTEMS: The patient is a poor historian. GENERAL: The patient has no fever, no chills. HEENT: No diplopia, no photophobia, no sore throat. RESPIRATORY: No cough, no shortness of breath. CVS: No chest pain, no palpitation, no leg swelling. GASTROINTESTINAL: The patient has no nausea, no vomiting, no diarrhea. No constipation. No hematemesis, no hematochezia, no blood per rectum. No abdominal pain. GENITOURINARY: No dysuria. No hematuria. NEUROLOGIC: No headache, no dizziness, no focal weakness. PHYSICAL EXAMINATION: VITAL SIGNS: Shows temperature is 98.3 degrees Fahrenheit, pulse is 62, respirations 16, blood pressure 135/54. Oxygen saturation was 97%. GENERAL: The patient is comfortable lying in bed, lean and thin female. HEENT: Head is normocephalic, atraumatic. Oral cavity moist, pink tongue. Eyes: Pallor is present, no icterus. Pupils PERRLA, EOMI. NECK: Supple, no JVD, no bruit. Trachea in midline. CHEST: Bilateral vesicular breath vesicular sounds. No crackles or wheezing. CARDIOVASCULAR: S1, S2 within normal limits. Regular rhythm. No murmur, no gallop. ABDOMEN: Soft, nontender, nondistended. Bowel sounds present. EXTREMITIES: No cyanosis, no clubbing, no edema. NEUROLOGICAL: Alert and awake, follows the command. SKIN: The patient has no rash, no ulcers. LABORATORY DATA: WBC count 5700, hemoglobin 7.6, hematocrit 22.7, platelets are 288,000, neutrophil is 64%. Sodium is 138, potassium 4.5, chloride 107, bicarbonate is 25, BUN is 57, creatinine 1.2, glucose is 103. IMPRESSION: 1. Severe anemia requiring blood transfusion, which was given 2 units of PRBC were transfused and given in the ER. 2. Diabetes mellitus type 2. 3. Hypertension. 4. Dementia. 5. Myelodysplastic syndrome. RECOMMENDATIONS: 2 units of PRBC transfusion given in the ed. Continue same treatment. Discontinue iron in view of suspected iron overload. There is also elevation of LFTs, which will be monitored. Follow up with Dr Harris's recommendations. [facility]# [id number] [facility]
[2018-10-23] MEDS ORDERED: Magnesium Hydroxide (MOM) 30 mL UDC PO SCH ×3 (21:00→23:20)
[2018-10-24] MEDS ORDERED: Epoetin Alfa 20000 Units/mL Vial SUBQ SCH (05:44)
[2018-10-24] MEDS: Atorvastatin Calcium 10 MG TAB PO SCH (08:30)
[2018-10-24] MEDS: Multivitamin w/ Minerals Tab PO SCH (08:31)
[2018-10-24] MEDS ORDERED: Magnesium Hydroxide (MOM) 30 mL UDC PO PRN (09:00)
--- NOTE | 2018-10-24 11:34 | Infectious Disease Prog Note ---
Infectious Disease Subjective - Review of Systems Service Date: 10/24/18 Subjective: There is no new change, no fever. Infectious Disease Objective - Results Result Diagrams: 10/22/18 10:46 10/22/18 10:46 Recent Labs: Laboratory Last Values WBC 4.7 Th/cmm (4.8-10.8) L 10/22/18 10:46 RBC 2.96 Mil/cmm (3.80-5.20) L 10/22/18 10:46 Hgb 9.7 gm/dL (12-16) L 10/22/18 10:46 Hct 29.3 % (41.0-60) L D 10/22/18 10:46 MCV 98.9 fl (81-100) 10/22/18 10:46 MCH 32.7 pg (27.0-31.0) H 10/22/18 10:46 MCHC Differential 33.0 pg (28.0-36.0) 10/22/18 10:46 RDW 26.2 % (11.5-20.0) H 10/22/18 10:46 Plt Count 242 Th/cmm (150-400) 10/22/18 10:46 MPV 8.7 fl 10/22/18 10:46 Add Manual Diff YES 10/22/18 10:46 Neutrophils % PROJECT DEVELOPMENT ENGINEER 10/21/18 22:00 Band Neutrophils % 2 % (0-10) 10/22/18 10:46 Lymphocytes % PROJECT DEVELOPMENT ENGINEER 10/21/18 22:00 Monocytes % PROJECT DEVELOPMENT ENGINEER 10/21/18 22:00 Eosinophils % PROJECT DEVELOPMENT ENGINEER 10/21/18 22:00 Basophils % PROJECT DEVELOPMENT ENGINEER 10/21/18 22:00 Neutrophils (Manual) 59 % (40-80) 10/22/18 10:46 Lymphocytes 29 % (20-50) 10/22/18 10:46 Monocytes 8 % (2-10) 10/22/18 10:46 Eosinophils 2 % (0-5) 10/22/18 10:46 Basophils 0 % (0-3) 10/22/18 10:46 Hypochromia 1+ 10/21/18 22:00 Platelet Estimate ADEQUATE (NORMAL) 10/21/18 22:00 Platelet Morphology NORMAL (NORMAL) 10/21/18 22:00 Anisocytosis 1+ 10/21/18 22:00 RBC Morph Micro Appear ABNORMAL (NORMAL) 10/21/18 22:00 Sodium 139 mEq/L (136-145) 10/22/18 10:46 Potassium 4.2 mEq/L (3.5-5.1) 10/22/18 10:46 Chloride 110 mEq/L (98-107) H 10/22/18 10:46 Carbon Dioxide 24.7 mEq/L (21.0-31.0) 10/22/18 10:46 Anion Gap 8.5 (7.0-16.0) 10/22/18 10:46 BUN 42 mg/dL (7-25) H 10/22/18 10:46 Creatinine 1.0 mg/dL (0.6-1.2) 10/22/18 10:46 Est GFR ( Amer) TNP 10/22/18 10:46 Est GFR (Non-Af Amer) TNP 10/22/18 10:46 BUN/Creatinine Ratio 42.0 10/22/18 10:46 Glucose 166 mg/dL (70-105) H 10/22/18 10:46 Calcium 9.1 mg/dL (8.6-10.3) 10/22/18 10:46 Total Bilirubin 1.3 mg/dL (0.3-1.0) H 10/22/18 10:46 AST 43 U/L (13-39) H 10/22/18 10:46 ALT 63 U/L (7-52) H 10/22/18 10:46 Alkaline Phosphatase 46 U/L (34-104) 10/22/18 10:46 Total Protein 5.8 gm/dL (6.0-8.3) L 10/22/18 10:46 Albumin 3.5 gm/dL (3.7-5.3) L 10/22/18 10:46 Globulin 2.3 gm/dL 10/22/18 10:46 Albumin/Globulin Ratio 1.5 (1.0-1.8) 10/22/18 10:46 Urine Source CLEAN C 10/23/18 03:31 Urine Color YELLOW 10/23/18 03:31 Urine Clarity CLEAR (CLEAR) 10/23/18 03:31 Urine pH 6.0 (4.6 - 8.0) 10/23/18 03:31 Ur Specific [place] >= 1.030 (1.005-1.030) 10/23/18 03:31 Urine Protein TRACE mg/dL (NEGATIVE) 10/23/18 03:31 Urine Glucose (UA) NEGATIVE mg/dL (NEGATIVE) 10/23/18 03:31 Urine Ketones NEGATIVE mg/dL (NEGATIVE) 10/23/18 03:31 Urine Blood NEGATIVE (NEGATIVE) 10/23/18 03:31 Urine Nitrate NEGATIVE (NEGATIVE) 10/23/18 03:31 Urine Bilirubin NEGATIVE (NEGATIVE) 10/23/18 03:31 Urine Urobilinogen 0.2 E.U./dL (0.2 - 1.0) 10/23/18 03:31 Ur Leukocyte Esterase NEGATIVE (NEGATIVE) 10/23/18 03:31 Urine RBC NONE SEEN /hpf (0-5) 10/23/18 03:31 Urine WBC 0-2 /hpf (0-5) 10/23/18 03:31 Ur Epithelial Cells RARE /lpf (FEW) 10/23/18 03:31 Urine Bacteria NONE SEEN /hpf (NONE SEEN) 10/23/18 03:31 Blood Type O POSITIVE 10/22/18 00:00 Antibody Screen NEGATIVE 10/22/18 00:00 Crossmatch See Detail 10/22/18 00:00 - Physical Exam Vitals and I&O: Vital Signs Temp 97.4 F 10/24/18 08:00 Pulse 60 10/24/18 08:32 Resp 18 10/24/18 08:00 BP 137/51 10/24/18 08:32 Pulse Ox 97 10/24/18 08:00 Intake & Output 10/23/18 10/24/18 10/24/18 18:59 06:59 18:59 Intake Total 875 Balance 875 Weight (lbs) 42.683 kg Intake: Oral 875 Other: # Voids 2 # Bowel Movements 0 Weight Source Bedscale Active Medications: Current Medications Acetaminophen (Tylenol) 650 mg PO Q4H PRN PRN Reason: Pain (Moderate) Stop: 12/21/18 06:01 Atorvastatin Calcium (Lipitor) 40 mg PO DAILY HECTOR; Protocol Stop: 12/21/18 08:59 Last Admin: 10/24/18 08:30 Dose: 40 mg Bisacodyl (Dulcolax 10 Mg Supp) 10 mg RC NOW PRN PRN Reason: Constipation Stop: 12/21/18 05:42 Epoetin German (Epogen) 5,000 units SUBQ MoWeFr [facility] Stop: 12/23/18 14:59 Famotidine (Pepcid) 20 mg PO DAILY [facility] Stop: 12/21/18 06:59 Last Admin: 10/24/18 08:31 Dose: 20 mg Isosorbide Dinitrate (Isordil) 5 mg PO TID HECTOR Stop: 12/21/18 08:59 Last Admin: 10/24/18 08:31 Dose: 5 mg Magnesium Hydroxide (Milk Of Magnesia) 30 ml PO DAILY PRN PRN Reason: Constipation Stop: 12/23/18 08:59 Metoprolol Succinate (Toprol Xl) 50 mg PO DAILY HECTOR Stop: 12/21/18 08:59 Last Admin: 10/24/18 08:32 Dose: 50 mg Montelukast Sodium (Singulair) 10 mg PO HS HECTOR Stop: 12/21/18 20:59 Last Admin: 10/23/18 20:42 Dose: 10 mg General: no acute distress, well developed, well nourished HEENT: atraumatic, normocephalic, PERRLA, EOMI, moist mucous membrane Neck: supple, no thyromegaly Cardiovascular: regular Lungs: clear to auscultation bilaterally, clear to percussion Abdomen: soft, no tender, no distended Extremities: no cyanosis, no clubbing, no edema Neurological: awake, alert, oriented Skin: intact - Procedures Procedures: Procedures Procedure Code Date BLOOD TRANSFUSION SERVICE 68098 06/25/17 EXCISION OF DUODENUM, ENDO, DIAGN [id number] 08/30/18 EXCISION OF SIGMOID COLON, ENDO [id number] 08/30/18 EXCISION OF STOMACH, ENDO, DIAGN [id number] 08/30/18 TRANSFUSE NONAUT RED BLOOD CELLS IN PERIPH VEIN, PERC 16473L5 10/22/18 Infectious Disease Assmt/Plan - Assessment Assessment: 1. Anemia, anemia w/u. 2. Hepatitis. 3. DM2 4. HTN. 5. Dementia. 6. MDS. - Plan Plan: Continue same treatment, follow up as per consultants. monitor labs. Nutritional Asmnt/Malnutr-PDOC - Dietary Evaluation Malnutrition Findings (Please click <Entered> for more info): Nutritional Asmnt/Malnutrition Start: 10/22/18 10: 49 Text: Status: Complete Freq: Protocol: Document 10/22/18 10:58 EVANSSTEPHEN (Rec: 10/22/18 11:06 CHARLES POLA- FNS1) Nutritional Asmnt/Malnutrition Patient General Information Nutritional Screening High Risk Diagnosis severe anemia, possible iron overload, hepatitis Pertinent Medical Hx/Surgical Hx No H&P/noted history yet Subjective Information Cantonese speaking patient. Patient eating lunch at time of visit; tolerating well without difficulty. Current Diet Order/ Nutrition Support 60 gm CCHO, 2gm Na, chopped, Ensure Clear BID Patient / S.O Not Indicated Pertinent Medications Lipitor, dulcolax, Pepcid, MOM Pertinent Labs (10/21) AST 46, ALT 68 Nutritional Hx/Data Height 1.57 m Height (Calculated Centimeters) 157.5 Current Weight (lbs) 42.638 kg Weight (Calculated Kilograms) 42.6 Weight (Calculated Grams) 95068.7 [place] Body Weight 110 % [place] Body Weight 85 Body Mass Index (BMI) 17.2 Recent Weight Change No Weight Status Underweight GI Symptoms GI Symptoms None Last BM none noted since admission Difficult in: None Food Allergies No Cultural/Ethnic/Confucianist Belief none indicated Usual diet at home unknown Skin Integrity/Comment: Intact, Darrel not yet recorded Estimated Nutritional Goals BEE in Kcals: Using Current wt Calories/Kcals/Kg CBW 42.7kg Kcals Calculated ~8770-4984 kcal/day (30-35 kcal/kg) Protein: Using Current wt Protein g/k.1-1.3 gm/kg Protein Calculated ~45-55 gm/day Fluid: ml ~0147-3034 ml/day (1 ml/kcal) Nutritional Problem 1. Problem Problem Underweight related to Etiology possible inadequate intake prior to admission aeb Signs/Symptoms: BMI 17.2, 85% IBW Intervention/Recommendation Comments 1. Continue current diet and Supplements as tolerated by patient. 2. Monitor oral intake and tolerance to diet. Will modify diet/supplements as needed. Expected Outcomes/Goals Expected Outcomes/Goals Adequate nutrition to meet >75 % estimated needs, improved labs, skin remains intact, weight maintenance or trend toward ideal body weight. F/U MR 10/25-
[2018-10-24] MEDS: Epoetin Alfa 20000 Units/mL Vial SUBQ SCH (14:45)
[2018-10-25 04:36] LABS: HEMATOCRIT 31.8 % (41.0-60); HEMOGLOBIN 10.7 gm/dL (12-16); MEAN CELL VOLUME 99.1 fl (81-100); MEAN CORPUSCULAR HEMOGLOBIN 33.4 pg (27.0-31.0); MEAN CORPUSCULAR HGB CONC 33.7 pg (28.0-36.0); PLATELET COUNT 284 Th/cmm (150-400); RED BLOOD COUNT 3.21 Mil/cmm (3.80-5.20); RED CELL DISTRIBUTION WIDTH 25.8 % (11.5-20.0); WHITE BLOOD COUNT 5.4 Th/cmm (4.8-10.8)
[2018-10-25 05:09] LABS: ALB/GLOB RATIO 1.8 (1.0-1.8); ALBUMIN 4.2 gm/dL (3.7-5.3); ALKALINE PHOSPHATASE 59 U/L (34-104); ANION GAP 11.5 (7.0-16.0); BILIRUBIN,TOTAL 1.3 mg/dL (0.3-1.0); BUN - UREA NITROGEN 36 mg/dL (7-25); CALCIUM SERUM 9.7 mg/dL (8.6-10.3); CARBON DIOXIDE 25.6 mEq/L (21.0-31.0); CHLORIDE 108 mEq/L (98-107); CREATININE - SERUM 1.3 mg/dL (0.6-1.2); GLUCOSE 90 mg/dL (70-105); POTASSIUM SERUM 4.1 mEq/L (3.5-5.1); SGOT 37 U/L (13-39); SGPT/ALT 58 U/L (7-52); SODIUM SERUM 141 mEq/L (136-145); TOTAL PROTEIN,SERUM 6.5 gm/dL (6.0-8.3)
[2018-10-25 06:04] LABS: BAND NEUTROPHILE 0 % (0-10); LYMPHOCYTE 36 % (20-50); NEUTROPHILS 50 % (40-80)
[2018-10-25 06:05] LABS: EOSINOPHIL 7 % (0-5); MONOCYTE 7 % (2-10)
[2018-10-25 06:06] LABS: ANISOCYTOSIS 1+
[2018-10-25] MEDS: Multivitamin w/ Minerals Tab PO SCH (08:19)
--- NOTE | 2018-10-26 02:57 | Infectious Disease Prog Note ---
Infectious Disease Subjective - Review of Systems Service Date: 10/25/18 Subjective: There is no new change, no fever. Infectious Disease Objective - Results Result Diagrams: 10/25/18 04:20 10/25/18 04:20 Recent Labs: Laboratory Last Values WBC 5.4 Th/cmm (4.8-10.8) 10/25/18 04:20 RBC 3.21 Mil/cmm (3.80-5.20) L 10/25/18 04:20 Hgb 10.7 gm/dL (12-16) L 10/25/18 04:20 Hct 31.8 % (41.0-60) L 10/25/18 04:20 MCV 99.1 fl (81-100) 10/25/18 04:20 MCH 33.4 pg (27.0-31.0) H 10/25/18 04:20 MCHC Differential 33.7 pg (28.0-36.0) 10/25/18 04:20 RDW 25.8 % (11.5-20.0) H 10/25/18 04:20 Plt Count 284 Th/cmm (150-400) 10/25/18 04:20 MPV 8.8 fl 10/25/18 04:20 Add Manual Diff YES 10/25/18 04:20 Neutrophils % PROTOZOOLOGIST 10/25/18 04:20 Band Neutrophils % 0 % (0-10) 10/25/18 04:20 Lymphocytes % PROTOZOOLOGIST 10/25/18 04:20 Monocytes % PROTOZOOLOGIST 10/25/18 04:20 Eosinophils % PROTOZOOLOGIST 10/25/18 04:20 Basophils % PROTOZOOLOGIST 10/25/18 04:20 Neutrophils (Manual) 50 % (40-80) 10/25/18 04:20 Lymphocytes 36 % (20-50) 10/25/18 04:20 Monocytes 7 % (2-10) 10/25/18 04:20 Eosinophils 7 % (0-5) H 10/25/18 04:20 Basophils 0 % (0-3) 10/22/18 10:46 Hypochromia 1+ 10/21/18 22:00 Platelet Estimate ADEQUATE (NORMAL) 10/21/18 22:00 Platelet Morphology NORMAL (NORMAL) 10/21/18 22:00 Anisocytosis 1+ 10/25/18 04:20 RBC Morph Micro Appear ABNORMAL (NORMAL) 10/21/18 22:00 Sodium 141 mEq/L (136-145) 10/25/18 04:20 Potassium 4.1 mEq/L (3.5-5.1) 10/25/18 04:20 Chloride 108 mEq/L (98-107) H 10/25/18 04:20 Carbon Dioxide 25.6 mEq/L (21.0-31.0) 10/25/18 04:20 Anion Gap 11.5 (7.0-16.0) 10/25/18 04:20 BUN 36 mg/dL (7-25) H 10/25/18 04:20 Creatinine 1.3 mg/dL (0.6-1.2) H 10/25/18 04:20 Est GFR ( Amer) TNP 10/25/18 04:20 Est GFR (Non-Af Amer) TNP 10/25/18 04:20 BUN/Creatinine Ratio 27.7 10/25/18 04:20 Glucose 90 mg/dL (70-105) 10/25/18 04:20 Calcium 9.7 mg/dL (8.6-10.3) 10/25/18 04:20 Ferritin 5822 ng/mL (15-150) H 10/22/18 18:00 Total Bilirubin 1.3 mg/dL (0.3-1.0) H 10/25/18 04:20 AST 37 U/L (13-39) 10/25/18 04:20 ALT 58 U/L (7-52) H 10/25/18 04:20 Alkaline Phosphatase 59 U/L (34-104) 10/25/18 04:20 Total Protein 6.5 gm/dL (6.0-8.3) 10/25/18 04:20 Albumin 4.2 gm/dL (3.7-5.3) 10/25/18 04:20 Globulin 2.3 gm/dL 10/25/18 04:20 Albumin/Globulin Ratio 1.8 (1.0-1.8) 10/25/18 04:20 Urine Source CLEAN C 10/23/18 03:31 Urine Color YELLOW 10/23/18 03:31 Urine Clarity CLEAR (CLEAR) 10/23/18 03:31 Urine pH 6.0 (4.6 - 8.0) 10/23/18 03:31 Ur Specific [place] >= 1.030 (1.005-1.030) 10/23/18 03:31 Urine Protein TRACE mg/dL (NEGATIVE) 10/23/18 03:31 Urine Glucose (UA) NEGATIVE mg/dL (NEGATIVE) 10/23/18 03:31 Urine Ketones NEGATIVE mg/dL (NEGATIVE) 10/23/18 03:31 Urine Blood NEGATIVE (NEGATIVE) 10/23/18 03:31 Urine Nitrate NEGATIVE (NEGATIVE) 10/23/18 03:31 Urine Bilirubin NEGATIVE (NEGATIVE) 10/23/18 03:31 Urine Urobilinogen 0.2 E.U./dL (0.2 - 1.0) 10/23/18 03:31 Ur Leukocyte Esterase NEGATIVE (NEGATIVE) 10/23/18 03:31 Urine RBC NONE SEEN /hpf (0-5) 10/23/18 03:31 Urine WBC 0-2 /hpf (0-5) 10/23/18 03:31 Ur Epithelial Cells RARE /lpf (FEW) 10/23/18 03:31 Urine Bacteria NONE SEEN /hpf (NONE SEEN) 10/23/18 03:31 Stool Occult Blood NEGATIVE (NEGATIVE) 10/24/18 15:45 Blood Type O POSITIVE 10/22/18 00:00 Antibody Screen NEGATIVE 10/22/18 00:00 Crossmatch See Detail 10/22/18 00:00 - Physical Exam Vitals and I&O: Vital Signs Temp 98.3 F 10/25/18 16:00 Pulse 61 10/25/18 21:41 Resp 18 10/25/18 20:00 BP 152/63 10/25/18 21:41 Pulse Ox 96 10/25/18 16:00 Intake & Output 10/25/18 10/25/18 10/26/18 06:59 18:59 06:59 Intake Total 700 Balance 700 Weight (lbs) 42.638 kg Intake: Oral 700 Other: # Voids 3 Stool Characteristics Formed Formed Hard Hard Brown Brown Weight Source Bedscale Active Medications: Current Medications Acetaminophen (Tylenol) 650 mg PO Q4H PRN PRN Reason: Pain (Moderate) Stop: 12/21/18 06:01 Atorvastatin Calcium (Lipitor) 40 mg PO DAILY [facility]; Protocol Stop: 12/24/18 08:59 Last Admin: 10/25/18 19:31 Dose: 40 mg Bisacodyl (Dulcolax 10 Mg Supp) 10 mg RC NOW PRN PRN Reason: Constipation Stop: 12/21/18 05:42 Epoetin German (Epogen) 5,000 units SUBQ MoWeFr [facility] Stop: 12/23/18 14:59 Last Admin: 10/24/18 14:45 Dose: 5,000 units Famotidine (Pepcid) 20 mg PO DAILY [facility] Stop: 12/21/18 06:59 Last Admin: 10/25/18 08:18 Dose: 20 mg Isosorbide Dinitrate (Isordil) 5 mg PO TID [facility] Stop: 12/21/18 08:59 Last Admin: 10/25/18 21:41 Dose: 5 mg Magnesium Hydroxide (Milk Of Magnesia) 30 ml PO DAILY PRN PRN Reason: Constipation Stop: 12/23/18 08:59 Metoprolol Succinate (Toprol Xl) 50 mg PO DAILY [facility] Stop: 12/21/18 08:59 Last Admin: 10/25/18 08:19 Dose: 50 mg Montelukast Sodium (Singulair) 10 mg PO HS [facility] Stop: 12/21/18 20:59 Last Admin: 10/25/18 21:41 Dose: 10 mg General: no acute distress, well nourished HEENT: atraumatic, normocephalic, PERRLA, EOMI Neck: supple, no thyromegaly Cardiovascular: S1S2, regular Lungs: clear to auscultation bilaterally, clear to percussion Abdomen: soft, no tender, no distended Extremities: no cyanosis, no clubbing, no edema Neurological: awake, alert, oriented Skin: intact - Procedures Procedures: Procedures Procedure Code Date BLOOD TRANSFUSION SERVICE 00521 06/25/17 EXCISION OF DUODENUM, ENDO, DIAGN [id number] 08/30/18 EXCISION OF SIGMOID COLON, ENDO [id number] 08/30/18 EXCISION OF STOMACH, ENDO, DIAGN [id number] 08/30/18 TRANSFUSE NONAUT RED BLOOD CELLS IN PERIPH VEIN, PERC 42254R9 10/22/18 Infectious Disease Assmt/Plan - Assessment Assessment: 1. Anemia, anemia w/u. 2. Hepatitis. 3. DM2 4. HTN. 5. Dementia. 6. MDS. - Plan Plan: Continue same treatment, follow up as per consultants. monitor labs.' Further care per Dr López from [facility]. Nutritional Asmnt/Malnutr-PDOC - Dietary Evaluation Malnutrition Findings (Please click <Entered> for more info): Nutritional Asmnt/Malnutrition Start: 10/22/18 10: 49 Text: Status: Complete Freq: Protocol: Document 10/22/18 10:58 CHARLES (Rec: 10/22/18 11:06 CHARLES ESCALONA- [email or web address]) Nutritional Asmnt/Malnutrition Patient General Information Nutritional Screening High Risk Diagnosis severe anemia, possible iron overload, hepatitis Pertinent Medical Hx/Surgical Hx No H&P/noted history yet Subjective Information Cantonese speaking patient. Patient eating lunch at time of visit; tolerating well without difficulty. Current Diet Order/ Nutrition Support 60 gm CCHO, 2gm Na, chopped, Ensure Clear BID Patient / S.O Not Indicated Pertinent Medications Lipitor, dulcolax, Pepcid, MOM Pertinent Labs (10/21) AST 46, ALT 68 Nutritional Hx/Data Height 1.57 m Height (Calculated Centimeters) 157.5 Current Weight (lbs) 42.638 kg Weight (Calculated Kilograms) 42.6 Weight (Calculated Grams) 93299.7 [place] Body Weight 110 % [place] Body Weight 85 Body Mass Index (BMI) 17.2 Recent Weight Change No Weight Status Underweight GI Symptoms GI Symptoms None Last BM none noted since admission Difficult in: None Food Allergies No Cultural/Ethnic/Anabaptism Belief none indicated Usual diet at home unknown Skin Integrity/Comment: Intact, Darrel not yet recorded Estimated Nutritional Goals BEE in Kcals: Using Current wt Calories/Kcals/Kg CBW 42.7kg Kcals Calculated ~1157-9866 kcal/day (30-35 kcal/kg) Protein: Using Current wt Protein g/k.1-1.3 gm/kg Protein Calculated ~45-55 gm/day Fluid: ml ~2865-9981 ml/day (1 ml/kcal) Nutritional Problem 1. Problem Problem Underweight related to Etiology possible inadequate intake prior to admission aeb Signs/Symptoms: BMI 17.2, 85% IBW Intervention/Recommendation Comments 1. Continue current diet and Supplements as tolerated by patient. 2. Monitor oral intake and tolerance to diet. Will modify diet/supplements as needed. Expected Outcomes/Goals Expected Outcomes/Goals Adequate nutrition to meet >75 % estimated needs, improved labs, skin remains intact, weight maintenance or trend toward ideal body weight. F/U MR 10/25-
[2018-10-26 05:28] LABS: % BASOPHILS 1.2 % (0.0-2.0); % EOSINOPHILS 7.6 % (0.0-5.0); % LYMPHOCYTES 34.2 % (20.0-50.0); % MONOCYTES 8.2 % (2.0-10.0); % NEUTROPHILS 48.8 % (40.0-80.0); BASOPHILE ABSOLUTE 0.1 Th/cumm (0-0.2); EOSINOPHILE ABSOLUTE 0.5 Th/cmm (0.1-0.4); HEMATOCRIT 31.3 % (41.0-60); HEMOGLOBIN 10.5 gm/dL (12-16); LYMPHOCYTE ABSOLUTE 2.4 Th/cmm (1.5-3.0); MEAN CELL VOLUME 98.9 fl (81-100); MEAN CORPUSCULAR HEMOGLOBIN 33.1 pg (27.0-31.0); MEAN CORPUSCULAR HGB CONC 33.5 pg (28.0-36.0); MONOCYTE ABSOLUTE 0.6 Th/cmm (0.3-1.0); NEUTROPHILE ABSOLUTE 3.4 Th/cmm (1.8-8.0); PLATELET COUNT 286 Th/cmm (150-400); RED BLOOD COUNT 3.16 Mil/cmm (3.80-5.20); RED CELL DISTRIBUTION WIDTH 25.7 % (11.5-20.0)
[2018-10-26 05:39] LABS: ALBUMIN 3.6 gm/dL (3.7-5.3); ANION GAP 9.8 (7.0-16.0); BUN - UREA NITROGEN 30 mg/dL (7-25); CALCIUM SERUM 9.4 mg/dL (8.6-10.3); CARBON DIOXIDE 26.4 mEq/L (21.0-31.0); CHLORIDE 106 mEq/L (98-107); CREATININE - SERUM 1.1 mg/dL (0.6-1.2); GLUCOSE 91 mg/dL (70-105); POTASSIUM SERUM 4.2 mEq/L (3.5-5.1); SODIUM SERUM 138 mEq/L (136-145); TOTAL PROTEIN,SERUM 6.1 gm/dL (6.0-8.3)
[2018-10-26 05:40] LABS: ALB/GLOB RATIO 1.4 (1.0-1.8); ALKALINE PHOSPHATASE 57 U/L (34-104); BILIRUBIN,TOTAL 1.2 mg/dL (0.3-1.0); SGOT 36 U/L (13-39); SGPT/ALT 53 U/L (7-52)
[2018-10-26] MEDS: Multivitamin w/ Minerals Tab PO SCH (09:22)
--- NOTE | 2018-10-26 14:19 | Internal Medicine Prog Note ---
Internal Medicine Subjective - Subjective Service Date: 10/26/18 Patient seen and examined:: chart reviewed Patient is:: awake, verbal, confused Patient Complaints of:: other (very weak.) Per staff patient has:: no adverse event, no episodes of fall Internal Medicine Objective - Results Result Diagrams: 10/26/18 05:10 10/26/18 05:10 Recent Labs: Laboratory Last Values WBC 7.0 Th/cmm (4.8-10.8) 10/26/18 05:10 RBC 3.16 Mil/cmm (3.80-5.20) L 10/26/18 05:10 Hgb 10.5 gm/dL (12-16) L 10/26/18 05:10 Hct 31.3 % (41.0-60) L 10/26/18 05:10 MCV 98.9 fl (81-100) 10/26/18 05:10 MCH 33.1 pg (27.0-31.0) H 10/26/18 05:10 MCHC Differential 33.5 pg (28.0-36.0) 10/26/18 05:10 RDW 25.7 % (11.5-20.0) H 10/26/18 05:10 Plt Count 286 Th/cmm (150-400) 10/26/18 05:10 MPV 8.9 fl 10/26/18 05:10 Add Manual Diff YES 10/25/18 04:20 Neutrophils % 48.8 % (40.0-80.0) 10/26/18 05:10 Band Neutrophils % 0 % (0-10) 10/25/18 04:20 Lymphocytes % 34.2 % (20.0-50.0) 10/26/18 05:10 Monocytes % 8.2 % (2.0-10.0) 10/26/18 05:10 Eosinophils % 7.6 % (0.0-5.0) H 10/26/18 05:10 Basophils % 1.2 % (0.0-2.0) 10/26/18 05:10 Neutrophils (Manual) 50 % (40-80) 10/25/18 04:20 Lymphocytes 36 % (20-50) 10/25/18 04:20 Monocytes 7 % (2-10) 10/25/18 04:20 Eosinophils 7 % (0-5) H 10/25/18 04:20 Basophils 0 % (0-3) 10/22/18 10:46 Hypochromia 1+ 10/21/18 22:00 Platelet Estimate ADEQUATE (NORMAL) 10/21/18 22:00 Platelet Morphology NORMAL (NORMAL) 10/21/18 22:00 Anisocytosis 1+ 10/25/18 04:20 RBC Morph Micro Appear ABNORMAL (NORMAL) 10/21/18 22:00 Sodium 138 mEq/L (136-145) 10/26/18 05:10 Potassium 4.2 mEq/L (3.5-5.1) 10/26/18 05:10 Chloride 106 mEq/L (98-107) 10/26/18 05:10 Carbon Dioxide 26.4 mEq/L (21.0-31.0) 10/26/18 05:10 Anion Gap 9.8 (7.0-16.0) 10/26/18 05:10 BUN 30 mg/dL (7-25) H 10/26/18 05:10 Creatinine 1.1 mg/dL (0.6-1.2) 10/26/18 05:10 Est GFR ( Amer) TNP 10/26/18 05:10 Est GFR (Non-Af Amer) TNP 10/26/18 05:10 BUN/Creatinine Ratio 27.3 10/26/18 05:10 Glucose 91 mg/dL (70-105) 10/26/18 05:10 Calcium 9.4 mg/dL (8.6-10.3) 10/26/18 05:10 Ferritin 5822 ng/mL (15-150) H 10/22/18 18:00 Total Bilirubin 1.2 mg/dL (0.3-1.0) H 10/26/18 05:10 AST 36 U/L (13-39) 10/26/18 05:10 ALT 53 U/L (7-52) H 10/26/18 05:10 Alkaline Phosphatase 57 U/L (34-104) 10/26/18 05:10 Total Protein 6.1 gm/dL (6.0-8.3) 10/26/18 05:10 Albumin 3.6 gm/dL (3.7-5.3) L 10/26/18 05:10 Globulin 2.5 gm/dL 10/26/18 05:10 Albumin/Globulin Ratio 1.4 (1.0-1.8) 10/26/18 05:10 Urine Source CLEAN C 10/23/18 03:31 Urine Color YELLOW 10/23/18 03:31 Urine Clarity CLEAR (CLEAR) 10/23/18 03:31 Urine pH 6.0 (4.6 - 8.0) 10/23/18 03:31 Ur Specific [place] >= 1.030 (1.005-1.030) 10/23/18 03:31 Urine Protein TRACE mg/dL (NEGATIVE) 10/23/18 03:31 Urine Glucose (UA) NEGATIVE mg/dL (NEGATIVE) 10/23/18 03:31 Urine Ketones NEGATIVE mg/dL (NEGATIVE) 10/23/18 03:31 Urine Blood NEGATIVE (NEGATIVE) 10/23/18 03:31 Urine Nitrate NEGATIVE (NEGATIVE) 10/23/18 03:31 Urine Bilirubin NEGATIVE (NEGATIVE) 10/23/18 03:31 Urine Urobilinogen 0.2 E.U./dL (0.2 - 1.0) 10/23/18 03:31 Ur Leukocyte Esterase NEGATIVE (NEGATIVE) 10/23/18 03:31 Urine RBC NONE SEEN /hpf (0-5) 10/23/18 03:31 Urine WBC 0-2 /hpf (0-5) 10/23/18 03:31 Ur Epithelial Cells RARE /lpf (FEW) 10/23/18 03:31 Urine Bacteria NONE SEEN /hpf (NONE SEEN) 10/23/18 03:31 Stool Occult Blood NEGATIVE (NEGATIVE) 10/24/18 15:45 Blood Type O POSITIVE 10/22/18 00:00 Antibody Screen NEGATIVE 10/22/18 00:00 Crossmatch See Detail 10/22/18 00:00 - Physical Exam Vitals and I&O: Vital Signs Temp 98.8 F 10/26/18 08:00 Pulse 60 10/26/18 09:22 Resp 18 10/26/18 08:00 BP 156/55 10/26/18 09:22 Pulse Ox 100 10/26/18 08:00 Intake & Output 10/25/18 10/26/18 10/26/18 18:59 06:59 18:59 Intake Total 700 Balance 700 Weight (lbs) 42.638 kg Intake: Oral 700 Other: # Voids 3 Stool Characteristics Formed Formed Hard Hard Brown Brown Weight Source Bedscale Active Medications: Current Medications Acetaminophen (Tylenol) 650 mg PO Q4H PRN PRN Reason: Pain (Moderate) Stop: 12/21/18 06:01 Atorvastatin Calcium (Lipitor) 40 mg PO DAILY [facility]; Protocol Stop: 12/24/18 08:59 Last Admin: 10/26/18 09:22 Dose: 40 mg Bisacodyl (Dulcolax 10 Mg Supp) 10 mg RC NOW PRN PRN Reason: Constipation Stop: 12/21/18 05:42 Epoetin German (Epogen) 5,000 units SUBQ MoWeFr [facility] Stop: 12/23/18 14:59 Last Admin: 10/24/18 14:45 Dose: 5,000 units Famotidine (Pepcid) 20 mg PO DAILY [facility] Stop: 12/21/18 06:59 Last Admin: 10/26/18 09:22 Dose: 20 mg Isosorbide Dinitrate (Isordil) 5 mg PO TID [facility] Stop: 12/21/18 08:59 Last Admin: 10/26/18 09:22 Dose: 5 mg Magnesium Hydroxide (Milk Of Magnesia) 30 ml PO DAILY PRN PRN Reason: Constipation Stop: 12/23/18 08:59 Metoprolol Succinate (Toprol Xl) 50 mg PO DAILY [facility] Stop: 12/21/18 08:59 Last Admin: 10/26/18 09:21 Dose: 50 mg Montelukast Sodium (Singulair) 10 mg PO HS [facility] Stop: 12/21/18 20:59 Last Admin: 10/25/18 21:41 Dose: 10 mg Physical Exam: Patient remains very weak and confused. General: weak, demented HEENT: NC/AT Neck: Supple Lungs: CTAB Cardiovascular: RRR, Normal S1, Normal S2 Abdomen: soft, non-tender Extremities: clear Neurological: no change - Procedures Procedures: Procedures Procedure Code Date BLOOD TRANSFUSION SERVICE 12042 06/25/17 EXCISION OF DUODENUM, ENDO, DIAGN [id number] 08/30/18 EXCISION OF SIGMOID COLON, ENDO [id number] 08/30/18 EXCISION OF STOMACH, ENDO, DIAGN [id number] 08/30/18 TRANSFUSE NONAUT RED BLOOD CELLS IN PERIPH VEIN, PERC 21710P0 10/22/18 Internal Medicine Assmt/Plan - Assessment Assessment: Copd. Dementia. Hypertension. Hypothyroidism. Osteoarthritis. Persistent Macrocytic anemia. Diabetes Mellitus. - Plan Plan: Continuation of care. Monitor Labs, Monitor Hemoglobin levels. Accu-check twice daily, continue DM meds as directed. Continue present meds as directed. Monitor Vitals, Continue Blood pressure meds as directed. Monitor Diet/Nutritional support. Psych management per Psych. Pain Management. PT/OT prn. Safety precaution. Supportive care. Fall precaution, frequent nursing rounds, and as needed restraints to prevent fall. Continue collaborating with consulting specialists, case management and nursing team. Will Monitor patient and continue present care management. Nutritional Asmnt/Malnutr-PDOC - Dietary Evaluation Malnutrition Findings (Please click <Entered> for more info): Nutritional Asmnt/Malnutrition Start: 10/22/18 10: 49 Text: Status: Complete Freq: Protocol: Document 10/22/18 10:58 MMLOU (Rec: 10/22/18 11:06 MMLOU ESCALONA- FNS1) Nutritional Asmnt/Malnutrition Patient General Information Nutritional Screening High Risk Diagnosis severe anemia, possible iron overload, hepatitis Pertinent Medical Hx/Surgical Hx No H&P/noted history yet Subjective Information Cantonese speaking patient. Patient eating lunch at time of visit; tolerating well without difficulty. Current Diet Order/ Nutrition Support 60 gm CCHO, 2gm Na, chopped, Ensure Clear BID Patient / S.O Not Indicated Pertinent Medications Lipitor, dulcolax, Pepcid, MOM Pertinent Labs (10/21) AST 46, ALT 68 Nutritional Hx/Data Height 1.57 m Height (Calculated Centimeters) 157.5 Current Weight (lbs) 42.638 kg Weight (Calculated Kilograms) 42.6 Weight (Calculated Grams) 54786.7 [place] Body Weight 110 % [place] Body Weight 85 Body Mass Index (BMI) 17.2 Recent Weight Change No Weight Status Underweight GI Symptoms GI Symptoms None Last BM none noted since admission Difficult in: None Food Allergies No Cultural/Ethnic/Latter-Day Belief none indicated Usual diet at home unknown Skin Integrity/Comment: Intact, Darrel not yet recorded Estimated Nutritional Goals BEE in Kcals: Using Current wt Calories/Kcals/Kg CBW 42.7kg Kcals Calculated ~6217-7146 kcal/day (30-35 kcal/kg) Protein: Using Current wt Protein g/k.1-1.3 gm/kg Protein Calculated ~45-55 gm/day Fluid: ml ~1623-4387 ml/day (1 ml/kcal) Nutritional Problem 1. Problem Problem Underweight related to Etiology possible inadequate intake prior to admission aeb Signs/Symptoms: BMI 17.2, 85% IBW Intervention/Recommendation Comments 1. Continue current diet and Supplements as tolerated by patient. 2. Monitor oral intake and tolerance to diet. Will modify diet/supplements as needed. Expected Outcomes/Goals Expected Outcomes/Goals Adequate nutrition to meet >75 % estimated needs, improved labs, skin remains intact, weight maintenance or trend toward ideal body weight. F/U MR 10/25-
[2018-10-26] MEDS: Epoetin Alfa 20000 Units/mL Vial SUBQ SCH (16:45)
--- NOTE | 2018-11-01 13:29 | Discharge Summary ---
General Discharge Summary - Discharge Summary Date of Admission: 10/22/18 Admitting Diagnosis: Low Hemoglobin, Severe anemia requiring blood transfusion. Discharge Date: 10/25/18 Discharge Diagnosis: Severe Anemia-Treated,Improving. Diabetes-Well controlled. Htn-Stable. Myelodysplastic syndrome-Treating,Improving. Copd/ Asthma-Stable. Dementia-Well controlled. Laboratory Findings: Low hemoglobin, Patient had blood transfusion, Severe Anemia was treated and has improved. Hospital Course: Patient was admitted to: Med/Surg for the following evaluations and treatment. The course of hospitalization was uncomplicated and the course of the treatments was uneventful. Treatment: Hospital Course and Treatment Rendered: Accu-check daily, Lab tests, Monitor vitals, Blood transfusion, Supportive care, Fall precaution, Psych management, Psych consult, Director Operating consult and Internal medicine consult. Condition at Discharge: Stable Disposition: Discharge/Transfered to SNF Home Medications: Home Medication Medication Instructions Recorded Type Acetaminophen [Tylenol] 650 mg PO Q4HR PRN 04/06/17 History Atorvastatin Calcium [Lipitor] 40 mg PO HS 04/06/17 History Bisacodyl [Dulcolax 10 Mg Supp] 10 mg RC DAILY PRN 04/06/17 History Docusate Sodium [Colace] 100 mg PO DAILY 04/06/17 History Famotidine [Pepcid] 20 mg DT DAILY 04/06/17 History Fleet Enema 135 ml RC Q48H PRN 04/06/17 History Folic Acid [Folate*] 1 mg PO DAILY 04/06/17 History Isosorbide Dinitrate 5 mg PO TID 04/06/17 History Magnesium Hydroxide [Milk of 30 ml PO HS PRN 04/06/17 History Magnesia] Metoprolol Succinate [Toprol Xl] 50 mg PO DAILY 04/06/17 History Montelukast [Singulair] 10 mg PO DAILY 04/06/17 History Multivitamin with Minerals 1 tab PO DAILY 04/06/17 History [Multivitamins with Minerals] Pyridoxine [Vitamin B6] 50 mg PO DAILY 04/06/17 History Ferrous Sulfate 325 mg PO DAILY 08/30/18 History Levothyroxine [Synthroid] 0.125 mg PO QDAC 08/30/18 History Epoetin German [Epogen*] 5,000 units SUBQ MoWeFr@1500 ml 09/02/18 Rx Cranberry Fruit Concentrate 450 mg PO DAILY 10/21/18 History [Cranberry] Inpatient Medications: Please see medication reconciliation sheet. Activity: As Tolerated Discharge Diet: Regular Consults and Follow-Up: Coltete López [Primary Care Provider] - Consulting Speciality: Hematology Instructions: Anemia, Nonspecific-Brief
== END 2018-10-26 17:00 | DRG 812 ==
LOC: ER 21:34 → MSI 10-22 05:19
PROVIDERS: ADMIT Internal Medicine; ATTEND Internal Medicine
PROC: 30233N1 Transfusion of Nonautologous Red Blood Cells into Peripheral Vein, Percutaneous Approach (ICD-10-PCS; principal; 2018-10-22)
DX: D53.9 Nutritional anemia, unspecified (principal); E11.9 Type 2 diabetes mellitus without complications; D46.9 Myelodysplastic syndrome, unspecified; F03.90 Unspecified dementia, unspecified severity, without behavioral disturbance, psychotic disturbance, mood disturbance, and anxiety; K75.9 Inflammatory liver disease, unspecified; I10 Essential (primary) hypertension; J44.9 Chronic obstructive pulmonary disease, unspecified; M19.90 Unspecified osteoarthritis, unspecified site
CPT/HCPCS: 36415-UA; 80053-TC; 81001-TC; 82270-TC; 82728-90; 85007-TC; 85025-TC; 86850-TC; 86900-TC; 86901-TC; 86922-TC; J0885; J7030; J7040; P9016; Z7610